=== PATIENT | female | born 1995 | race Caucasian/White ===

== ENCOUNTER 2016-03-22 13:24 | Emergency (ER) | payer MEDICAID ==
[~2016-03-22] VITALS: Ht 165.1 cm; Wt 57.2 kg
[~2016-03-22 13:24] MED LIST: ARPZ10T; ARPZ10T PO; BPR75T; CALC500T7 PO; CEFP250T2 PO; CEPH500C PO; DICY20TA57 PO; DIPH1TAB45 PO; ESCI5TAB; ESCT10T PO; FAMO20TA5 PO; FLC150T PO; Ibuprofen PO; LISD20CA PO; METH10TA8 PO; METH20TA; METR500T; METR500T PO; MTR250T PO; MULTI VITAMIN; NF-FLON16G; NF-VYVAN20; NF-VYVAN20 PO; NITR-65 PO; OMEP40CA36 PO; ONDA-42 PO; ONDA-42 SL; ONDAN4ODT PO; OSLT75C PO; PREN1TAB71 PO; SULF1TAB35 PO; SULF1TAB38 PO; TOPI15CA6 PO; TPR25T
[2016-03-22 14:01] LABS: RED BLOOD COUNT 3.62 10^6/uL (4.35-5.85); RED CELL DISTRIBUTION WIDTH 13.5 % (10.0-14.5); WHITE BLOOD COUNT 7.7 10^3/uL (4.3-11.0)
--- NOTE | 2016-03-22 15:22 | ED GU-Female ---
General Chief Complaint: -Female Stated Complaint: 19 WKS PREG/LEAKING FLUID/PELVIC DISCOMFORT Nursing Triage Note: PT REPORTS CLEAR/MILKY WHITE DISCHARGE SINCE THIS AM. SHE DENIES BLEEDING OR SPOTTING, BUT C/O MILD CRAMPING. SHE STATES SHE IS 19 WEEKS . Nursing Sepsis Screen: No Definite Risk Source: patient Exam Limitations: no limitations History of Present Illness Time seen by provider: 15:17 Initial Comments The patient is a 21-year-old white female who states that she is 19 weeks . She has been seeing a provider in [facility] [place]. She believed that her water broke this morning as she had at first clear fluid and then milky white fluid. This is her second however she had to be induced on the first and has no memory of the the water breaking. There is no pain or no fever. Timing/Duration: this morning Severity/Quality: mild Allergies and Home Medications Allergies Coded Allergies: No Known Drug Allergies (Unverified , 06/05/08) Home Medications Nitrofurantoin Monohyd/M-Cryst 100 Mg Capsule #20 1 TAB PO BID Prescribed by: CLAIRE TRAMMELL on 02/21/16 1355 Vit/Fe Fumarate/Fa 1 Each Tablet 1 EACH PO DAILY (Reported) Constitutional: see HPI EENTM: no symptoms reported Respiratory: no symptoms reported Cardiovascular: no symptoms reported Gastrointestinal: no symptoms reported Genitourinary: no symptoms reported Musculoskeletal: no symptoms reported Skin: no symptoms reported Psychiatric/Neurological: No Symptoms Reported Endocrine: No Symptoms Reported Hematologic/Lymphatic: No Symptoms Reported Past Jnserrk-Vnotcz-Mebvfy Hx Patient Social History Alcohol Use: Denies Use Recreational Drug Use: No (MARIJUANA) Smoking Status: Never a Smoker Recent Foreign Travel: No Contact w/Someone Who Travel: No Recent Infectious Disease Expo: No Recent Hopitalizations: No Physical Abuse Screen: No Sexual Abuse: No Seasonal Allergies Seasonal Allergies: No Surgeries HX Surgeries: Yes Surgeries: Tonsillectomy Respiratory Hx Respiratory Disorders: No Cardiovascular Hx Cardiac Disorders: No Neurological Hx Neurological Disorders: No Reproductive System Hx Reproductive Disorders: No Sexually Transmitted Disease: No HIV/AIDS: No Female Reproductive Disorders: Denies Genitourinary Hx Genitourinary Disorders: No Gastrointestinal Hx Gastrointestinal Disorders: No Musculoskeletal Hx Musculoskeletal Disorders: No Endocrine Hx Endocrine Disorders: No HEENT HX ENT Disorders: No Cancer Hx Cancer: No Psychosocial Hx Psychiatric Problems: No Integumentary HX Skin/Integumentary Disorder: No Blood Transfusions Hx Blood Disorders: No Adverse Reaction to a Blood Tr: No Family Medical History Family Medial History: Alcoholism 19 FATHER (PGF) No Family History of: Abdominal aortic aneurysm [place]'s disease Aphasia Cancer Cancer of colon Cataract Chest pain Congenital heart disease Congestive heart failure Cystic fibrosis Dementia Dysphagia Family history: Allergy Family history: Alzheimer's disease Family history: Arthritis Family history: Asthma Family history: Breast disease Family history: Cardiovascular disease Family history: Coronary thrombosis Family history: Diabetes mellitus Family history: Gastrointestinal disease Family history: Glaucoma Family history: Hypertension Family history: Osteoporosis Family history: Thyroid disorder Headache Hearing loss Heart disease Hereditary disease History of - anemia History of - disorder History of - respiratory disease History of drug abuse Human immunodeficiency virus (HIV) seropositivity Hypercholesterolemia Infertile Kidney disease Malignant neoplasm of lung Myocardial infarction Parkinson's disease Prostate cancer Psychotic disorder Seizure disorder Stroke Tuberculosis Visual impairment Physical Exam Vital Signs Vital Sign - Last 12Hours 03/22/16 13:35 Temp 96.8 Pulse 73 Resp 16 B/P 114/68 Pulse Ox 98 O2 Delivery Room Air Capillary Refill : Less Than 3 Seconds General Appearance: WD/WN no apparent distress HEENT: normal ENT inspection Neck: full range of motion Respiratory: chest non-tender lungs clear normal breath sounds no respiratory distress no accessory muscle use respiratory distress Gastrointestinal: other (the uterus was at approximately the umbilicus.) Pelvic: other ( cervix was large and soft.) Back: normal inspection no CVA tenderness no vertebral tenderness CVA tenderness (R) CVA tenderness (L) Extremities: normal range of motion non-tender normal inspection no pedal edema no calf tenderness normal capillary refill pelvis stable Progress/Results/Core Measures Results/Orders Lab Results Laboratory Tests Test 03/22/16 13:45 Range/Units Hematocrit 32 L 35-52 % Hemoglobin 10.6 L 11.5-16.0 G/DL Human Chorionic Gonadotropin, Quant 16164 H <5 MIU/ML Mean Corpuscular Hemoglobin 29 25-34 PG Mean Corpuscular Hemoglobin Concent 33 32-36 G/DL Mean Corpuscular Volume 88 80-99 FL Mean Platelet Volume 10.0 7.4-10.4 FL Platelet Count 246 130-400 10^3/uL Red Blood Count 3.62 L 4.35-5.85 10^6/uL Red Cell Distribution Width 13.5 10.0-14.5 % White Blood Count 7.7 4.3-11.0 10^3/uL My Orders Orders-CLAIRE TRAMMELL MD Cbc No Diff (03/22/16 13:38) Hcg,Quantitative (03/22/16 13:38) Us Ob Preg Late(14-40wks)67959 (03/22/16 13:38) Vital Signs/I&O Vital Sign - Last 12Hours 03/22/16 13:35 Temp 96.8 Pulse 73 Resp 16 B/P 114/68 Pulse Ox 98 O2 Delivery Room Air Blood Pressure Mean: 83 Departure Communication Progress Notes The sonography tech reported that the crown-rump measurements were compatible with 19 weeks 5 days . The hCG measurement was 18,000+ and can be used for future reference. heart rate was in range. The amnio test swab was rated at between 7.0 and 7.5 pH by both nurse duenas and Yuli. These materials were supplied to the patient to share with her OB provider Impression Impression: Primary Impression: Vaginal discharge during in second trimester Disposition: 01 HOME, SELF-CARE Condition: Stable/Unchanged Departure-Patient Inst. Decision time for Depature: 15:37 Referrals: NO,LOCAL PHYSICIAN (PCP) Primary Care Physician Add. Discharge Instructions: All discharge instructions reviewed with patient and/or family. Voiced understanding. Get appointment to see your provider early next week. Take the materials provided you to the provider. If change in pain or level of discharge return to ER CLAIRE TRAMMELL MD Mar 22, 2016 15:21
--- NOTE | 2016-03-22 15:30 | Diagnostic Imaging Report ---
INDICATION: Leaking fluid. TECHNIQUE: Multiple real time gtz scale sonographic images were obtained of the gravid uterus transabdominally. CORRELATION STUDY: None FINDINGS: Limited obstetrical sonogram imaging demonstrates intrauterine in a cephalic presentation. Normal amount of amniotic fluid with an index at 13 cm. The placenta is anterior without evidence for previa. cardiac activity 140 beats per minute. anatomical evaluation not performed. Biometrical growth parameters demonstrate estimated age of 19 weeks 5 days for an estimated date of delivery August 11, 2016. IMPRESSION: 1.Limited obstetrical sonogram imaging demonstrates intrauterine currently in a cephalic presentation. Currently, normal amount of amniotic fluid is present. Dictated by: Dictated on workstation # [id number]
[2016-03-22 15:45] VITALS: BP 114/68
== END 2016-03-22 15:45 | disposition home or self-care (01) ==
LOC: EDUNIT# 13:24 → ER 13:28
DX: N89.8 Other specified noninflammatory disorders of vagina (principal); Z3A.19 19 weeks gestation of pregnancy
CPT/HCPCS: 36415; 76805; 84702; 85027; 99284

== ENCOUNTER 2016-03-23 12:20 | Outpatient (CLI) | payer MEDICAID ==
[~2016-03-23] VITALS: Ht 165.1 cm; Wt 56.7 kg
[2016-03-23 12:29] VITALS: BP 117/77
[2016-03-23] MEDS ORDERED: FLU TRIvalent (5 YOA+) 2016-17 (AFLURIA) 0.5 ML IM ONE (15:15)
--- NOTE | 2016-03-24 09:58 | Physician Query-Final Dx ---
EDJON LOPEZ 03/24/16 0958: Clinic Account Progress/Dx Physician Query: Please give diagnosis Date of Service Mar 23, 2016 at 12:20 KAI ROQUE MD 03/24/16 1359: Clinic Account Progress/Dx DIAGNOSIS: Diagnosis false labor JOHN,DEJON Mar 24, 2016 09:58 KAI ROQUE MD Mar 24, 2016 13:59
== END 2016-03-23 13:20 | disposition home or self-care (01) ==
LOC: WSo 12:20 → LDRP 12:20 → WSo 13:20
PROVIDERS: ATTEND Obstetrics & Gynecology
DX: O47.02 False labor before 37 completed weeks of gestation, second trimester (principal); Z3A.19 19 weeks gestation of pregnancy
CPT/HCPCS: 99214

== ENCOUNTER 2016-04-25 11:56 | Outpatient (CLI) | payer MEDICAID ==
[~2016-04-25] VITALS: Ht 165.1 cm; Wt 66.7 kg
--- OUTSIDE RECORDS SUMMARY | 2016-04-25 12:01 | XMS REPORT | Continuity of Care Document ---
Author Author [facility] Organization [facility] Address Unknown Phone Unavailable Allergies Active Description Code Type Severity Reaction Onset Reported/Identified Relationship to Patient Clinical Status Yes No Known Drug Allergies [id number] Drug Allergy Mild N/A 06/05/2008 Medications Problems Date Dx Coded Attending Type Code Diagnosis Diagnosed By 11/29/2008 V05.8 GARDASIL 11/29/2008 BREA IVEY APRN V05.8 GARDASIL 11/29/2008 V05.8 GARDASIL 11/29/2008 V05.8 GARDASIL 11/29/2008 GUANACOCORTES EVERETT APRN A V05.8 GARDASIL 11/29/2008 GUANACOCORTES EVERETT APRN V05.8 GARDASIL 11/29/2008 VAZ DO, ZHEN K V05.8 GARDASIL 11/29/2008 VAZ DO, HZEN K V05.8 GARDASIL 11/29/2008 VAZ DO, ZHEN K V05.8 GARDASIL 11/29/2008 VAZ DO, ZHEN K V05.8 GARDASIL 11/29/2008 VAZ DO, ZHEN K V05.8 GARDASIL 11/29/2008 VAZ DO, ZHEN K V05.8 GARDASIL 11/29/2008 VAZ DO, ZHEN K V05.8 GARDASIL 11/29/2008 VAZ DO, ZHEN K V05.8 GARDASIL 11/29/2008 VAZ DO, ZHEN K V05.8 GARDASIL 11/29/2008 VAZ DO, ZHEN K V05.8 GARDASIL 11/29/2008 VAZ DO, ZHEN K V05.8 GARDASIL 02/27/2009 V05.4 VARICELLA, CHICKENPOX 02/27/2009 BREA IVEY APRN V05.4 VARICELLA, CHICKENPOX 02/27/2009 V05.4 VARICELLA, CHICKENPOX 02/27/2009 V05.4 VARICELLA, CHICKENPOX 02/27/2009 CORTES BLANC APRN A V05.4 VARICELLA, CHICKENPOX 02/27/2009 CORTES BLANC APRN A V05.4 VARICELLA, CHICKENPOX 02/27/2009 VAZ DO, ZHEN K V05.4 VARICELLA, CHICKENPOX 02/27/2009 VAZ DO, ZHEN K V05.4 VARICELLA, CHICKENPOX 02/27/2009 VAZ DO, ZHEN K V05.4 VARICELLA, CHICKENPOX 02/27/2009 VAZ DO, ZHEN K V05.4 VARICELLA, CHICKENPOX 02/27/2009 VAZ DO, ZEHN K V05.4 VARICELLA, CHICKENPOX 02/27/2009 VAZ DO, ZHEN K V05.4 VARICELLA, CHICKENPOX 02/27/2009 VAZ DO, ZHEN K V05.4 VARICELLA, CHICKENPOX 02/27/2009 VAZ DO, ZHEN K V05.4 VARICELLA, CHICKENPOX 02/27/2009 VAZ DO, ZHEN K V05.4 VARICELLA, CHICKENPOX 02/27/2009 VAZ DO, ZHEN K V05.4 VARICELLA, CHICKENPOX 02/27/2009 VAZ DO, ZHEN K V05.4 VARICELLA, CHICKENPOX 10/06/2010 Ot 789.00 ABDOMINAL PAIN, UNSPECIFIED SITE 12/15/2010 Ot 599.0 URIN TRACT INFECTION NOS 12/15/2010 Ot 789.07 ABDOMINAL PAIN, GENERALIZED 01/07/2011 296.90 MOOD DISORDER 01/07/2011 780.79 MALAISE AND FATIGUE 01/07/2011 V25.9 CONTRACEPTION MANAGEMENT 01/07/2011 BREA IVEY APRN S 296.90 MOOD DISORDER 01/07/2011 BREA IVEY APRN S 780.79 MALAISE AND FATIGUE 01/07/2011 BREA IVEY APRN S V25.9 CONTRACEPTION MANAGEMENT 01/07/2011 296.90 MOOD DISORDER 01/07/2011 780.79 MALAISE AND FATIGUE 01/07/2011 V25.9 CONTRACEPTION MANAGEMENT 01/07/2011 296.90 MOOD DISORDER 01/07/2011 780.79 MALAISE AND FATIGUE 01/07/2011 V25.9 CONTRACEPTION MANAGEMENT 01/07/2011 CORTES BLANC APRN A 296.90 MOOD DISORDER 01/07/2011 GUANACO INSURANCE SALESPERSON, CORTES A 780.79 MALAISE AND FATIGUE 01/07/2011 GUANACO BONDN, CORTES A V25.9 CONTRACEPTION MANAGEMENT 01/07/2011 GUANACO PEREZ, CORTES A 296.90 MOOD DISORDER 01/07/2011 GUANACO PEREZ, CORTES A 780.79 MALAISE AND FATIGUE 01/07/2011 GUANACO PEREZ, CORTES A V25.9 CONTRACEPTION MANAGEMENT 01/07/2011 VAZ DO, ZHEN K 296.90 MOOD DISORDER 01/07/2011 VAZ DO, ZHEN K 780.79 MALAISE AND FATIGUE 01/07/2011 VAZ DO, ZHEN K V25.9 CONTRACEPTION MANAGEMENT 01/07/2011 VAZ DO, ZHEN K 296.90 MOOD DISORDER 01/07/2011 VAZ DO, ZHEN K 780.79 MALAISE AND FATIGUE 01/07/2011 VAZ DO, ZHEN K V25.9 CONTRACEPTION MANAGEMENT 01/07/2011 VAZ DO, ZHEN K 296.90 MOOD DISORDER 01/07/2011 VAZ DO, ZHEN K 780.79 MALAISE AND FATIGUE 01/07/2011 VAZ DO, ZHEN K V25.9 CONTRACEPTION MANAGEMENT 01/07/2011 VAZ DO, ZHEN K 296.90 MOOD DISORDER 01/07/2011 VAZ DO, ZHEN K 780.79 MALAISE AND FATIGUE 01/07/2011 VAZ DO, ZHEN K V25.9 CONTRACEPTION MANAGEMENT 01/07/2011 VAZ DO, ZHEN K 296.90 MOOD DISORDER 01/07/2011 VAZ DO, ZHEN K 780.79 MALAISE AND FATIGUE 01/07/2011 VAZ DO, ZHEN K V25.9 CONTRACEPTION MANAGEMENT 01/07/2011 VAZ DO, ZHEN K 296.90 MOOD DISORDER 01/07/2011 VAZ DO, ZHEN K 780.79 MALAISE AND FATIGUE 01/07/2011 VAZ DO, ZHEN K V25.9 CONTRACEPTION MANAGEMENT 01/07/2011 VAZ DO, ZHEN K 296.90 MOOD DISORDER 01/07/2011 VAZ DO, ZHEN K 780.79 MALAISE AND FATIGUE 01/07/2011 VAZ DO, ZHEN K V25.9 CONTRACEPTION MANAGEMENT 01/07/2011 VAZ DO, ZHEN K 296.90 MOOD DISORDER 01/07/2011 VAZ DO, ZHEN K 780.79 MALAISE AND FATIGUE 01/07/2011 VAZ DO, ZHEN K V25.9 CONTRACEPTION MANAGEMENT 01/07/2011 VAZ DO, ZHEN K 296.90 MOOD DISORDER 01/07/2011 VAZ DO, ZHEN K 780.79 MALAISE AND FATIGUE 01/07/2011 VAZ DO, ZHEN K V25.9 CONTRACEPTION MANAGEMENT 01/07/2011 VAZ DO, ZHEN K 296.90 MOOD DISORDER 01/07/2011 VAZ DO, ZHEN K 780.79 MALAISE AND FATIGUE 01/07/2011 VAZ DO, ZHEN K V25.9 CONTRACEPTION MANAGEMENT 01/07/2011 VAZ DO, ZHEN K 296.90 MOOD DISORDER 01/07/2011 VAZ DO, ZHEN K 780.79 MALAISE AND FATIGUE 01/07/2011 VAZ DO, ZHEN K V25.9 CONTRACEPTION MANAGEMENT 01/10/2011 296.80 MO BIPOLAR NOS 01/10/2011 314.01 ADHD COMBINED 01/10/2011 UCHE BONDN BREA S 296.80 MO BIPOLAR NOS 01/10/2011 ROMARIO IVEY APRNNDA S 314.01 ADHD COMBINED 01/10/2011 296.80 MO BIPOLAR NOS 01/10/2011 314.01 ADHD COMBINED 01/10/2011 296.80 MO BIPOLAR NOS 01/10/2011 314.01 ADHD COMBINED 01/10/2011 GUANACO INSURANCE SALESPERSON, CORTES A 296.80 MO BIPOLAR NOS 01/10/2011 GUANACO INSURANCE SALESPERSON, CORTES A 314.01 ADHD COMBINED 01/10/2011 GUANACO INSURANCE SALESPERSON, CORTES A 296.80 MO BIPOLAR NOS 01/10/2011 GUANACO INSURANCE SALESPERSON, CORTES A 314.01 ADHD COMBINED 01/10/2011 VAZ DO, ZHEN K 296.80 MO BIPOLAR NOS 01/10/2011 VAZ DO, ZHEN K 314.01 ADHD COMBINED 01/10/2011 VAZ DO, ZHEN K 296.80 MO BIPOLAR NOS 01/10/2011 VAZ DO, ZHEN K 314.01 ADHD COMBINED 01/10/2011 VAZ DO, ZHEN K 296.80 MO BIPOLAR NOS 01/10/2011 VAZ DO, ZHEN K 314.01 ADHD COMBINED 01/10/2011 VAZ DO, ZHEN K 296.80 MO BIPOLAR NOS 01/10/2011 VAZ DO, ZHEN K 314.01 ADHD COMBINED 01/10/2011 VAZ DO, ZHEN K 296.80 MO BIPOLAR NOS 01/10/2011 VAZ DO, ZHEN K 314.01 ADHD COMBINED 01/10/2011 VAZ DO, ZHEN K 296.80 MO BIPOLAR NOS 01/10/2011 VAZ DO, ZHEN K 314.01 ADHD COMBINED 01/10/2011 VAZ DO, ZHEN K 296.80 MO BIPOLAR NOS 01/10/2011 VAZ DO, ZHEN K 314.01 ADHD COMBINED 01/10/2011 VAZ DO, ZHEN K 296.80 MO BIPOLAR NOS 01/10/2011 VAZ DO, ZHEN K 314.01 ADHD COMBINED 01/10/2011 VAZ DO, ZHEN K 296.80 MO BIPOLAR NOS 01/10/2011 VAZ DO, ZHEN K 314.01 ADHD COMBINED 01/10/2011 VAZ DO, ZHEN K 296.80 MO BIPOLAR NOS 01/10/2011 VAZ DO, ZHEN K 314.01 ADHD COMBINED 01/10/2011 VAZ DO, ZHEN K 296.80 MO BIPOLAR NOS 01/10/2011 VAZ DO, ZHEN K 314.01 ADHD COMBINED 01/28/2011 296.33 MO DEPRESSIVE RECURRENT SEVERE W/O PSYCHOTIC BEHAVIOR 01/28/2011 309.81 AN PTSD 01/28/2011 V58.69 MEDICATION HIGH RISK 01/28/2011 OH IVEY APRNA S 296.33 MO DEPRESSIVE RECURRENT SEVERE W/O PSYCHOTIC BEHAVIOR 01/28/2011 BREA IVEY APRN S 309.81 AN PTSD 01/28/2011 ROMARIO IVEY APRNNDA S V58.69 MEDICATION HIGH RISK 01/28/2011 296.33 MO DEPRESSIVE RECURRENT SEVERE W/O PSYCHOTIC BEHAVIOR 01/28/2011 309.81 AN PTSD 01/28/2011 V58.69 MEDICATION HIGH RISK 01/28/2011 296.33 MO DEPRESSIVE RECURRENT SEVERE W/O PSYCHOTIC BEHAVIOR 01/28/2011 309.81 AN PTSD 01/28/2011 V58.69 MEDICATION HIGH RISK 01/28/2011 STEPHANI BLANC APRNIDI A 296.33 MO DEPRESSIVE RECURRENT SEVERE W/O PSYCHOTIC BEHAVIOR 01/28/2011 STEPHANI BLANC APRNIDI A 309.81 AN PTSD 01/28/2011 STEPHANI BLANC APRNIDI A V58.69 MEDICATION HIGH RISK 01/28/2011 STEPHANI BLANC APRNIDI A 296.33 MO DEPRESSIVE RECURRENT SEVERE W/O PSYCHOTIC BEHAVIOR 01/28/2011 GUANACO INSURANCE SALESPERSON, CORTES A 309.81 AN PTSD 01/28/2011 GUANACO BONDN, CORTES A V58.69 MEDICATION HIGH RISK 01/28/2011 VAZ DO, ZHEN K 296.33 MO DEPRESSIVE RECURRENT SEVERE W/O PSYCHOTIC BEHAVIOR 01/28/2011 VAZ DO, ZHEN K 309.81 AN PTSD 01/28/2011 VAZ DO, ZHEN K V58.69 MEDICATION HIGH RISK 01/28/2011 VAZ DO, ZHEN K 296.33 MO DEPRESSIVE RECURRENT SEVERE W/O PSYCHOTIC BEHAVIOR 01/28/2011 VAZ DO, ZHEN K 309.81 AN PTSD 01/28/2011 VAZ DO, ZHEN K V58.69 MEDICATION HIGH RISK 01/28/2011 VAZ DO, ZHEN K 296.33 MO DEPRESSIVE RECURRENT SEVERE W/O PSYCHOTIC BEHAVIOR 01/28/2011 VAZ DO, ZHEN K 309.81 AN PTSD 01/28/2011 VAZ DO, ZHEN K V58.69 MEDICATION HIGH RISK 01/28/2011 VAZ DO, ZHEN K 296.33 MO DEPRESSIVE RECURRENT SEVERE W/O PSYCHOTIC BEHAVIOR 01/28/2011 VAZ DO, ZHEN K 309.81 AN PTSD 01/28/2011 VAZ DO, ZHEN K V58.69 MEDICATION HIGH RISK 01/28/2011 VAZ DO, ZHEN K 296.33 MO DEPRESSIVE RECURRENT SEVERE W/O PSYCHOTIC BEHAVIOR 01/28/2011 VAZ DO, ZHEN K 309.81 AN PTSD 01/28/2011 VAZ DO, ZHEN K V58.69 MEDICATION HIGH RISK 01/28/2011 VAZ DO, ZHEN K 296.33 MO DEPRESSIVE RECURRENT SEVERE W/O PSYCHOTIC BEHAVIOR 01/28/2011 VAZ DO, ZHEN K 309.81 AN PTSD 01/28/2011 VAZ DO, ZHEN K V58.69 MEDICATION HIGH RISK 01/28/2011 VAZ DO, ZHEN K 296.33 MO DEPRESSIVE RECURRENT SEVERE W/O PSYCHOTIC BEHAVIOR 01/28/2011 VAZ DO, ZHEN K 309.81 AN PTSD 01/28/2011 VAZ DO, ZHEN K V58.69 MEDICATION HIGH RISK 01/28/2011 VAZ DO, ZHEN K 296.33 MO DEPRESSIVE RECURRENT SEVERE W/O PSYCHOTIC BEHAVIOR 01/28/2011 VAZ DO, ZHEN K 309.81 AN PTSD 01/28/2011 VAZ DO, ZHEN K V58.69 MEDICATION HIGH RISK 01/28/2011 VAZ DO, ZHEN K 296.33 MO DEPRESSIVE RECURRENT SEVERE W/O PSYCHOTIC BEHAVIOR 01/28/2011 ZHEN VAZ DO K 309.81 AN PTSD 01/28/2011 ZHEN VAZ DO K V58.69 MEDICATION HIGH RISK 01/28/2011 ZHEN VAZ DO K 296.33 MO DEPRESSIVE RECURRENT SEVERE W/O PSYCHOTIC BEHAVIOR 01/28/2011 CED VAZ DOA K 309.81 AN PTSD 01/28/2011 ZHEN VAZ DO K V58.69 MEDICATION HIGH RISK 01/28/2011 ZHEN VAZ DO K 296.33 MO DEPRESSIVE RECURRENT SEVERE W/O PSYCHOTIC BEHAVIOR 01/28/2011 CED VAZ DOA K 309.81 AN PTSD 01/28/2011 ZHEN VAZ DO K V58.69 MEDICATION HIGH RISK 03/04/2011 789.09 ABDOMINAL PAIN OTHER SPECIFIED SITE 03/04/2011 V04.89 GARDASIL (HPV) DX 03/04/2011 V25.01 CONTRACEPTION - ORAL CONTRACEPTION 03/04/2011 V65.45 STD COUNSELING 03/04/2011 V74.5 STD SCREEN 03/04/2011 BREA IVEY APRN 789.09 ABDOMINAL PAIN OTHER SPECIFIED SITE 03/04/2011 BREA IVEY APRN V04.89 GARDASIL (HPV) DX 03/04/2011 BREA IVEY APRN V25.01 CONTRACEPTION - ORAL CONTRACEPTION 03/04/2011 BREA IVEY APRN V65.45 STD COUNSELING 03/04/2011 BREA IVEY APRN V74.5 STD SCREEN 03/04/2011 789.09 ABDOMINAL PAIN OTHER SPECIFIED SITE 03/04/2011 V04.89 GARDASIL (HPV) DX 03/04/2011 V25.01 CONTRACEPTION - ORAL CONTRACEPTION 03/04/2011 V65.45 STD COUNSELING 03/04/2011 V74.5 STD SCREEN 03/04/2011 789.09 ABDOMINAL PAIN OTHER SPECIFIED SITE 03/04/2011 V04.89 GARDASIL (HPV) DX 03/04/2011 V25.01 CONTRACEPTION - ORAL CONTRACEPTION 03/04/2011 V65.45 STD COUNSELING 03/04/2011 V74.5 STD SCREEN 03/04/2011 CORTES BLANC APRN 789.09 ABDOMINAL PAIN OTHER SPECIFIED SITE 03/04/2011 GUANACO INSURANCE SALESPERSON, CORTES A V04.89 GARDASIL (HPV) DX 03/04/2011 CORTES BLANC APRN A V25.01 CONTRACEPTION - ORAL CONTRACEPTION 03/04/2011 STEPHANI BLANC APRNIDI A V65.45 STD COUNSELING 03/04/2011 STEPHANI BLANC APRNIDI A V74.5 STD SCREEN 03/04/2011 CORTES BLANC APRN 789.09 ABDOMINAL PAIN OTHER SPECIFIED SITE 03/04/2011 STEPHANI BLANC APRNIDI A V04.89 GARDASIL (HPV) DX 03/04/2011 STEPHANI BLANC APRNIDI A V25.01 CONTRACEPTION - ORAL CONTRACEPTION 03/04/2011 STEPHANI BLANC APRNIDI A V65.45 STD COUNSELING 03/04/2011 STEPHANI BLANC APRNIDI A V74.5 STD SCREEN 03/04/2011 ZHEN VAZ DO 789.09 ABDOMINAL PAIN OTHER SPECIFIED SITE 03/04/2011 ZHEN VAZ DO V04.89 GARDASIL (HPV) DX 03/04/2011 MILIND ROSALES ZHEN K V25.01 CONTRACEPTION - ORAL CONTRACEPTION 03/04/2011 MILIND ROSALES ZHEN K V65.45 STD COUNSELING 03/04/2011 CED VAZ DOA K V74.5 STD SCREEN 03/04/2011 CED VAZ DOA Nestor 789.09 ABDOMINAL PAIN OTHER SPECIFIED SITE 03/04/2011 CED VAZ DOA K V04.89 GARDASIL (HPV) DX 03/04/2011 MILIND ROSALES ZHEN K V25.01 CONTRACEPTION - ORAL CONTRACEPTION 03/04/2011 MILIND ROSALES ZHEN K V65.45 STD COUNSELING 03/04/2011 MILIND ROSALES ZHEN K V74.5 STD SCREEN 03/04/2011 CED VAZ DOA K 789.09 ABDOMINAL PAIN OTHER SPECIFIED SITE 03/04/2011 VAZ DO ZHEN K V04.89 GARDASIL (HPV) DX 03/04/2011 VAZ DO ZHEN K V25.01 CONTRACEPTION - ORAL CONTRACEPTION 03/04/2011 VAZ DO ZHEN K V65.45 STD COUNSELING 03/04/2011 VAZ DO ZHEN K V74.5 STD SCREEN 03/04/2011 VAZ DOCEDA K 789.09 ABDOMINAL PAIN OTHER SPECIFIED SITE 03/04/2011 VAZ DO, ZHEN K V04.89 GARDASIL (HPV) DX 03/04/2011 VAZ DO ZHEN K V25.01 CONTRACEPTION - ORAL CONTRACEPTION 03/04/2011 VAZ DOCEDA K V65.45 STD COUNSELING 03/04/2011 VAZ DO ZHEN K V74.5 STD SCREEN 03/04/2011 VAZ DOZHEN K 789.09 ABDOMINAL PAIN OTHER SPECIFIED SITE 03/04/2011 VAZ DOCEDA K V04.89 GARDASIL (HPV) DX 03/04/2011 VAZ DO ZHEN K V25.01 CONTRACEPTION - ORAL CONTRACEPTION 03/04/2011 VAZ DOCEDA K V65.45 STD COUNSELING 03/04/2011 VAZ DOCEDA K V74.5 STD SCREEN 03/04/2011 VAZ DOZHEN K 789.09 ABDOMINAL PAIN OTHER SPECIFIED SITE 03/04/2011 VAZ DOCEDA K V04.89 GARDASIL (HPV) DX 03/04/2011 VAZ DOCEDA K V25.01 CONTRACEPTION - ORAL CONTRACEPTION 03/04/2011 VAZ DOCEDA K V65.45 STD COUNSELING 03/04/2011 VAZ DOCEDA K V74.5 STD SCREEN 03/04/2011 VAZ DOZHEN K 789.09 ABDOMINAL PAIN OTHER SPECIFIED SITE 03/04/2011 CED VAZ DOA K V04.89 GARDASIL (HPV) DX 03/04/2011 VAZ DOCEDA K V25.01 CONTRACEPTION - ORAL CONTRACEPTION 03/04/2011 VAZ DOCEDA K V65.45 STD COUNSELING 03/04/2011 VAZ DOCEDA K V74.5 STD SCREEN 03/04/2011 ZHEN VAZ DO 789.09 ABDOMINAL PAIN OTHER SPECIFIED SITE 03/04/2011 VAZ DOCEDA K V04.89 GARDASIL (HPV) DX 03/04/2011 VAZ DO ZHEN K V25.01 CONTRACEPTION - ORAL CONTRACEPTION 03/04/2011 VAZ DO ZHEN K V65.45 STD COUNSELING 03/04/2011 VAZ DO HZEN K V74.5 STD SCREEN 03/04/2011 VAZ DOCEDA K 789.09 ABDOMINAL PAIN OTHER SPECIFIED SITE 03/04/2011 VAZ DOCEDA K V04.89 GARDASIL (HPV) DX 03/04/2011 VAZ DO, ZHEN K V25.01 CONTRACEPTION - ORAL CONTRACEPTION 03/04/2011 CED VAZ DOA K V65.45 STD COUNSELING 03/04/2011 ZHEN VAZ DO K V74.5 STD SCREEN 03/04/2011 ZHEN VAZ DO K 789.09 ABDOMINAL PAIN OTHER SPECIFIED SITE 03/04/2011 ZHEN VAZ DO K V04.89 GARDASIL (HPV) DX 03/04/2011 CED VAZ DOA K V25.01 CONTRACEPTION - ORAL CONTRACEPTION 03/04/2011 CED VAZ DOA K V65.45 STD COUNSELING 03/04/2011 VAZ DO ZHEN K V74.5 STD SCREEN 03/04/2011 VAZ CED ROSALESA K 789.09 ABDOMINAL PAIN OTHER SPECIFIED SITE 03/04/2011 CED VAZ DOA K V04.89 GARDASIL (HPV) DX 03/04/2011 CED VAZ DOA K V25.01 CONTRACEPTION - ORAL CONTRACEPTION 03/04/2011 CED VAZ DOA K V65.45 STD COUNSELING 03/04/2011 ZEHN VAZ DO K V74.5 STD SCREEN 03/25/2011 536.8 DYSPEPSIA 03/25/2011 V68.1 ISSUE OF REPEAT PRESCRIPTIONS 03/25/2011 BREA IVEY APRN S 536.8 DYSPEPSIA 03/25/2011 BREA IVEY APRN S V68.1 ISSUE OF REPEAT PRESCRIPTIONS 03/25/2011 536.8 DYSPEPSIA 03/25/2011 V68.1 ISSUE OF REPEAT PRESCRIPTIONS 03/25/2011 536.8 DYSPEPSIA 03/25/2011 V68.1 ISSUE OF REPEAT PRESCRIPTIONS 03/25/2011 CORTES BLANC APRN A 536.8 DYSPEPSIA 03/25/2011 CORTES BLANC APRN A V68.1 ISSUE OF REPEAT PRESCRIPTIONS 03/25/2011 CORTES BLANC APRN A 536.8 DYSPEPSIA 03/25/2011 CORTES BLANC APRN A V68.1 ISSUE OF REPEAT PRESCRIPTIONS 03/25/2011 ZHEN VAZ DO K 536.8 DYSPEPSIA 03/25/2011 CED VAZ DOA K V68.1 ISSUE OF REPEAT PRESCRIPTIONS 03/25/2011 ZHEN VAZ DO K 536.8 DYSPEPSIA 03/25/2011 VAZ DO, ZHEN K V68.1 ISSUE OF REPEAT PRESCRIPTIONS 03/25/2011 VAZ DO, ZHEN K 536.8 DYSPEPSIA 03/25/2011 VAZ DO, ZHEN K V68.1 ISSUE OF REPEAT PRESCRIPTIONS 03/25/2011 VAZ DO, ZHEN K 536.8 DYSPEPSIA 03/25/2011 VAZ DO, ZHEN K V68.1 ISSUE OF REPEAT PRESCRIPTIONS 03/25/2011 VAZ DO, ZHEN K 536.8 DYSPEPSIA 03/25/2011 VAZ DO, ZHEN K V68.1 ISSUE OF REPEAT PRESCRIPTIONS 03/25/2011 VAZ DO, ZHEN K 536.8 DYSPEPSIA 03/25/2011 VAZ DO, ZHEN K V68.1 ISSUE OF REPEAT PRESCRIPTIONS 03/25/2011 VAZ DO, ZHEN K 536.8 DYSPEPSIA 03/25/2011 VAZ DO, ZHEN K V68.1 ISSUE OF REPEAT PRESCRIPTIONS 03/25/2011 VAZ DO, ZHEN K 536.8 DYSPEPSIA 03/25/2011 VAZ DO, ZHEN K V68.1 ISSUE OF REPEAT PRESCRIPTIONS 03/25/2011 VAZ DO, ZHEN K 536.8 DYSPEPSIA 03/25/2011 VAZ DO, ZHEN K V68.1 ISSUE OF REPEAT PRESCRIPTIONS 03/25/2011 VAZ DO, ZHEN K 536.8 DYSPEPSIA 03/25/2011 VAZ DO, ZHEN K V68.1 ISSUE OF REPEAT PRESCRIPTIONS 03/25/2011 VAZ DO, ZHEN K 536.8 DYSPEPSIA 03/25/2011 VAZ DO, ZHEN K V68.1 ISSUE OF REPEAT PRESCRIPTIONS 03/16/2012 BREA IVEY APRN S 626.0 AMENORRHEA 03/16/2012 BREA IVEY APRN S V69.2 HIGH-RISK SEXUAL BEHAVIOR 03/16/2012 626.0 AMENORRHEA 03/16/2012 V69.2 HIGH-RISK SEXUAL BEHAVIOR 03/16/2012 626.0 AMENORRHEA 03/16/2012 V69.2 HIGH-RISK SEXUAL BEHAVIOR 03/16/2012 GUANACO PEREZ, CORTES A 626.0 AMENORRHEA 03/16/2012 GUANACO PEREZ, CORTES A V69.2 HIGH-RISK SEXUAL BEHAVIOR 03/16/2012 GUANACO PEREZ, CORTES A 626.0 AMENORRHEA 03/16/2012 GUANACO INSURANCE SALESPERSON, CORTES A V69.2 HIGH-RISK SEXUAL BEHAVIOR 03/16/2012 VAZ DO, ZHEN K 626.0 AMENORRHEA 03/16/2012 VAZ DO, ZHEN K V69.2 HIGH-RISK SEXUAL BEHAVIOR 03/16/2012 VAZ DO, ZHEN K 626.0 AMENORRHEA 03/16/2012 VAZ DO, ZHEN K V69.2 HIGH-RISK SEXUAL BEHAVIOR 03/16/2012 VAZ DO, ZHEN K 626.0 AMENORRHEA 03/16/2012 VAZ DO, ZHEN K V69.2 HIGH-RISK SEXUAL BEHAVIOR 03/16/2012 VAZ DO, ZHEN K 626.0 AMENORRHEA 03/16/2012 VAZ DO, ZHEN K V69.2 HIGH-RISK SEXUAL BEHAVIOR 03/16/2012 VAZ DO, ZHEN K 626.0 AMENORRHEA 03/16/2012 VAZ DO, ZHEN K V69.2 HIGH-RISK SEXUAL BEHAVIOR 03/16/2012 VAZ DO, ZHEN K 626.0 AMENORRHEA 03/16/2012 VAZ DO, ZHEN K V69.2 HIGH-RISK SEXUAL BEHAVIOR 03/16/2012 VAZ DO, ZHEN K 626.0 AMENORRHEA 03/16/2012 VAZ DO, ZHEN K V69.2 HIGH-RISK SEXUAL BEHAVIOR 03/16/2012 VAZ DO, ZHEN K 626.0 AMENORRHEA 03/16/2012 VAZ DO, ZHEN K V69.2 HIGH-RISK SEXUAL BEHAVIOR 03/16/2012 VAZ DO, ZHEN K 626.0 AMENORRHEA 03/16/2012 VAZ DO, ZHEN K V69.2 HIGH-RISK SEXUAL BEHAVIOR 03/16/2012 VAZ DO, ZHEN K 626.0 AMENORRHEA 03/16/2012 VAZ DO, ZHEN K V69.2 HIGH-RISK SEXUAL BEHAVIOR 03/16/2012 VAZ DO, ZHEN K 626.0 AMENORRHEA 03/16/2012 VAZ DO, ZHEN K V69.2 HIGH-RISK SEXUAL BEHAVIOR 08/16/2012 564.00 CONSTIPATION 08/16/2012 GUANACO INSURANCE SALESPERSON, CORTES A 564.00 CONSTIPATION 08/16/2012 GUANACO INSURANCE SALESPERSON, CORTES A 564.00 CONSTIPATION 08/16/2012 VAZ DO, ZHEN K 564.00 CONSTIPATION 08/16/2012 VAZ DO, ZHEN K 564.00 CONSTIPATION 08/16/2012 VAZ DO, ZHEN K 564.00 CONSTIPATION 08/16/2012 VAZ DO, ZHEN K 564.00 CONSTIPATION 08/16/2012 VAZ DO, ZHEN K 564.00 CONSTIPATION 08/16/2012 VAZ DO, ZHEN K 564.00 CONSTIPATION 08/16/2012 VAZ DO, ZHEN K 564.00 CONSTIPATION 08/16/2012 VAZ DO, ZHEN K 564.00 CONSTIPATION 08/16/2012 VAZ DO, ZHEN K 564.00 CONSTIPATION 08/16/2012 VAZ DO, ZHEN K 564.00 CONSTIPATION 08/16/2012 VAZ DO, ZHEN K 564.00 CONSTIPATION 09/06/2012 CORTES BLANC APRN A 682.2 CELLULITIS AND ABSCESS OF TRUNK 09/06/2012 CORTES BLANC APRN A 682.2 CELLULITIS AND ABSCESS OF TRUNK 09/06/2012 VAZ DO, ZHEN K 682.2 CELLULITIS AND ABSCESS OF TRUNK 09/06/2012 VAZ DO, ZHEN K 682.2 CELLULITIS AND ABSCESS OF TRUNK 09/06/2012 VAZ DO, ZHEN K 682.2 CELLULITIS AND ABSCESS OF TRUNK 09/06/2012 VAZ DO, ZHEN K 682.2 CELLULITIS AND ABSCESS OF TRUNK 09/06/2012 VAZ DO, ZHEN K 682.2 CELLULITIS AND ABSCESS OF TRUNK 09/06/2012 VAZ DO, ZHEN K 682.2 CELLULITIS AND ABSCESS OF TRUNK 09/06/2012 VAZ DO, ZHEN K 682.2 CELLULITIS AND ABSCESS OF TRUNK 09/06/2012 VAZ DO, ZHEN K 682.2 CELLULITIS AND ABSCESS OF TRUNK 09/06/2012 VAZ DO, ZHEN K 682.2 CELLULITIS AND ABSCESS OF TRUNK 09/06/2012 VAZ DO, ZHEN K 682.2 CELLULITIS AND ABSCESS OF TRUNK 09/06/2012 VAZ DO, ZHEN K 682.2 CELLULITIS AND ABSCESS OF TRUNK 12/01/2012 ANYA PUENTE, GERMAINE A Ot 789.09 ABDOMINAL PAIN, OTHER SPECIFIED SITE 01/14/2013 BLAIR BRITO DO Ot 305.20 CANNABIS ABUSE-UNSPEC 01/14/2013 BLAIR BRITO DO Ot 646.83 PREG COMPL NEC-ANTEPART 01/14/2013 BLAIR BRITO DO Ot 648.43 MENTAL DISORDER-ANTEPART 01/14/2013 BLAIR BRITO DO Ot 786.01 HYPERVENTILATION 03/07/2013 BLAIR BRITO DO Ot 462 ACUTE PHARYNGITIS 03/07/2013 BLAIR BRITO DO Ot 487.1 FLU W RESP MANIFEST NEC 03/07/2013 BLAIR BRITO DO Ot 648.93 OTH CURR COND-ANTEPARTUM 05/13/2013 FABRICE PAEZ APRN Ot 648.93 OTH CURR COND-ANTEPARTUM 05/13/2013 FABRICE PAEZ APRN Ot 881.01 OPEN WOUND OF ELBOW 05/13/2013 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 Ot E000.8 OTHER EXTERNAL CAUSE STATUS 05/13/2013 FABRICE PAEZ APRN Ot E029.9 OTHER ACTIVITY 05/13/2013 FABRICE PAEZ APRN Ot E849.[address] NEC 05/13/2013 FABRICE PAEZ APRN Ot E885.9 FALL FROM SLIPPING, TRIPPING, OR STUMBLI 05/15/2013 VADIM MILLER Ot V58.31 ENCOUNTER FOR CHANGE OR REMOVAL OF SURGI 05/26/2013 CLAIRE TRAMMELL MD Ot V58.32 ENCOUNTER FOR REMOVAL OF SUTURES 05/31/2013 ZHEN VAZ DO Ot 648.73 BONE DISORDER-ANTEPARTUM 05/31/2013 ZHEN VAZ DO Ot 648.93 OTH CURR COND-ANTEPARTUM 05/31/2013 ZHEN VAZ DO Ot 724.5 BACKACHE NOS 05/31/2013 ZHEN VAZ DO Ot 785.1 PALPITATIONS 05/31/2013 ZHEN VAZ DO Ot 786.59 CHEST PAIN NEC 05/31/2013 ZHEN VAZ DO Ot 789.00 ABDOMINAL PAIN, UNSPECIFIED SITE 06/13/2013 GUANACOCORTES Bernardo APRN A V06.1 TDAP DX 06/13/2013 CORTES BLANC APRN A V22.0 , NORMAL FIRST 06/13/2013 ZHEN VAZ DO V06.1 TDAP DX 06/13/2013 ZHEN VAZ DO V22.0 , NORMAL FIRST 06/13/2013 VAZ DO, ZHEN K V06.1 TDAP DX 06/13/2013 VAZ DO, ZHEN K V22.0 , NORMAL FIRST 06/13/2013 VAZ DO, ZHEN K V06.1 TDAP DX 06/13/2013 VAZ DO, ZHEN K V22.0 , NORMAL FIRST 06/13/2013 VAZ DO, ZHEN K V06.1 TDAP DX 06/13/2013 VAZ DO, ZHEN K V22.0 , NORMAL FIRST 06/13/2013 VAZ DO, ZHEN K V06.1 TDAP DX 06/13/2013 VAZ DO, ZHEN K V22.0 , NORMAL FIRST 06/13/2013 VAZ DO, ZHEN K V06.1 TDAP DX 06/13/2013 VAZ DO, ZHEN K V22.0 , NORMAL FIRST 06/13/2013 VAZ DO, ZHEN K V06.1 TDAP DX 06/13/2013 VAZ DO, ZHEN K V22.0 , NORMAL FIRST 06/13/2013 VAZ DO, ZHEN K V06.1 TDAP DX 06/13/2013 VAZ DO, ZHEN K V22.0 , NORMAL FIRST 06/13/2013 VAZ DO, ZHEN K V06.1 TDAP DX 06/13/2013 VAZ DO, ZHEN K V22.0 , NORMAL FIRST 06/13/2013 VAZ DO, ZHEN K V06.1 TDAP DX 06/13/2013 VAZ DO, ZHEN K V22.0 , NORMAL FIRST 06/13/2013 VAZ DO, ZHEN K V06.1 TDAP DX 06/13/2013 VAZ DO, ZHEN K V22.0 , NORMAL FIRST 07/26/2013 VAZ DOZHEN Ot 646.83 PREG COMPL NEC-ANTEPART 07/26/2013 ZHEN VAZ DO Ot 789.00 ABDOMINAL PAIN, UNSPECIFIED SITE 08/19/2013 ZHEN VAZ DO Ot 644.13 THREAT LABOR NEC-ANTEPAR 08/25/2013 ZHEN VAZ DO Ot 645.11 POST TERM PREG, DELIV W/WO MENTION OF AN 08/25/2013 ZHEN VAZ DO Ot 659.71 ABN DEL FET HT RT/RHYTHM,W OR W/O MENTIO 08/25/2013 ZHEN VAZ DO Ot 664.01 DEL W 1 DEG LACERAT-DEL 08/25/2013 MILIND ROSALESZHEN Ot V27.0 DELIVER-SINGLE LIVEBORN 11/18/2013 MILIND ROSALESZHEN V25.01 GENERAL COUNSELING ON PRESCRIPTION OF ORAL CONTRACEPTIVES 11/18/2013 MILIND ROSALESZHEN V25.01 GENERAL COUNSELING ON PRESCRIPTION OF ORAL CONTRACEPTIVES 12/06/2013 VAZ ZHEN ROSALES V25.09 CONTRACEPTIVE COUNSELING - GENERAL 12/10/2013 KENYA FREEMAN DO Ot 535.40 OTH SPECIFIED GASTRITIS,W/O MENTION OF H 12/10/2013 KENYA FREEMAN DO Ot 599.0 URIN TRACT INFECTION NOS 12/10/2013 KENYA FREEMAN DO Ot 965.4 POIS-AROM ANALGESICS NEC 12/10/2013 KENYA FREEMAN DO Ot 965.61 POIS-PROPIONIC ACID DERIVATIVES 12/10/2013 EKNYA FREEMAN DO Ot E850.4 ACC POISON-AROM ANALGESC 12/10/2013 KENYA FREEMAN DO Ot E850.6 ACC POISON-ANTIRHEUMATIC 02/21/2016 KIM PÉREZ MD Ot 649.63 UTERINE SIZE DATE DISCREPANCY, ANTEPARTU 02/21/2016 KIM PÉREZ MD Ot V28.81 ENCOUNTER FOR ANATOMIC SURVEY 02/21/2016 ZHEN VAZ DO Ot V89.02 SUSPECTED PLACENTAL PROBLEM NOT FOUND 02/21/2016 CLAIRE TRAMMELL MD Ot O23.41 UNSP INFCT OF URINARY TRACT IN 02/21/2016 CLAIRE TRAMMELL MD Ot R11.2 NAUSEA WITH VOMITING, UNSPECIFIED 02/21/2016 CLAIRE TRAMMELL MD Ot R42 DIZZINESS AND GIDDINESS 02/21/2016 CLAIRE TRAMMELL MD Ot Z3A.14 14 WEEKS GESTATION OF 02/21/2016 KIM PÉREZ MD Ot 649.63 UTERINE SIZE DATE DISCREPANCY, ANTEPARTU 02/21/2016 KIM PÉREZ MD Ot V28.81 ENCOUNTER FOR ANATOMIC SURVEY 02/21/2016 ZHEN VAZ DO Ot V89.02 SUSPECTED PLACENTAL PROBLEM NOT FOUND 02/22/2016 CLAIRE TRAMMELL MD Ot O23.41 UNSP INFCT OF URINARY TRACT IN 02/22/2016 CLAIRE TRAMMELL MD Ot R11.2 NAUSEA WITH VOMITING, UNSPECIFIED 02/22/2016 CLAIRE TRAMMELL MD Ot R42 DIZZINESS AND GIDDINESS 02/22/2016 CLAIRE TRAMMELL MD Ot Z3A.14 14 WEEKS GESTATION OF 03/22/2016 KIM PÉREZ MD Ot 649.63 UTERINE SIZE DATE DISCREPANCY, ANTEPARTU 03/22/2016 KIM PÉREZ MD Ot V28.81 ENCOUNTER FOR ANATOMIC SURVEY 03/22/2016 MILIND DO, ZHEN Nestor Ot V89.02 SUSPECTED PLACENTAL PROBLEM NOT FOUND 03/22/2016 CLAIRE TRAMMELL MD Ot N89.8 OTHER SPECIFIED NONINFLAMMATORY DISORDER 03/22/2016 CLAIRE TRAMMELL MD, Ot Z3A.19 19 WEEKS GESTATION OF 03/23/2016 KAI ROQUE MD Ot O47.02 FALSE LABOR BEFORE 37 COMPLETED WEEKS OF 03/23/2016 KAI ROQUE MD, Ot Z3A.19 19 WEEKS GESTATION OF 03/24/2016 CLAIRE TRAMMELL MD Ot N89.8 OTHER SPECIFIED NONINFLAMMATORY DISORDER 03/24/2016 CLAIRE TRAMMELL MD, Ot Z3A.19 19 WEEKS GESTATION OF Procedures Code Description [place] [address] URINE TEST (IN-HOUSE) 03/16/2012 28254 TRICHOMONAS (IN-HOUSE) 03/16/2012 32902 GC/CHLAM PROBE (STATE) 03/18/2012 52874 CULTURE UROGENITAL 03/18/2012 83507 URINE TEST (IN-HOUSE) 08/16/2012 25795 UA W/ CULTURE IF INDICATED 08/16/2012 10096 GC/CHLAM URINE (STATE) 08/18/2012 28825 UA OB DIP 2013 61539 UA OB DIP 2013 84397 UA OB DIP 2013 94839 US OB - FOLLOW UP 07/25/2013 43808 UA OB DIP 2013 07922 CULTURE GROUP B STREP VAG 07/27/2013 62998 UA OB DIP 2013 58098 UA OB DIP 2013 80528 UA OB DIP 2013 73.4 MEDICAL INDUCTION LABOR 08/22/2013 75.69 REPAIR OB LACERATION NEC 08/23/2013 GC/CHLAM GC/CHLAMYDIA PROBE/URINE 12/06/2013 Results Test Result Range Complete urinalysis with reflex to culture - 02/21/16 11:48 Urine color determination YELLOW NRG Urine clarity determination CLEAR NRG Urine pH measurement by test strip 7 5- 9 Specific gravity of urine by test strip 1.010 1.016-1.022 Urine protein assay by test strip, semi-quantitative NEGATIVE NEGATIVE Urine glucose detection by automated test strip NEGATIVE NEGATIVE Erythrocytes detection in urine sediment by light microscopy 1+ NEGATIVE Urine ketones detection by automated test strip NEGATIVE NEGATIVE Urine nitrite detection by test strip NEGATIVE NEGATIVE Urine total bilirubin detection by test strip NEGATIVE NEGATIVE Urine urobilinogen measurement by automated test strip (mass/volume) NORMAL NORMAL Urine leukocyte esterase detection by dipstick 3+ NEGATIVE Automated urine sediment erythrocyte count by microscopy (number/high power field) [HPF] NRG Automated urine sediment leukocyte count by microscopy (number/high power field ) [HPF] NRG Bacteria detection in urine sediment by light microscopy TRACE NRG Squamous epithelial cells detection in urine sediment by light microscopy 5-10 NRG Crystals detection in urine sediment by light microscopy NONE NRG Casts detection in urine sediment by light microscopy NONE NRG Mucus detection in urine sediment by light microscopy NEGATIVE NRG Complete urinalysis with reflex to culture YES NRG Bacterial urine culture - 02/21/16 11:48 Bacterial urine culture [id number] NRG COLONY COUNT 10,000/ML - 100,000/ML NRG Complete blood count (CBC) with automated white blood cell (WBC) differential - 02/21/16 13:00 Blood leukocytes automated count (number/volume) 7.0 10*3/ uL 4.3-11.0 Blood erythrocytes automated count (number/volume) 3.88 10*6 /uL 4.35-5.85 Venous blood hemoglobin measurement (mass/volume) 11.3 g/dL 11.5-16.0 Blood hematocrit (volume fraction) 33 % 35-52 Automated erythrocyte mean corpuscular volume 85 [foz_us] 80-99 Automated erythrocyte mean corpuscular hemoglobin (mass per erythrocyte) 29 pg 25-34 Automated erythrocyte mean corpuscular hemoglobin concentration measurement ( mass/volume) 34 g/dL 32-36 Automated erythrocyte distribution width ratio 13.1 % 10.0-14.5 Automated blood platelet count (count/volume) 218 10*3/uL 130-400 Automated blood platelet mean volume measurement 10.4 [foz_ us] 7.4-10.4 Automated blood neutrophils/100 leukocytes 73 % 42-75 Automated blood lymphocytes/100 leukocytes 22 % 12-44 Blood monocytes/100 leukocytes 5 % 0-12 Automated blood eosinophils/100 leukocytes 1 % 0-10 Automated blood basophils/100 leukocytes 0 % 0-10 Blood neutrophils automated count (number/volume) 5.0 10*3 1.8-7.8 Blood lymphocytes automated count (number/volume) 1.5 10*3 1.0-4.0 Blood monocytes automated count (number/volume) 0.3 10*3 0.0-1.0 Automated eosinophil count 0.1 10*3/uL 0.0-0.3 Automated blood basophil count (count/volume) 0.0 10*3/uL 0.0-0.1 Comprehensive metabolic panel - 02/21/16 13:00 Serum or plasma sodium measurement (moles/volume) 134 mmol/ L 135-145 Serum or plasma potassium measurement (moles/volume) 3.7 mmol/L 3.6-5.0 Serum or plasma chloride measurement (moles/volume) 105 mmol /L 98-107 Carbon dioxide 22 mmol/L 21-32 Serum or plasma anion gap determination (moles/volume) 7 mmol/L 5-14 Serum or plasma urea nitrogen measurement (mass/volume) 7 mg /dL 7-18 Serum or plasma creatinine measurement (mass/volume) 0.53 mg /dL 0.60-1.30 Serum or plasma urea nitrogen/creatinine mass ratio 13 NRG Serum or plasma creatinine measurement with calculation of estimated glomerular filtration rate > NRG Serum or plasma glucose measurement (mass/volume) 85 mg/dL 70-105 Serum or plasma calcium measurement (mass/volume) 8.5 mg/dL 8.5-10.1 Serum or plasma total bilirubin measurement (mass/volume) 0.2 mg/dL 0.1-1.0 Serum or plasma alkaline phosphatase measurement (enzymatic activity/volume) 37 U/L 40-136 Serum or plasma aspartate aminotransferase measurement (enzymatic activity/ volume) 13 U/L 5-34 Serum or plasma alanine aminotransferase measurement (enzymatic activity/volume ) 10 U/L 0-55 Serum or plasma protein measurement (mass/volume) 5.8 g/dL 6.4-8.2 Serum or plasma albumin measurement (mass/volume) 3.6 g/dL 3.2-4.5 Automated blood complete blood count (hemogram) panel - 03/22/16 13:45 Blood leukocytes automated count (number/volume) 7.7 10*3/ uL 4.3-11.0 Blood erythrocytes automated count (number/volume) 3.62 10*6 /uL 4.35-5.85 Venous blood hemoglobin measurement (mass/volume) 10.6 g/dL 11.5-16.0 Blood hematocrit (volume fraction) 32 % 35-52 Automated erythrocyte mean corpuscular volume 88 [foz_us] 80-99 Automated erythrocyte mean corpuscular hemoglobin (mass per erythrocyte) 29 pg 25-34 Automated erythrocyte mean corpuscular hemoglobin concentration measurement ( mass/volume) 33 g/dL 32-36 Automated erythrocyte distribution width ratio 13.5 % 10.0-14.5 Automated blood platelet count (count/volume) 246 10*3/uL 130-400 Automated blood platelet mean volume measurement 10.0 [foz_ us] 7.4-10.4 Serum or plasma choriogonadotropin measurement (units/volume) - 03/22/16 13:45 Serum or plasma choriogonadotropin measurement (units/volume) 06778 m[iU]/mL <5 Encounters ACCT No. Visit Date/Time Discharge Status Pt. Type Provider Facility Loc./Unit Complaint [id number] 06/02/2013 17:29:00 06/02/2013 23: 59:59 [facility] Outpatient Fredo Sanderson [id number] 05/17/2013 18:02:14 05/17/2013 23: 59:59 [facility] Outpatient Kenyetta Sam [id number] 05/16/2013 17:28:59 05/16/2013 23: 59:59 [facility] Outpatient Fredo Sanderson [id number] 04/14/2013 16:00:45 04/14/2013 23: 59:59 [facility] Outpatient Fredo Sanderson
[2016-04-25 12:11] VITALS: BP 115/76
[2016-04-25 13:45] VITALS: BP 115/76
--- NOTE | 2016-04-28 15:04 | Physician Query-Final Dx ---
DEJON LOPEZ 04/28/16 1503: Clinic Account Progress/Dx Physician Query: Please give diagnosis Date of Service Apr 25, 2016 at 11:56 KAI ROQUE MD 04/29/16 0822: Clinic Account Progress/Dx DIAGNOSIS: Diagnosis false labor DEJON LOPEZ Apr 28, 2016 15:03 KAI ROQUE MD Apr 29, 2016 08:22
== END 2016-04-25 13:45 | disposition home or self-care (01) ==
LOC: LDRP 11:56 → WSo 11:56
PROVIDERS: ATTEND Obstetrics & Gynecology
DX: O47.02 False labor before 37 completed weeks of gestation, second trimester (principal); Z3A.23 23 weeks gestation of pregnancy
CPT/HCPCS: 99213

== ENCOUNTER 2016-06-04 19:37 | Outpatient (CLI) | payer MEDICAID ==
[~2016-06-04] VITALS: Ht 165.1 cm; Wt 68.0 kg
[2016-06-04 19:56] VITALS: BP 136/76
[2016-06-04 20:10] LABS: BILIRUBIN,URINE NEGATIVE (NEGATIVE); KETONES,URINE NEGATIVE (NEGATIVE); LEUKOCYTE ESTERASE ,URINE 3+ (NEGATIVE); NITRITE,URINE NEGATIVE (NEGATIVE); PH,URINE 6 (5-9); PROTEIN,URINE NEGATIVE (NEGATIVE); UROBILINOGEN,URINE NORMAL (NORMAL)
[2016-06-04 20:24] LABS: WBC,URINE 25-50 /HPF
[2016-06-04] MEDS ORDERED: anti-depressant (20:25)
[2016-06-04 20:30] VITALS: BP 114/63
--- NOTE | 2016-06-05 14:51 | Physician Query-Final Dx ---
NIDIA JIMENEZ 06/05/16 1451: Clinic Account Progress/Dx Physician Query: Please give diagnosis Date of Service Jun 04, 2016 at 19:37 BRITTANI AVELAR MD 06/05/162051: Clinic Account Progress/Dx DIAGNOSIS: Diagnosis Third trimester Third trimester bleeding NIDIA JIMENEZ Jun 05, 2016 14:51 BRITTANI AVELAR MD Jun 05, 2016 20:52
== END 2016-06-04 20:55 | disposition home or self-care (01) ==
LOC: WSo 19:37 → LDRP 19:37 → WSo 20:55
PROVIDERS: ATTEND Family Medicine
DX: O46.93 Antepartum hemorrhage, unspecified, third trimester (principal)
CPT/HCPCS: 81000; 87088; 99212

== ENCOUNTER → 2016-06-05 | Outpatient (CLI) | payer MEDICAID ==
[~2016-06-05] MED LIST changes: +CEPH-507 PO; +SERT25TA PO; +anti-depressant
--- NOTE | 2016-06-05 16:05 | Diagnostic Imaging Report ---
INDICATION: survey. COMPARISON: 03/22/2016. DISCUSSION: Single live intrauterine at 31 weeks 4 days by sonographic measurements. Expected gestational age by the first ultrasound is 30 weeks 3 days. EDC by today's ultrasound is 08/03/2016. presentation is cephalic. Normal amniotic fluid index. Grade 1 placenta is located anteriorly with no placenta previa. heart rate measures 147 beats per minute. There is good visualization of the kidneys, bladder, stomach, brain, four-chamber heart, three-vessel cord and insertion, spine, and extremities. Biparietal diameter measures 7.9 cm. Head circumference measures 29 cm. Abdominal circumference measures 27.1 cm. Femur length measures 6 cm. gender is male. Estimated weight is 1726 g. IMPRESSION: 1. Single live intrauterine at 31 weeks 4 days by sonographic measurements. 2. Normal anatomical survey. Dictated by: Dictated on workstation # [id number]
== END ==
LOC: RAD 15:02
PROVIDERS: ATTEND Family Medicine
DX: Z34.83 Encounter for supervision of other normal pregnancy, third trimester (principal)
CPT/HCPCS: 76805

== ENCOUNTER 2016-06-30 12:48 | Outpatient (CLI) | payer MEDICAID ==
[~2016-06-30] VITALS: Ht 165.1 cm; Wt 69.9 kg
[~2016-06-30 12:48] MED LIST changes: -CEPH-507 PO; -SERT25TA PO
[2016-06-30 13:10] VITALS: BP 116/71
[2016-06-30] MEDS ORDERED: SERT25TA PO (13:40)
[2016-06-30 13:41] VITALS: BP 113/69
[2016-06-30 15:12] VITALS: BP 131/86
[2016-06-30 16:07] VITALS: BP 121/63
[2016-06-30] MEDS ORDERED: LACTATED RINGERS 1,000 ML IV SCH (16:15)
[2016-06-30] MEDS ORDERED: hydrOXYzine (VISTARIL) 25 MG CAP PO ONE (16:15)
[2016-06-30] MEDS ORDERED: BETAMETHASONE ACE/NA PHOS 6 MG/ML (CELESTONE SOLUSPAN) ONE (17:13)
[2016-06-30] MEDS: BETAMETHASONE ACE/NA PHOS 6 MG/ML (CELESTONE SOLUSPAN) IM SCH (17:23)
[2016-06-30] MEDS ORDERED: LACTATED RINGERS 1,000 ML IV ONE (17:30)
[2016-06-30] MEDS ORDERED: CATHETER FLUSH 10 ML SYR IV PRN (17:30)
[2016-06-30] MEDS: LACTATED RINGERS 1,000 ML IV SCH (17:57)
[2016-06-30 20:00] VITALS: BP 115/63
[2016-06-30] MEDS ORDERED: TERBUTALINE INJ 1 MG/ML (BRETHINE) AMP ONE (20:16)
[2016-06-30] MEDS ORDERED: ACETAMINOPHEN 500 MG TAB (TYLENOL) ONE (20:16)
[2016-06-30] MEDS: TERBUTALINE INJ 1 MG/ML (BRETHINE) AMP SC SCH (20:25)
[2016-06-30] MEDS ORDERED: ACETAMINOPHEN 500 MG TAB (TYLENOL) PO PRN (20:30)
[2016-06-30 20:45] LABS: BILIRUBIN,URINE NEGATIVE (NEGATIVE); KETONES,URINE NEGATIVE (NEGATIVE); LEUKOCYTE ESTERASE ,URINE 3+ (NEGATIVE); NITRITE,URINE NEGATIVE (NEGATIVE); PH,URINE 8 (5-9); PROTEIN,URINE NEGATIVE (NEGATIVE); UROBILINOGEN,URINE NORMAL (NORMAL)
[2016-06-30 20:51] LABS: ALANINE AMINOTRANSFERASE 8 U/L (0-55); ALBUMIN 3.1 G/DL (3.2-4.5); ANION GAP 9 MMOL/L (5-14); ASPARTATE AMINO TRANSFERASE 11 U/L (5-34); BASOPHILS % (AUTO) 0 % (0-10); BILIRUBIN,TOTAL 0.2 MG/DL (0.1-1.0); BLOOD UREA NITROGEN 4 MG/DL (7-18); BUN/CREATININE RATIO 7; CALCIUM 8.9 MG/DL (8.5-10.1); CARBON DIOXIDE 20 MMOL/L (21-32); CHLORIDE 111 MMOL/L (98-107); CREATININE SERUM 0.54 MG/DL (0.60-1.30); EOSINOPHILS % (AUTO) 1 % (0-10); GFR ESTIMATED > 60; GLUCOSE 105 MG/DL (70-105); LYMPHOCYTES # (AUTO) 0.8 X 10^3 (1.0-4.0); LYMPHOCYTES % (AUTO) 14 % (12-44); MEAN CORPUSCULAR HEMOGLOBIN 28 PG (25-34); MEAN CORPUSCULAR HGB CONC 32 G/DL (32-36); MEAN CORPUSCULAR VOLUME 86 FL (80-99); MONOCYTES # (AUTO) 0.2 X 10^3 (0.0-1.0); MONOCYTES % (AUTO) 3 % (0-12); NEUTROPHILS # (AUTO) 5.1 X 10^3 (1.8-7.8); NEUTROPHILS % (AUTO) 83 % (42-75); PLATELET COUNT 218 10^3/uL (130-400); POTASSIUM 3.5 MMOL/L (3.6-5.0); RED BLOOD COUNT 3.81 10^6/uL (4.35-5.85); RED CELL DISTRIBUTION WIDTH 13.9 % (10.0-14.5); SODIUM 140 MMOL/L (135-145); TOTAL PROTEIN 5.6 G/DL (6.4-8.2); WHITE BLOOD COUNT 6.2 10^3/uL (4.3-11.0)
[2016-06-30 20:57] LABS: SQUAMOUS EPITHELIAL CELL,UR 0-2 /HPF
[2016-06-30] MEDS ORDERED: cefTRIAXone 1 GM (ROCEPHIN) VIAL ONE (21:31)
[2016-06-30] MEDS ORDERED: NS (IVPB) 50 ML ONE (21:31)
[2016-06-30] MEDS ORDERED: cefTRIAXone INJECTION 1,000 MG in NS (IVPB) 50 ML IV ONE (21:45)
[2016-06-30 22:10] VITALS: BP 112/65
[2016-07-01] MEDS: LACTATED RINGERS 1,000 ML IV SCH (02:25)
[2016-07-01 03:16] VITALS: BP 112/62
[2016-07-01] MEDS: TERBUTALINE INJ 1 MG/ML (BRETHINE) AMP SC SCH (03:22)
[2016-07-01 06:30] VITALS: BP 125/73
[2016-07-01 07:50] VITALS: BP 121/67
[2016-07-01] MEDS: BETAMETHASONE ACE/NA PHOS 6 MG/ML (CELESTONE SOLUSPAN) IM SCH (13:52)
--- NOTE | 2016-07-01 20:40 | Short Stay Summary ---
HPI History of Present Illness: 21 yo @ 33 wga that was admitted to L&D for concerns of labor. Patient started having contractions at home that were a 7 in intensity per patient. She denies any ROM or bleeding. + FM. She did change her cervix from closed to 1 cm during observation. She was also having some urinary frequency w/o dysuria. h/o UTI during that was treated about 3 weeks ago. No intercourse. Source: patient, RN/MD Exam Limitations: no limitations Date seen by provider: July 01, 2016 Attending Physician Josephine Patrick MD PCP Brittani Guajardo MD Consult Date of Admission Home Medications Home Medications Reviewed patient Home Medication Reconciliation Form Allergies Coded Allergies: No Known Drug Allergies (Unverified , 06/05/08) PIT-Yagztm-Rfeggr Hx Patient Social History Living Status: Living with patient's father Smoking Status: Former Smoker Type Used: Cigarettes Recent Foreign Travel: No Contact w/other who traveled: No Recent Hopitalizations: No Recent Infectious Disease Expo: No Physical Abuse Screen: No Sexual Abuse: No Immunizations Up To Date Date of Influenza Vaccine: Jan 26, 2016 Past Medical History None Family Medical History Family History: Alcoholism 19 FATHER (PGF) No Family History of: Abdominal aortic aneurysm Chesterfield's disease Aphasia Cancer Cancer of colon Cataract Chest pain Congenital heart disease Congestive heart failure Cystic fibrosis Dementia Dysphagia Family history: Allergy Family history: Alzheimer's disease Family history: Arthritis Family history: Asthma Family history: Breast disease Family history: Cardiovascular disease Family history: Coronary thrombosis Family history: Diabetes mellitus Family history: Gastrointestinal disease Family history: Glaucoma Family history: Hypertension Family history: Osteoporosis Family history: Thyroid disorder Headache Hearing loss Heart disease Hereditary disease History of - anemia History of - disorder History of - respiratory disease History of drug abuse Human immunodeficiency virus (HIV) seropositivity Hypercholesterolemia Infertile Kidney disease Malignant neoplasm of lung Myocardial infarction Parkinson's disease Prostate cancer Psychotic disorder Seizure disorder Stroke Tuberculosis Visual impairment Review of Systems (CHC) Constitutional: No dizziness, No fever, malaise Respiratory: no symptoms reported, No cough, No dyspnea on exertion, No short of breath Cardiovascular: no symptoms reported, No chest pain, No edema, No palpitations Gastrointestinal: abdominal pain (with contractions), nausea, No vomiting Genitourinary: No dysuria, frequency, No hematuria : Yes Musculoskeletal: no symptoms reported Skin: no symptoms reported Psychiatric/Neurological: Emotional Problems (very stressed at home) Reviewed Test Results Reviewed Test Results Lab Laboratory Tests Test 06/30/16 20:25 06/30/16 20:30 Range/Units White Blood Count 6.2 4.3-11.0 10^3/uL Red Blood Count 3.81 L 4.35-5.85 10^6/uL Hemoglobin 10.5 L 11.5-16.0 G/DL Hematocrit 33 L 35-52 % Mean Corpuscular Volume 86 80-99 FL Mean Corpuscular Hemoglobin 28 25-34 PG Mean Corpuscular Hemoglobin Concent 32 32-36 G/DL Red Cell Distribution Width 13.9 10.0-14.5 % Platelet Count 218 130-400 10^3/uL Mean Platelet Volume 10.0 7.4-10.4 FL Neutrophils (%) (Auto) 83 H 42-75 % Lymphocytes (%) (Auto) 14 12-44 % Monocytes (%) (Auto) 3 0-12 % Eosinophils (%) (Auto) 1 0-10 % Basophils (%) (Auto) 0 0-10 % Neutrophils # (Auto) 5.1 1.8-7.8 X 10^3 Lymphocytes # (Auto) 0.8 L 1.0-4.0 X 10^3 Monocytes # (Auto) 0.2 0.0-1.0 X 10^3 Eosinophils # (Auto) 0.0 0.0-0.3 10^3/uL Basophils # (Auto) 0.0 0.0-0.1 10^3/uL Sodium Level 140 135-145 MMOL/L Potassium Level 3.5 L 3.6-5.0 MMOL/L Chloride Level 111 H 98-107 MMOL/L Carbon Dioxide Level 20 L 21-32 MMOL/L Anion Gap 9 5-14 MMOL/L Blood Urea Nitrogen 4 L 7-18 MG/DL Creatinine 0.54 L 0.60-1.30 MG/DL Estimat Glomerular Filtration Rate > 60 BUN/Creatinine Ratio 7 Glucose Level 105 70-105 MG/DL Calcium Level 8.9 8.5-10.1 MG/DL Total Bilirubin 0.2 0.1-1.0 MG/DL Aspartate Amino Transf (AST/SGOT) 11 5-34 U/L Alanine Aminotransferase (ALT/SGPT) 8 0-55 U/L Alkaline Phosphatase 113 40-136 U/L Total Protein 5.6 L 6.4-8.2 G/DL Albumin 3.1 L 3.2-4.5 G/DL Urine Color YELLOW Urine Clarity CLEAR Urine pH 8 5-9 Urine Specific [place] 1.010 L 1.016-1.022 Urine Protein NEGATIVE NEGATIVE Urine Glucose (UA) NEGATIVE NEGATIVE Urine Ketones NEGATIVE NEGATIVE Urine Nitrite NEGATIVE NEGATIVE Urine Bilirubin NEGATIVE NEGATIVE Urine Urobilinogen NORMAL NORMAL MG/DL Urine Leukocyte Esterase 3+ H NEGATIVE Urine RBC (Auto) NEGATIVE NEGATIVE Urine RBC NONE /HPF Urine WBC 5-10 H /HPF Urine Squamous Epithelial Cells 0-2 /HPF Urine Crystals NONE /LPF Urine Bacteria TRACE /HPF Urine Casts NONE /LPF Urine Mucus NEGATIVE /LPF Urine Culture Indicated YES Physical Exam-([facility]) Physical Exam Vital Signs VS - Last 72 Hours, by Label 06/30/16 06/30/16 06/30/16 06/30/16 13:10 13:41 15:12 16:07 Temp 97.8 97.2 Pulse 96 90 84 89 Resp 18 18 18 16 B/P (MAP) 116/71 113/69 131/86 121/63 Pulse Ox 98 100 O2 Delivery Room Air Room Air Room Air Room Air 06/30/16 06/30/16 07/01/16 07/01/16 20:00 22:10 03:16 06:30 Temp 97.9 97.1 Pulse 81 108 87 93 Resp 18 20 20 20 B/P (MAP) 115/63 112/65 112/62 125/73 O2 Delivery Room Air Room Air Room Air Room Air 07/01/16 07:50 Temp 96.8 Pulse 83 Resp 18 B/P (MAP) 121/67 O2 Delivery Room Air Capillary Refill : General Appearance: WD/WN, no apparent distress Neck: non-tender, supple Respiratory: chest non-tender, lungs clear, normal breath sounds, no respiratory distress, no accessory muscle use Cardiovascular: normal peripheral pulses, regular rate, rhythm, no edema, no murmur Gastrointestinal: normal bowel sounds, non tender, soft, no organomegaly, no pulsatile mass, other (gravid) Genital/Rectal: other (Cervical dilation 1cm, bloatable) Extremities: normal range of motion, non-tender, normal inspection, no pedal edema, no calf tenderness, normal capillary refill Neurologic/Psychiatric: 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-XII nml as tested, no motor/sensory deficits, alert, normal mood/affect, oriented x 3 Skin: normal color, warm/dry Lymphatic: no adenopathy Short Stay Diagnosis Discharge Diagnosis-Short Stay Admission Diagnosis 33 weeks gestation Third trimester Pre term contractions UTI Final Discharge Diagnosis See Above Conclusion Plan 21 yo F @ 33 wga contractions - She was given 3 doses of terb with cessation of contractions - IV and PO hydration - Observation for 10 hrs after last dose of terb w/o return of contractions - 2 doses of Betamethasone for lung maturity - Discussed with patient return precautions, encouraged her to make sure she stays well hydrated UTI - Rocephin x1, continue PO antibiotics for 4 more days Third Trimester preg - Will get you a follow up appt with Dr Guajardo tomorrow in clinic Copy Copies To 1: BRITTANI GUAJARDO MD, HOLLY R MD July 01, 2016 20:40
== END 2016-07-01 13:58 | disposition home or self-care (01) ==
LOC: LDRP 12:48 → WSo 12:48
PROVIDERS: ATTEND Family Medicine
DX: O60.03 Preterm labor without delivery, third trimester (principal); O23.43 Unspecified infection of urinary tract in pregnancy, third trimester; Z3A.33 33 weeks gestation of pregnancy
CPT/HCPCS: 36415; 80053; 81000; 85025; 87088; 96361; 96372; 96374

== ENCOUNTER 2016-07-03 19:39 | Outpatient (CLI) | payer MEDICAID ==
[~2016-07-03] VITALS: Ht 165.1 cm; Wt 72.6 kg
[~2016-07-03 19:39] MED LIST changes: +SERT25TA PO
[2016-07-03 19:53] VITALS: BP 116/69
[2016-07-03 20:12] LABS: BILIRUBIN,URINE NEGATIVE (NEGATIVE); KETONES,URINE NEGATIVE (NEGATIVE); LEUKOCYTE ESTERASE ,URINE 3+ (NEGATIVE); NITRITE,URINE NEGATIVE (NEGATIVE); PH,URINE 7 (5-9); PROTEIN,URINE NEGATIVE (NEGATIVE); UROBILINOGEN,URINE NORMAL (NORMAL)
[2016-07-03 20:20] LABS: WBC,URINE 50-100 /HPF
[2016-07-03] MEDS ORDERED: cefTRIAXone 1 GM (ROCEPHIN) VIAL IM ONE (20:30)
[2016-07-03] MEDS ORDERED: LIDOCAINE 1% INJ 20 ML (XYLOCAINE) VIAL INJ ONE (20:30)
[2016-07-03] MEDS ORDERED: LIDOCAINE PF 1% 5 ML (XYLOCAINE) AMP ONE ×2 (20:36→20:42)
[2016-07-03] MEDS ORDERED: CEPH-507 PO (21:41)
--- NOTE | 2016-07-04 20:06 | Physician Query-Final Dx ---
NIDIA JIMENEZ 07/04/16 2006: Clinic Account Progress/Dx Physician Query: Please give diagnosis Date of Service July 03, 2016 at 19:39 ELVIN PETERS MD 07/10/16 2158: Clinic Account Progress/Dx DIAGNOSIS: Diagnosis contractions UTI NIDIA JIMENEZ July 04, 2016 20:06 ELVIN PETERS MD July 10, 2016 21:58
== END 2016-07-03 21:50 | disposition home or self-care (01) ==
LOC: WSo 19:39 → LDRP 19:39 → WSo 21:50
PROVIDERS: ATTEND Family Medicine
DX: O60.03 Preterm labor without delivery, third trimester (principal); O23.93 Unspecified genitourinary tract infection in pregnancy, third trimester; Z3A.33 33 weeks gestation of pregnancy
CPT/HCPCS: 81000; 87088; 96372; 99213

== ENCOUNTER 2016-07-14 13:54 | Outpatient (CLI) | payer MEDICAID ==
[~2016-07-14] VITALS: Ht 165.1 cm; Wt 72.6 kg
[~2016-07-14 13:54] MED LIST changes: +CEPH-507 PO
[2016-07-14 14:18] VITALS: BP 108/66
--- NOTE | 2016-07-24 15:11 | Physician Query-Final Dx ---
DEJON LOPEZ 07/24/16 1511: Clinic Account Progress/Dx Physician Query: Please give diagnosis Date of Service July 14, 2016 at 13:54 BRITTANI AVELAR MD 07/25/16 2115: Clinic Account Progress/Dx DIAGNOSIS: Diagnosis contractions at 35 weeks gestation No cervical change DEJON LOPEZ Jul 24, 2016 15:11 BRITTANI AVELAR MD Jul 25, 2016 21:15
[2016-07-29] MEDS ORDERED: AMOX500T2 PO (15:35)
== END 2016-07-14 17:32 | disposition home or self-care (01) ==
LOC: WSo 13:54 → LDRP 13:54 → WSo 17:32
PROVIDERS: ATTEND Family Medicine
DX: O47.03 False labor before 37 completed weeks of gestation, third trimester (principal); Z3A.35 35 weeks gestation of pregnancy
CPT/HCPCS: 87210; 99214

== ENCOUNTER 2016-07-20 20:01 | Outpatient (CLI) | payer MEDICAID ==
[~2016-07-20] VITALS: Ht 165.1 cm; Wt 73.3 kg
[2016-07-20] MEDS ORDERED: LACTATED RINGERS 1,000 ML IV ONE (21:00)
--- NOTE | 2016-07-22 14:52 | Physician Query-Final Dx ---
DEJON LOPEZ 07/22/16 1452: Clinic Account Progress/Dx Physician Query: Please give diagnosis Date of Service July 20, 2016 at 20:01 KIM PÉREZ MD 07/30/16 0950: Clinic Account Progress/Dx DIAGNOSIS: Diagnosis 1. IUP at 37 weeks non labor 2. Membranes intact DEJON LOPEZ July 22, 2016 14:52 KIM PÉREZ MD Jul 30, 2016 09:50
== END 2016-07-20 21:51 | disposition home or self-care (01) ==
LOC: LDRP 20:01 → WSo 20:01
PROVIDERS: ATTEND Family Medicine
DX: O47.03 False labor before 37 completed weeks of gestation, third trimester (principal); Z3A.36 36 weeks gestation of pregnancy
CPT/HCPCS: 96360; 99214

== ENCOUNTER → 2016-07-24 | Outpatient (CLI) | payer MEDICAID ==
--- NOTE | 2016-07-24 16:38 | Diagnostic Imaging Report ---
OB ultrasound/biophysical profile. INDICATION: tachycardia. FINDINGS: heart rate is 138 beats per minute. presentation is cephalic. The placenta is anterior. Amniotic fluid index is 9.8 cm. The biophysical profile parameters are all met with total score of 8 out of 8. IMPRESSION: Total biophysical profile score is 8 out of 8. Dictated by: Dictated on workstation # [id number]
== END ==
LOC: RAD 15:36
PROVIDERS: ATTEND Family Medicine
DX: O26.93 Pregnancy related conditions, unspecified, third trimester (principal)
CPT/HCPCS: 76819

== ENCOUNTER 2016-07-26 17:54 | Outpatient (CLI) | payer MEDICAID ==
[~2016-07-26] VITALS: Ht 165.1 cm; Wt 73.2 kg
[2016-07-26 18:15] VITALS: BP 114/63
[2016-07-26 20:01] LABS: BILIRUBIN,URINE NEGATIVE (NEGATIVE); KETONES,URINE 3+ (NEGATIVE); LEUKOCYTE ESTERASE ,URINE 3+ (NEGATIVE); NITRITE,URINE NEGATIVE (NEGATIVE); PH,URINE 6 (5-9); PROTEIN,URINE 1+ (NEGATIVE); UROBILINOGEN,URINE 1 MG/DL (NORMAL)
[2016-07-26 20:10] LABS: WBC,URINE TNTC /HPF
[2016-07-26 20:11] LABS: CALCIUM OXALATE CRYSTALS,UR FEW /LPF
[2016-07-26] MEDS ORDERED: NS IV 1000 ML 1,000 ML ONE (20:16)
[2016-07-26 20:30] VITALS: BP 111/59
[2016-07-26] MEDS ORDERED: NS IV 1000 ML 1,000 ML IV ONE (20:45)
[2016-07-26] MEDS ORDERED: ACETAMINOPHEN 500 MG TAB (TYLENOL) PO ONE (21:15)
[2016-07-26] MEDS ORDERED: ONDANSETRON 8 MG (ZOFRAN) ORAL DISSOLVE TAB PO PRN (21:15)
[2016-07-26] MEDS ORDERED: AMOXICILLIN 500 MG (POLYMOX) CAP PO ONE (21:21)
[2016-07-27] MEDS ORDERED: AMOXICILLIN 500 MG (POLYMOX) CAP PO ONE (09:00)
[2016-07-27] MEDS ORDERED: AMOXICILLIN 500 MG (POLYMOX) CAP PO SCH ×2 (09:00)
[2016-07-27] MEDS ORDERED: SUFENTA 0.6MCG/ML BUPIVA 0.125 100 ML ONE (20:18)
[2016-07-27] MEDS ORDERED: ONDANSETRON 4 MG/2 ML (SDV) Z0FRAN ONE (22:15)
--- NOTE | 2016-07-28 15:10 | Physician Query-Final Dx ---
DEJON LOPEZ 07/28/16 1510: Clinic Account Progress/Dx Physician Query: Please give diagnosis Date of Service Jul 26, 2016 at 17:54 CATHLEEN ODOM 08/05/16 0842: DEJON LOPEZ Jul 28, 2016 15:10 CATHLEEN ODOM Aug 05, 2016 08:42
--- NOTE | 2016-08-05 08:43 | Physician Query-Final Dx ---
CATHLEEN ODOM 08/05/16 0842: Final Diagnosis Give Final Diagnosis Please give Final Diagnosis BRITTANI AVELAR MD 08/06/16 0842: Final Diagnosis Give Final Diagnosis Term intrauterine 37 weeks gestation Contractions without labor CATHLEEN ODOM Aug 05, 2016 08:42 BRITTANI AVELAR MD Aug 06, 2016 08:42
[2016-08-07] MEDS ORDERED: IBUP-1773 PO ×2 (08:43)
[2016-08-07] MEDS ORDERED: FERR-74 PO ×2 (08:43)
== END 2016-07-26 21:45 | disposition home or self-care (01) ==
LOC: WSo 17:54 → LDRP 17:54 → WSo 21:45
PROVIDERS: ATTEND Family Medicine
DX: O47.1 False labor at or after 37 completed weeks of gestation (principal); Z3A.37 37 weeks gestation of pregnancy
CPT/HCPCS: 81000; 87088; 96360; 99213

== ENCOUNTER 2016-07-29 15:10 | Outpatient (CLI) | payer MEDICAID ==
[~2016-07-29] VITALS: Ht 165.1 cm; Wt 73.5 kg
[2016-07-29 15:29] VITALS: BP 111/66
[2016-07-29] MEDS ORDERED: AMOX500T2 PO ×2 (15:35)
--- NOTE | 2016-07-29 16:56 | Diagnostic Imaging Report ---
EXAMINATION: OB ultrasound/biophysical profile. INDICATION: Decreased movement. FINDINGS: The heart rate is 130 BPM. The presentation is cephalic. The amniotic fluid index is 8.3 cm. The biophysical profile criteria is met with a total score of 8 out of 8 points. IMPRESSION: The total biophysical profile score is 8 out of 8 points. Dictated by: Dictated on workstation # [id number]
--- NOTE | 2016-07-30 08:09 | Physician Query-Final Dx ---
DEJON LOPEZ 07/30/16 0809: Clinic Account Progress/Dx Physician Query: Please give diagnosis Date of Service Jul 29, 2016 at 15:10 BRITTANI AVELAR MD 07/30/16 0923: Clinic Account Progress/Dx DIAGNOSIS: Diagnosis Decreased movement, normal BPP and NST 37 weeks gestation DEJON LOPEZ Jul 30, 2016 08:09 BRITTANI AVELAR MD Jul 30, 2016 09:23
== END 2016-07-29 17:00 | disposition home or self-care (01) ==
LOC: WSo 15:10 → LDRP 15:10 → WSo 17:00
PROVIDERS: ATTEND Family Medicine
DX: O36.8130 Decreased fetal movements, third trimester, not applicable or unspecified (principal); Z3A.37 37 weeks gestation of pregnancy
CPT/HCPCS: 76819; 99213

== ENCOUNTER 2016-08-04 19:13 | Inpatient (IN) | payer MEDICAID ==
[~2016-08-04] VITALS: Ht 165.1 cm; Wt 75.8 kg
[~2016-08-04 19:13] MED LIST changes: +AMOX500T2 PO
[2016-08-04 20:00] VITALS: BP 128/80
[2016-08-04] MEDS ORDERED: ACETAMINOPHEN 500 MG TAB (TYLENOL) ONE (21:58)
[2016-08-04] MEDS ORDERED: ACETAMINOPHEN 500 MG TAB (TYLENOL) PO ONE (22:15)
[2016-08-04] MEDS ORDERED: MINERAL OIL CONCENTRATE 99.9% 15 ML UDC TOP PRN (23:15)
[2016-08-04] MEDS: D5 LR IV SOLUTION 1,000 ML IV SCH (23:26)
[2016-08-04 23:30] VITALS: BP 120/65
[2016-08-04 23:40] LABS: BASOPHILS % (AUTO) 0 % (0-10); EOSINOPHILS # (AUTO) 0.1 10^3/uL (0.0-0.3); EOSINOPHILS % (AUTO) 1 % (0-10); LYMPHOCYTES # (AUTO) 2.8 X 10^3 (1.0-4.0); LYMPHOCYTES % (AUTO) 36 % (12-44); MEAN CORPUSCULAR HEMOGLOBIN 27 PG (25-34); MEAN CORPUSCULAR HGB CONC 33 G/DL (32-36); MEAN CORPUSCULAR VOLUME 83 FL (80-99); MEAN PLATELET VOLUME 10.6 FL (7.4-10.4); MONOCYTES # (AUTO) 0.5 X 10^3 (0.0-1.0); MONOCYTES % (AUTO) 6 % (0-12); NEUTROPHILS # (AUTO) 4.5 X 10^3 (1.8-7.8); NEUTROPHILS % (AUTO) 57 % (42-75); PLATELET COUNT 194 10^3/uL (130-400); RED BLOOD COUNT 4.15 10^6/uL (4.35-5.85); RED CELL DISTRIBUTION WIDTH 14.9 % (10.0-14.5); WHITE BLOOD COUNT 7.8 10^3/uL (4.3-11.0)
[2016-08-05] VITALS (73 sets, daily range): BP systolic 75–141; BP diastolic 40–91
[2016-08-05] MEDS: CATHETER FLUSH 10 ML SYR IV SCH ×2 (06:00→14:00)
[2016-08-05] MEDS: D5 LR IV SOLUTION 1,000 ML IV SCH ×2 (07:25→15:08)
--- NOTE | 2016-08-05 08:42 | History & Physical-OB ---
OB - Chief Complaint & HPI Date/Time Date of Admission: Date of Admission: Aug 04, 2016 at 11:09 pm Time Seen by Provider: 08:37 Chief Complaint/History OB-Reason for Admission/Chief: Onset of Labor Hx : 3 Hx Para: 1 Expected Date of Delivery: Aug 15, 2016 Gestational Age in Weeks: 38 Gestational Age in Days: 4 Other reason for admission: at 38w3d presented with regular painful contractions and found to make cervical change during observation period, admitted for labor. History of Labs A+, RI, HIV/HepB/RPR NR, GC/Chlamydia neg. GBS negative. Allergies and Home Medications Allergies Coded Allergies: No Known Drug Allergies (Unverified , 06/05/08) Home Medications Amoxicillin 500 Mg Tablet, 500 MG PO BID, (Reported) Vit/Fe Fumarate/Fa 1 Each Tablet, 1 EACH PO DAILY, (Reported) Sertraline HCl 25 Mg Tablet, 25 MG PO DAILY, (Reported) OB - History Hx of Present Care: Yes Ultrasounds: Normal mid trimester US Obstetrical Complications: None Medical Complications: Psychiatric (depression- on sertraline), Other (history of THC use early in ) Information Induced Hypertension: No Maternal Gestational Diabetes: No Hemorrhage: No Obstetrical History Hx : 3 Hx Para: 1 Hx # Term Pregnancies: 1 Hx # Pregnancies: 0 Number of Living Children: 1 Hx Total # of Abortions (Spona: 1 Hx Multiple Gestation: No Hx Ectopic : No Hx Stillbirth: No Hx Complication: No Hx Induced Hypertens: No Hx Maternal Gestational Diabet: No Hx Hemorrhage: No Delivery History Hx Dystocia: No Hx Forceps Assisted Delivery: No Hx Vacuum Extraction Assisted: No Hx Placenta Abnormality: No Hx Distress: No Hx Large For Gestational Age I: No Hx Small for Gestational Age I: No Hx Section: No Hx Vaginal Delivery Post C-Sec: No Hx Blood Disorders: No Adverse Rxn to Tranfusion: No Patient Past Medical History PMHx: Depression with h/o suicide attempts Bipolar disorder Substance use PSurgHx: Tonsillectomy Social History/Family History HIV/AIDS: No Recent Infectious Disease Expo: No Sexually Transmitted Disease: No Alcohol Use: Denies Use Recreational Drug Use: No Smoking Cessation: Never smoker Immunizations Hepatitis A: No Hepatitis B: No Tetanus Booster (TDap): Less than 5yrs Date of Influenza Vaccine: Jan 26, 2016 Rubella: immune RPR/VDRL: Negative GBS Status: Negative HBsAG: Negative OB - Admission Exam Physical Exam Date Seen by Provider: Aug 05, 2016 Time Seen by Provider: 08:41 Vitals: Vital Signs 08/05/16 04:00 Temp 96.8 Pulse 65 Resp 16 B/P (MAP) 93/52 HEENT: NCAT Abdomen: Gravid Extremities: Normal Cervical Dilatation: 5cm Effacement: 50% Station: 0 Membranes: Intact Heart Rate: 120's Decelerations: No Decelerations Short Term Variability: Present Sailmaker Variability: Average (6-25) Contractions on Admission: < 5 Minutes Apart Intensity: Moderate Labs Laboratory Tests Test 08/04/16 23:25 Range/Units White Blood Count 7.8 4.3-11.0 10^3/uL Red Blood Count 4.15 L 4.35-5.85 10^6/uL Hemoglobin 11.2 L 11.5-16.0 G/DL Hematocrit 35 35-52 % Mean Corpuscular Volume 83 80-99 FL Mean Corpuscular Hemoglobin 27 25-34 PG Mean Corpuscular Hemoglobin Concent 33 32-36 G/DL Red Cell Distribution Width 14.9 H 10.0-14.5 % Platelet Count 194 130-400 10^3/uL Mean Platelet Volume 10.6 H 7.4-10.4 FL Neutrophils (%) (Auto) 57 42-75 % Lymphocytes (%) (Auto) 36 12-44 % Monocytes (%) (Auto) 6 0-12 % Eosinophils (%) (Auto) 1 0-10 % Basophils (%) (Auto) 0 0-10 % Neutrophils # (Auto) 4.5 1.8-7.8 X 10^3 Lymphocytes # (Auto) 2.8 1.0-4.0 X 10^3 Monocytes # (Auto) 0.5 0.0-1.0 X 10^3 Eosinophils # (Auto) 0.1 0.0-0.3 10^3/uL Basophils # (Auto) 0.0 0.0-0.1 10^3/uL OB - Assessment/Plan/Diagnosis Assessment Assessment: active labor Plan Plan: Expectant Management Copy Copies To 1: BRITTANI AVELAR MD, BETHANY N MD Aug 05, 2016 8:42 am
[2016-08-05] MEDS ORDERED: OXYTOCIN/NORMAL SALINE 500 ML IV SCH (10:57)
[2016-08-05] MEDS ORDERED: SUFENTA 0.6MCG/ML BUPIVA 0.125 100 ML ONE (11:50)
[2016-08-05] MEDS ORDERED: BUPIVACAINE 0.25% 30 ML (SENSORCAINE) VIAL ONE (12:03)
[2016-08-05] MEDS ORDERED: fentaNYL INJECTION 100 MCG/2 ML AMP ONE (12:03)
[2016-08-05 12:06] LABS: BILIRUBIN,URINE NEGATIVE (NEGATIVE); KETONES,URINE NEGATIVE (NEGATIVE); LEUKOCYTE ESTERASE ,URINE 2+ (NEGATIVE); NITRITE,URINE NEGATIVE (NEGATIVE); PH,URINE 7 (5-9); PROTEIN,URINE NEGATIVE (NEGATIVE); UROBILINOGEN,URINE NORMAL (NORMAL)
[2016-08-05 12:15] LABS: SQUAMOUS EPITHELIAL CELL,UR >50 /HPF; WBC,URINE RARE /HPF
[2016-08-05] MEDS: EPIDURAL (SUFENTA 0.6MCG/ML BUPIVA 0.125%) 100 ML BAG EPI SCH ×2 (12:26→19:38)
[2016-08-05] MEDS ORDERED: LACTATED RINGERS 1,000 ML IV ONE ×3 (12:35→23:21)
[2016-08-05] MEDS ORDERED: CATHETER FLUSH 10 ML SYR IV PRN (12:45)
[2016-08-05] MEDS ORDERED: diphenhydrAMINE 50 MG/ML INJ (BENADRYL) IV PRN (12:45)
[2016-08-05] MEDS ORDERED: NALOXONE 0.4 MG/ML 1 ML (NARCAN) VIAL IV PRN (12:45)
[2016-08-05] MEDS ORDERED: ONDANSETRON 4 MG/2 ML (SDV) Z0FRAN IV PRN (12:45)
[2016-08-05] MEDS ORDERED: LACTATED RINGERS 500 ML IV ONE (14:30)
[2016-08-05] MEDS ORDERED: BUTORPHANOL INJ 2 MG/ML (STADOL) VIAL ONE (22:51)
[2016-08-05] MEDS ORDERED: ceFAZolin 2 GM/50 ML NS 50 ML ONE (23:26)
[2016-08-05] MEDS ORDERED: ceFAZolin 2 GM/50 ML NS 50 ML IV ONE (23:45)
[2016-08-05] MEDS ORDERED: KETOROLAC 30 MG/ML VIAL ONE (23:49)
[2016-08-06] VITALS (8 sets, daily range): BP systolic 106–128; BP diastolic 60–79
[2016-08-06] MEDS ORDERED: KETOROLAC 30 MG/ML VIAL IVP PRN
--- NOTE | 2016-08-06 00:08 | OB Labor & Delivery Record ---
Vag Delivery Note Vag Delivery Note Date of Delivery: 08/05/16 Preoperative Diagnosis: Justine Fleming is a 21 yo /Para 3 / 1, Gestational Age (wks)38with 4days Postoperative Diagnosis: Same Surgeon: BRITTANI AVELAR Harvesting Supervisor: Luba Panchal, MS3 Anesthesia: Epidural Delivery Type: Spontaneous vaginal delivery Findings: [] Viable male infant, apgars 8/9, weight 7#10 Lacerations: right periurethral abrasion Intact placenta with 3 vessel cord. No nuchal cord, body cord or shoulder dystocia Estimated Blood Loss: 300 ml Complications: Retained placenta requiring manual extraction Condition: Stable Description of Procedure: The patient is a 21 yo at 38w4d who presented in active labor. She was admitted and informed consent was obtained. Her labor course was remarkable for prolonged labor. She progressed to complete dilatation and began to push. She was then set up for delivery. The 's head was delivered atraumatically in the BETHANIE position. The shoulders and remainder of the 's body were then delivered without difficulty. Upon delivery, the head was held below the level of the perineum and the mouth and nares were bulb suctioned. The cord was doubly clamped and cut and the was handed off to the pediatric staff. Placenta did not deliver spontaneously or with fundal pressure and traction on cord and pitocin bolus. At about 45 minutes after delivery, epidural bolus was given and attempt at manual removal was made without success. Consulted with Dr. Quintanilla (Fiction Writer section gang) and she recommended further pain medication and mariano catheter replacement. Patient given 1 mg stadol and another epidural bolus and mariano replaced and second attempt was made still without success. Given ancef [address] Quintanilla en route to hospital when patient noted gush of fluid and was noted to have some bleeding, so traction placed on cord but still not , repeat attempt to manually remove placenta without success, at which time Dr. Quintanilla arrived and was able to manually remove placenta which did appear intact and there was found to be minimal bleeding.~ Vigorous fundal massage was performed and the fundus was found to be firm. IV oxytocin was given. Examination of the vagina and perineum revealed a left hemostatic periurethral laceration. Following the repair, sponge , instrument and needle counts were correct. Mom and baby were both in stable condition in the labor suite. Vitals - Labs Vital Signs - I&O Vital Signs Date Time Temp Pulse Resp B/P (MAP) Pulse Ox O2 Delivery O2 Flow Rate FiO2 08/05/16 20:45 78 18 122/73 100 Room Air 08/05/16 20:30 81 18 120/70 99 Room Air 08/05/16 20:15 68 18 120/70 99 Room Air 08/05/16 20:00 86 18 119/66 99 Room Air 08/05/16 19:45 74 18 124/75 99 Room Air 08/05/16 19:30 68 18 119/70 99 Room Air 08/05/16 19:15 96.5 81 18 117/69 98 Room Air 08/05/16 19:00 81 18 117/69 Room Air 08/05/16 18:45 76 18 118/70 Room Air 08/05/16 18:30 78 18 113/73 Room Air 08/05/16 18:15 75 18 118/73 Room Air 08/05/16 18:00 76 18 118/72 Room Air 08/05/16 17:45 96.7 90 18 101/69 Room Air 08/05/16 17:30 76 18 115/72 Room Air 08/05/16 17:15 74 18 115/69 Room Air 08/05/16 17:00 72 18 113/73 Room Air 08/05/16 16:45 75 18 111/73 Room Air 08/05/16 16:30 74 18 107/69 Room Air 08/05/16 16:15 80 18 119/69 Room Air 08/05/16 16:00 75 18 119/64 Room Air 08/05/16 15:45 78 18 112/63 Room Air 08/05/16 15:30 81 18 111/65 Room Air 08/05/16 15:15 71 18 119/61 Room Air 08/05/16 15:00 101 18 109/67 Room Air 08/05/16 14:45 96.7 76 18 113/76 Room Air 08/05/16 14:30 71 18 105/66 Room Air 08/05/16 14:15 75 18 108/72 Room Air 08/05/16 14:00 76 18 104/66 Room Air 08/05/16 13:45 70 18 110/70 99 Room Air 08/05/16 13:30 72 18 108/69 99 Room Air 08/05/16 13:20 97.0 73 18 119/69 100 Room Air 08/05/16 13:15 81 18 117/66 99 Room Air 08/05/16 13:10 76 18 116/71 100 Room Air 08/05/16 13:00 73 18 116/64 97 Room Air 08/05/16 12:54 83 18 117/78 100 Room Air 08/05/16 12:51 81 18 118/75 100 Room Air 08/05/16 12:48 82 18 114/72 97 Room Air 08/05/16 12:45 82 18 114/72 100 Room Air 08/05/16 12:42 78 18 115/70 97 Room Air 08/05/16 12:37 78 18 118/71 97 Room Air 08/05/16 12:36 71 18 117/71 97 Room Air 08/05/16 12:35 68 18 110/59 97 Room Air 08/05/16 12:34 72 18 106/56 97 Room Air 08/05/16 12:33 67 18 75/40 100 Room Air 08/05/16 12:30 Room Air 08/05/16 12:25 83 18 129/77 100 Room Air 08/05/16 12:25 93 18 134/72 100 Room Air 08/05/16 12:15 103 18 140/75 100 Room Air 08/05/16 12:10 93 116/63 100 Room Air 08/05/16 12:00 78 18 114/67 Room Air 08/05/16 11:45 67 18 111/72 Room Air 08/05/16 11:30 97.6 71 18 115/73 Room Air 08/05/16 11:15 71 18 117/70 Room Air 08/05/16 08:35 97.6 72 18 122/74 Room Air 08/05/16 04:00 96.8 65 16 93/52 Labs Laboratory Tests 08/05/16 12:00: Urine Opiates Screen NEGATIVE, Urine Oxycodone Screen NEGATIVE, Urine Methadone Screen NEGATIVE, Urine Propoxyphene Screen NEGATIVE, Urine Barbiturates Screen NEGATIVE, Ur Tricyclic Antidepressants Screen NEGATIVE, Urine Phencyclidine Screen NEGATIVE, Urine Amphetamines Screen NEGATIVE, Urine Methamphetamines Screen NEGATIVE, Urine Benzodiazepines Screen NEGATIVE, Urine Cocaine Screen NEGATIVE, Urine Cannabinoids Screen NEGATIVE BRITTANI AVELAR MD Aug 06, 2016 12:08 am
--- NOTE | 2016-08-06 00:11 | Operative Report ---
Operative Report Date of Procedure/Surgery Aug 06, 2016 Surgeon (s) TAYLOR ARRIETA DO Confidential Investigator (s): Mariola Guajardo MD Post-Operative Diagnosis Retained placenta Procedure Performed Manual extraction of the placenta Description of Procedure Anesthesia Type: EPI Estimated blood loss (mL): 100 (in addition to loss at delivery Specimen(s) collected/removed none Description of the Procedure Ancef 2 grams IV was given prior to my arriving. I arrived and the patient had received 1 mg Stadol. She still had the epidural that was still working but not completely. She had Pitocin administered. She was not hemorrhaging. A Elder catheter was already in place. I stepped in to remove the placenta. The patient was already in the dorsolithotomy position. I placed traction on the cord and gently reached into the uterus and was able to tease the placenta out of the uterus. I held fundal pressure as the placenta was being removed Once the placenta was removed, the uterus contracted appropriately with Pitocin and there was minimal bleeding. The placenta appeared intact after the procedure. Findings of the Procedure I was asked to consult on a patient that had a normal vaginal delivery at 38 + weeks. After 1 hour + the placenta had not delivered. Dr. Guajardo stated that she had attempted a manual extraction but requested assistance as she was not able to remove the placenta manually. Allergies and Home Medications Allergies Coded Allergies: No Known Drug Allergies (Unverified , 06/05/08) Home Medications Amoxicillin 500 Mg Tablet, 500 MG PO BID, (Reported) Vit/Fe Fumarate/Fa 1 Each Tablet, 1 EACH PO DAILY, (Reported) Sertraline HCl 25 Mg Tablet, 25 MG PO DAILY, (Reported) TAYLOR ARRIETA DO Aug 06, 2016 00:11
[2016-08-06] MEDS ORDERED: OXYTOCIN/NORMAL SALINE 500 ML IV SCH ×2 (02:10)
[2016-08-06] MEDS ORDERED: BENZOCAINE/MENTHOL (DERMOPLAST) 56 ML CAN TP PRN (02:15)
[2016-08-06] MEDS ORDERED: WITCH HAZEL(TUCKS) 40 EA JAR TOP PRN (02:15)
[2016-08-06] MEDS ORDERED: BUTORPHANOL INJ 2 MG/ML (STADOL) VIAL IV ONE (02:45)
[2016-08-06] MEDS ORDERED: KETOROLAC 30 MG/ML VIAL IVP ONE (02:45)
[2016-08-06] MEDS: IBUPROFEN 600 MG (MOTRIN) TAB PO SCH ×4 (06:54→23:56)
--- NOTE | 2016-08-06 08:08 | Progress Note (SOAP) ---
LUBA APONTE MED STUDENT 08/06/16 8:08am: Subjective Subjective/Events-last exam Patient presents today in no acute distress. Patient states abdominal cramping began 30 minutes prior to encounter. Patient rates the pain at a 4/10 and states it is intermittent. Patient has perineal pain when wiping. Patient states she had heavy vaginal bleeding last night when she would stand up but it has decreased since. Patient bottle fed her baby last night and will try breast feeding this morning. Patient states mood is fine. No concerns at this time. Review of Systems Date Seen by Provider: Aug 06, 2016 Time Seen by Provider: 07:45 Gastrointestinal: Abdominal Pain Genitourinary: Dysuria Objective Exam Last Set of Vital Signs Vital Signs Date Time Temp Pulse Resp B/P (MAP) Pulse Ox O2 Delivery O2 Flow Rate FiO2 08/06/16 04:40 97.8 88 18 113/71 97 Room Air Capillary Refill : I&O Intake and Output 08/06/16 00:00 Intake Total 5500 ml Balance 5500 ml Intake IV Total 5500 ml General: Alert, Oriented X3, Cooperative, No Acute Distress Lungs: Clear to Auscultation Heart: Regular Rate, Normal S1, Normal S2 Abdomen: Normal Bowel Sounds Extremities: No Clubbing, No Cyanosis, No Edema, Normal Pulses Neuro: Normal Speech Psych/Mental Status: Mental Status NL, Mood NL Results/Procedures Lab Laboratory Tests 08/05/16 12:00: Urine Opiates Screen NEGATIVE, Urine Oxycodone Screen NEGATIVE, Urine Methadone Screen NEGATIVE, Urine Propoxyphene Screen NEGATIVE, Urine Barbiturates Screen NEGATIVE, Ur Tricyclic Antidepressants Screen NEGATIVE, Urine Phencyclidine Screen NEGATIVE, Urine Amphetamines Screen NEGATIVE, Urine Methamphetamines Screen NEGATIVE, Urine Benzodiazepines Screen NEGATIVE, Urine Cocaine Screen NEGATIVE, Urine Cannabinoids Screen NEGATIVE Assessment/Plan Assessment/Plan Admission Dx 1. uncomplicated vaginal delivery 2. retained placenta removed by manual extraction 3. depression during Plan 1. uncomplicated vaginal delivery -ice to perineal area -ibuprofen PRN -monitor progress 2. retained placenta removed by manual extraction -monitor for fever and signs of infection 3. depression during -monitor mood, utilize PHQ-2 at follow-up visits in clinic Diagnosis/Problems: Clinical Quality Measures DVT/VTE Risk/Contraindication: Risk Factor Score Per Nursin RFS Level Per Nursing on Admit: 1=Low/No VTE PPX BRITTANI AVELAR MD 08/06/16 9:01am: Subjective Subjective/Events-last exam No dizziness, lightheadedness or shortness of breath, minimally so far going to try more today. Decreasing lochia today. Objective Exam Abdomen: Other (fundus firm at umbilicus and appropriately) Assessment/Plan Assessment/Plan Admission Dx Blood type A+, rubella immune Plan No abnormal bleeding, monitor closely, check CBC this am Continue sertraline for depression Diagnosis/Problems: Supervisory-Addendum Brief Supervisory Addendum patient seen and examined with MS3 Luba Aponte, agree with documentation with noted additions or changes. LUBA APONTE MED STUDENT Aug 06, 2016 8:08 am BRITTANI AVELAR MD Aug 06, 2016 9:01 am
--- NOTE | 2016-08-06 08:34 | Anesthesia-Regional Post-Op ---
Regional Patient Condition Mental Status: Alert, Oriented x3 Circulation: Same as Pre-Op Headache: Absent Sensation: Full Recovery Motor Block: Absent Post Op Complications Complications None Follow Up Care/Instructions Patient Instructions None needed. Anesthesia/Patient Condition Patient is doing well, no complaints, stable vital signs, no apparent adverse anesthesia problems. No complications reported per nursing. [place] [facility]: KATIE Smith DO Aug 06, 2016 08:34
[2016-08-06] MEDS: SERTRALINE 50 MG (ZOLOFT) TABLET PO SCH (08:46)
[2016-08-06] MEDS: PRENATAL VITAMIN 1 EA TAB PO SCH (08:46)
[2016-08-06 09:08] LABS: BASOPHILS % (AUTO) 0 % (0-10); EOSINOPHILS # (AUTO) 0.1 10^3/uL (0.0-0.3); EOSINOPHILS % (AUTO) 1 % (0-10); LYMPHOCYTES # (AUTO) 2.3 X 10^3 (1.0-4.0); LYMPHOCYTES % (AUTO) 24 % (12-44); MEAN CORPUSCULAR HEMOGLOBIN 28 PG (25-34); MEAN CORPUSCULAR HGB CONC 32 G/DL (32-36); MEAN CORPUSCULAR VOLUME 85 FL (80-99); MEAN PLATELET VOLUME 9.5 FL (7.4-10.4); MONOCYTES # (AUTO) 0.4 X 10^3 (0.0-1.0); MONOCYTES % (AUTO) 4 % (0-12); NEUTROPHILS % (AUTO) 71 % (42-75); PLATELET COUNT 183 10^3/uL (130-400); RED BLOOD COUNT 3.16 10^6/uL (4.35-5.85); RED CELL DISTRIBUTION WIDTH 14.8 % (10.0-14.5); WHITE BLOOD COUNT 9.8 10^3/uL (4.3-11.0)
[2016-08-07] VITALS: BP 109/64
[2016-08-07] MEDS: IBUPROFEN 600 MG (MOTRIN) TAB PO SCH ×2 (05:47→13:13)
[2016-08-07 06:00] VITALS: BP 111/65
[2016-08-07] MEDS: CATHETER FLUSH 10 ML SYR IV SCH ×3 (06:32→06:34)
[2016-08-07] MEDS ORDERED: IBUP-1773 PO ×2 (08:43)
[2016-08-07] MEDS ORDERED: FERR-74 PO ×2 (08:43)
--- NOTE | 2016-08-07 08:45 | Discharge Instructions ---
Discharge Inst-Women's Serv Depart Medications New, Converted or Re-Newed RX: Transmitted to Pharmacy New Medications: Ferrous Sulfate (Ferrous Sulfate) 325 Mg Tablet 325 MG PO DAILY, #30 TAB 0 Refills Ibuprofen (Ibuprofen) 600 Mg Tablet 600 MG PO Q6H PRN for PAIN-MILD TO MODERATE, #60 TAB 0 Refills Continued Medications: Vit/Fe Fumarate/Fa ( Vitamin Tablet) 1 Each Tablet 1 EACH PO DAILY, TAB Sertraline HCl (Zoloft) 25 Mg Tablet 25 MG PO DAILY, TAB Discontinued Medications: Amoxicillin (Amoxicillin) 500 Mg Tablet 500 MG PO BID, TAB Follow Up/Instructions Goal/Follow Up: Follow up for post- visit in 6 weeks. Activity Activity: Activity as Tolerated (avoid strenuous activity x 6 weeks) Driving Instructions: You May Drive NO SMOKING: NO SMOKING Nothing Inside Vagina: No Douching, No [place], No Tampons Diet Discharge Diet: No Restrictions Symptoms to Report to : Swelling Increased, Pain Increased, Fever Over 101 Degrees F, Pain/Pressure in Chest, Vaginal Bleeding Increase, Cramps in Feet or Legs, Vaginal Discharge Foul, Nausea/Vomiting, Shortness of Breath For Any Problems or Questions: Contact Your Physician Copies To 1: BRITTANI AVELAR MD, BETHANY N MD Aug 07, 2016 8:45 am
--- NOTE | 2016-08-07 08:46 | Discharge Summary ---
Diagnosis/Chief Complaint Date of Admission Aug 04, 2016 at 11:09 pm Date of Discharge August 07, 2016 Admission Diagnosis Admission Diagnosis Term intrauterine at 38 weeks with spontaneous onset of labor Blood type A+ Rubella immune GBS neg Depression Discharge Diagnosis s/p Spontaneous vaginal delivery with retained placenta requiring manual extraction Mildly symptomatic anemia Depression Chief Complaint/HPI Chief Complaint/HPI 21 yo G3 now P2012, A+, RI, GBS neg, presented to L&D at 38w3d with painful contractions found to be making cervical change and admitted for labor. Discharge Summary-Simple/Stand Procedures Spontaneous vaginal delivery Manual extraction of placenta Discharge Physical Examination Allergies: Coded Allergies: No Known Drug Allergies (Unverified , 06/05/08) Vitals & I&Os Vital Sign - Last 12Hours Date Time Temp Pulse Resp B/P (MAP) Pulse Ox O2 Delivery O2 Flow Rate FiO2 08/07/16 06:00 97.0 74 20 111/65 98 Room Air General Appearance: Alert, No Acute Distress Respiratory: Clear to Auscultation, Normal Air Movement Cardiovascular: Regular Rate, Other (2/6 early systolic murmur at RUSB) Neuro: Normal Speech Psych/Mental Status: Mental Status NL Hospital Course Uncomplicated labor with , but retained placenta requiring manual extraction , given 2 grams of ancef for prophylaxis. No abnormal bleeding. Anemia with fatigue after delivery, started iron sulfate daily. Depression- continued home sertraline. Blood type A+, no indication for rhogam and RI no need for MMR. Labs Laboratory Tests Test 08/06/16 09:02 Range/Units White Blood Count 9.8 4.3-11.0 10^3/uL Red Blood Count 3.16 L 4.35-5.85 10^6/uL Hemoglobin 8.7 #L 11.5-16.0 G/DL Hematocrit 27 L 35-52 % Mean Corpuscular Volume 85 80-99 FL Mean Corpuscular Hemoglobin 28 25-34 PG Mean Corpuscular Hemoglobin Concent 32 32-36 G/DL Red Cell Distribution Width 14.8 H 10.0-14.5 % Platelet Count 183 130-400 10^3/uL Mean Platelet Volume 9.5 7.4-10.4 FL Neutrophils (%) (Auto) 71 42-75 % Lymphocytes (%) (Auto) 24 12-44 % Monocytes (%) (Auto) 4 0-12 % Eosinophils (%) (Auto) 1 0-10 % Basophils (%) (Auto) 0 0-10 % Neutrophils # (Auto) 7.0 1.8-7.8 X 10^3 Lymphocytes # (Auto) 2.3 1.0-4.0 X 10^3 Monocytes # (Auto) 0.4 0.0-1.0 X 10^3 Eosinophils # (Auto) 0.1 0.0-0.3 10^3/uL Basophils # (Auto) 0.0 0.0-0.1 10^3/uL Discharge Instructions to patient/family Please see electonic discharge instructions given to patient. Discharge Medications Reviewed and agree with Discharge Medication list on patient's Discharge Instruction sheet Clinical Quality Measures DVT/VTE Risk/Contraindication: Risk Factor Score Per Nursin RFS Level Per Nursing on Admit: 1=Low/No VTE PPX Copy Copies To 1: BRITTANI AVELAR MD, BETHANY N MD Aug 07, 2016 8:46 am
--- NOTE | 2016-08-07 08:48 | Progress Note (SOAP) ---
Subjective Subjective/Events-last exam Patient presents today in no acute distress. She tried once yesterday but has decided to formula feed. Her son has been spitting up after some of the feedings so she would like to switch his formula. Patient states that her vaginal bleeding has continued to decrease. Patient states that she has felt very tired since delivery. Patient denies shortness of breath, dizziness, and lightheadedness. Review of Systems Date Seen by Provider: Aug 07, 2016 Time Seen by Provider: 07:45 General: Fatigue Objective Exam Last Set of Vital Signs Vital Signs Date Time Temp Pulse Resp B/P (MAP) Pulse Ox O2 Delivery O2 Flow Rate FiO2 08/07/16 06:00 97.0 74 20 111/65 98 Room Air Capillary Refill : I&O Intake and Output 08/07/16 00:00 Intake Total 500 ml Balance 500 ml Intake IV Total 500 ml General: Alert, Oriented X3, Cooperative Lungs: Clear to Auscultation, Normal Air Movement Heart: Regular Rate, Normal S1, Normal S2, Other (2/6 early systolic flow murmur (suspected due to anemia)) Abdomen: Normal Bowel Sounds, No Tenderness, No Hepatosplenomegaly Neuro: Normal Speech Psych/Mental Status: Mental Status NL, Mood NL Results/Procedures Lab Laboratory Tests 08/06/16 09:02: White Blood Count 9.8, Red Blood Count 3.16L, Hemoglobin 8.7#L, Hematocrit 27L, Mean Corpuscular Volume 85, Mean Corpuscular Hemoglobin 28, Mean Corpuscular Hemoglobin Concent 32, Red Cell Distribution Width 14.8H, Platelet Count 183, Mean Platelet Volume 9.5, Neutrophils (%) (Auto) 71, Lymphocytes (%) (Auto) 24, Monocytes (%) (Auto) 4, Eosinophils (%) (Auto) 1, Basophils (%) (Auto) 0, Neutrophils # (Auto) 7.0, Lymphocytes # (Auto) 2.3, Monocytes # (Auto) 0.4, Eosinophils # (Auto) 0.1, Basophils # (Auto) 0.0 Assessment/Plan Assessment/Plan Admission Dx Blood type A+, rubella immune Plan 1. anemia -start iron supplementation 2. depression -continue sertraline -monitor for post depression 3. vaginal bleeding No abnormal bleeding, monitor closely, check CBC this am Diagnosis/Problems: Clinical Quality Measures DVT/VTE Risk/Contraindication: Risk Factor Score Per Nursin RFS Level Per Nursing on Admit: 1=Low/No VTE PPX SAMIRA APONTE MED STUDENT Aug 07, 2016 08:48
[2016-08-07 09:00] VITALS: BP 119/77
[2016-08-07] MEDS: PRENATAL VITAMIN 1 EA TAB PO SCH (09:06)
[2016-08-07] MEDS: SERTRALINE 50 MG (ZOLOFT) TABLET PO SCH (09:07)
[2016-08-07 14:20] VITALS: BP 119/77
== END 2016-08-07 14:20 | disposition home or self-care (01) | DRG 767 ==
LOC: LDRP 19:13 → WSo 19:13 → LDRP 23:09
PROVIDERS: ADMIT Family Medicine; ATTEND Family Medicine
PROC: 10E0XZZ Delivery of Products of Conception, External Approach (ICD-10-PCS; principal; 2016-08-05)
PROC: 10D17ZZ Extraction of Products of Conception, Retained, Via Natural or Artificial Opening (ICD-10-PCS; 2016-08-05)
DX: O73.0 Retained placenta without hemorrhage (principal); O90.81 Anemia of the puerperium; O99.344 Other mental disorders complicating childbirth; F31.9 Bipolar disorder, unspecified; Z37.0 Single live birth; Z3A.38 38 weeks gestation of pregnancy
CPT/HCPCS: 36415; 80306; 81000; 85025; 86850; 86900; 86901; 99212

== ENCOUNTER 2017-05-10 16:48 | Observation (INO) | payer MEDICAID ==
[~2017-05-10] VITALS: Ht 165.1 cm; Wt 68.7 kg
[~2017-05-10 16:48] MED LIST changes: +FERR325T18 PO; +IBUP-1773 PO
--- OUTSIDE RECORDS SUMMARY | 2017-05-10 16:52 | XMS REPORT ---
Author Author ZHEN VAZ [facility] Address [address] [place] [address] Care Team Providers Care Chuck Wagon Driver Name Role Phone ZHEN VAZ Unavailable PROBLEMS Type Condition ICD9-CM Code [id number] Code Onset Dates Condition Status SNOMED Code Problem Severe episode of recurrent major depressive disorder, without psychotic features F33.2 Active [id number] ALLERGIES No Information SOCIAL HISTORY Never Assessed PLAN OF CARE VITAL SIGNS MEDICATIONS No Known Medications RESULTS Name Result Date Reference Range TEST, URINE (IN HOUSE) 2016-04-28 RESULTS Positive Lot # [id number] Control + Exp date 05/2017 PROCEDURES Procedure Date Ordered Result Body Site URINE TEST April 28, 2016 IMMUNIZATIONS No Known Immunizations MEDICAL (GENERAL) HISTORY Type Description Date Medical History Depression Surgical History tonsillectomy Surgical History dilatation and curettage Hospitalization History childbirth only
--- OUTSIDE RECORDS SUMMARY | 2017-05-10 16:52 | XMS REPORT ---
Author Author BRITTANI AVELAR [facility] Address [address] [place] [address] Care Team Providers Care Golf Course Patroller Name Role Phone BRITTANI AVELAR Unavailable PROBLEMS Type Condition ICD9-CM Code [id number] Code Onset Dates Condition Status SNOMED Code Problem Severe episode of recurrent major depressive disorder, without psychotic features F33.2 Active [id number] ALLERGIES No Information SOCIAL HISTORY Never Assessed PLAN OF CARE VITAL SIGNS MEDICATIONS Unknown Medications RESULTS No Results PROCEDURES No Known procedures IMMUNIZATIONS No Known Immunizations MEDICAL (GENERAL) HISTORY Type Description Date Medical History Depression Surgical History tonsillectomy Surgical History dilatation and curettage Hospitalization History childbirth only
--- OUTSIDE RECORDS SUMMARY | 2017-05-10 16:53 | XMS REPORT ---
Author Author ELVIN PETERS Organization [facility] Address [address] [place] [address] Care Team Providers Care Railroad Crane Operator Name Role Phone ELVIN PETERS Unavailable PROBLEMS Type Condition ICD9-CM Code [id number] Code Onset Dates Condition Status SNOMED Code Problem Severe episode of recurrent major depressive disorder, without psychotic features F33.2 Active [id number] ALLERGIES No Information SOCIAL HISTORY Never Assessed PLAN OF CARE VITAL SIGNS MEDICATIONS Medication Instructions Dosage Frequency Start Date End Date Duration Status Keflex 500 mg Orally every 12 hrs 1 capsule 12h June, June, 05 days Active RESULTS No Results PROCEDURES No Known procedures IMMUNIZATIONS No Known Immunizations MEDICAL (GENERAL) HISTORY Type Description Date Medical History Depression Surgical History tonsillectomy Surgical History dilatation and curettage Hospitalization History childbirth only
--- OUTSIDE RECORDS SUMMARY | 2017-05-10 16:53 | XMS REPORT ---
Author Author BRITTANI AVELAR [facility] Address [address] [place] [address] Care Team Providers Care Weather Analyst Name Role Phone BRITTANI AVELAR Unavailable PROBLEMS Type Condition ICD9-CM Code [id number] Code Onset Dates Condition Status SNOMED Code Problem Severe episode of recurrent major depressive disorder, without psychotic features F33.2 Active [id number] ALLERGIES No Information SOCIAL HISTORY Never Assessed PLAN OF CARE VITAL SIGNS MEDICATIONS Unknown Medications RESULTS No Results PROCEDURES No Known procedures IMMUNIZATIONS No Known Immunizations MEDICAL (GENERAL) HISTORY Type Description Date Medical History Depression Surgical History tonsillectomy Surgical History dilatation and curettage Hospitalization History childbirth only
--- OUTSIDE RECORDS SUMMARY | 2017-05-10 16:53 | XMS REPORT ---
Author Author BRITTANI AVELAR [facility] Address [address] [place] [address] Care Team Providers Care Education Teacher Name Role Phone BRITTANI AVELAR Unavailable PROBLEMS Type Condition ICD9-CM Code [id number] Code Onset Dates Condition Status SNOMED Code Problem Severe episode of recurrent major depressive disorder, without psychotic features F33.2 Active [id number] ALLERGIES No Known Allergies SOCIAL HISTORY Never Assessed PLAN OF CARE VITAL SIGNS MEDICATIONS Medication Instructions Dosage Frequency Start Date End Date Duration Status Vitamin 27-0.8 MG Active RESULTS No Results PROCEDURES No Known procedures IMMUNIZATIONS No Known Immunizations MEDICAL (GENERAL) HISTORY Type Description Date Medical History Depression Surgical History tonsillectomy Surgical History dilatation and curettage Hospitalization History childbirth only
--- OUTSIDE RECORDS SUMMARY | 2017-05-10 16:53 | XMS REPORT ---
Author Author BRITTANI AVELAR [facility] Address [address] [place] [address] Care Team Providers Care Pie Topper Name Role Phone BRITTANI AVELAR Unavailable PROBLEMS Type Condition ICD9-CM Code [id number] Code Onset Dates Condition Status SNOMED Code Problem Severe episode of recurrent major depressive disorder, without psychotic features F33.2 Active [id number] ALLERGIES No Information SOCIAL HISTORY Never Assessed PLAN OF CARE VITAL SIGNS MEDICATIONS No Known Medications RESULTS No Results PROCEDURES No Known procedures IMMUNIZATIONS No Known Immunizations MEDICAL (GENERAL) HISTORY Type Description Date Medical History Depression Surgical History tonsillectomy Surgical History dilatation and curettage Hospitalization History childbirth only
--- OUTSIDE RECORDS SUMMARY | 2017-05-10 16:54 | XMS REPORT ---
Author Author BATR MCCLELLAND [facility] Address [address] [place] [address] Care Team Providers Care Diesel Inspector Name Role Phone BART MCCLELLAND Unavailable PROBLEMS Type Condition ICD9-CM Code [id number] Code Onset Dates Condition Status SNOMED Code Problem Severe episode of recurrent major depressive disorder, without psychotic features F33.2 Active [id number] ALLERGIES No Information SOCIAL HISTORY Never Assessed PLAN OF CARE Activity Details Follow Up 4 Weeks Reason:dental est. care. VITAL SIGNS MEDICATIONS No Known Medications RESULTS No Results PROCEDURES Procedure Date Ordered Result Body Site SCREENING OF A PATIENT May 01, 2016 Billing Notes on claim May 01, 2016 IMMUNIZATIONS No Known Immunizations MEDICAL (GENERAL) HISTORY Type Description Date Medical History Depression Surgical History tonsillectomy Surgical History dilatation and curettage Hospitalization History childbirth only
--- OUTSIDE RECORDS SUMMARY | 2017-05-10 16:55 | XMS REPORT ---
Author Author BRITTANI AVELAR [facility] Address [address] [place] [address] Care Team Providers Care Student Assistance Counselor Name Role Phone BRITTANI AVELAR Unavailable PROBLEMS Type Condition ICD9-CM Code AHZ75-AQ Code Onset Dates Condition Status SNOMED Code Problem Severe episode of recurrent major depressive disorder, without psychotic features F33.2 Active 12066146 ALLERGIES No Information SOCIAL HISTORY Never Assessed PLAN OF CARE VITAL SIGNS MEDICATIONS Unknown Medications RESULTS No Results PROCEDURES No Known procedures IMMUNIZATIONS No Known Immunizations MEDICAL (GENERAL) HISTORY Type Description Date Medical History Depression Surgical History tonsillectomy Surgical History dilatation and curettage Hospitalization History childbirth only
--- OUTSIDE RECORDS SUMMARY | 2017-05-10 16:55 | XMS REPORT ---
Author Author VALENTINO BRITTANI Organization [facility] Address [address] [place] [address] Care Team Providers Care Edging Machine Setter Name Role Phone BRITTANI AVELAR Unavailable PROBLEMS Type Condition ICD9-CM Code OFH93-CU Code Onset Dates Condition Status SNOMED Code Problem Severe episode of recurrent major depressive disorder, without psychotic features F33.2 Active [id number] ALLERGIES No Information SOCIAL HISTORY Never Assessed PLAN OF CARE Activity Details Follow Up 1 Week Reason: VITAL SIGNS Height 63 in 2016-07-18 Weight 159.9 lbs 2016-07-18 Temperature 97.7 degrees Fahrenheit 2016-07-18 Heart Rate 88 bpm 2016-07-18 Respiratory Rate 20 2016-07-18 BMI 28.325 kg/m2 2016-07-18 Blood pressure systolic 122 mmHg 2016-07-18 Blood pressure diastolic 82 mmHg 2016-07-18 MEDICATIONS Medication Instructions Dosage Frequency Start Date End Date Duration Status Vitamin 27-0.8 MG Orally Once a day 1 tablet 24h 30 days Active Zoloft 25 MG Orally Once a day 1 tablet 24h 30 Active RESULTS Name Result Date Reference Range CULTURE, GBS 2016-07-18 Strep Gp B Culture Negative Negative UA OB DIP (IN HOUSE) 2016-07-18 Glucose Negative Protein Trace PROCEDURES Procedure Date Ordered Result Body Site LAB NOT BILLED BY [facility] July 18, 2016 URINE-NO MICRO July 18, 2016 IMMUNIZATIONS No Known Immunizations MEDICAL (GENERAL) HISTORY Type Description Date Medical History Depression Surgical History tonsillectomy Surgical History dilatation and curettage Hospitalization History childbirth only
--- OUTSIDE RECORDS SUMMARY | 2017-05-10 16:55 | XMS REPORT ---
Author Author VALENTINO BRITTANI [facility] Address [address] [place] [address] Care Team Providers Care Clinical Allergist Name Role Phone VALENTINOGABBRITTANI Unavailable PROBLEMS Type Condition ICD9-CM Code QDH31-OC Code Onset Dates Condition Status SNOMED Code Problem Severe episode of recurrent major depressive disorder, without psychotic features F33.2 Active [id number] ALLERGIES No Known Allergies ENCOUNTERS Encounter Location Date Diagnosis [place] [address] [address] May, [place] [address] [address] Apr, [place] [address] [address] Apr, Encounter for test, result unknown Z32.00 [place] [address] [address] Apr, [place] [address] [address] Feb, Visit for TB skin test Z11.1 [place] [address] [address] Jan, [place] [address] [address] Dec, STD exposure Z20.2 ; Severe episode of recurrent major depressive disorder, without psychotic features F33.2 and BCP ( control pills) initiation Z30.011 [place] [address] [address] 16 Nov, 2016 [place] [address] [place] [address] Oct, Other viral agents as the cause of diseases classified elsewhere B97.89 and Acute upper respiratory infection, unspecified J06.9 [place] [address] [place] [id number] [place] [address]- [address] Sep, exam Z39.2 and General counseling and advice for contraceptive management Z30.09 [place] [address] [place] [id number] [place] [address]- 1205 Aug, [place] [address] [place] [id number] [place] [address]- 09[address] Jul, 37 weeks gestation of Z3A.37 [place] [id number] [place] [address]000- 2161 Jul, [place] [address] [place] [id number] [place] [address]51- [address] Jul, care, subsequent in third trimester Z34.83 ; tachycardia before the onset of labor P03.810 and 36 weeks gestation of Z3A.36 [place] [id number] [place] [address]- 9[address] June, care, subsequent in third trimester Z34.83 ; screening for streptococcus B Z36 and 36 weeks gestation of Z3A.36 [place] [address] [address] June, [place] [address] [place] [id number] [place] [address]- 1491 June, care, subsequent in third trimester Z34.83 and 34 weeks gestation of Z3A.34 [place] [address] [place] [id number] [place] [address]19- 7928 June, UTI (urinary tract infection) during , third trimester O23.43 [place] [id number] [place] [address] 54186- 9683 June, care, subsequent in third trimester Z34.83 ; labor in third trimester without delivery O60.03 and 33 weeks gestation of Z3A.33 [place] [address] [place] [id number] [place] [address]- 9733 June, [place] [address] [place] [id number] [place] [address]- 3787 June, 32 weeks gestation of Z3A.32 [place] [address] [address] May, care, subsequent in third trimester Z34.83 ; 30 weeks gestation of Z3A.30 and Encounter for immunization Z23 [place] [address] [address] May, [place] [address] [place] [id number] [place] [address]396- 2310 May, 29 weeks gestation of Z3A.29 ; Diabetes mellitus screening Z13.1 and care, subsequent in third trimester Z34.83 [place] [address] [place] [id number] [place] [address]- 6840 Apr, Dental examination Z01.20 [place] [address] [place] [id number] [place] [address] 79007- 1114 Apr, [place] [address] [place] [id number] [place] [address] 02634- 4649 Apr, Severe episode of recurrent major depressive disorder, without psychotic features F33.2 ; care, subsequent in second trimester Z34.82 and 24 weeks gestation of Z3A.24 [place] [address] [place] [id number] [place] [address] 9[address]38- 5398 Apr, Encounter for test, result unknown Z32.00 [place] [address] [place] [id number] [place] [address] 6[address]- [address]239 Apr, [facility] [id number] [place] [id number] May, [place] [address] [id number] [place] [address] 14 May, 2014 [facility] [address] [id number] [place] [address] 1335 May, [facility] [place] [facility] [address] [id number] [place] [address] 4157 Nov, [facility] [address] [id number] [place] [address]- 8833 Nov, [facility] [address] [id number] [place] [id number] Nov, [facility] [address] [id number] [place] [address] 1131 Oct, [facility] [address] [id number] [place] [id number] Oct, [facility] [address] [id number] [place] [address]- 7059 Sep, [facility] [place] [facility] [address] [id number] [place] [address]- 2007 Sep, [facility] [place] [facility] [address] [id number] [place] [address]- 0177 Aug, [facility] [place] [facility] [address] [id number] [place] [address]- 8616 Aug, [facility] [place] [facility] [address] [id number] [place] [address]- 68[address] Aug, [facility] [place] [facility] [address] [id number] [address] Aug, [facility] [place] [facility] [address] [id number] [place] [address]- 4416 Jul, [facility] [place] [facility] [address] [id number] [place] [address]- 9540 Jul, [facility] [place] [facility] [address] [id number] [place] [address]- 7374 Jul, [facility] [place] [facility] [address] [id number] [place] [address]- 6[address] 24 Jul, 2013 [facility] [place] [facility] [address] [id number] [place] [address]- 4048 Jul, [facility] [place] [facility] [address] [id number] [place] [address]- 4082 Jul, [facility] [place] [facility] [address] [id number] [place] [address]- 0155 Jul, [facility] [place] [facility] [address] [id number] [place] [address]- 7048 Jul, [facility] [place] [facility] [address] [id number] [place] [address]- 1341 Jul, [facility] [place] [facility] [address] [id number] [place] [address]- 5158 Jul, [facility] [place] [facility] [address] [id number] [place] [address]- 2855 16 Jul, 2013 [facility] [place] [facility] [address] [id number] [place] [address]- 1363 16 Jul, 2013 [facility] [place] [facility] [address] [id number] [place] [address]- 0969 Jul, [facility] [place] [facility] [address] [id number] [place] [address]- 5068 Jul, [facility] [place] [facility] [address] [id number] [place] [address]- 3667 Jul, [facility] [place] [facility] [address] [id number] [place] [address]- 1498 10 Jul, 2013 [facility] [place] [facility] [address] [id number] [place] [address]- 5467 Jul, [facility] [place] [facility] [address] [id number] [place] [address]- 9261 10 Jul, 2013 [facility] [place] [facility] [address] [id number] [place] [address]- 8674 Jul, [facility] [address] [id number] [place] [address]- 7370 Jul, [facility] [address] [id number] [place] [address]- 3243 Jul, [facility] [address] [id number] [place] [address]- 7494 Jul, [facility] [address] [id number] [place] [address]- 4541 Jul, [facility] [address] [place] [id number] Jul [facility] [address] [id number] [place] [address]- 5768 Jul, [facility] [address] [id number] [place] [address]- 9206 Jul, [facility] [address] [id number] [place] [address]- 0355 Jul, [facility] [address] [id number] [place] [address]- 1987 Jul, [facility] [address] [id number] [place] [address]- 9945 June, [facility] [address] [id number] [place] [address]- 7150 June, [facility] [address] [id number] [address]- 1125 June, [facility] [address] [id number] [place] [address]- 6626 June, [facility] [address] [id number] [place] [address]- 1662 June, [facility] [address] [id number] [place] [address] June, [facility] [address] [id number] [address]- 6157 June, [facility] [address] [id number] [place] [address]- 3616 June, [facility] [address] [id number] [place] [address]- 5257 June, [facility] [address] [id number] [place] [address]- 9184 June, [facility] [place] [facility] [address] [id number] [place] [address]- 5242 June, [facility] [address] [id number] [place] [address]- 0353 June, [facility] [address] [id number] [place] [address]- 2526 May, [facility] [address] [id number] [place] [address]- 6580 May, [facility] [address] [id number] [place] [address]- 4527 May, [facility] [address] [id number] [address]- 4621 May, [facility] [address] [id number] [place] [address]- 3459 Nov, [facility] [address] [id number] [address]- 8[address] Nov, [facility] [address] [id number] [id number] Aug, [facility] [address] [id number] [place] [address] Aug, [facility] [place] [facility] [address] [id number][place] [address]- 2426 Jul, [facility] [place] [facility] [address] [id number] [address]- 0375 Mar, [facility] [place] [facility] [address] [id number] [place] [address]- 3477 Mar, [facility] [address] [id number] [place] [address]- 9976 Feb, [facility] [address] [id number] [place] [address]- 2977 Feb, [facility] [address] [id number] [place] [address]- 4866 Feb, [facility] [address] [id number] [place] [address]- 9860 Jan, [facility] [address] [id number] [place] [address]- 6391 Jan, [facility] [address] [id number] [place] [address]- 8435 Apr, [facility] [address] [id number] [place] [address]- 6665 Apr, [facility] [address] [id number] [place] [address]- 0409 Mar, [facility] [address] [id number] [place] [address]- 7156 Mar, [facility] [address] [id number] [place] [address]- 1929 Mar, [facility] [address] [id number] [place] [address]- 5675 Mar, [facility] [address] [id number] [place] [address]- 8657 Feb, [facility] [address] [id number] [place] [address]- 2507 Feb, [facility] [address] [id number] [place] [address]- 3066 Feb, [facility] [address] [id number] [place] [address] Feb, [facility] [address] [address]- 4118 Feb, [facility] [address] [address]- 1524 Feb, [facility] [address] [address]- 5077 Feb, [facility] [address] [place] [id number] [place] [address] 07822- 9431 Feb, [facility] [id number] [place] [address] 65938- 9032 Jan, [facility] [address] [place] [id number] [place] [address] 04354- 7059 Jan, [facility] [address] [place] [id number] [place] [address] 05628- 7444 Dec, [facility] [address] [place] [id number] [place] [address] 95886- 6640 Dec, [facility] [id number] [place] [address] 05761- 4982 Dec, [facility] [id number] [place] [address]807- 6512 Dec, [facility] [address] [address]- 3497 Dec, IMMUNIZATIONS No Known Immunizations SOCIAL HISTORY Never Assessed REASON FOR VISIT OB f/u 1 wk, PT stated this morning while urinating she thinks she had a contractions that lasted during the whole urination process and also believes she lost her mucus plug yesterday- [place] PLAN OF CARE VITAL SIGNS Height 63 in 2016-07-30 Weight 163.8 lbs 2016-07-30 Temperature 98.2 degrees Fahrenheit 2016-07-30 Heart Rate 84 bpm 2016-07-30 Respiratory Rate 20 2016-07-30 BMI 29.016 kg/m2 2016-07-30 Blood pressure systolic 102 mmHg 2016-07-30 Blood pressure diastolic 66 mmHg 2016-07-30 MEDICATIONS Medication Instructions Dosage Frequency Start Date End Date Duration Status Bactrim DS 800-160 mg 1 tablet by Oral route 2 times per day for 10 day(s) Aug, Active Zoloft 25 MG Orally Once a day 1 tablet 24h 30 Active Vitamin 27-0.8 MG Orally Once a day 1 tablet 24h 30 days Active RESULTS Name Result Date Reference Range UA OB DIP (IN HOUSE) 2016-07-30 Glucose negative Protein Trace PROCEDURES Procedure Date Ordered Result Body Site URINE-NO MICRO July 30, 2016 INSTRUCTIONS MEDICATIONS ADMINISTERED No Known Medications MEDICAL (GENERAL) HISTORY Type Description Date Medical History Depression Surgical History tonsillectomy Surgical History dilatation and curettage Hospitalization History childbirth only
--- OUTSIDE RECORDS SUMMARY | 2017-05-10 16:55 | XMS REPORT ---
Author Author VALENTINO BRITTANI Organization [facility] Address [address] [place] [address] Care Team Providers Care Heater Mechanic Name Role Phone VALENTINOGAB CONNELLHANY Unavailable PROBLEMS Type Condition ICD9-CM Code [id number] Code Onset Dates Condition Status SNOMED Code Problem Severe episode of recurrent major depressive disorder, without psychotic features F33.2 Active [id number] ALLERGIES No Known Allergies SOCIAL HISTORY Never Assessed PLAN OF CARE Activity Details Follow Up 1 Week, 1 Week Reason: VITAL SIGNS Height 63 in 2016-07-24 Weight 164.1 lbs 2016-07-24 Temperature 97.2 degrees Fahrenheit 2016-07-24 Heart Rate 94 bpm 2016-07-24 Respiratory Rate 20 2016-07-24 BMI 29.069 kg/m2 2016-07-24 Blood pressure systolic 108 mmHg 2016-07-24 Blood pressure diastolic 68 mmHg 2016-07-24 MEDICATIONS Medication Instructions Dosage Frequency Start Date End Date Duration Status Zoloft 25 MG Orally Once a day 1 tablet 24h 30 Active Vitamin 27-0.8 MG Orally Once a day 1 tablet 24h 30 days Active RESULTS Name Result Date Reference Range UA OB DIP (IN HOUSE) 2016-07-24 Glucose negative Protein 1+ Biophysical Profile () w/o NST 2016-07-24 PROCEDURES Procedure Date Ordered Result Body Site NON-STRESS TEST 2016-07-24 N/A URINE-NO MICRO July 24, 2016 NON-STRESS TEST July 24, 2016 IMMUNIZATIONS No Known Immunizations MEDICAL (GENERAL) HISTORY Type Description Date Medical History Depression Surgical History tonsillectomy Surgical History dilatation and curettage Hospitalization History childbirth only
--- OUTSIDE RECORDS SUMMARY | 2017-05-10 16:55 | XMS REPORT ---
Author Author VALENTINO BRITTANI Organization [facility] Address [address] [place] [address] Care Team Providers Care Studio Associate Name Role Phone BRITTANI AVELAR Unavailable PROBLEMS Type Condition ICD9-CM Code BSP16-SF Code Onset Dates Condition Status SNOMED Code Problem Severe episode of recurrent major depressive disorder, without psychotic features F33.2 Active [id number] ALLERGIES No Known Allergies SOCIAL HISTORY Never Assessed PLAN OF CARE Activity Details Follow Up 4 Weeks, 4 Weeks, 4 Weeks Reason: VITAL SIGNS Height 63 in 2016-05-01 Weight 146.8 lbs 2016-05-01 Temperature 98.0 degrees Fahrenheit 2016-05-01 BMI 26.004 kg/m2 2016-05-01 Blood pressure systolic 112 mmHg 2016-05-01 Blood pressure diastolic 80 mmHg 2016-05-01 MEDICATIONS Medication Instructions Dosage Frequency Start Date End Date Duration Status Vitamin 27-0.8 MG Active Zoloft 25 MG Orally Once a day 1 tablet 24h Apr, 30 day(s) Active RESULTS Name Result Date Reference Range UA OB DIP (IN HOUSE) 2016-05-01 Glucose neg Protein trace URINE DRUG SCREEN (IN HOUSE) 2016-05-01 Lot # [id number] Exp date 12/2017 Control + COCAINE neg AMPH neg MTD neg THC POSITIVE OPIATE neg BENZO neg PCP neg BAR neg OXY neg MAMP neg TCA neg BUP neg MDMA neg PROCEDURES Procedure Date Ordered Result Body Site URINE-NO MICRO May 01, 2016 DRUG TEST PRSMV DIR OPT OBS May 01, 2016 IMMUNIZATIONS No Known Immunizations MEDICAL (GENERAL) HISTORY Type Description Date Medical History Depression Surgical History tonsillectomy Surgical History dilatation and curettage Hospitalization History childbirth only
--- OUTSIDE RECORDS SUMMARY | 2017-05-10 16:56 | XMS REPORT ---
Author Author BRITTANI AVELAR Organization [facility] Address [address] [place] [address] Care Team Providers Care Comfort Advisor Name Role Phone BRITTANI AVELAR Unavailable PROBLEMS Type Condition ICD9-CM Code [id number] Code Onset Dates Condition Status SNOMED Code Problem Severe episode of recurrent major depressive disorder, without psychotic features F33.2 Active [id number] ALLERGIES No Known Allergies SOCIAL HISTORY Never Assessed PLAN OF CARE Activity Details Follow Up 1 Week, 1 Week Reason: VITAL SIGNS Height 63 in 2016-07-10 Weight 160 lbs 2016-07-10 Temperature 98.3 degrees Fahrenheit 2016-07-10 Heart Rate 90 bpm 2016-07-10 Respiratory Rate 20 2016-07-10 BMI 28.343 kg/m2 2016-07-10 Blood pressure systolic 112 mmHg 2016-07-10 Blood pressure diastolic 70 mmHg 2016-07-10 MEDICATIONS Medication Instructions Dosage Frequency Start Date End Date Duration Status Vitamin 27-0.8 MG Orally Once a day 1 tablet 24h 30 days Active Zoloft 25 MG Orally Once a day 1 tablet 24h 30 Active RESULTS Name Result Date Reference Range UA OB DIP (IN HOUSE) 2016-07-10 Glucose negative Protein negative PROCEDURES Procedure Date Ordered Result Body Site URINE-NO MICRO July 10, 2016 IMMUNIZATIONS No Known Immunizations MEDICAL (GENERAL) HISTORY Type Description Date Medical History Depression Surgical History tonsillectomy Surgical History dilatation and curettage Hospitalization History childbirth only
--- OUTSIDE RECORDS SUMMARY | 2017-05-10 16:59 | XMS REPORT | Continuity of Care Document ---
Author Author [facility] Address Unknown Phone Unavailable Allergies Active Description Code Type Severity Reaction Onset Reported/Identified Relationship to Patient Clinical Status Yes No Known Drug Allergies [id number] Drug Allergy Mild N/A 06/05/2008 Medications There is no data. Problems Date Dx Coded Attending Type Code Diagnosis Diagnosed By 11/29/2008 V05.8 GARDASIL 11/29/2008 BREA IVEY APRN V05.8 GARDASIL 11/29/2008 V05.8 GARDASIL 11/29/2008 V05.8 GARDASIL 11/29/2008 CORTES BLANC APRN A V05.8 GARDASIL 11/29/2008 CORTES BLANC APRN V05.8 GARDASIL 11/29/2008 VAZ DO, ZHEN [...] APRN A 296.90 MOOD DISORDER 01/07/2011 GUANACO BONDN, CORTES A 780.79 MALAISE AND FATIGUE 01/07/2011 GUANACO FURNITURE FINISHER HELPER, CORTES A V25.9 CONTRACEPTION MANAGEMENT 01/07/2011 GUANACO BONDN, CORTES A 296.90 MOOD DISORDER 01/07/2011 GUANACO BONDN, CORTES A 780.79 MALAISE AND FATIGUE 01/07/2011 GUANACO BONDN, CORTES A V25.9 CONTRACEPTION MANAGEMENT 01/07/2011 VAZ [...] NOS 01/10/2011 314.01 ADHD COMBINED 01/10/2011 [place] FURNITURE FINISHER HELPER BREA S 296.80 MO BIPOLAR NOS 01/10/2011 ROMARIO IVEY APRNNDA S 314.01 ADHD COMBINED 01/10/2011 296.80 MO BIPOLAR NOS 01/10/2011 314.01 ADHD COMBINED 01/10/2011 296.80 MO BIPOLAR NOS 01/10/2011 314.01 ADHD COMBINED 01/10/2011 GUANACO FURNITURE FINISHER HELPER, CORTES A 296.80 MO BIPOLAR NOS 01/10/2011 GUANACO FURNITURE FINISHER HELPER, CORTES A 314.01 ADHD COMBINED 01/10/2011 GUANACO FURNITURE FINISHER HELPER, CORTES A 296.80 MO BIPOLAR NOS 01/10/2011 GUANACO FURNITURE FINISHER HELPER, CORTES A 314.01 ADHD COMBINED 01/10/2011 VAZ [...] PTSD 01/28/2011 V58.69 MEDICATION HIGH RISK 01/28/2011 BREA IVEY APRN S 296.33 MO DEPRESSIVE RECURRENT SEVERE W/O PSYCHOTIC BEHAVIOR 01/28/2011 BREA IVEY APRN S 309.81 AN PTSD 01/28/2011 BREA IVEY APRN S V58.69 MEDICATION HIGH RISK 01/28/2011 296.33 MO DEPRESSIVE RECURRENT SEVERE W/O PSYCHOTIC BEHAVIOR 01/28/2011 309.81 AN PTSD 01/28/2011 V58.69 MEDICATION HIGH RISK 01/28/2011 296.33 MO DEPRESSIVE RECURRENT SEVERE W/O PSYCHOTIC BEHAVIOR 01/28/2011 309.81 AN PTSD 01/28/2011 V58.69 MEDICATION HIGH RISK 01/28/2011 CORTES BLANC APRN A 296.33 MO DEPRESSIVE RECURRENT SEVERE W/O PSYCHOTIC BEHAVIOR 01/28/2011 STEPHANI BLANC APRNIDI A 309.81 AN PTSD 01/28/2011 STEPHANI BLANC APRNIDI A V58.69 MEDICATION HIGH RISK 01/28/2011 CORTES BLANC APRN A 296.33 MO DEPRESSIVE RECURRENT SEVERE W/O PSYCHOTIC BEHAVIOR 01/28/2011 GUANACO FURNITURE FINISHER HELPER, CORTES A 309.81 AN PTSD 01/28/2011 GUANACO FURNITURE FINISHER HELPER, CORTES A V58.69 MEDICATION HIGH RISK 01/28/2011 [...] VAZ DOA K 309.81 AN PTSD 01/28/2011 CED VAZ DOA K V58.69 MEDICATION HIGH RISK 01/28/2011 CED VAZ DOA K 296.33 MO DEPRESSIVE RECURRENT SEVERE W/O PSYCHOTIC BEHAVIOR 01/28/2011 CED VAZ DOA K 309.81 AN PTSD 01/28/2011 CED VAZ DOA K V58.69 MEDICATION HIGH RISK 01/28/2011 CED VAZ DOA K 296.33 MO DEPRESSIVE RECURRENT SEVERE W/O PSYCHOTIC BEHAVIOR 01/28/2011 CED VAZ DOA K 309.81 AN PTSD 01/28/2011 CED VAZ DOA K V58.69 MEDICATION HIGH RISK 03/04/2011 789.09 ABDOMINAL PAIN OTHER SPECIFIED SITE 03/04/2011 V04.89 GARDASIL (HPV ) DX 03/04/2011 V25.01 CONTRACEPTION - ORAL CONTRACEPTION [...] PAIN OTHER SPECIFIED SITE 03/04/2011 V04.89 GARDASIL (HPV ) DX 03/04/2011 V25.01 CONTRACEPTION - ORAL CONTRACEPTION 03/04/2011 V65.45 STD COUNSELING 03/04/2011 V74.5 STD SCREEN 03/04/2011 789.09 ABDOMINAL PAIN OTHER SPECIFIED SITE 03/04/2011 V04.89 GARDASIL (HPV ) DX 03/04/2011 V25.01 CONTRACEPTION - ORAL CONTRACEPTION 03/04/2011 V65.45 STD COUNSELING 03/04/2011 V74.5 STD SCREEN 03/04/2011 CORTES BLANC APRN 789.09 ABDOMINAL PAIN OTHER SPECIFIED SITE 03/04/2011 CORTES BLANC APRN A V04.89 GARDASIL (HPV) DX 03/04/2011 CORTES BLANC APRN A V25.01 CONTRACEPTION - ORAL CONTRACEPTION 03/04/2011 CORTES BLANC APRN A V65.45 STD COUNSELING 03/04/2011 GUANACO PEREZ, CORTES A V74.5 STD SCREEN 03/04/2011 CORTES BLANC APRN 789.09 ABDOMINAL PAIN OTHER SPECIFIED SITE 03/04/2011 CORTES BLANC APRN A V04.89 GARDASIL (HPV) DX 03/04/2011 GUANACO PEREZ, CORTES A V25.01 CONTRACEPTION - ORAL CONTRACEPTION 03/04/2011 CORTES BLANC APRN A V65.45 STD COUNSELING 03/04/2011 STEPHANI BLANC APRNIDI A V74.5 STD SCREEN 03/04/2011 ZHEN VAZ DO 789.09 ABDOMINAL PAIN OTHER SPECIFIED SITE 03/04/2011 CED VAZ DOA K V04.89 GARDASIL (HPV) DX 03/04/2011 MILIND ROSALES ZHEN K V25.01 CONTRACEPTION - ORAL CONTRACEPTION 03/04/2011 MILIND ROSALES ZHEN K V65.45 STD COUNSELING 03/04/2011 VAZ DO ZHEN K V74.5 STD SCREEN 03/04/2011 CED VAZ DOA K 789.09 ABDOMINAL PAIN OTHER SPECIFIED SITE 03/04/2011 CED VAZ DOA K V04.89 GARDASIL (HPV) DX 03/04/2011 MILIND DO ZHEN K V25.01 CONTRACEPTION - ORAL CONTRACEPTION 03/04/2011 VAZ DO ZHEN K V65.45 STD COUNSELING 03/04/2011 VAZ DO ZHEN K V74.5 STD SCREEN 03/04/2011 VAZ DO ZHEN K 789.09 ABDOMINAL PAIN OTHER SPECIFIED SITE 03/04/2011 VAZ DO ZHEN K V04.89 GARDASIL (HPV) DX 03/04/2011 VAZ DO ZHEN K V25.01 CONTRACEPTION - ORAL CONTRACEPTION 03/04/2011 VAZ DO ZHEN K V65.45 STD COUNSELING 03/04/2011 VAZ DO ZHEN K V74.5 STD SCREEN 03/04/2011 VAZ DO ZHEN K 789.09 ABDOMINAL PAIN OTHER SPECIFIED SITE [...] DOCEDA K V74.5 STD SCREEN 03/04/2011 VAZ DOCEDA K 789.09 ABDOMINAL PAIN OTHER SPECIFIED SITE 03/04/2011 VAZ DOCEDA K V04.89 GARDASIL (HPV) DX 03/04/2011 VAZ DO ZHEN K V25.01 CONTRACEPTION - ORAL CONTRACEPTION 03/04/2011 VAZ DOCEDA K V65.45 STD COUNSELING 03/04/2011 VAZ DOCEDA K V74.5 STD SCREEN 03/04/2011 VAZ DOCEDA [...] DOCEDA K V04.89 GARDASIL (HPV) DX 03/04/2011 ZHEN VAZ DO K V25.01 CONTRACEPTION - ORAL CONTRACEPTION 03/04/2011 ZHEN VAZ DO K V65.45 STD COUNSELING 03/04/2011 ZHEN VAZ DO K V74.5 STD SCREEN 03/04/2011 ZHEN VAZ DO K 789.09 ABDOMINAL PAIN OTHER SPECIFIED SITE 03/04/2011 ZHEN VAZ DO K V04.89 GARDASIL (HPV) DX 03/04/2011 CED VAZ DOA K V25.01 CONTRACEPTION - ORAL CONTRACEPTION 03/04/2011 CED VAZ DOA K V65.45 STD COUNSELING 03/04/2011 CED VAZ DOA K V74.5 STD SCREEN 03/04/2011 CED VAZ DOA K 789.09 ABDOMINAL PAIN OTHER SPECIFIED SITE 03/04/2011 CED VAZ DOA K V04.89 GARDASIL (HPV) DX 03/04/2011 CED VAZ DOA K V25.01 CONTRACEPTION - ORAL CONTRACEPTION 03/04/2011 CED VAZ DOA K V65.45 STD COUNSELING 03/04/2011 ZHEN VAZ DO K V74.5 STD SCREEN 03/25/2011 536.8 DYSPEPSIA 03/25/2011 V68.1 ISSUE OF REPEAT PRESCRIPTIONS 03/25/2011 BREA IVEY APRN S 536.8 DYSPEPSIA 03/25/2011 BREA IVEY APRN V68.1 ISSUE OF REPEAT PRESCRIPTIONS 03/25/2011 536.8 DYSPEPSIA 03/25/2011 V68.1 ISSUE OF REPEAT PRESCRIPTIONS 03/25/2011 536.8 DYSPEPSIA 03/25/2011 V68.1 ISSUE OF REPEAT PRESCRIPTIONS 03/25/2011 CORTES BLANC APRN A 536.8 DYSPEPSIA 03/25/2011 CORTES BLANC APRN A V68.1 ISSUE OF REPEAT PRESCRIPTIONS 03/25/2011 CORTES BLANC APRN A 536.8 DYSPEPSIA 03/25/2011 CORTES BLANC APRN A V68.1 ISSUE OF REPEAT PRESCRIPTIONS 03/25/2011 ZHEN VAZ DO 536.8 DYSPEPSIA 03/25/2011 ZHNE VAZ DO V68.1 ISSUE OF REPEAT PRESCRIPTIONS 03/25/2011 ZHEN VAZ DO 536.8 DYSPEPSIA 03/25/2011 VAZ DO, ZHEN K [...] A V69.2 HIGH-RISK SEXUAL BEHAVIOR 03/16/2012 GUANACO FURNITURE FINISHER HELPER, CORTES A 626.0 AMENORRHEA 03/16/2012 GUANACO FURNITURE FINISHER HELPER, CORTES A V69.2 HIGH-RISK SEXUAL BEHAVIOR 03/16/2012 [...] SEXUAL BEHAVIOR 08/16/2012 564.00 CONSTIPATION 08/16/2012 GUANACO FURNITURE FINISHER HELPER, CORTES A 564.00 CONSTIPATION 08/16/2012 GUANACO FURNITURE FINISHER HELPER, CORTES A 564.00 CONSTIPATION 08/16/2012 VAZ DO, [...] DO Ot 646.83 PREG COMPL NEC-ANTEPART 01/14/2013 BLIAR BRITO DO Ot 648.43 MENTAL DISORDER-ANTEPART 01/14/2013 BLAIR BRITO DO Ot 786.01 HYPERVENTILATION 03/07/2013 BLAIR BRITO DO Ot 462 ACUTE PHARYNGITIS 03/07/2013 BLAIR BRITO DO Ot 487.1 FLU W RESP MANIFEST NEC 03/07/2013 BLAIR BRITO DO Ot 648.93 OTH CURR COND-ANTEPARTUM 05/13/2013 FABRICE PAEZ APRN Ot 648.93 OTH CURR COND-ANTEPARTUM 05/13/2013 FABRICE PAEZ FURNITURE FINISHER HELPER Ot 881.01 OPEN WOUND OF ELBOW 05/13/2013 FABRICE PAEZ FURNITURE FINISHER HELPER Ot E000.8 OTHER EXTERNAL CAUSE STATUS 05/13/2013 FABRICE PAEZ FURNITURE FINISHER HELPER Ot E029.9 OTHER ACTIVITY 05/13/2013 FABRICE PAEZ FURNITURE FINISHER HELPER Ot E849.[address] NEC 05/13/2013 FABRICE PAEZ FURNITURE FINISHER HELPER Ot E885.9 FALL FROM SLIPPING, TRIPPING, OR STUMBLI 05/15/2013 AARON BLUE, VADIM Peterson Ot V58.31 ENCOUNTER FOR CHANGE OR REMOVAL OF SURGI 05/26/2013 JP PUENTE, CLAIRE aBez Ot V58.32 ENCOUNTER FOR REMOVAL OF SUTURES [...] Bernardo APRN A V06.1 TDAP DX 06/13/2013 GUANACOCORTES Bernardo APRN A V22.0 , NORMAL FIRST 06/13/2013 [...] DEL W 1 DEG LACERAT-DEL 08/25/2013 MILIND ROSALES ZHEN Nestor Ot V27.0 DELIVER-SINGLE LIVEBORN 11/18/2013 MILIND ROSALESZHEN V25.01 GENERAL COUNSELING ON PRESCRIPTION OF ORAL CONTRACEPTIVES 11/18/2013 MILIND ROSALESZHEN V25.01 GENERAL COUNSELING ON PRESCRIPTION OF ORAL CONTRACEPTIVES 12/06/2013 MILIND ZHEN ROSALES V25.09 CONTRACEPTIVE COUNSELING - GENERAL 12/10/2013 KENYA FREEMAN DO Ot 535.40 OTH SPECIFIED GASTRITIS,W/O MENTION OF H 12/10/2013 KENYA FREMEAN DO Ot 599.0 URIN TRACT INFECTION NOS 12/10/2013 KENYA FREEMAN DO Ot 965.4 POIS-AROM ANALGESICS NEC 12/10/2013 KENYA FREEMAN DO Ot 965.61 POIS-PROPIONIC ACID DERIVATIVES 12/10/2013 KENYA FREEMAN DO Ot E850.4 ACC POISON-AROM ANALGESC [...] Ot V28.81 ENCOUNTER FOR ANATOMIC SURVEY 03/22/2016 ZHEN VAZ DO Ot V89.02 SUSPECTED PLACENTAL PROBLEM NOT FOUND 03/22/2016 CLAIRE TRAMMELL MD Ot N89.8 OTHER SPECIFIED NONINFLAMMATORY DISORDER 03/22/2016 CLAIRE TRAMMELL MD Ot Z3A.19 19 WEEKS GESTATION OF 03/23/2016 KAI ROQUE MD, Ot O47.02 FALSE LABOR BEFORE 37 COMPLETED WEEKS OF 03/23/2016 KAI ROQUE MD Ot Z3A.19 19 WEEKS GESTATION OF 03/24/2016 CLAIRE TRAMMELL MD Ot N89.8 OTHER SPECIFIED NONINFLAMMATORY DISORDER 03/24/2016 CLAIRE TRAMMELL MD Ot Z3A.19 19 WEEKS GESTATION OF 04/25/2016 KIM PÉREZ MD Ot 649.63 UTERINE SIZE DATE DISCREPANCY, ANTEPARTU 04/25/2016 KIM PÉREZ MD Ot V28.81 ENCOUNTER FOR ANATOMIC SURVEY 04/25/2016 CED VAZ DOA Nestor Ot V89.02 SUSPECTED PLACENTAL PROBLEM NOT FOUND 04/25/2016 KAI ROQUE MD Ot O47.02 FALSE LABOR BEFORE 37 COMPLETED WEEKS OF 04/25/2016 KAI ROQUE MD Ot Z3A.23 23 WEEKS GESTATION OF 04/30/2016 KAI ROQUE MD Ot O47.02 FALSE LABOR BEFORE 37 COMPLETED WEEKS OF 04/30/2016 KAI ROQUE MD Ot Z3A.23 23 WEEKS GESTATION OF 05/02/2016 KAI ROQUE MD Ot O47.02 FALSE LABOR BEFORE 37 COMPLETED WEEKS OF 05/02/2016 KAI ROQUE MD Ot Z3A.23 23 WEEKS GESTATION OF 06/04/2016 BRITTANI AVELAR MD Ot O46.93 ANTEPARTUM HEMORRHAGE, UNSPECIFIED, THIR 06/05/2016 ELISA PUENTE, KIM Harding Ot 649.63 UTERINE SIZE DATE DISCREPANCY, ANTEPARTU 06/05/2016 KIM PÉREZ MD Ot V28.81 ENCOUNTER FOR ANATOMIC SURVEY 06/05/2016 ZHEN VAZ DO Ot V89.02 SUSPECTED PLACENTAL PROBLEM NOT FOUND 06/06/2016 BRITTANI AVELAR MD Ot O46.93 ANTEPARTUM HEMORRHAGE, UNSPECIFIED, THIR 06/06/2016 BRITTANI AVELAR MD Ot O46.93 ANTEPARTUM HEMORRHAGE, UNSPECIFIED, THIR 06/10/2016 BRITTANI AVELAR MD Ot Z34.83 ENCOUNTER FOR SUPRVSN OF NORMAL PREGNANC 06/10/2016 BRITTANI AVELAR MD Ot O46.93 ANTEPARTUM HEMORRHAGE, UNSPECIFIED, 06/10/2016 BRITTANI AVELAR MD Ot Z34.83 ENCOUNTER FOR SUPRVSN OF NORMAL PREGNANC 07/01/2016 ELVIN PETERS MD Ot O23.43 UNSP INFCT OF URINARY TRACT IN 07/01/2016 ELVIN PETERS MD Ot O60.03 LABOR WITHOUT DELIVERY, THIRD TR 07/01/2016 ELVIN PETERS MD Ot Z3A.33 33 WEEKS GESTATION OF 07/03/2016 BRITTANI AVELAR MD Ot Z34.83 ENCOUNTER FOR SUPRVSN OF NORMAL PREGNANC 07/03/2016 ELVIN PETERS MD Ot O23.93 UNSP TRACT INFECTION IN , TH 07/03/2016 ELVIN PETERS MD Ot O60.03 LABOR WITHOUT DELIVERY, THIRD TR 07/03/2016 ELVIN PETERS MD Ot Z3A.33 33 WEEKS GESTATION OF 07/07/2016 ELVIN PETERS MD Ot O23.43 UNSP INFCT OF URINARY TRACT IN 07/07/2016 ELVIN PETERS MD Ot O60.03 LABOR WITHOUT DELIVERY, THIRD TR 07/07/2016 ELVIN PETERS MD Ot Z3A.33 33 WEEKS GESTATION OF 07/10/2016 BRITTANI AVELAR MD Ot Z34.83 ENCOUNTER FOR SUPRVSN OF NORMAL PREGNANC 07/14/2016 BRITTANI AVELAR MD Ot O47.03 FALSE LABOR BEFORE 37 COMPLETED WEEKS OF 07/14/2016 BRITTANI AVELAR MD Ot Z3A.35 35 WEEKS GESTATION OF 07/20/2016 KIM PÉREZ MD, Ot O47.03 FALSE LABOR BEFORE 37 COMPLETED WEEKS OF 07/20/2016 KMI PÉREZ MD, Ot Z3A.36 36 WEEKS GESTATION OF 07/23/2016 CLAIRE TRAMMELL MD Ot N89.8 OTHER SPECIFIED NONINFLAMMATORY DISORDER 07/23/2016 CLAIRE TRAMMELL MD Ot O41.02X0 OLIGOHYDRAMNIOS, SECOND TRIMESTER, NOT A 07/23/2016 CLAIRE TRAMMELL MD, Ot Z3A.19 19 WEEKS GESTATION OF 07/23/2016 BRITTANI AVELAR MD Ot Z34.83 ENCOUNTER FOR SUPRVSN OF NORMAL PREGNANC 07/26/2016 BRITTANI AVELAR MD Ot O47.1 FALSE LABOR AT OR AFTER 37 COMPLETED WEE 07/26/2016 BRITTANI AVELAR MD Ot Z3A.37 37 WEEKS GESTATION OF 07/28/2016 BRITTANI AVELAR MD Ot O47.03 FALSE LABOR BEFORE 37 COMPLETED WEEKS OF 07/28/2016 BRITTANI AVELAR MD Ot Z3A.35 35 WEEKS GESTATION OF 07/29/2016 BRITTANI AVELAR MD Ot O36.8130 DECREASED MOVEMENTS, THIRD TRIMEST 07/29/2016 BRITTANI AVELAR MD Ot Z3A.37 37 WEEKS GESTATION OF 08/05/2016 BRITTANI AVELAR MD Ot O26.93 RELATED CONDITIONS, UNSPECIFIE 08/07/2016 ELVIN PETERS MD Ot F31.9 BIPOLAR DISORDER, UNSPECIFIED 08/07/2016 ELVIN PETERS MD Ot O73.0 RETAINED PLACENTA WITHOUT HEMORRHAGE 08/07/2016 ELVIN PETERS MD Ot 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 08/07/2016 ELVIN PETERS MD Ot O99.344 OTHER MENTAL DISORDERS COMPLICATING CHIL 08/07/2016 ELVIN PETERS MD Ot Z37.0 SINGLE LIVE 08/07/2016 ELVIN PETERS MD Ot Z3A.38 38 WEEKS GESTATION OF Procedures Code Description [place] [address] URINE TEST (IN- HOUSE) 03/16/2012 58802 TRICHOMONAS (IN-HOUSE) 03/16/2012 16821 GC/CHLAM PROBE (STATE) 03/18/2012 28598 CULTURE UROGENITAL 03/18/2012 56158 URINE TEST (IN- HOUSE) 08/16/2012 51456 UA W/ CULTURE IF INDICATED 08/16/2012 68901 GC/CHLAM URINE (STATE) 08/18/2012 05374 UA OB DIP 06/13/2013 60687 UA OB DIP 06/27/2013 64602 UA OB DIP 07/11/2013 87048 OB - FOLLOW UP 07/25/2013 62279 UA OB DIP 07/25/2013 99804 CULTURE GROUP B STREP VAG 07/27/2013 34736 UA OB DIP 08/02/2013 48290 UA OB DIP 08/08/2013 56712 UA OB DIP 08/16/2013 73.4 MEDICAL INDUCTION LABOR 08/22/2013 75.69 REPAIR OB LACERATION NEC 08/23/2013 GC/CHLAM GC/CHLAMYDIA PROBE/URINE 12/06/2013 [id number] EXTRACTION OF PRODUCTS OF CONCEPTION, RE 08/05/2016 [id number] DELIVERY OF PRODUCTS OF CONCEPTION, EXTE 08/05/2016 Results Test Result Range Complete urinalysis with reflex to culture - 02/21/16 11:48 Urine color determination YELLOW NRG Urine clarity determination CLEAR NRG Urine pH measurement by test strip 7 5-9 Specific gravity of urine by test strip 1.010 1.016- 1.022 Urine protein assay by test strip, semi-quantitative [...] culture - 02/21/16 11:48 Bacterial urine culture [id number] NRG COLONY COUNT 10,000/ML - 100,000/ML NRG Complete blood count (CBC) with automated white blood cell (WBC) differential - 02/21/16 13:00 Blood leukocytes automated count (number/volume) 7.0 10*3/uL 4.3-11.0 Blood erythrocytes automated count (number/volume) 3.88 10*6/uL 4.35-5.85 Venous blood hemoglobin measurement (mass/volume) 11.3 [...] Automated blood platelet mean volume measurement 10.4 [foz_us] 7.4-10.4 Automated blood neutrophils/100 leukocytes 73 % [...] Serum or plasma sodium measurement (moles/volume) 134 mmol/L 135-145 Serum or plasma potassium measurement (moles/volume) 3.7 mmol/L 3.6-5.0 Serum or plasma chloride measurement (moles/volume) 105 mmol/L 98-107 Carbon dioxide 22 mmol/L 21-32 Serum or plasma anion gap determination (moles/volume) 7 mmol/L 5-14 Serum or plasma urea nitrogen measurement (mass/volume) 7 mg/dL 7-18 Serum or plasma creatinine measurement (mass/volume) 0.53 mg/dL 0.60-1.30 Serum or plasma urea nitrogen/creatinine mass [...] 13:45 Blood leukocytes automated count (number/volume) 7.7 10*3/uL 4.3-11.0 Blood erythrocytes automated count (number/volume) 3.62 10*6/uL 4.35-5.85 Venous blood hemoglobin measurement (mass/volume) 10.6 [...] Automated blood platelet mean volume measurement 10.0 [foz_us] 7.4-10.4 Serum or plasma choriogonadotropin measurement (units/volume) - 03/22/16 13:45 Serum or plasma choriogonadotropin measurement (units/volume) 66991 m[iU]/mL <5 Complete urinalysis with reflex to culture - 06/04/16 19:55 Urine color determination YELLOW NRG Urine clarity determination CLEAR NRG Urine pH measurement by test strip 6 5-9 Specific gravity of urine by test strip 1.010 1.016- 1.022 Urine protein assay by test strip, semi-quantitative [...] detection in urine sediment by light microscopy FEW NRG Squamous epithelial cells detection in urine sediment by light microscopy 5-10 NRG Crystals detection in urine sediment by light microscopy NONE NRG Casts detection in urine sediment by light microscopy NONE NRG Mucus detection in urine sediment by light microscopy NEGATIVE NRG Complete urinalysis with reflex to culture NO NRG Bacterial urine culture - 06/04/16 19:55 URINE CULTURE RESULTS <10,000/ML NRG Complete blood count (CBC) with automated white blood cell (WBC) differential - 06/30/16 20:25 Blood leukocytes automated count (number/volume) 6.2 10*3/uL 4.3-11.0 Blood erythrocytes automated count (number/volume) 3.81 10*6/uL 4.35-5.85 Venous blood hemoglobin measurement (mass/volume) 10.5 g/dL 11.5-16.0 Blood hematocrit (volume fraction) 33 % 35-52 Automated erythrocyte mean corpuscular volume 86 [foz_us] 80-99 Automated erythrocyte mean corpuscular hemoglobin (mass per erythrocyte) 28 pg 25-34 Automated erythrocyte mean corpuscular hemoglobin concentration measurement ( mass/volume) 32 g/dL 32-36 Automated erythrocyte distribution width ratio 13.9 % 10.0-14.5 Automated blood platelet count (count/volume) 218 10*3/uL 130-400 Automated blood platelet mean volume measurement 10.0 [foz_us] 7.4-10.4 Automated blood neutrophils/100 leukocytes 83 % 42-75 Automated blood lymphocytes/100 leukocytes 14 % 12-44 Blood monocytes/100 leukocytes 3 % 0-12 Automated blood eosinophils/100 leukocytes 1 % 0-10 Automated blood basophils/100 leukocytes 0 % 0-10 Blood neutrophils automated count (number/volume) 5.1 10*3 1.8-7.8 Blood lymphocytes automated count (number/volume) 0.8 10*3 1.0-4.0 Blood monocytes automated count (number/volume) 0.2 10*3 0.0-1.0 Automated eosinophil count 0.0 10*3/uL 0.0-0.3 Automated blood basophil count (count/volume) 0.0 10*3/uL 0.0-0.1 Comprehensive metabolic panel - 06/30/16 20:25 Serum or plasma sodium measurement (moles/volume) 140 mmol/L 135-145 Serum or plasma potassium measurement (moles/volume) 3.5 mmol/L 3.6-5.0 Serum or plasma chloride measurement (moles/volume) 111 mmol/L 98-107 Carbon dioxide 20 mmol/L 21-32 Serum or plasma anion gap determination (moles/volume) 9 mmol/L 5-14 Serum or plasma urea nitrogen measurement (mass/volume) 4 mg/dL 7-18 Serum or plasma creatinine measurement (mass/volume) 0.54 mg/dL 0.60-1.30 Serum or plasma urea nitrogen/creatinine mass ratio 7 NRG Serum or plasma creatinine measurement with calculation of estimated glomerular filtration rate > NRG Serum or plasma glucose measurement (mass/volume) 105 mg/dL 70-105 Serum or plasma calcium measurement (mass/volume) 8.9 mg/dL 8.5-10.1 Serum or plasma total bilirubin measurement (mass/volume) 0.2 mg/dL 0.1-1.0 Serum or plasma alkaline phosphatase measurement (enzymatic activity/volume) 113 U/L 40-136 Serum or plasma aspartate aminotransferase measurement (enzymatic activity/ volume) 11 U/L 5-34 Serum or plasma alanine aminotransferase measurement (enzymatic activity/volume ) 8 U/L 0-55 Serum or plasma protein measurement (mass/volume) 5.6 g/dL 6.4-8.2 Serum or plasma albumin measurement (mass/volume) 3.1 g/dL 3.2-4.5 Complete urinalysis with reflex to culture - 06/30/16 20:30 Urine color determination YELLOW NRG Urine clarity determination CLEAR NRG Urine pH measurement by test strip 8 5-9 Specific gravity of urine by test strip 1.010 1.016- 1.022 Urine protein assay by test strip, semi-quantitative NEGATIVE NEGATIVE Urine glucose detection by automated test strip NEGATIVE NEGATIVE Erythrocytes detection in urine sediment by light microscopy NEGATIVE NEGATIVE Urine ketones detection by automated test strip NEGATIVE NEGATIVE Urine nitrite detection by test strip NEGATIVE NEGATIVE Urine total bilirubin detection by test strip NEGATIVE NEGATIVE Urine urobilinogen measurement by automated test strip (mass/volume) NORMAL NORMAL Urine leukocyte esterase detection by dipstick 3+ NEGATIVE Automated urine sediment erythrocyte count by microscopy (number/high power field) NONE NRG Automated urine sediment leukocyte count by microscopy (number/high power field ) [HPF] NRG Bacteria detection in urine sediment by light microscopy TRACE NRG Squamous epithelial cells detection in urine sediment by light microscopy 0-2 NRG Crystals detection in urine sediment by light microscopy NONE NRG Casts detection in urine sediment by light microscopy NONE NRG Mucus detection in urine sediment by light microscopy NEGATIVE NRG Complete urinalysis with reflex to culture YES NRG Bacterial urine culture - 06/30/16 20:30 URINE CULTURE RESULTS <10,000/ML NRG Complete urinalysis with reflex to culture - 07/03/16 19:50 Urine color determination YELLOW NRG Urine clarity determination CLEAR NRG Urine pH measurement by test strip 7 5-9 Specific gravity of urine by test strip 1.010 1.016- 1.022 Urine protein assay by test strip, semi-quantitative NEGATIVE NEGATIVE Urine glucose detection by automated test strip NEGATIVE NEGATIVE Erythrocytes detection in urine sediment by light microscopy NEGATIVE NEGATIVE Urine ketones detection by automated test strip NEGATIVE NEGATIVE Urine nitrite detection by test strip NEGATIVE NEGATIVE Urine total bilirubin detection by test strip NEGATIVE NEGATIVE Urine urobilinogen measurement by automated test strip (mass/volume) NORMAL NORMAL Urine leukocyte esterase detection by dipstick 3+ NEGATIVE Automated urine sediment erythrocyte count by microscopy (number/high power field) NONE NRG Automated urine sediment leukocyte count by microscopy (number/high power field ) [HPF] NRG Bacteria detection in urine sediment by light microscopy MODERATE NRG Squamous epithelial cells detection in urine sediment by light microscopy 10-25 NRG Crystals detection in urine sediment by light microscopy NONE NRG Casts detection in urine sediment by light microscopy NONE NRG Mucus detection in urine sediment by light microscopy NEGATIVE NRG Complete urinalysis with reflex to culture YES NRG Bacterial urine culture - 07/03/16 19:50 URINE CULTURE RESULTS <10,000/ML NRG Microscopic examination by wet preparation - 07/14/16 16:24 WET PREP RESULTS LDR 07/15 16:45 NRG Complete urinalysis with reflex to culture - 07/26/16 19:40 Urine color determination YELLOW NRG Urine clarity determination VERY CLOUDY NRG Urine pH measurement by test strip 6 5-9 Specific gravity of urine by test strip 1.025 1.016- 1.022 Urine protein assay by test strip, semi-quantitative 1+ NEGATIVE Urine glucose detection by automated test strip NEGATIVE NEGATIVE Erythrocytes detection in urine sediment by light microscopy NEGATIVE NEGATIVE Urine ketones detection by automated test strip 3+ NEGATIVE Urine nitrite detection by test strip NEGATIVE NEGATIVE Urine total bilirubin detection by test strip NEGATIVE NEGATIVE Urine urobilinogen measurement by automated test strip (mass/volume) 1 mg/dL NORMAL Urine leukocyte esterase detection by dipstick 3+ NEGATIVE Automated urine sediment erythrocyte count by microscopy (number/high power field) NONE NRG Automated urine sediment leukocyte count by microscopy (number/high power field ) TNTC NRG Bacteria detection in urine sediment by light microscopy MODERATE NRG Squamous epithelial cells detection in urine sediment by light microscopy 10-25 NRG Crystals detection in urine sediment by light microscopy PRESENT NRG Casts detection in urine sediment by light microscopy NONE NRG Mucus detection in urine sediment by light microscopy LARGE NRG Complete urinalysis with reflex to culture YES NRG Calcium oxalate crystals detection in urine sediment by light microscopy FEW NRG Bacterial urine culture - 07/26/16 19:40 URINE CULTURE RESULTS <10,000/ML NRG Complete urinalysis with reflex to culture - 08/04/16 12:00 Urine color determination YELLOW NRG Urine clarity determination SLIGHTLY CLOUDY NRG Urine pH measurement by test strip 7 5-9 Specific gravity of urine by test strip 1.010 1.016- 1.022 Urine protein assay by test strip, semi-quantitative NEGATIVE NEGATIVE Urine glucose detection by automated test strip NEGATIVE NEGATIVE Erythrocytes detection in urine sediment by light microscopy 5+ NEGATIVE Urine ketones detection by automated test strip NEGATIVE NEGATIVE Urine nitrite detection by test strip NEGATIVE NEGATIVE Urine total bilirubin detection by test strip NEGATIVE NEGATIVE Urine urobilinogen measurement by automated test strip (mass/volume) NORMAL NORMAL Urine leukocyte esterase detection by dipstick 2+ NEGATIVE Automated urine sediment erythrocyte count by microscopy (number/high power field) [HPF] NRG Automated urine sediment leukocyte count by microscopy (number/high power field ) RARE NRG Bacteria detection in urine sediment by light microscopy NEGATIVE NRG Squamous epithelial cells detection in urine sediment by light microscopy >50 NRG Crystals detection in urine sediment by light microscopy NONE NRG Casts detection in urine sediment by light microscopy NONE NRG Mucus detection in urine sediment by light microscopy NEGATIVE NRG Complete urinalysis with reflex to culture NO NRG Urine drug screening test - 08/05/16 12:00 Urine phencyclidine detection by screening method NEGATIVE NEGATIVE Urine benzodiazepines detection by screening method NEGATIVE NEGATIVE Urine cocaine detection NEGATIVE NEGATIVE Urine amphetamines detection by screening method NEGATIVE NEGATIVE Urine methamphetamine detection by screening method NEGATIVE NEGATIVE Urine cannabinoids detection by screening method NEGATIVE NEGATIVE Urine opiates detection by screening method NEGATIVE NEGATIVE Urine barbiturates detection NEGATIVE NEGATIVE Screening urine tricyclic antidepressants detection NEGATIVE NEGATIVE Urine methadone detection by screening method NEGATIVE NEGATIVE Urine oxycodone detection NEGATIVE NEGATIVE Urine propoxyphene detection NEGATIVE NEGATIVE Complete blood count (CBC) with automated white blood cell (WBC) differential - 08/06/16 09:02 Blood leukocytes automated count (number/volume) 9.8 10*3/uL 4.3-11.0 Blood erythrocytes automated count (number/volume) 3.16 10*6/uL 4.35-5.85 Venous blood hemoglobin measurement (mass/volume) 8.7 g/dL 11.5-16.0 Blood hematocrit (volume fraction) 27 % 35-52 Automated erythrocyte mean corpuscular volume 85 [foz_us] 80-99 Automated erythrocyte mean corpuscular hemoglobin (mass per erythrocyte) 28 pg 25-34 Automated erythrocyte mean corpuscular hemoglobin concentration measurement ( mass/volume) 32 g/dL 32-36 Automated erythrocyte distribution width ratio 14.8 % 10.0-14.5 Automated blood platelet count (count/volume) 183 10*3/uL 130-400 Automated blood platelet mean volume measurement 9.5 [foz_us] 7.4-10.4 Automated blood neutrophils/100 leukocytes 71 % 42-75 Automated blood lymphocytes/100 leukocytes 24 % 12-44 Blood monocytes/100 leukocytes 4 % 0-12 Automated blood eosinophils/100 leukocytes 1 % 0-10 Automated blood basophils/100 leukocytes 0 % 0-10 Blood neutrophils automated count (number/volume) 7.0 10*3 1.8-7.8 Blood lymphocytes automated count (number/volume) 2.3 10*3 1.0-4.0 Blood monocytes automated count (number/volume) 0.4 10*3 0.0-1.0 Automated eosinophil count 0.1 10*3/uL 0.0-0.3 Automated blood basophil count (count/volume) 0.0 10*3/uL 0.0-0.1 Encounters ACCT No. Visit Date/Time Discharge Status Pt. Type Provider Facility Loc./Unit Complaint [id number] 06/02/2013 17:29:00 06/02/2013 23:59:59 CLS Outpatient Kin Arjunnatalee Yuliet [id number] 05/17/2013 18:02:14 05/17/2013 23:59:59 CLS Outpatient Kenyetta Sam [id number] 05/16/2013 17:28:59 05/16/2013 23:59:59 CLS Outpatient Sanderson, Arjunnatalee Horvath [id number] 04/14/2013 16:00:45 04/14/2013 23:59:59 CLS Outpatient Sanderson Fredo Yuliet [id number] 12/06/2013 07:57:00 12/06/2013 23:59:59 CLS Outpatient ZHEN VAZ DO [id number] 11/18/2013 08:50:00 11/18/2013 23:59:59 CLS Outpatient ZHEN VAZ DO [id number] 09/14/2013 08:07:00 09/14/2013 23:59:59 CLS Outpatient ZHEN VAZ DO [id number] 08/16/2013 15:30:00 08/16/2013 23:59:59 CLS Outpatient ZHEN VAZ DO [id number] 08/16/2013 15:30:00 08/16/2013 23:59:59 CLS Outpatient ZHEN VAZ DO [id number] 08/08/2013 16:28:00 08/08/2013 23:59:59 CLS Outpatient ZHEN VAZ DO [id number] 08/02/2013 13:09:00 08/02/2013 23:59:59 CLS Outpatient ZHEN VAZ DO [id number] 07/25/2013 14:00:00 07/25/2013 23:59:59 CLS Outpatient ZHEN AVZ DO [id number] 07/25/2013 14:00:00 07/25/2013 23:59:59 CLS Outpatient ZHEN VAZ DO [id number] 07/11/2013 10:10:00 07/11/2013 23:59:59 CLS Outpatient ZHEN VAZ DO [id number] 06/27/2013 14:52:00 06/27/2013 23:59:59 CLS Outpatient ZHEN VAZ DO [id number] 06/13/2013 10:08:00 06/13/2013 23:59:59 CLS Outpatient CORTES BLANC APRN [id number] 08/16/2012 16:08:00 08/16/2012 23:59:59 CLS Outpatient CORTES BLANC APRN [id number] 03/16/2012 09:36:00 03/16/2012 23:59:59 CLS Outpatient BREA IVEY APRN [id number] 03/16/2012 09:36:00 03/16/2012 23:59:59 CLS Outpatient [id number] 03/25/2011 09:07:00 03/25/2011 23:59:59 CLS Outpatient [id number] 08/16/2012 16:08:00 Document Registration [id number] 08/04/2016 23:09:00 08/07/2016 14:20:00 DIS Inpatient ELVIN PETERS MD [facility] LDRP LABOR [id number] 07/29/2016 15:10:00 07/29/2016 17:00:00 DIS [facility] [id number] 07/26/2016 17:54:00 07/26/2016 21:45:00 DIS Out[facility],THROWING UP [id number] 07/24/2016 15:36:00 07/24/2016 23:59:59 CLS Outpatient BRITTANI AVELAR MD [facility] RAD TACHYCARDIA BEFORE ONSET OF LABOR P03.810 [id number] 07/20/2016 20:01:00 07/20/2016 21:51:00 DIS Out[facility] W CLEAR FLUID [id number] 07/14/2016 13:54:00 07/14/2016 17:32:00 DIS Outpatient BRITTANI AVELAR MD [facility] WSo CONTRACTIONS [id number] 07/03/2016 19:39:00 07/03/2016 21:50:00 DIS Outpatient [facility] [id number] 06/30/2016 12:48:00 07/01/2016 13:58:00 DIS Outpatient [facility] CONTR[facility] 35 WKS PREG [id number] 06/05/2016 15:02:00 06/05/2016 23:59:59 CLS Outpatient BRITTANI AVELAR MD [facility] RAD SURVEY [id number] 06/04/2016 19:37:00 06/04/2016 20:55:00 DIS Outpatient [facility] VAGINAL BLEEDING,ABD TIGHTNESS [id number] 04/25/2016 11:56:00 04/25/2016 13:45:00 DIS Outpatient [facility]AI [facility] POSS CONTRACTIONS 23 WKS PREG [id number] 03/23/2016 12:20:00 03/23/2016 13:20:00 DIS Outpatient [facility] VAGINAL PRESSURE/ LEAKING AMNIOTIC FLUID [id number] 03/23/2016 12:02:00 03/23/2016 12:02:00 CAN Preadmit CLAIRE TRAMMELL MD [facility] ER VAGINAL PRESSURE/AMNIOTIC FLUID LEAKAGE [id number] 03/22/2016 13:28:00 03/22/2016 15:45:00 DIS Outpatient CLAIRE TRAMMELL MD [facility] ER 19 WKS PREG/LEAKING FLUID/ PELVIC DISCOMFORT [id number] 02/21/2016 11:22:00 02/21/2016 14:01:00 DIS Emergency CLAIRE TRAMMELL MD [facility] ER DIZZINESS/NAUSEA/VOMITING/ CRAMPING [id number] 12/10/2013 03:25:00 12/10/2013 05:49:00 DIS Emergency KENYA FREEMAN DO [facility] ER VOMITING [id number] 08/22/2013 16:43:00 08/25/2013 12:10:00 DIS Inpatient ZHEN VAZ DO [facility] LDRP INDUCED [id number] 08/19/2013 17:05:00 08/19/2013 18:55:00 DIS Outpatient [facility] CT[facility] [id number] 08/02/2013 11:36:00 08/02/2013 23:59:59 CLS Outpatient ZHEN VAZ DO [facility] RAD F/U LOW LYING PLACENTA [id number] 07/26/2013 21:23:00 07/26/2013 22:30:00 DIS Outpatient [facility] C/O CONTRACTIONS [id number] 05/31/2013 11:38:00 05/31/2013 17:20:00 DIS Outpatient [facility] CRAMP[facility] [id number] 05/26/2013 09:40:00 05/26/2013 09:48:00 DIS Emergency CLAIRE TRAMMELL MD [facility] ER SUTURE REMOVAL [id number] 05/15/2013 19:28:00 05/15/2013 19:57:00 DIS Emergency VADIM MILLER [facility] ER WOUND CHECK. [id number] 05/13/2013 16:20:00 05/13/2013 17:40:00 DIS Emergency FABRICE PAEZ APRN [facility] ER L ARM LAC; 26WKS PREG [id number] 04/04/2013 09:59:00 04/04/2013 23:59:59 CLS Outpatient KIM PÉREZ MD [facility] RAD SURVEY [id number] 03/07/2013 12:20:00 03/07/2013 13:23:00 DIS Emergency BLAIR BRITO DO [facility] ER SORE THROAT, BODY ACHES, 16 WKS PREG [id number] 01/17/2013 09:53:00 01/17/2013 23:59:59 CLS Outpatient ELISA PUENTE, KIM Harding [facility] RAD SIZE DATE DIS [id number] 01/13/2013 23:37:00 01/14/2013 01:04:00 DIS Emergency BLAIR BRITO DO [facility] ER PANIC ATTACK [id number] 11/30/2012 22:46:00 12/01/2012 00:03:00 DIS Emergency GERMAINE JOYNER MD [facility] ER ABD PAIN [id number] 12/15/2010 12:02:00 Document Registration [id number] 10/05/2010 23:58:00 Document Registration
[2017-05-10 17:22] LABS: BASOPHILS % (AUTO) 0 % (0-10); EOSINOPHILS % (AUTO) 0 % (0-10); HEMATOCRIT 39 % (35-52); HEMOGLOBIN 13.9 G/DL (11.5-16.0); LYMPHOCYTES # (AUTO) 1.6 X 10^3 (1.0-4.0); LYMPHOCYTES % (AUTO) 17 % (12-44); MEAN CORPUSCULAR HEMOGLOBIN 29 PG (25-34); MEAN CORPUSCULAR HGB CONC 35 G/DL (32-36); MEAN CORPUSCULAR VOLUME 82 FL (80-99); MONOCYTES # (AUTO) 0.4 X 10^3 (0.0-1.0); MONOCYTES % (AUTO) 4 % (0-12); NEUTROPHILS # (AUTO) 7.4 X 10^3 (1.8-7.8); NEUTROPHILS % (AUTO) 79 % (42-75); PLATELET COUNT 280 10^3/uL (130-400); RED BLOOD COUNT 4.82 10^6/uL (4.35-5.85); RED CELL DISTRIBUTION WIDTH 14.5 % (10.0-14.5); WHITE BLOOD COUNT 9.5 10^3/uL (4.3-11.0)
--- NOTE | 2017-05-10 17:38 | ED Psychosocial ---
General Chief Complaint: Psych/Social Disorder Stated Complaint: SUICIDE ATTEMPT Nursing Triage Note: ARRIVED VIA AMB TO OFF OF EMS TRUCK. AT APPX 1500 MOM FOUND PT WITH A PHONE CORD AROUND HER NECK. PT STATES SHE FIRST TRIED TO STRANGLE HER SELF WITH A HAIR TIE AND IT DID NOT WORK THEN SHE WAS ATTEMPTING WITH A PHONE CORD. PT RECENTLY FOUND OUT SHE IS AND QUIT TAKING HER ZOLOFT. SHE SAID THE ATTEMPT WAS TO TRY TO KILL HER SELF BUT SHE NO LONGER WANTS TO . PT HAS A HX OF SUICIDE ATTEMPT. PT HAS POSITIVE LIGITURE MARKING AROUND HER NECK. Source: patient, family (father and sister) Exam Limitations: no limitations History of Present Illness Date Seen by Provider: May 10, 2017 Time Seen by Provider: 17:37 Initial Comments 22-year-old female patient presents to the emergency department with complaints of multiple attempts of suicide today. Patient reportedly has tried choking herself with hair bands and phone cords today. Patient reportedly found out she was and stopped taking her Zoloft. Boyfriend also broke up with her today. Both her 9 month old son and 3 year old son were home. Patient does have a history of attempted suicide. Timing/Duration: other (multiple times today) Associated Symptoms: impaired concentration, suicidal ideation, other ( multiple attempts to harm self today.) Allergies and Home Medications Allergies Coded Allergies: No Known Drug Allergies (Unverified , 06/05/08) Home Medications Vit/Fe Fumarate/Fa 1 Each Tablet, 1 EACH PO DAILY, (Reported) Sertraline HCl 25 Mg Tablet, 25 MG PO DAILY, (Reported) Patient Home Medication List Home Medication List Reviewed: Yes Constitutional: No diaphoresis, No dizziness, No malaise, No weakness EENTM: no symptoms reported, No throat pain, No throat swelling Respiratory: No cough, No short of breath, No stridor, No wheezing Cardiovascular: no symptoms reported Gastrointestinal: no symptoms reported Genitourinary: no symptoms reported Musculoskeletal: no symptoms reported, No neck pain Skin: other (abrasions from the hair bands and phone cords) Psychiatric/Neurological: See HPI, Denies Headache, Denies Numbness, Denies Paresthesia, Denies Seizure, Denies Tingling, Denies Weakness All Other Systems Reviewed Negative Unless Noted: Yes (Negative excepted noted.) Past Uevskjm-Gtiduy-Jtvpco Hx Patient Social History Alcohol Use: Denies Use Recreational Drug Use: No Smoking Status: Never a Smoker Type Used: Cigarettes Former Smoker, Quit: Mar 31, 2016 Recent Foreign Travel: No Contact w/Someone Who Travel: No Recent Infectious Disease Expo: No Recent Hopitalizations: No Immunizations Up To Date Tetanus Booster (TDap): Less than 5yrs PED Vaccines UTD: Yes Date of Influenza Vaccine: Jan 26, 2016 Seasonal Allergies Seasonal Allergies: No Surgeries History of Surgeries: Yes (D&C) Surgeries: Tonsillectomy Respiratory History of Respiratory Disorde: No Cardiovascular History of Cardiac Disorders: No Neurological History of Neurological Disord: No Reproductive System : Yes Last Menstrual Period: Apr 08, 2017 Hx Reproductive Disorders: No Sexually Transmitted Disease: No HIV/AIDS: No Female Reproductive Disorders: Denies Genitourinary History of Genitourinary Disor: No Gastrointestinal History of Gastrointestinal Di: No Musculoskeletal History of Musculoskeletal Dis: No Endocrine History of Endocrine Disorders: No HEENT History of HEENT Disorders: No Cancer History of Cancer: No Psychosocial History of Psychiatric Problem: Yes Behavioral Health Disorders: Suicide Attempts, Bipolar, Depression Suicide Risk Notes: PT PLACED IN ROOM 05 DUE TO PSYCH ROOM 08 BEING IN USE. EVERYTHING TAKEN OUT OF THE ROOM THAT COULD BE. PT CLOTHING PLACED AT NURSES DESK ET HAD PT TAKE HER HAIR TIE OUT OF HER HAIR. Integumentary History of Skin or Integumenta: No Blood Transfusions History of Blood Disorders: No Adverse Reaction to a Blood Tr: No Reviewed Nursing Assessment Reviewed/Agree w Nursing PMH: Yes Family Medical History Significant Family History: Psychiatric Problems Family Medial History: Alcoholism 19 FATHER (PGF) Drug abuse 19 MOTHER FH: bipolar disorder 19 FATHER FH: depression 19 FATHER 19 MOTHER Hypercholesterolemia 19 FATHER Hypertension 19 FATHER No Family History of: Abdominal aortic aneurysm Choctaw's disease Aphasia Cancer Cancer of colon Cataract Chest pain Congenital heart disease Congestive heart failure Cystic fibrosis Dementia Dysphagia Family history: Allergy Family history: Alzheimer's disease Family history: Arthritis Family history: Asthma Family history: Breast disease Family history: Cardiovascular disease Family history: Coronary thrombosis Family history: Diabetes mellitus Family history: Gastrointestinal disease Family history: Glaucoma Family history: Hypertension Family history: Osteoporosis Family history: Thyroid disorder Headache Hearing loss Heart disease Hereditary disease History of - anemia History of - disorder History of - respiratory disease History of drug abuse Human immunodeficiency virus (HIV) seropositivity Hypercholesterolemia Infertile Kidney disease Malignant neoplasm of lung Myocardial infarction Parkinson's disease Prostate cancer Psychotic disorder Seizure disorder Stroke Tuberculosis Visual impairment Physical Exam Vital Signs Vital Signs - First Documented 05/10/17 16:48 Temp 98.0 Pulse 78 Resp 18 B/P (MAP) 127/96 (106) Pulse Ox 98 Capillary Refill : Less Than 3 Seconds General Appearance: WD/WN, no apparent distress, other (patient is agitated. refuses full exam.) HEENT: PERRL/EOMI, pharynx normal (patient speaking in full sentences without difficulty.) Neck: full range of motion, supple, other (superficial abrasions encompassing the neck without swelling.) Neurologic/Psychiatric: alert, oriented x 3, depressed affect, other (agitated) Appearance/Memory: no memory impairment, denies illness, impaired insight Behavior/Eye Contact: threatening eye contact, increased rate of speech, belligerent (patient cussing. starts yelling "I won't fucking go anywhere! You can't make me go!" when talking about inpatient treatment facilities. ), compulsive, uncooperative Thoughts/Hallucinations: no apparent hallucination, persecution Skin: normal color, warm/dry, other (superficial abrasions encompassing the neck without swelling.) Progress/Results/Core Measures Results/Orders Lab Results Laboratory Tests Test 05/10/17 16:55 05/10/17 17:40 Range/Units White Blood Count 9.5 4.3-11.0 10^3/uL Red Blood Count 4.82 4.35-5.85 10^6/uL Hemoglobin 13.9 11.5-16.0 G/DL Hematocrit 39 35-52 % Mean Corpuscular Volume 82 80-99 FL Mean Corpuscular Hemoglobin 29 25-34 PG Mean Corpuscular Hemoglobin Concent 35 32-36 G/DL Red Cell Distribution Width 14.5 10.0-14.5 % Platelet Count 280 130-400 10^3/uL Mean Platelet Volume 11.0 H 7.4-10.4 FL Neutrophils (%) (Auto) 79 H 42-75 % Lymphocytes (%) (Auto) 17 12-44 % Monocytes (%) (Auto) 4 0-12 % Eosinophils (%) (Auto) 0 0-10 % Basophils (%) (Auto) 0 0-10 % Neutrophils # (Auto) 7.4 1.8-7.8 X 10^3 Lymphocytes # (Auto) 1.6 1.0-4.0 X 10^3 Monocytes # (Auto) 0.4 0.0-1.0 X 10^3 Eosinophils # (Auto) 0.0 0.0-0.3 10^3/uL Basophils # (Auto) 0.0 0.0-0.1 10^3/uL Sodium Level 141 135-145 MMOL/L Potassium Level 3.4 L 3.6-5.0 MMOL/L Chloride Level 109 H 98-107 MMOL/L Carbon Dioxide Level 20 L 21-32 MMOL/L Anion Gap 12 5-14 MMOL/L Blood Urea Nitrogen 11 7-18 MG/DL Creatinine 0.69 0.60-1.30 MG/DL Estimat Glomerular Filtration Rate > 60 BUN/Creatinine Ratio 16 Glucose Level 89 70-105 MG/DL Calcium Level 9.4 8.5-10.1 MG/DL Total Bilirubin 0.4 0.1-1.0 MG/DL Aspartate Amino Transf (AST/SGOT) 19 5-34 U/L Alanine Aminotransferase (ALT/SGPT) 17 0-55 U/L Alkaline Phosphatase 52 40-136 U/L Total Protein 7.3 6.4-8.2 GM/DL Albumin 4.8 H 3.2-4.5 GM/DL TSH Garvin Testing 0.97 0.35-4.94 UIU/ML Serum Test, Qualitative POSITIVE NEGATIVE Salicylates Level < 5.0 L 5.0-20.0 MG/DL Acetaminophen Level < 10 L 10-30 UG/ML Serum Alcohol < 10 <10 MG/DL Urine Color YELLOW Urine Clarity CLOUDY H Urine pH 7 5-9 Urine Specific [place] 1.015 L 1.016-1.022 Urine Protein 2+ H NEGATIVE Urine Glucose (UA) NEGATIVE NEGATIVE Urine Ketones 4+ H NEGATIVE Urine Nitrite NEGATIVE NEGATIVE Urine Bilirubin NEGATIVE NEGATIVE Urine Urobilinogen 1 NORMAL MG/DL Urine Leukocyte Esterase 3+ H NEGATIVE Urine RBC (Auto) 1+ H NEGATIVE Urine RBC 0-2 /HPF Urine WBC TNTC H /HPF Urine Squamous Epithelial Cells >50 H /HPF Urine Renal Epithelial Cells NONE /HPF Urine Crystals NONE /LPF Urine Bacteria LARGE H /HPF Urine Casts NONE /LPF Urine Mucus LARGE H /LPF Urine Culture Indicated YES Urine Opiates Screen NEGATIVE NEGATIVE Urine Oxycodone Screen NEGATIVE NEGATIVE Urine Methadone Screen NEGATIVE NEGATIVE Urine Propoxyphene Screen NEGATIVE NEGATIVE Urine Barbiturates Screen NEGATIVE NEGATIVE Ur Tricyclic Antidepressants Screen NEGATIVE NEGATIVE Urine Phencyclidine Screen NEGATIVE NEGATIVE Urine Amphetamines Screen NEGATIVE NEGATIVE Urine Methamphetamines Screen NEGATIVE NEGATIVE Urine Benzodiazepines Screen NEGATIVE NEGATIVE Urine Cocaine Screen NEGATIVE NEGATIVE Urine Cannabinoids Screen POSITIVE H NEGATIVE My Orders Orders - VADIM WALKER Ua Culture If Indicated (05/10/17 16:54) Cbc With Automated Diff (05/10/17 16:54) Comprehensive Metabolic Panel (05/10/17 16:54) Alcohol (05/10/17 16:54) Drug Screen Stat (Urine) (05/10/17 16:54) Acetaminophen (05/10/17 16:54) Salicylate (05/10/17 16:54) Ekg Tracing (05/10/17 16:54) Saline Lock/Iv-Start (05/10/17 16:54) Thyroid Analyzer (05/10/17 16:54) Monitor-Rhythm Ecg Trace Only (05/10/17 16:54) Hcg,Qualitative Serum (05/10/17 16:54) Urine Culture (05/10/17 17:40) Hcg,Quantitative (05/10/17 21:01) Nitrofurantoin Capsule,Macro (Macrobid C (05/10/17 21:15) Medications Given in ED Current Medications Medications Dose Ordered Sig/Noa Route Start Time Stop Time Status Last Admin Dose Admin Nitrofurantoin Macrocrystals 100 mg ONCE ONCE PO 05/10/17 21:15 05/10/17 21:16 DC 05/10/17 21:18 100 MG Vital Signs/I&O Vital Sign - Last 12Hours 05/10/17 16:48 Temp 98.0 Pulse 78 Resp 18 B/P (MAP) 127/96 (106) Pulse Ox 98 Blood Pressure Mean: 106 ECG Initial ECG Impression Date: May 10, 2017 Initial ECG Impression Time: 16:53 Initial ECG Rate: 69 Initial ECG Rhythm: Normal Sinus Initial ECG Intervals: Normal Initial ECG Impression: Normal Initial ECG Comparisson: Unchanged Departure Communication (Admissions) Time/Spoke to Admitting Phy: 20:[address] Guajardo graciously accepts patient to her medical service for multiple suicide attempts as no behavioral inpatient beds are available. Progress Notes 1850 Crisis line contacted. 1855 return call from Emily at [facility]. Will evaluate patient in the ED as patient is refusing inpatient behavioral health admission. 1924 Emily from [facility] in the ED to evaluate the patient. States patient would benefit from inpatient treatment. Patient is now agreeable to admission to inpatient psych. She contacted [facility] and [facility] in [place], [place]. no female beds available. both report tomorrow at noon. [facility] also reporting no female beds available tonight. [address] Patient case discussed with Dr. Guajardo. Dr. Guajardo graciously accepts patient to her medical service for multiple suicide attempts. Will attempt to find placement in the AM. Patient is noted on labs to have a UTI and dehydration. patient reports she has not had much to drink today "with everything else going on." Eating and drinking without difficulty. A/Ox4, NAD. LCTA, CVRRR. ABD soft, NT, nondistended, (+) BS. Patient is agreeable to admission. Dr. Rodriguez notified of plan for admit. Impression Impression: Primary Impression: Attempted suicide Additional Impression: Depression during in first trimester Disposition: 09 ADMITTED INPATIENT Condition: Stable Admissions Decision to Admit Reason: Admit from ER (General) Decision to Admit/Date: May 10, 2017 Time/Decision to Admit Time: 20:35 Departure-Patient Inst. Referrals: BRITTANI GUAJARDO MD (PCP/Family) Primary Care Physician VADIM WALKER May 10, 2017 17:38
[2017-05-10 17:41] LABS: ALANINE AMINOTRANSFERASE 17 U/L (0-55); ALBUMIN 4.8 GM/DL (3.2-4.5); ALKALINE PHOSPHATASE 52 U/L (40-136); BILIRUBIN,TOTAL 0.4 MG/DL (0.1-1.0); BUN/CREATININE RATIO 16; CALCIUM 9.4 MG/DL (8.5-10.1); CARBON DIOXIDE 20 MMOL/L (21-32); CHLORIDE 109 MMOL/L (98-107); CREATININE SERUM 0.69 MG/DL (0.60-1.30); GFR ESTIMATED > 60; GLUCOSE 89 MG/DL (70-105); POTASSIUM 3.4 MMOL/L (3.6-5.0); SALICYLATE < 5.0 MG/DL (5.0-20.0); SODIUM 141 MMOL/L (135-145); TOTAL PROTEIN 7.3 GM/DL (6.4-8.2)
[2017-05-10 17:43] LABS: ACETAMINOPHEN < 10 UG/ML (10-30)
[2017-05-10 18:39] LABS: AMPHETAMINE SCREEN, URINE NEGATIVE (NEGATIVE); BARBITURATE SCREEN URINE NEGATIVE (NEGATIVE); BENZODIAZEPINES SCREEN URINE NEGATIVE (NEGATIVE); CANNABINOID SCREEN, URINE POSITIVE (NEGATIVE); COCAINE SCREEN URINE NEGATIVE (NEGATIVE); METHADONE STAT NEGATIVE (NEGATIVE); METHAMPHETAMINE SCREEN URINE S NEGATIVE (NEGATIVE); OPIATE SCREEN URINE NEGATIVE (NEGATIVE); OXYCODONE STAT NEGATIVE (NEGATIVE); PROPOXYPHENE STAT NEGATIVE (NEGATIVE); TRICYCLIC ANTIDEPRESSANTS SCRE NEGATIVE (NEGATIVE)
[2017-05-10 18:56] LABS: BILIRUBIN,URINE NEGATIVE (NEGATIVE); CLARITY,URINE CLOUDY; COLOR,URINE YELLOW; GLUCOSE, URINE (UA) NEGATIVE (NEGATIVE); KETONES,URINE 4+ (NEGATIVE); LEUKOCYTE ESTERASE ,URINE 3+ (NEGATIVE); NITRITE,URINE NEGATIVE (NEGATIVE); PH,URINE 7 (5-9); PROTEIN,URINE 2+ (NEGATIVE); UROBILINOGEN,URINE 1 MG/DL (NORMAL)
[2017-05-10 18:57] LABS: BACTERIA,URINE LARGE /HPF; RBC,URINE 0-2 /HPF; SQUAMOUS EPITHELIAL CELL,UR >50 /HPF; WBC,URINE TNTC /HPF
[2017-05-10] MEDS ORDERED: NITROFURANTOIN 100 MG (MACROBID) CAPSULE PO ONE (21:15)
--- OUTSIDE RECORDS SUMMARY | 2017-05-10 22:14 | XMS REPORT | Continuity of Care Document ---
Author Author [facility] Address Unknown Phone Unavailable Allergies Active Description Code Type Severity Reaction Onset Reported/Identified Relationship to Patient Clinical Status Yes No Known Drug Allergies [id number] Drug Allergy Mild N/A 06/05/2008 Medications There [...] A 780.79 MALAISE AND FATIGUE 01/07/2011 GUANACO CORE INSERTER, CORTES A V25.9 CONTRACEPTION MANAGEMENT 01/07/2011 GUANACO [...] NOS 01/10/2011 314.01 ADHD COMBINED 01/10/2011 UCHE CORE INSERTER BREA S 296.80 MO BIPOLAR NOS 01/10/2011 ROMARIO IVEY APRNNDA S 314.01 ADHD COMBINED 01/10/2011 296.80 MO BIPOLAR NOS 01/10/2011 314.01 ADHD COMBINED 01/10/2011 296.80 MO BIPOLAR NOS 01/10/2011 314.01 ADHD COMBINED 01/10/2011 GUANACO CORE INSERTER, CORTES A 296.80 MO BIPOLAR NOS 01/10/2011 GUANACO CORE INSERTER, CORTES A 314.01 ADHD COMBINED 01/10/2011 GUANACO CORE INSERTER, CORTES A 296.80 MO BIPOLAR NOS 01/10/2011 GUANACO CORE INSERTER, CORTES A 314.01 ADHD COMBINED 01/10/2011 VAZ [...] RECURRENT SEVERE W/O PSYCHOTIC BEHAVIOR 01/28/2011 GUANACO CORE INSERTER, CORTES A 309.81 AN PTSD 01/28/2011 GUANACO CORE INSERTER, CORTES A V58.69 MEDICATION HIGH RISK 01/28/2011 [...] 03/25/2011 ZHEN VAZ DO 536.8 DYSPEPSIA 03/25/2011 ZHEN VAZ DO V68.1 ISSUE OF REPEAT PRESCRIPTIONS [...] A V69.2 HIGH-RISK SEXUAL BEHAVIOR 03/16/2012 GUANACO CORE INSERTER, CORTES A 626.0 AMENORRHEA 03/16/2012 GUANACO CORE INSERTER, CORTES A V69.2 HIGH-RISK SEXUAL BEHAVIOR 03/16/2012 [...] SEXUAL BEHAVIOR 08/16/2012 564.00 CONSTIPATION 08/16/2012 GUANACO CORE INSERTER, CORTES A 564.00 CONSTIPATION 08/16/2012 GUANACO CORE INSERTER, CORTES A 564.00 CONSTIPATION 08/16/2012 VAZ DO, [...] 648.93 OTH CURR COND-ANTEPARTUM 05/13/2013 FABRICE PAEZ CORE INSERTER Ot 881.01 OPEN WOUND OF ELBOW 05/13/2013 FABRICE PAEZ CORE INSERTER Ot E000.8 OTHER EXTERNAL CAUSE STATUS 05/13/2013 FABRICE PAEZ CORE INSERTER Ot E029.9 OTHER ACTIVITY 05/13/2013 FABRICE PAEZ CORE INSERTER Ot E849.[address] NEC 05/13/2013 FABRICE PAEZ CORE INSERTER Ot E885.9 FALL FROM SLIPPING, TRIPPING, OR STUMBLI 05/15/2013 AARON BLUE, VADIM Peterson Ot V58.31 ENCOUNTER FOR CHANGE OR REMOVAL OF SURGI 05/26/2013 JP PUENTE, CLAIRE Baez Ot V58.32 ENCOUNTER FOR REMOVAL OF SUTURES [...] LABOR BEFORE 37 COMPLETED WEEKS OF 07/20/2016 KIM PÉREZ MD, Ot Z3A.36 36 WEEKS GESTATION [...] Procedures Code [place] [address] URINE TEST (IN- HOUSE) 03/16/2012 34908 TRICHOMONAS (IN-HOUSE) 03/16/2012 92369 GC/CHLAM PROBE (STATE) 03/18/2012 98637 CULTURE UROGENITAL 03/18/2012 01542 URINE TEST (IN- HOUSE) 08/16/2012 72110 UA W/ CULTURE IF INDICATED 08/16/2012 93500 GC/CHLAM URINE (STATE) 08/18/2012 98827 UA OB DIP 06/13/2013 98310 UA OB DIP 06/27/2013 55516 UA OB DIP 07/11/2013 72952 OB - FOLLOW UP 07/25/2013 36600 UA OB DIP 07/25/2013 24218 CULTURE GROUP B STREP VAG 07/27/2013 83383 UA OB DIP 08/02/2013 34184 UA OB DIP 08/08/2013 16876 UA OB DIP 08/16/2013 73.4 MEDICAL INDUCTION LABOR 08/22/2013 75.69 REPAIR OB LACERATION NEC 08/23/2013 GC/CHLAM GC/CHLAMYDIA PROBE/URINE 12/06/2013 56H00BM EXTRACTION OF PRODUCTS OF CONCEPTION, RE 08/05/2016 01O6KSI DELIVERY OF PRODUCTS OF CONCEPTION, EXTE 08/05/2016 [...] culture - 02/21/16 11:48 Bacterial urine culture [id number] NRG COLONY COUNT 10,000/ML - 100,000/ML NRG [...] 13:45 Serum or plasma choriogonadotropin measurement (units/volume) 33679 m[iU]/mL <5 Complete urinalysis with reflex to [...] Status Pt. Type Provider Facility Loc./Unit Complaint [id number] 06/02/2013 17:29:00 06/02/2013 23:59:59 CLS Outpatient Kin Arjunnatalee Yuliet [id number] 05/17/2013 18:02:14 05/17/2013 23:59:59 CLS Outpatient Kenyetta Sam [id number] 05/16/2013 17:28:59 05/16/2013 23:59:59 CLS Outpatient Sanderson, Arjunnatalee Horvath [id number] 04/14/2013 16:00:45 04/14/2013 23:59:59 CLS Outpatient Sanderson Fredo Yuliet [id number] 12/06/2013 07:57:00 12/06/2013 23:59:59 CLS Outpatient ZHEN VAZ DO [id number] 11/18/2013 08:50:00 11/18/2013 23:59:59 CLS Outpatient ZHEN VAZ DO [id number] 09/14/2013 08:07:00 09/14/2013 23:59:59 CLS Outpatient ZHEN VAZ DO [id number] 08/16/2013 15:30:00 08/16/2013 23:59:59 CLS Outpatient ZHEN VAZ DO [id number] 08/16/2013 15:30:00 08/16/2013 23:59:59 CLS Outpatient ZHEN VAZ DO [id number] 08/08/2013 16:28:00 08/08/2013 23:59:59 CLS Outpatient ZHEN VAZ DO [id number] 08/02/2013 13:09:00 08/02/2013 23:59:59 CLS Outpatient ZHEN VAZ DO [id number] 07/25/2013 14:00:00 07/25/2013 23:59:59 CLS Outpatient ZHEN VAZ DO [id number] 07/25/2013 14:00:00 07/25/2013 23:59:59 CLS Outpatient ZHEN VAZ DO [id number] 07/11/2013 10:10:00 07/11/2013 23:59:59 CLS Outpatient ZHEN VAZ DO [id number] 06/27/2013 14:52:00 06/27/2013 23:59:59 CLS Outpatient ZHEN VAZ DO [id number] 06/13/2013 10:08:00 06/13/2013 23:59:59 CLS Outpatient CORTES BLANC APRN [id number] 08/16/2012 16:08:00 08/16/2012 23:59:59 CLS Outpatient CORTES BLANC APRN [id number] 03/16/2012 09:36:00 03/16/2012 23:59:59 CLS Outpatient BREA IVEY APRN [id number] 03/16/2012 09:36:00 03/16/2012 23:59:59 CLS Outpatient [id number] 03/25/2011 09:07:00 03/25/2011 23:59:59 CLS Outpatient [id number] 08/16/2012 16:08:00 Document Registration [id number] 08/04/2016 23:09:00 08/07/2016 14:20:00 DIS Inpatient ELVIN PETERS MD [facility] LDRP LABOR [id number] 07/29/2016 15:10:00 07/29/2016 17:00:00 DIS Outpatient BRITTANI AVELAR MD [facility] DECREASED MOVEMENT, ABD PAIN [id number] 07/26/2016 17:54:00 07/26/2016 21:45:00 DIS Outpatient BRITTANI AVELAR MD [facility] ABD PAIN,THROWING UP [id number] 07/24/2016 15:36:00 07/24/2016 23:59:59 CLS Outpatient BRITTANI AVELAR MD [facility] RAD TACHYCARDIA BEFORE ONSET OF LABOR P03.810 [id number] 07/20/2016 20:01:00 07/20/2016 21:51:00 DIS Outpatient KIM PÉREZ MD [facility] CONTRACTION W CLEAR FLUID [id number] 07/14/2016 13:54:00 07/14/2016 17:32:00 DIS Outpatient BRITTANI AVELAR MD [facility] WSo CONTRACTIONS [id number] 07/03/2016 19:39:00 07/03/2016 21:50:00 DIS Outpatient ELVIN PETERS MD [facility] [id number] 06/30/2016 12:48:00 07/01/2016 13:58:00 DIS Outpatient ELVIN PETERS MD [facility] CONTRACTIONS 35 WKS PREG [id number] 06/05/2016 15:02:00 06/05/2016 23:59:59 CLS Outpatient BRITTANI AVELAR MD [facility] RAD SURVEY [id number] 06/04/2016 19:37:00 06/04/2016 20:55:00 DIS Outpatient BRITTANI AVELAR MD [facility] VAGINAL BLEEDING,ABD TIGHTNESS [id number] 04/25/2016 11:56:00 04/25/2016 13:45:00 DIS Outpatient KAI ROQUE MD [facility] POSS CONTRACTIONS 23 WKS PREG [id number] 03/23/2016 12:20:00 03/23/2016 13:20:00 DIS Outpatient KAI ROQUE MD [facility] VAGINAL PRESSURE/ LEAKING AMNIOTIC FLUID [id number] 03/23/2016 12:02:00 03/23/2016 12:02:00 CAN Preadmit CLAIRE TRAMMELL MD [facility] ER VAGINAL PRESSURE/AMNIOTIC FLUID LEAKAGE [id number] 03/22/2016 13:28:00 03/22/2016 15:45:00 DIS Outpatient CLAIRE TRAMMELL MD [facility] ER 19 WKS PREG/LEAKING FLUID/ PELVIC DISCOMFORT [id number] 02/21/2016 11:22:00 02/21/2016 14:01:00 DIS Emergency CLAIRE TRAMMELL MD [facility] ER DIZZINESS/NAUSEA/VOMITING/ CRAMPING [id number] 12/10/2013 03:25:00 12/10/2013 05:49:00 DIS Emergency KENYA FREEMAN DO [facility] ER VOMITING [id number] 08/22/2013 16:43:00 08/25/2013 12:10:00 DIS Inpatient ZHEN VAZ DO [facility] LDRP INDUCED [id number] 08/19/2013 17:05:00 08/19/2013 18:55:00 DIS Outpatient ZHEN VAZ DO [facility] CTXS [id number] 08/02/2013 11:36:00 08/02/2013 23:59:59 CLS Outpatient ZHEN VAZ DO [facility] RAD F/U LOW LYING PLACENTA [id number] 07/26/2013 21:23:00 07/26/2013 22:30:00 DIS Outpatient ZHEN VAZ DO [facility] C/O CONTRACTIONS [id number] 05/31/2013 11:38:00 05/31/2013 17:20:00 DIS Outpatient ZHEN VAZ DO [facility] CRAMPING [id number] 05/26/2013 09:40:00 05/26/2013 09:48:00 DIS Emergency CLAIRE TRAMMELL MD [facility] ER SUTURE REMOVAL [id number] 05/15/2013 19:28:00 05/15/2013 19:57:00 DIS Emergency VADIM MILLER [facility] ER WOUND CHECK. [id number] 05/13/2013 16:20:00 05/13/2013 17:40:00 DIS Emergency FABRICE PAEZ APRN [facility] ER L ARM LAC; 26WKS PREG [id number] 04/04/2013 09:59:00 04/04/2013 23:59:59 CLS Outpatient KIM PÉREZ MD [facility] RAD SURVEY [id number] 03/07/2013 12:20:00 03/07/2013 13:23:00 DIS Emergency BLAIR BRITO DO [facility] ER SORE THROAT, BODY ACHES, 16 WKS PREG [id number] 01/17/2013 09:53:00 01/17/2013 23:59:59 CLS Outpatient ELISA PUENTE, KIM Harding [facility] RAD SIZE DATE DIS [id number] 01/13/2013 23:37:00 01/14/2013 01:04:00 DIS Emergency BLAIR BRITO DO [facility] ER PANIC ATTACK [id number] 11/30/2012 22:46:00 12/01/2012 00:03:00 DIS Emergency GERMAINE JOYNER MD [facility] ER ABD PAIN [id number] 12/15/2010 12:02:00 Document Registration [id number] 10/05/2010 23:58:00 Document Registration
[2017-05-10 22:32] VITALS: BP 116/64
[2017-05-10] MEDS ORDERED: ACETAMINOPHEN 500 MG TAB (TYLENOL) PO PRN (22:45)
[2017-05-10] MEDS ORDERED: ONDANSETRON 4 MG (ZOFRAN) ORAL DISSOLVE TAB PO PRN (22:45)
[2017-05-10] MEDS ORDERED: CATHETER FLUSH 10 ML SYR IV PRN (23:00)
[2017-05-10 23:15] VITALS: BP 114/68
[2017-05-10 23:30] VITALS: BP 118/73
[2017-05-10 23:45] VITALS: BP 106/58
[2017-05-11] VITALS (12 sets, daily range): BP systolic 97–120; BP diastolic 57–84
[2017-05-11 03:51] LABS: BASOPHILS % (AUTO) 0 % (0-10); EOSINOPHILS # (AUTO) 0.2 10^3/uL (0.0-0.3); EOSINOPHILS % (AUTO) 2 % (0-10); HEMATOCRIT 36 % (35-52); HEMOGLOBIN 12.8 G/DL (11.5-16.0); LYMPHOCYTES # (AUTO) 3.4 X 10^3 (1.0-4.0); LYMPHOCYTES % (AUTO) 45 % (12-44); MEAN CORPUSCULAR HEMOGLOBIN 29 PG (25-34); MEAN CORPUSCULAR HGB CONC 35 G/DL (32-36); MEAN CORPUSCULAR VOLUME 83 FL (80-99); MEAN PLATELET VOLUME 10.7 FL (7.4-10.4); MONOCYTES # (AUTO) 0.7 X 10^3 (0.0-1.0); MONOCYTES % (AUTO) 9 % (0-12); NEUTROPHILS # (AUTO) 3.3 X 10^3 (1.8-7.8); NEUTROPHILS % (AUTO) 43 % (42-75); PLATELET COUNT 261 10^3/uL (130-400); RED BLOOD COUNT 4.41 10^6/uL (4.35-5.85); RED CELL DISTRIBUTION WIDTH 14.4 % (10.0-14.5); WHITE BLOOD COUNT 7.5 10^3/uL (4.3-11.0)
[2017-05-11 04:18] LABS: ALANINE AMINOTRANSFERASE 15 U/L (0-55); ALBUMIN 4.1 GM/DL (3.2-4.5); ALKALINE PHOSPHATASE 43 U/L (40-136); BILIRUBIN,TOTAL 0.5 MG/DL (0.1-1.0); BUN/CREATININE RATIO 18; CALCIUM 8.6 MG/DL (8.5-10.1); CARBON DIOXIDE 21 MMOL/L (21-32); CHLORIDE 109 MMOL/L (98-107); CREATININE SERUM 0.68 MG/DL (0.60-1.30); GFR ESTIMATED > 60; GLUCOSE 87 MG/DL (70-105); MAGNESIUM 2.2 MG/DL (1.8-2.4); PHOSPHORUS 3.6 MG/DL (2.3-4.7); POTASSIUM 3.2 MMOL/L (3.6-5.0); SODIUM 139 MMOL/L (135-145); TOTAL PROTEIN 5.9 GM/DL (6.4-8.2)
[2017-05-11] MEDS ORDERED: MAGNESIUM 1 GM/100 ML IVPB 100 ML IV SCH (06:00)
[2017-05-11] MEDS ORDERED: POTASSIUM CL 10MEQ/50ML IVPB 50 ML IV SCH (06:00)
[2017-05-11] MEDS ORDERED: KCL 20 MEQ TAB (K-DUR) PO SCH (06:00)
[2017-05-11] MEDS ORDERED: NITROFURANTOIN 100 MG (MACROBID) CAPSULE PO SCH (09:00)
[2017-05-11] MEDS ORDERED: VIT-5 PO (09:38)
--- NOTE | 2017-05-11 10:07 | Diagnostic Imaging Report ---
INDICATION: Pelvic cramping. Transvaginal pelvic sonography was performed. There is a probable tiny gestational sac identified in the uterus. No pole or yolk sac is identified at this time. Findings could be owing to very early gestation. No kina-gestational sac hemorrhage is detected. The right ovary is unremarkable and demonstrates normal blood flow. Left ovary is unremarkable. No adnexal mass or free fluid is seen. IMPRESSION: Probable very early intrauterine gestational sac of approximately 5 weeks 0 days gestational age without evidence of pole at this time. A followup serial beta hCG levels and/or followup ultrasound could be performed to evaluate for viability. Dictated by: Dictated on workstation # [id number]
--- NOTE | 2017-05-11 13:46 | History & Physicial (CHS) ---
HPI History of Present Illness: Triage ED RN Note: ARRIVED VIA AMB TO OFF OF EMS TRUCK. AT APPX 1500 MOM FOUND PT WITH A PHONE CORD AROUND HER NECK. PT STATES SHE FIRST TRIED TO STRANGLE HER SELF WITH A HAIR TIE AND IT DID NOT WORK THEN SHE WAS ATTEMPTING WITH A PHONE CORD. PT RECENTLY FOUND OUT SHE IS AND QUIT TAKING HER ZOLOFT. SHE SAID THE ATTEMPT WAS TO TRY TO KILL HER SELF BUT SHE NO LONGER WANTS TO . PT HAS A HX OF SUICIDE ATTEMPT. PT HAS POSITIVE LIGITURE MARKING AROUND HER NECK. This morning the patient reports that her boyfriend broke up with her and she wanted to kill herself yesterday, and was attempting to do so by hanging. She did not mention the hair tie, only with the phone cord, which had to be cut off her neck. Patient reports that she stopped taking her Zoloft because she didn' t think she could take that until her last trimester. Patient states that she has had a suicide attempt in the past, in August 2016, the third trimester of her previous . She states she also tried to hang herself that time. She reports that she had been doing fairly well on the Zoloft, and that she is also Bipolar and was seeing a counselor at [facility], but her counselor left that facility and she has not established with anyone else. She reports that she is very interested in starting counseling again, as she feels it helps her a lot, but she wants to be established with one provider, and not see multiple providers. She currently lives in [place], [place] with her 3 year old son, her 9 month old son, and her father. She reports that she does feel safe at home. She denies any current thoughts of harming herself and denies any thoughts of ever harming anyone else, including her children. Her only other complaint this morning is some mild suprapubic cramping, she is currently on macrobid for UTI. She denies vaginal bleeding or discharge. Source: patient, RN/, old records Exam Limitations: no limitations Date seen by provider: May 11, 2017 Time Seen by Provider: 11:00 Attending Physician Brittani Guajardo MD PCP Brittani Guajardo MD Consult Date of Admission May 10, 2017 at 21:00 Home Medications Home Medications Reviewed patient Home Medication Reconciliation performed by pharmacy medication reconciliations corrosion technician and/or nursing. Patients Allergies have been reviewed. Allergies Coded Allergies: No Known Drug Allergies (Unverified , 06/05/08) VMU-Fozbcj-Wtddct Hx Patient Social History Marrital Status: single Number of Children: 2 Number of living children: 2 Living Status: lives with her father and 2 children in [place], [place] Employed/Student: unemployed Alcohol Use: Past History Recreational Drug Use: No (pt denies use but urine drugscreen was +for cannabinoids ) Smoking Status: Former Smoker Type Used: Cigarettes 2nd Hand Smoke Exposure: No Recent Foreign Travel: No Contact w/other who traveled: No Recent Hopitalizations: No Recent Infectious Disease Expo: No Physical Abuse Screen: No Sexual Abuse: No Immunizations Up To Date Tetanus Booster (TDap): Less than 5yrs Date of Influenza Vaccine: Jan 25, 2017 Past Medical History PMHx: Depression with h/o suicide attempts Bipolar disorder Substance use Term x2 (, 2014, 2016) Second Trimester Loss - D&C (2015) PSurgHx: Tonsillectomy D&C (2015) Family Medical History Significant Family History: Psychiatric Problems Family History: Alcoholism 19 FATHER (PGF) Drug abuse 19 MOTHER FH: bipolar disorder 19 FATHER FH: depression 19 FATHER 19 MOTHER Hypercholesterolemia 19 FATHER Hypertension 19 FATHER No Family History of: Abdominal aortic aneurysm Carlton's disease Aphasia Cancer Cancer of colon Cataract Chest pain Congenital heart disease Congestive heart failure Cystic fibrosis Dementia Dysphagia Family history: Allergy Family history: Alzheimer's disease Family history: Arthritis Family history: Asthma Family history: Breast disease Family history: Cardiovascular disease Family history: Coronary thrombosis Family history: Diabetes mellitus Family history: Gastrointestinal disease Family history: Glaucoma Family history: Hypertension Family history: Osteoporosis Family history: Thyroid disorder Headache Hearing loss Heart disease Hereditary disease History of - anemia History of - disorder History of - respiratory disease History of drug abuse Human immunodeficiency virus (HIV) seropositivity Hypercholesterolemia Infertile Kidney disease Malignant neoplasm of lung Myocardial infarction Parkinson's disease Prostate cancer Psychotic disorder Seizure disorder Stroke Tuberculosis Visual impairment Review of Systems (CHC) Constitutional: see HPI EENTM: no symptoms reported Respiratory: no symptoms reported Cardiovascular: no symptoms reported Gastrointestinal: no symptoms reported Genitourinary: see HPI : Yes Expected Date of Delivery: Jan 11, 2019 LMP: Apr 06, 2017 Musculoskeletal: no symptoms reported Skin: no symptoms reported Psychiatric/Neurological: See HPI Reviewed Test Results Reviewed Test Results Lab Laboratory Tests Test 05/10/17 16:55 05/10/17 17:40 05/11/17 03:35 05/11/17 06:30 Range/Units White Blood Count 9.5 7.5 4.3-11.0 10^3/uL Red Blood Count 4.82 4.41 4.35-5.85 10^6/uL Hemoglobin 13.9 12.8 11.5-16.0 G/DL Hematocrit 39 36 35-52 % Mean Corpuscular Volume 82 83 80-99 FL Mean Corpuscular Hemoglobin 29 29 25-34 PG Mean Corpuscular Hemoglobin Concent 35 35 32-36 G/DL Red Cell Distribution Width 14.5 14.4 10.0-14.5 % Platelet Count 280 261 130-400 10^3/uL Mean Platelet Volume 11.0 H 10.7 H 7.4-10.4 FL Neutrophils (%) (Auto) 79 H 43 42-75 % Lymphocytes (%) (Auto) 17 45 H 12-44 % Monocytes (%) (Auto) 4 9 0-12 % Eosinophils (%) (Auto) 0 2 0-10 % Basophils (%) (Auto) 0 0 0-10 % Neutrophils # (Auto) 7.4 3.3 1.8-7.8 X 10^3 Lymphocytes # (Auto) 1.6 3.4 1.0-4.0 X 10^3 Monocytes # (Auto) 0.4 0.7 0.0-1.0 X 10^3 Eosinophils # (Auto) 0.0 0.2 0.0-0.3 10^3/uL Basophils # (Auto) 0.0 0.0 0.0-0.1 10^3/uL Sodium Level 141 139 135-145 MMOL/L Potassium Level 3.4 L 3.2 L 3.6-5.0 MMOL/L Chloride Level 109 H 109 H 98-107 MMOL/L Carbon Dioxide Level 20 L 21 21-32 MMOL/L Anion Gap 12 9 5-14 MMOL/L Blood Urea Nitrogen 11 12 7-18 MG/DL Creatinine 0.69 0.68 0.60-1.30 MG/DL Estimat Glomerular Filtration Rate > 60 > 60 BUN/Creatinine Ratio 16 18 Glucose Level 89 87 70-105 MG/DL Calcium Level 9.4 8.6 8.5-10.1 MG/DL Total Bilirubin 0.4 0.5 0.1-1.0 MG/DL Aspartate Amino Transf (AST/SGOT) 19 17 5-34 U/L Alanine Aminotransferase (ALT/SGPT) 17 15 0-55 U/L Alkaline Phosphatase 52 43 40-136 U/L Total Protein 7.3 5.9 L 6.4-8.2 GM/DL Albumin 4.8 H 4.1 3.2-4.5 GM/DL TSH [place] Testing 0.97 0.35-4.94 UIU/ML Human Chorionic Gonadotropin, Quant 2639 H <5 MIU/ML Serum Test, Qualitative POSITIVE NEGATIVE Salicylates Level < 5.0 L 5.0-20.0 MG/DL Acetaminophen Level < 10 L 10-30 UG/ML Serum Alcohol < 10 <10 MG/DL Urine Color YELLOW Urine Clarity CLOUDY H Urine pH 7 5-9 Urine Specific [place] 1.015 L 1.016-1.022 Urine Protein 2+ H NEGATIVE Urine Glucose (UA) NEGATIVE NEGATIVE Urine Ketones 4+ H NEGATIVE Urine Nitrite NEGATIVE NEGATIVE Urine Bilirubin NEGATIVE NEGATIVE Urine Urobilinogen 1 NORMAL MG/DL Urine Leukocyte Esterase 3+ H NEGATIVE Urine RBC (Auto) 1+ H NEGATIVE Urine RBC 0-2 /HPF Urine WBC TNTC H /HPF Urine Squamous Epithelial Cells >50 H /HPF Urine Renal Epithelial Cells NONE /HPF Urine Crystals NONE /LPF Urine Bacteria LARGE H /HPF Urine Casts NONE /LPF Urine Mucus LARGE H /LPF Urine Culture Indicated YES Urine Opiates Screen NEGATIVE NEGATIVE Urine Oxycodone Screen NEGATIVE NEGATIVE Urine Methadone Screen NEGATIVE NEGATIVE Urine Propoxyphene Screen NEGATIVE NEGATIVE Urine Barbiturates Screen NEGATIVE NEGATIVE Ur Tricyclic Antidepressants Screen NEGATIVE NEGATIVE Urine Phencyclidine Screen NEGATIVE NEGATIVE Urine Amphetamines Screen NEGATIVE NEGATIVE Urine Methamphetamines Screen NEGATIVE NEGATIVE Urine Benzodiazepines Screen NEGATIVE NEGATIVE Urine Cocaine Screen NEGATIVE NEGATIVE Urine Cannabinoids Screen POSITIVE H NEGATIVE Phosphorus Level 3.6 2.3-4.7 MG/DL Magnesium Level 2.2 1.8-2.4 MG/DL Glucometer 95 70-110 MG/DL Radiology Transvaginal US done 05/11/17 showed approximately 5 week gestational sac, no pole visualized Physical Exam-(CHC) Physical Exam Vital Signs VS - Last 72 Hours, by Label 05/10/17 05/10/17 05/10/17 3/18/18 16:48 22:17 22:25 22:30 Temp 98.0 98.0 98.6 Pulse 78 78 Resp 18 18 B/P (MAP) 127/96 (106) 127/96 (106) Pulse Ox 98 98 95 O2 Delivery Room Air 05/10/17 05/10/17 05/10/17 05/10/17 22:32 22:35 23:00 23:15 Pulse 73 83 76 74 Resp 17 7 14 B/P (MAP) 116/64 (81) 114/68 (83) Pulse Ox 100 97 97 O2 Delivery Room Air Room Air 05/10/17 05/10/17 05/11/17 05/11/17 23:30 23:45 00:00 00:00 Pulse 85 77 80 Resp 20 22 19 B/P (MAP) 118/73 (88) 106/58 (74) 102/58 (73) Pulse Ox 97 97 96 95 O2 Delivery Room Air Room Air Room Air Room Air 05/11/17 05/11/17 05/11/17 05/11/17 00:15 00:30 01:00 01:00 Temp 97.8 Pulse 93 70 80 Resp 23 20 B/P (MAP) 108/57 (74) 98/60 (73) Pulse Ox 96 96 O2 Delivery Room Air Room Air 05/11/17 05/11/17 05/11/17 05/11/17 01:30 02:00 03:00 04:00 Pulse 78 80 80 Resp 20 21 8 B/P (MAP) 105/61 (76) 97/58 (71) 106/59 (75) Pulse Ox 96 96 97 97 O2 Delivery Room Air Room Air Room Air Room Air 05/11/17 05/11/17 05/11/17 05/11/17 04:00 04:00 05:00 06:00 Temp 97.7 Pulse 71 96 74 Resp 19 8 19 B/P (MAP) 111/67 (82) 103/76 (85) 104/61 (75) Pulse Ox 97 95 96 O2 Delivery Room Air Room Air Room Air 05/11/17 05/11/17 05/11/17 05/11/17 07:00 07:00 08:00 08:00 Temp 99.8 Pulse 86 68 88 Resp 16 18 B/P (MAP) 120/84 (96) 110/61 (77) Pulse Ox 98 97 96 O2 Delivery Room Air Room Air Room Air 05/11/17 15:00 Temp 98.5 Pulse 66 Resp 16 B/P (MAP) 107/67 (80) Pulse Ox 95 O2 Delivery Room Air Capillary Refill : Less Than 3 Seconds General Appearance: WD/WN, no apparent distress Eyes: Bilateral Eye Normal Inspection, Bilateral Eye PERRL, Bilateral Eye EOMI HEENT: normal ENT inspection, pharynx normal, No scleral icterus (R), No scleral icterus (L), No photophobia Neck: non-tender, full range of motion, supple, normal inspection Respiratory: chest non-tender, lungs clear, normal breath sounds, no respiratory distress, no accessory muscle use, No crackles, No rales, No rhonchi Cardiovascular: normal peripheral pulses, regular rate, rhythm, no edema, no gallop, no JVD, no murmur Peripheral Pulses: 2+ Dorsalis Pedis (R), 2+ Left Dors-Pedis (L), 2+ Radial Pulses (R), 2+ Radial Pulses (L) Gastrointestinal: normal bowel sounds, non tender, soft, no organomegaly, no pulsatile mass Rectal: deferred Back: normal inspection, no CVA tenderness, no vertebral tenderness Extremities: normal range of motion, non-tender, normal inspection, no pedal edema, no calf tenderness, normal capillary refill, No pedal edema Neurologic/Psychiatric: surgical orderly II-XII nml as tested, no motor/sensory deficits, alert, normal mood/affect, oriented x 3 Skin: normal color, warm/dry Lymphatic: no adenopathy Assessment/Plan Assessment/Plan Admission Dx Suicidal Ideation Admission Status: Observation Assessment & Plan Patient with 5 week gestational sac and suicidal ideation - was found with phone cord wrapped around her neck yesterday by her dad in an attempt to hang herself. Pt denies wanting to hurt herself right now. States she is willing to go to an inpatient treatment facility for psychiatric care, and that she will do so voluntarily, as she does not want to be sent involuntarily. She was previously admitted for a hanging suicide attempt in August 2016, and was admitted to [facility] in [place]. She reports that her mom is currently watching her kids, and that the fathers of the babies are not involved. Will plan to transfer patient to inpatient facility when bed available and patient accepted for transfer. Patient had US today that showed 5 week gestational sac, giving EDC 01/11/18; will repeat sono in 2-3 weeks to assure viability. Pt has OB intake appt with Dr. Guajardo scheduled 06/17/17 at 2 PM. FEN: Regular Diet, No IV Access DVT Ppx: ambulation Dispo: Plan transfer to inpatient psychiatric facility when bed available. Clinical Quality Measures DVT/VTE Risk/Contraindication: Risk Factor Score Per Nursin RFS Level Per Nursing on Admit: 1=Low/No VTE PPX Copy Copies To 1: BRITTANI GUAJARDO MD, MARGARET E DO May 11, 2017 13:46
--- NOTE | 2017-05-11 14:03 | Discharge Summary ---
Diagnosis/Chief Complaint Date of Admission May 10, 2017 at 21:00 Date of Discharge 05/11/17 Admission Diagnosis Admission Diagnosis Suicidal Ideation , first trimester Bipolar Disorder Discharge Diagnosis Suicidal Ideation , First Trimester Bipolar Disorder Patient with 5 week gestational sac and suicidal ideation - was found with phone cord wrapped around her neck yesterday by her dad in an attempt to hang herself. Pt denies wanting to hurt herself right now. States she is willing to go to an inpatient treatment facility for psychiatric care, and that she will do so voluntarily, as she does not want to be sent involuntarily. She was previously admitted for a hanging suicide attempt in August 2016, and was admitted to [facility] in [place]. She reports that her mom is currently watching her kids, and that the fathers of the babies are not involved. Will plan to transfer patient to inpatient facility when bed available and patient accepted for transfer. Patient had US today that showed 5 week gestational sac, giving EDC 01/11/18; will repeat sono in 2-3 weeks to assure viability. Pt has OB intake appt with Dr. Guajardo scheduled 06/17/17 at 2 PM. FEN: Regular Diet, No IV Access DVT Ppx: ambulation Dispo: Plan transfer to inpatient psychiatric facility when bed available. Chief Complaint/HPI Chief Complaint/HPI Triage ED RN Note: ARRIVED VIA AMB TO OFF OF EMS TRUCK. AT APPX 1500 MOM FOUND PT WITH A PHONE CORD AROUND HER NECK. PT STATES SHE FIRST TRIED TO STRANGLE HER SELF WITH A HAIR TIE AND IT DID NOT WORK THEN SHE WAS ATTEMPTING WITH A PHONE CORD. PT RECENTLY FOUND OUT SHE IS AND QUIT TAKING HER ZOLOFT. SHE SAID THE ATTEMPT WAS TO TRY TO KILL HER SELF BUT SHE NO LONGER WANTS TO . PT HAS A HX OF SUICIDE ATTEMPT. PT HAS POSITIVE LIGITURE MARKING AROUND HER NECK. This morning the patient reports that her boyfriend broke up with her and she wanted to kill herself yesterday, and was attempting to do so by hanging. She did not mention the hair tie, only with the phone cord, which had to be cut off her neck. Patient reports that she stopped taking her Zoloft because she didn' t think she could take that until her last trimester. Patient states that she has had a suicide attempt in the past, in August 2016, the third trimester of her previous . She states she also tried to hang herself that time. She reports that she had been doing fairly well on the Zoloft, and that she is also Bipolar and was seeing a counselor at [facility], but her counselor left that facility and she has not established with anyone else. She reports that she is very interested in starting counseling again, as she feels it helps her a lot, but she wants to be established with one provider, and not see multiple providers. She currently lives in [place], [place] with her 3 year old son, her 9 month old son, and her father. She reports that she does feel safe at home. She denies any current thoughts of harming herself and denies any thoughts of ever harming anyone else, including her children. Her only other complaint this morning is some mild suprapubic cramping, she is currently on macrobid for UTI. She denies vaginal bleeding or discharge. Discharge Summary-OBS Procedures None. Consultations Discharge Physical Examination Allergies: Coded Allergies: No Known Drug Allergies (Unverified , 06/05/08) Vitals & I&Os Vital Sign - Last 12Hours Date Time Temp Pulse Resp B/P (MAP) Pulse Ox O2 Delivery O2 Flow Rate FiO2 05/11/17 08:00 99.8 88 18 110/61 (77) 96 Room Air General Appearance: Alert, Oriented X3, Cooperative, No Acute Distress HEENT: Atraumatic, EOMI, Mucous Memb Moist/[place] Respiratory: Clear to Auscultation, Normal Air Movement Cardiovascular: Regular Rate, Normal S1, Normal S2, No Murmurs Abdominal: Normal Bowel Sounds, Soft, No Tenderness, No Hepatosplenomegaly, No Masses Extremities: No Clubbing, No Cyanosis, No Edema, Normal Pulses, No Tenderness/ Swelling Skin: No Rashes, No Significant Lesion Neuro: Normal Speech, Normal Tone, Sensation Intact, Cranial Nerves 3-12 NL Psych/Mental Status: Mental Status NL, Mood NL Hospital Course see final discharge diagnosis list Labs Laboratory Tests 05/10/17 16:55: White Blood Count 9.5, Red Blood Count 4.82, Hemoglobin 13.9, Hematocrit 39, Mean Corpuscular Volume 82, Mean Corpuscular Hemoglobin 29, Mean Corpuscular Hemoglobin Concent 35, Red Cell Distribution Width 14.5, Platelet Count 280, Mean Platelet Volume 11.0H, Neutrophils (%) (Auto) 79H, Lymphocytes (%) (Auto) 17, Monocytes (%) (Auto) 4, Eosinophils (%) (Auto) 0, Basophils (%) (Auto) 0, Neutrophils # (Auto) 7.4, Lymphocytes # (Auto) 1.6, Monocytes # (Auto) 0.4, Eosinophils # (Auto) 0.0, Basophils # (Auto) 0.0, Sodium Level 141, Potassium Level 3.4L, Chloride Level 109H, Carbon Dioxide Level 20L, Anion Gap 12, Blood Urea Nitrogen 11, Creatinine 0.69, Estimat Glomerular Filtration Rate > 60, BUN/ Creatinine Ratio 16, Glucose Level 89, Calcium Level 9.4, Total Bilirubin 0.4, Aspartate Amino Transf (AST/SGOT) 19, Alanine Aminotransferase (ALT/SGPT) 17, Alkaline Phosphatase 52, Total Protein 7.3, Albumin 4.8H, TSH [place] Testing 0.97, Human Chorionic Gonadotropin, Quant 2639H, Serum Test, Qualitative POSITIVE, Salicylates Level < 5.0L, Acetaminophen Level < 10L, Serum Alcohol < 10 05/10/17 17:40: Urine Color YELLOW, Urine Clarity CLOUDYH, Urine pH 7, Urine Specific [place] 1.015L, Urine Protein 2+H, Urine Glucose (UA) NEGATIVE, Urine Ketones 4+H, Urine Nitrite NEGATIVE, Urine Bilirubin NEGATIVE, Urine Urobilinogen 1, Urine Leukocyte Esterase 3+H, Urine RBC (Auto) 1+H, Urine RBC 0-2, Urine WBC TNTCH, Urine Squamous Epithelial Cells >50H, Urine Renal Epithelial Cells NONE, Urine Crystals NONE, Urine Bacteria LARGEH, Urine Casts NONE, Urine Mucus LARGEH, Urine Culture Indicated YES, Urine Opiates Screen NEGATIVE, Urine Oxycodone Screen NEGATIVE, Urine Methadone Screen NEGATIVE, Urine Propoxyphene Screen NEGATIVE, Urine Barbiturates Screen NEGATIVE, Ur Tricyclic Antidepressants Screen NEGATIVE, Urine Phencyclidine Screen NEGATIVE, Urine Amphetamines Screen NEGATIVE, Urine Methamphetamines Screen NEGATIVE, Urine Benzodiazepines Screen NEGATIVE, Urine Cocaine Screen NEGATIVE, Urine Cannabinoids Screen POSITIVEH 05/11/17 03:35: White Blood Count 7.5, Red Blood Count 4.41, Hemoglobin 12.8, Hematocrit 36, Mean Corpuscular Volume 83, Mean Corpuscular Hemoglobin 29, Mean Corpuscular Hemoglobin Concent 35, Red Cell Distribution Width 14.4, Platelet Count 261, Mean Platelet Volume 10.7H, Neutrophils (%) (Auto) 43, Lymphocytes (%) (Auto) 45H, Monocytes (%) (Auto) 9, Eosinophils (%) (Auto) 2, Basophils (%) (Auto) 0, Neutrophils # (Auto) 3.3, Lymphocytes # (Auto) 3.4, Monocytes # (Auto) 0.7, Eosinophils # (Auto) 0.2, Basophils # (Auto) 0.0, Sodium Level 139, Potassium Level 3.2L, Chloride Level 109H, Carbon Dioxide Level 21, Anion Gap 9, Blood Urea Nitrogen 12, Creatinine 0.68, Estimat Glomerular Filtration Rate > 60, BUN/ Creatinine Ratio 18, Glucose Level 87, Calcium Level 8.6, Total Bilirubin 0.5, Aspartate Amino Transf (AST/SGOT) 17, Alanine Aminotransferase (ALT/SGPT) 15, Alkaline Phosphatase 43, Total Protein 5.9L, Albumin 4.1, Phosphorus Level 3.6, Magnesium Level 2.2 05/11/17 06:30: Glucometer 95 Microbiology 05/10/17 Urine Culture - Preliminary, Resulted Probable Coag Negative Staph Radiology Reviewed Transvaginal US - 5 week gestational sac identified in uterus, no pole identified Discussion & Recommendations transfer to inpatient psychiatric facility for further psychiatric care Discharge Condition at discharge stable Instructions to patient/family Please see electronic discharge instructions given to patient. Discharge Medications Reviewed and agree with Discharge Medication list on patient's Discharge Instruction sheet Clinical Quality Measures DVT/VTE Risk/Contraindication: Risk Factor Score Per Nursin RFS Level Per Nursing on Admit: 1=Low/No VTE PPX Copy Copies To 1: BRITTANI GUAJARDO MD, MARGARET E DO May 11, 2017 14:03
[2017-05-11] MEDS ORDERED: NITR100C10 PO (14:14)
--- NOTE | 2017-05-11 14:26 | Discharge Instructions ---
Discharge [facility] Discharge Medications New, Converted or Re-Newed RX: RX on Chart New Medications: Nitrofurantoin Monohyd/M-Cryst (Nitrofurantoin [place]-Mcr 100 mg) 100 Mg Capsule 100 MG PO BID for 6 Days, #12 CAP Continued Medications: Vit B Cmplx 3/FA/Vit C/Biotin (Private Household Worker-Gloria Rx Tablet) 1 Each Tablet 1 TAB PO DAILY, TAB Patient Instructions Patient Instructions -take all medications as prescribed -work with [facility] to set up outpatient counseling -keep intake appointment with Dr. Guajardo as scheduled -contact office or let [facility] staff know if begin to have cramping or vaginal bleeding Goal/Follow Up Appt: Keep appointment for OB intake with Dr. Guajardo as scheduled: 06/17/17 at 2:00 PM Return to The Hospital For: heavy vaginal bleeding or painful cramping, suicidal thoughts or ideations, thoughts of harming self or others, nausea or vomiting that makes you unable to keep down ice chips or clear liquids for more than 12 hours, fever >101 unrelieved by tylenol, if directed by station baggage agent provider, or any other emergent complaints or concerns Activity & Diet Discharge Diet: No Restrictions Activity as Tolerated: Yes Copy Copies To 1: BRITTANI GUAJARDO MD, MARGARET E DO May 11, 2017 14:26
[2017-05-12] MEDS ORDERED: VIT B CMPLX PO SCH (09:00)
[2017-05-12] MEDS ORDERED: BIOTIN PO SCH (09:00)
[2017-05-12] MEDS ORDERED: [UNRECOGNIZED DRUG - OTHER] PO SCH (09:00)
== END 2017-05-11 18:15 ==
LOC: EDUNIT# 16:48 → ER 16:49 → ICU 21:00 → UNDOADMOB 21:00 → ICU 22:20 → UNDODISOB 05-11 18:15
PROVIDERS: ADMIT Family Medicine; ATTEND Family Medicine
DX: O99.341 Other mental disorders complicating pregnancy, first trimester (principal); F31.9 Bipolar disorder, unspecified; O9A.211 Injury, poisoning and certain other consequences of external causes complicating pregnancy, first trimester; S10.91XA Abrasion of unspecified part of neck, initial encounter; O23.41 Unspecified infection of urinary tract in pregnancy, first trimester; O99.281 Endocrine, nutritional and metabolic diseases complicating pregnancy, first trimester; E86.0 Dehydration; O99.321 Drug use complicating pregnancy, first trimester; F12.90 Cannabis use, unspecified, uncomplicated; X83.8XXA Intentional self-harm by other specified means, initial encounter; Y92.019 Unspecified place in single-family (private) house as the place of occurrence of the external cause; Z3A.01 Less than 8 weeks gestation of pregnancy
CPT/HCPCS: 36415; 76817; 80053; 80306; 80320; 80329; 81000; 82962; 83735; 84100; 84443; 84702; 84703; 85025; 87077; 87081; 87088; 87186; 93005; G0378

== ENCOUNTER → 2017-06-05 | Outpatient (CLI) | payer MEDICAID ==
[~2017-06-05] MED LIST changes: +CEFD300C3 PO; +DOXY1TAB3; +NITR100C10 PO; +ONDA4TAB8 SL; +SERT25TA5; +VIT-5 PO
--- NOTE | 2017-06-05 15:08 | Diagnostic Imaging Report ---
PROCEDURE: US OB SINGLE FETUS <14 WKS. TECHNIQUE: Multiple real-time grayscale images were obtained over the gravid uterus in various projections. INDICATION: dating. FINDINGS: There is an intrauterine gestational sac containing a pole. The crown-rump length measurement is 22 mm consistent with 8 weeks 6 days gestation. heart rate was recorded at 174 beats per minute. No kina-gestational sac hemorrhage is identified. The right ovary is unremarkable. The left ovary was not visualized. IMPRESSION: Single live IUP 8 weeks 6 days gestational age. Estimated date of confinement sonographically is 01/09/2018. Dictated by: Dictated on workstation # [id number]
== END ==
LOC: RAD 14:20
PROVIDERS: ATTEND Family Medicine
DX: Z36.89 Encounter for other specified antenatal screening (principal); O36.80X0 Pregnancy with inconclusive fetal viability, not applicable or unspecified; Z3A.08 8 weeks gestation of pregnancy
CPT/HCPCS: 76801

== ENCOUNTER 2017-06-21 09:44 | Emergency (ER) | payer MEDICAID ==
[~2017-06-21] VITALS: Ht 165.1 cm; Wt 61.2 kg
[~2017-06-21 09:44] MED LIST changes: -CEFD300C3 PO; -DOXY1TAB3; -ONDA4TAB8 SL; -SERT25TA5
--- OUTSIDE RECORDS SUMMARY | 2017-06-21 09:51 | XMS REPORT ---
Author Author VALENTINOBRITTANI [facility] Address [address] [place] [address] Care Team Providers Care Paper Machine Backtender Name Role Phone BRITTANI AVELAR Unavailable PROBLEMS Type Condition ICD9-CM Code MEQ01-SJ Code Onset Dates Condition Status SNOMED Code Problem Severe episode of recurrent major depressive disorder, without psychotic features F33.2 Active 71301369 ALLERGIES No Known Allergies ENCOUNTERS Encounter Location Date Diagnosis [place] [id number] [place] [address] 37392- 0313 June, [place] [id number] [place] [address] 95056- 8064 June, [place] [id number] [place] [address] 33686- 2743 May, [place] [id number] [place] [address] 60097- 0998 May, [place] [id number] [place] [address] 44796- 4748 May, 7 weeks gestation of Z3A.01 ; care, subsequent in first trimester Z34.81 and Nausea and vomiting during O21.9 [place] [id number] [place] [address] 60889- 4668 Apr, Urinary tract infection during in first trimester O23.41 [place] [id number] [place] [address] 02787- 4269 Apr, Urinary tract infection during in first trimester O23.41 [place] [id number] [place] [address] 56481- 7098 Apr, Severe episode of recurrent major depressive disorder, without psychotic features F33.2 [place] [address] [address] 7892 12 Apr, 2017 [place] [id number] [place] [address] 09707- 6017 Apr, Encounter for test, result unknown Z32.00 [place] [id number] [place] [address] 35162- 7156 Apr, [place] [id number] [place] [address] 68892- 8348 Feb, Visit for TB skin test Z11.1 [place] [id number] [place] [address] 98966- 6459 Jan, [place] [id number] [place] [address] 79539- 8293 Dec, STD exposure Z20.2 ; Severe episode of recurrent major depressive disorder, without psychotic features F33.2 and BCP ( control pills) initiation Z30.011 [place] [id number] [place] [address] 50439- 8539 16 Nov, 2016 [place] [id number] [place] [address] 48384- 9887 26 Oct, 2016 Other viral agents as the cause of diseases classified elsewhere B97.89 and Acute upper respiratory infection, unspecified J06.9 [place] [id number] [place] [address] 55248- 8631 23 Sep, 2016 exam Z39.2 and General counseling and advice for contraceptive management Z30.09 [place] [id number] [place] [address] 14391- 7078 Aug, [place] [id number] [place] [address] 21946- 7719 Jul, 37 weeks gestation of Z3A.37 [place] [id number] [place] [address] 14400- 0973 Jul, [place] [address] [address]- 3376 Jul, care, subsequent in third trimester Z34.83 ; tachycardia before the onset of labor P03.810 and 36 weeks gestation of Z3A.36 [place] [address] [address]- 1470 June, care, subsequent in third trimester Z34.83 ; screening for streptococcus B Z36 and 36 weeks gestation of Z3A.36 [place] [id number] [place] [address] 46302- 9088 June, [place] [id number] [place] [address] 90972- 2140 June, care, subsequent in third trimester Z34.83 and 34 weeks gestation of Z3A.34 [place] [id number] [place] [address] 69539- 9242 June, UTI (urinary tract infection) during , third trimester O23.43 [place] [id number] [place] [address] 56077- 4688 June, care, subsequent in third trimester Z34.83 ; labor in third trimester without delivery O60.03 and 33 weeks gestation of Z3A.33 [place] [address] [address]- 8563 June, [place] [id number] [place] [address] 34031- 2115 June, 32 weeks gestation of Z3A.32 [place] [id number] [place] [address] 80278- 8096 May, care, subsequent in third trimester Z34.83 ; 30 weeks gestation of Z3A.30 and Encounter for immunization Z23 [place] [address] [address]- 4547 May, [place] [address] [place] [address]- 7219 May, 29 weeks gestation of Z3A.29 ; Diabetes mellitus screening Z13.1 and care, subsequent in third trimester Z34.83 [facility] [id number] [place] [address] 29361- 6857 Apr, Dental examination Z01.20 [place] [address] 82562- 3409 Apr, [facility] [address] 91477- 9659 Apr, Severe episode of recurrent major depressive disorder, without psychotic features F33.2 ; care, subsequent in second trimester Z34.82 and 24 weeks gestation of Z3A.24 [place] [id number] [place] [address] 59512- 9314 Apr, Encounter for test, result unknown Z32.00 [facility] [address] 66279- 9066 Apr, [place] [id number] [place] [address] [id number] May, [facility] [id number] [place] [address] 03983- 9842 May, [facility] [id number] [place] [address] 84437- 9124 May, [facility] [id number] [place] [address] 22451- 7827 Nov, [facility] [id number] [place] [address] 77504- 1250 Nov, [address] [id number] Nov, [facility] [id number] [place] [address] 83085- 2731 Oct, [place] [id number] [place] [address] [id number] Oct, [facility] [place] [facility] [address] [id number] [place] [address]- 3131 Sep, [facility] [place] [facility] [address] [id number] [place] [address]- 0339 Sep, [facility] [place] [facility] [address] [id number] [place] [address]- 9705 Aug, [facility] [place] [facility] [address] [id number] [place] [address]- 7358 Aug, [facility] [place] [facility] [address] [id number] [place] [address]- 6102 Aug, [facility] [place] [facility] [address] [id number] [place] [address]- 3225 Aug, [facility] [place] [facility] [address] [id number] [place] [address]- 7117 Jul, [facility] [place] [facility] [address] [id number] [place] [address]- 9460 Jul, [facility] [place] [facility] [address] [id number] [place] [address]- 0212 Jul, [facility] [place] [facility] [address] [id number] [place] [address]- 0696 Jul, [facility] [place] [facility] [address] [id number] [address]- 7678 Jul, [facility] [place] [facility] [address] [id number] [address]- 3196 Jul, [facility] [place] [facility] [address] [id number] [place] [address]- 0727 Jul, [facility] [place] [facility] [address] [id number] [place] [address]- 5744 Jul, [facility] [place] [facility] [address] [id number] [address]- 4515 Jul, [facility] [place] [facility] [address] [id number] [address]- 6324 Jul, [facility] [address] [id number] [place] [address]- 9323 Jul, [facility] [place] [facility] [address] [id number] [place] [address]- 1788 Jul, [facility] [place] [facility] [address] [id number] [place] [address]- 7561 Jul, [facility] [place] [facility] [address] [id number] [place] [address]- 7280 Jul, [facility] [place] [facility] [address] [id number] [place] [address]- 7284 Jul, [facility] [place] [facility] [address] [id number] [place] [address]- 2739 Jul, [facility] [address] [id number] [place] [address]- 0894 Jul, [facility] [place] [facility] [address] [id number] [place] [address]- 1300 Jul, [facility] [place] [facility] [address] [id number] [place] [address]- 6967 Jul, [facility] [place] [facility] [address] [id number] [place] [address]- 5977 Jul, [facility] [place] [facility] [address] [id number] [place] [address]- 6580 Jul, [facility] [place] [facility] [address] [id number] [address]- 8876 Jul, [facility] [address] [id number] [address]- 2813 Jul, [facility] [address] [place] [id number] 04 Jul [facility] [place] [facility] [address] [id number] [place] [address]- 6624 Jul, [facility] [address] [id number] [place] [address]- 8918 Jul, [facility] [place] [facility] [address] [id number] [place] 5253 Jul, [facility] [place] [facility] [address] [id number] [place] 1168 Jul, [facility] [place] [facility] [address] [id number] [place] [address]- 1815 June, [facility] [place] [facility] [address] [id number] [place] [address]- 7877 June, [facility] [place] [facility] [address] [id number] [place] [address]- 7794 June, [facility] [place] [facility] [address] [id number] [place] [address]- 9385 June, [facility] [place] [facility] [address] [id number] [place] [address]- 0230 June, [facility] [place] [facility] [address] [id number] [place] [address]- 2887 June, [facility] [place] [facility] [address] [id number] [place] [address]- 6104 June, [facility] [place] [facility] [address] [id number] [place] [address]- 0182 June, [facility] [place] [facility] [address] [id number] [place] [address]- 0282 June, [facility] [place] [facility] [address] [id number] [place] [address]- 0797 June, [facility] [place] [facility] [address] [id number] [place] [address]- 9736 June, [facility] [place] [facility] [address] [id number] [place] [address]- 1951 June, [facility] [place] [facility] [address] [id number] [place] [address]- 2810 May, [facility] [place] [facility] [address] [id number] [place] [address]- 0740 May, [facility] [address] [id number] [place] [address]- 8456 May, [facility] [address] [id number] [place] [address]- 7896 May, [facility] [address] [id number] [place] [address]- 1446 Nov, [facility] [address] [id number] [place] [address]- 6118 Nov, [facility] [address] [id number] [place] [id number] Aug, [facility] [address] [id number] [place] [address]- 6176 Aug, [facility] [address] [id number] [place] [address]- 2246 Jul, [facility] [address] [id number] [place] [address]- 8513 Mar, [facility] [address] [id number] [place] [address]- 0406 Mar, [facility] [address] [id number] [place] [address]- 5076 Feb, [facility] [address] [id number] [place] [address]- 4846 Feb, [facility] [address] [id number] [place] [address]- 6166 Feb, [facility] [place] [facility] [address] [id number] [place] [address]- 2546 Jan, [facility] [place] [facility] [address] [id number] [place] [address]- 2546 Jan, [facility] [place] [facility] [address] [id number] [place] [address]- 6262 Apr, [facility] [address] [id number] [place] [address]- 8599 Apr, [facility] [place] [facility] [address] [id number] [place] [address]- 0476 Mar, [facility] [place] [facility] [address] [id number] [place] [address]- 6046 Mar, [facility] [place] [facility] [address] [id number] [place] [address]- 4321 Mar, [facility] [place] [facility] [address] [id number] [place] [address]- 6330 Mar, [facility] [place] [facility] [address] [id number] [place] [address]- 7476 Feb, [facility] [place] [facility] [address] [id number] [place] [address]- 6176 Feb, [facility] [place] [facility] [address] [id number] [place] [address]- 5297 Feb, [facility] [place] [facility] [address] [id number] [place] [address]- 5307 Feb, [facility] [place] [facility] [address] [id number] [place] [address]- 7928 Feb, [facility] [place] [facility] [address] [id number] [address]- 5596 Feb, [facility] [place] [facility] [address] [id number] [place] [address]- 0949 Feb, [facility] [place] [facility] [address] [id number] [place] [address]- 4430 Feb, [facility] [place] [facility] [address] [id number] [place] [address]- 2976 Jan, [facility] [place] [facility] [address] [id number] [place] [address]- 9003 Jan, [facility] [place] [facility] [address] [facility] [id number] [place] [address]- 1699 18 Dec, 2010 [facility] [address] [facility] [id number] [address]- 5877 15 Dec, 2010 [facility] [address] [facility] [id number], [place] [address]- 0572 15 Dec, 2010 [facility] [address] [facility] [id number] [address]- 6071 15 Dec, 2010 [facility] [address] [facility] [id number][place] [address]- 6666 15 Dec, 2010 IMMUNIZATIONS No Known Immunizations SOCIAL HISTORY Never Assessed REASON FOR VISIT OB -RICCI Wilkinson PLAN OF CARE Activity Details Follow Up prn after IUD available Reason: VITAL SIGNS Height 63 in 2016-10-15 Weight 152 lbs 2016-10-15 Temperature 98.3 degrees Fahrenheit 2016-10-15 Heart Rate 70 bpm 2016-10-15 Respiratory Rate 18 2016-10-15 BMI 26.92 kg/m2 2016-10-15 Blood pressure systolic 90 mmHg 2016-10-15 Blood pressure diastolic 60 mmHg 2016-10-15 MEDICATIONS Medication Instructions Dosage Frequency Start Date End Date Duration Status Zoloft 25 MG Orally Once a day 1 tablet 24h 30 Active Vitamin 27-0.8 MG Orally Once a day 1 tablet 24h 30 days Active Ortho-Cyclen (28) 0.25-35 MG-MCG Orally Once a day 1 tablet 24h Sep, 28 day(s) Active Iron 325 (65 Fe) MG Orally Once a day 1 tablet 24h Active RESULTS Name Result Date Reference Range TEST, URINE (IN HOUSE) 2016-10-15 RESULTS Negative Lot # [id number] Control + Exp date 03/25/17 PROCEDURES Procedure Date Ordered Result Body Site URINE TEST Oct 15, 2016 INSTRUCTIONS MEDICATIONS ADMINISTERED No Known Medications MEDICAL (GENERAL) HISTORY Type Description Date Medical History Depression Surgical History tonsillectomy Surgical History dilatation and curettage Hospitalization History childbirth only
--- OUTSIDE RECORDS SUMMARY | 2017-06-21 09:51 | XMS REPORT ---
Author Author VALENTINO BRITTANI [facility] Address [address] [place] [address] Care Team Providers Care [employer] Name Role Phone VALENTINOGAB CONNELLHANY Unavailable PROBLEMS Type Condition ICD9-CM Code NTP06-RG Code Onset Dates Condition Status SNOMED Code Problem Severe episode of recurrent major depressive disorder, without psychotic features F33.2 Active [id number] ALLERGIES No Information ENCOUNTERS Encounter Location Date Diagnosis [facility] [id number] [place] [address] 44811- 0109 May, [place] [id number] [place] [address] 82062- 2661 May, [facility] [id number] [place] [address] 85021- 1159 Apr, Urinary tract infection during in first trimester O23.41 [facility] [id number] [place] [address] 57259- 8421 Apr, Urinary tract infection during in first trimester O23.41 [facility] [id number] [place] [address] 72466- 9351 Apr, Severe episode of recurrent major depressive disorder, without psychotic features F33.2 [facility] [id number] [place] [address] 37860- 4266 Apr, [facility] [id number] [place] [address] 09194- 1930 Apr, Encounter for test, result unknown Z32.00 [facility] [id number] [place] [address] 57996- 8077 Apr, [facility] [id number] [place] [address] 83755- 2636 Feb, Visit for TB skin test Z11.1 [place] [id number] [place] [address] 71605- 5618 13 Jan, 2017 [place] [id number] [place] [address] 01945- 1139 Dec, STD exposure Z20.2 ; Severe episode of recurrent major depressive disorder, without psychotic features F33.2 and BCP ( control pills) initiation Z30.011 [place] [id number] [place] [address] 77467- 1217 16 Nov, [address] 35843- 4043 Oct, Other viral agents as the cause of diseases classified elsewhere B97.89 and Acute upper respiratory infection, unspecified J06.9 [place] [id number] [place] [address] 75627- 0838 23 Sep, 2016 exam Z39.2 and General counseling and advice for contraceptive management Z30.09 [place] [id number] [place] [address] 71083- 5867 Aug, [place] [id number] [place] [address] 26212- 9724 Jul, 37 weeks gestation of Z3A.37 [address] [id number] [place] [address] 21314- 3854 Jul, [address] 21726- 4463 Jul, care, subsequent in third trimester Z34.83 ; tachycardia before the onset of labor P03.810 and 36 weeks gestation of Z3A.36 [place] [id number] [place] [address] 76065- 2642 June, care, subsequent in third trimester Z34.83 ; screening for streptococcus B Z36 and 36 weeks gestation of Z3A.36 [id number] [address]- 6440 June, [place] [id number] [place] [address] 75426- 3033 June, care, subsequent in third trimester Z34.83 and 34 weeks gestation of Z3A.34 [place] [id number] [address]- 0590 June, UTI (urinary tract infection) during , third trimester O23.43 [place] [id number] [place] [address] 28992- 1518 June, care, subsequent in third trimester Z34.83 ; labor in third trimester without delivery O60.03 and 33 weeks gestation of Z3A.33 [place] [id number] [place] [address] 07210- 3817 June, [place] [id number] [place] [address] 28614- 3585 June, 32 weeks gestation of Z3A.32 [place] [id number] [place] [address] 43329- 6774 May, care, subsequent in third trimester Z34.83 ; 30 weeks gestation of Z3A.30 and Encounter for immunization Z23 [place] [address] [address]- 7184 May, [place] [id number] [place] [address] 15818- 6033 May, 29 weeks gestation of Z3A.29 ; Diabetes mellitus screening Z13.1 and care, subsequent in third trimester Z34.83 [place] [id number] [place] [address] 70713- 4150 Apr, Dental examination Z01.20 [place] [address] [address]- 3442 Apr, [place] [id number] [address]- 6942 Apr, Severe episode of recurrent major depressive disorder, without psychotic features F33.2 ; care, subsequent in second trimester Z34.82 and 24 weeks gestation of Z3A.24 [facility] [address] [address]- 8326 Apr, Encounter for test, result unknown Z32.00 [facility] [id number] [place] [address] 54736- 6439 Apr, [facility] [address] [id number] May, [facility] [id number] [place] [address] 60758- 5370 May, [facility] [id number] [place] [address] 04285- 9103 May, [facility] [id number] [place] [address] 48228- 0174 Nov, [facility] [address] [address]- 7232 Nov, [facility] [id number] [place] [address] [id number] Nov, [facility] [address] [address]- 3728 Oct, [facility] [id number] [place] [address] [id number] Oct, [facility] [address] [address]- 9611 Sep, [facility] [id number] [place] [address] 48189- 8575 Sep, [facility] [id number] [address]- 7253 Aug, [facility] [address] 1001 Aug, [facility] [place] [facility] [address] [id number] [place] [address]- 9243 Aug, [facility] [place] [facility] [address] [id number] [place] [address]- 7389 Aug, [facility] [place] [facility] [address] [id number] [place] [address]- 2700 Jul, [facility] [place] [facility] [address] [id number] [place] [address]- 9241 Jul, [facility] [place] [facility] [address] [id number] [place] [address]- 9329 Jul, [facility] [place] [facility] [address] [id number] [place] [address]- 9434 Jul, [facility] [place] [facility] [address] [id number] [place] [address]- 2824 Jul, [facility] [place] [facility] [address] [id number] [place] [address]- 1485 Jul, [facility] [place] [facility] [address] [id number] [place] [address]- 9543 Jul, [facility] [place] [facility] [address] [id number] [place] [address]- 8064 Jul, [facility] [place] [facility] [address] [id number] [place] [address]- 9494 Jul, [facility] [place] [facility] [address] [id number], [place] [address]- 7291 Jul, [facility] [place] [facility] [address] [id number] [place] [address]- 1110 Jul, [facility] [place] [facility] [address] [id number] [place] [address]- 0828 Jul, [facility] [place] [facility] [address] [id number] [place] [address]- 6825 Jul, [facility] [place] [facility] [address] [id number], [place] [address]- 5190 Jul, [facility] [place] [facility] [address] [id number] [place] [address]- 2442 Jul, [facility] [place] [facility] [address] [id number] [place] [address]- 0046 Jul, [facility] [place] [facility] [address] [id number] [place] [address]- 7558 Jul, [facility] [place] [facility] [address] [id number] [place] [address]- 3144 Jul, [facility] [place] [facility] [address] [id number] [place] [address]- 4521 Jul, [facility] [place] [facility] [address] [id number] [place] [address]- 9878 Jul, [facility] [place] [facility] [address] [id number] [place] [address]- 0351 Jul, [facility] [place] [facility] [address] [id number] [place] [address]- 5765 Jul, [facility] [address] [id number], [place] [address]- 6904 Jul, [address] [id number] Jul [facility] [place] [facility] [address] [id number], [place] [address]- 6660 Jul, [facility] [place] [facility] [address] [id number], [place] [address]- 3617 Jul, [facility] [place] [facility] [address] [id number] [place] [address]- 0941 Jul, [facility] [place] [facility] [address] [id number] [place] [address]- 8560 Jul, [facility] [place] [facility] [address] [id number] [place] [address]- 0989 June, [facility] [place] [facility] [address] [id number] [place] [address]- 1633 June, [facility] [address] [id number] [place] [address]- 0522 June, [facility] [place] [facility] [address] [id number] [place] [address]- 4371 June, [facility] [place] [facility] [address] [id number] [place] [address]- 7675 June, [facility] [place] [facility] [address] [id number] [place] [address]- 3032 June, [facility] [place] [facility] [address] [id number] [place] [address]- 7061 June, [facility] [place] [facility] [address] [id number] [place] [address]- 8355 June, [facility] [place] [facility] [address] [id number] [place] [address]- 0241 June, [facility] [place] [facility] [address] [id number] [place] [address]- 8275 June, [facility] [place] [facility] [address] [id number] [place] [address]- 5417 June, [facility] [place] [facility] [address] [id number] [place] [address]- 3672 June, [facility] [place] [facility] [address] [id number] [place] [address]- 5222 May, [facility] [place] [facility] [address] [id number] [place] [address]- 4802 May, [facility] [place] [facility] [address] [id number] [place] [address]- 6898 May, [facility] [place] [facility] [address] [id number] [place] [address]- 8361 May, [facility] [place] [facility] [address] [id number] [place] [address]- 0783 Nov, [facility] [place] [facility] [address] [id number] [place] [address]- 2472 Nov, [facility] [address] [id number] [place] [id number] Aug, [facility] [address] [id number] [place] [address]- 3756 Aug, [facility] [address] [id number] [place] [address]- 3043 Jul, [facility] [address] [id number] [place] [address]- 6085 Mar, [facility] [address] [id number] [place] [address]- 3092 Mar, [facility] [address] [facility] [id number] [place] [address]- 6774 Feb, [facility] [address] [id number] [place] [address]- 1627 Feb, [facility] [address] [id number] [place] [address]- 6599 Feb, [facility] [address] [id number] [place] [address]- 4608 Jan, [facility] [address] [facility] [id number] [place] [address]- 0469 Jan, [facility] [address] [id number] [place] [address]- 2866 Apr, [facility] [place] [facility] [address] [id number] [place] [address]- 9117 Apr, [facility] [place] [facility] [address] [id number] [place] [address]- 2076 Mar, [facility] [place] [facility] [address] [facility] [id number] [place] [address]- 3246 Mar, [facility] [place] [facility] [address] [id number] [place] [address]- 4001 Mar, [facility] [place] [facility] [address] [id number] [place] [address]- 9488 Mar, [facility] [place] [facility] [address] [id number] [place] [address]- 2336 Feb, [facility] [place] [facility] [address] [id number] [place] [address]- 3403 Feb, [facility] [place] [facility] [address] [id number] [place] [address]- 9035 Feb, [facility] [place] [facility] [address] [id number] [place] [address]- 6398 Feb, [facility] [place] [facility] [address] [id number] [place] [address]- 1691 Feb, [facility] [place] [facility] [address] [id number] [place] [address]- 0800 Feb, [facility] [place] [facility] [address] [id number] [place] [address]- 3721 Feb, [facility] [place] [facility] [address] [id number] [place] [address]- 9181 Feb, [facility] [place] [facility] [address] [id number] [place] [address]- 4207 Jan, [facility] [place] [facility] [address] [id number] [place] [address]- 7141 Jan, [facility] [place] [facility] [address] [id number] [place] [address]- 8261 Dec, [facility] [place] [facility] [address] [id number] [place] [address]- 2362 Dec, [facility] [place] [facility] [address] [id number] [place] [address]- 8867 Dec, [facility] [place] [facility] [address] [id number] [place] [address]- 9287 Dec, [facility] [place] [facility] [address] [facility] [id number] [place] [address]- 3457 Dec, IMMUNIZATIONS No Known Immunizations SOCIAL HISTORY Never Assessed REASON FOR VISIT Refill Request PLAN OF CARE VITAL SIGNS MEDICATIONS Unknown Medications RESULTS No Results PROCEDURES No Known procedures INSTRUCTIONS MEDICATIONS ADMINISTERED No Known Medications MEDICAL (GENERAL) HISTORY Type Description Date Medical History Depression Surgical History tonsillectomy Surgical History dilatation and curettage Hospitalization History childbirth only
--- OUTSIDE RECORDS SUMMARY | 2017-06-21 09:56 | XMS REPORT | Continuity of Care Document ---
Author Author [facility] Address Unknown Phone Unavailable Allergies Active Description Code Type Severity Reaction Onset Reported/Identified Relationship to Patient Clinical Status Yes No Known Drug Allergies [id number] Drug Allergy Mild N/A 06/05/2008 Medications There [...] A 780.79 MALAISE AND FATIGUE 01/07/2011 GUANACO ENGRAVING PRESS OPERATOR, CORTES A V25.9 CONTRACEPTION MANAGEMENT 01/07/2011 GUANACO [...] DO, ZHEN K V25.9 CONTRACEPTION MANAGEMENT 01/07/2011 AVZ DO, ZHEN K 296.90 MOOD DISORDER 01/07/2011 [...] NOS 01/10/2011 314.01 ADHD COMBINED 01/10/2011 UCHE ENGRAVING PRESS OPERATOR BREA S 296.80 MO BIPOLAR NOS 01/10/2011 ROMARIO IVEY APRNNDA S 314.01 ADHD COMBINED 01/10/2011 296.80 MO BIPOLAR NOS 01/10/2011 314.01 ADHD COMBINED 01/10/2011 296.80 MO BIPOLAR NOS 01/10/2011 314.01 ADHD COMBINED 01/10/2011 GUANACO ENGRAVING PRESS OPERATOR, CORTES A 296.80 MO BIPOLAR NOS 01/10/2011 GUANACO ENGRAVING PRESS OPERATOR, CORTES A 314.01 ADHD COMBINED 01/10/2011 GUANACO ENGRAVING PRESS OPERATOR, CORTES A 296.80 MO BIPOLAR NOS 01/10/2011 GUANACO ENGRAVING PRESS OPERATOR, CORTES A 314.01 ADHD COMBINED 01/10/2011 VAZ [...] 296.80 MO BIPOLAR NOS 01/10/2011 VAZ DO, ZEHN K 314.01 ADHD COMBINED 01/28/2011 296.33 MO [...] RECURRENT SEVERE W/O PSYCHOTIC BEHAVIOR 01/28/2011 GUANACO ENGRAVING PRESS OPERATOR, CORTES A 309.81 AN PTSD 01/28/2011 GUANACO ENGRAVING PRESS OPERATOR, CORTES A V58.69 MEDICATION HIGH RISK 01/28/2011 [...] A V69.2 HIGH-RISK SEXUAL BEHAVIOR 03/16/2012 GUANACO ENGRAVING PRESS OPERATOR, CORTES A 626.0 AMENORRHEA 03/16/2012 GUANACO ENGRAVING PRESS OPERATOR, CORTES A V69.2 HIGH-RISK SEXUAL BEHAVIOR 03/16/2012 [...] SEXUAL BEHAVIOR 08/16/2012 564.00 CONSTIPATION 08/16/2012 GUANACO ENGRAVING PRESS OPERATOR, CORTES A 564.00 CONSTIPATION 08/16/2012 GUANACO ENGRAVING PRESS OPERATOR, CORTES A 564.00 CONSTIPATION 08/16/2012 VAZ DO, [...] 648.93 OTH CURR COND-ANTEPARTUM 05/13/2013 FABRICE PAEZ ENGRAVING PRESS OPERATOR Ot 881.01 OPEN WOUND OF ELBOW 05/13/2013 FABRICE PAEZ ENGRAVING PRESS OPERATOR Ot E000.8 OTHER EXTERNAL CAUSE STATUS 05/13/2013 FABRICE PAEZ ENGRAVING PRESS OPERATOR Ot E029.9 OTHER ACTIVITY 05/13/2013 FABRICE PAEZ ENGRAVING PRESS OPERATOR Ot E849.[address] NEC 05/13/2013 FABRICE PAEZ ENGRAVING PRESS OPERATOR Ot E885.9 FALL FROM SLIPPING, TRIPPING, OR [...] 664.01 DEL W 1 DEG LACERAT-DEL 08/25/2013 MILIDN ROSALES ZHEN Nestor Ot V27.0 DELIVER-SINGLE LIVEBORN [...] NONINFLAMMATORY DISORDER 03/22/2016 CLAIRE TRAMMELL MD Ot O41.02X0 OLIGOHYDRAMNIOS, SECOND TRIMESTER, NOT A 03/22/2016 CLAIRE TRAMMELL MD Ot Z3A.19 19 [...] Ot V28.81 ENCOUNTER FOR ANATOMIC SURVEY 04/25/2016 ZHEN VAZ DO Ot V89.02 SUSPECTED PLACENTAL [...] LABOR BEFORE 37 COMPLETED WEEKS OF 05/02/2016 JUDE PUENTE, KAI G Ot Z3A.23 23 WEEKS GESTATION OF 06/04/2016 BRITTANI AVELAR MD Ot O46.93 ANTEPARTUM HEMORRHAGE, UNSPECIFIED, THIR 06/05/2016 ELISA PUENTE, KIM Harding Ot 649.63 UTERINE SIZE DATE DISCREPANCY, ANTEPARTU 06/05/2016 KIM PÉREZ MD Ot V28.81 ENCOUNTER FOR ANATOMIC SURVEY 06/05/2016 VAZ , ZHEN Baez Ot V89.02 SUSPECTED PLACENTAL PROBLEM NOT FOUND 06/06/2016 BRITTANI AVELAR MD Ot O46.93 ANTEPARTUM HEMORRHAGE, UNSPECIFIED, 06/06/2016 BRITTANI AVELAR MD Ot O46.93 ANTEPARTUM [...] SECOND TRIMESTER, NOT A 07/23/2016 CLAIRE TRAMMELL MD Ot Z3A.19 19 WEEKS GESTATION OF 07/23/2016 [...] Ot Z37.0 SINGLE LIVE 08/07/2016 ELVIN PETERS MD, Ot Z3A.38 38 WEEKS GESTATION OF 05/10/2017 KIM PÉREZ MD Ot 649.63 UTERINE SIZE DATE DISCREPANCY, ANTEPARTU 05/10/2017 KIM PÉREZ MD, Ot V28.81 ENCOUNTER FOR ANATOMIC SURVEY 05/10/2017 ZHEN VAZ DO Ot V89.02 SUSPECTED PLACENTAL PROBLEM NOT FOUND 05/10/2017 BRITTANI AVELAR MD, Ot Z34.83 ENCOUNTER FOR SUPRVSN OF NORMAL PREGNANC 05/10/2017 BRITTANI AVELAR MD, Ot O26.93 RELATED CONDITIONS, UNSPECIFIE 05/11/2017 BRITTANI AVELAR MD Ot E86.0 DEHYDRATION 05/11/2017 BRITTANI AVELAR MD, Ot F12.90 CANNABIS USE, UNSPECIFIED, UNCOMPLICATED 05/11/2017 BRITTANI AVELAR MD Ot F31.9 BIPOLAR DISORDER, UNSPECIFIED 05/11/2017 BRITTANI AVELAR MD Ot O23.41 UNSP INFCT OF URINARY TRACT IN 05/11/2017 BRITTANI AVELAR MD Ot O99.281 ENDO, NUTRITIONAL AND METAB DISEASES COM 05/11/2017 BRITTANI AVELAR MD Ot O99.321 DRUG USE COMPLICATING , FIRST T 05/11/2017 BRITTANI AVELAR MD Ot O99.341 OTH MENTAL DISORDERS COMPLICATING PREGNA 05/11/2017 BRITTANI AVELAR MD, Ot O9A.211 INJ/POISN/OTH CONSEQ OF EXTERNAL CAUSES 05/11/2017 BRITTANI AVELAR MD Ot S10.91XA ABRASION OF UNSPECIFIED PART OF NECK, IN 05/11/2017 BRITTANI AVELAR MD Ot X83.8XXA INTENTIONAL SELF-HARM BY OTHER SPECIFIED 05/11/2017 BRITTANI AVELAR MD Ot Y92.[address] IN SINGLE-FAMILY (PRIVATE) HO 05/11/2017 BRITTANI AVELAR MD, Ot Z3A.01 LESS THAN 8 WEEKS GESTATION OF 06/08/2017 JONY NANCE DO, Ot O36.80X0 W INCONCLUSIVE VIABILITY 06/08/2017 JONY NANCE DO E Ot Z36.89 ENCOUNTER FOR OTHER SPECIFIED 06/08/2017 TONENIDGE DOSHAWNT Alison Ot Z3A.08 8 WEEKS GESTATION OF 06/08/2017 GAVINDGJONY Rosas DO Ot O36.80X0 W INCONCLUSIVE VIABILITY 06/08/2017 BARNIDGE DOSHAWNT E Ot Z36.89 ENCOUNTER FOR OTHER SPECIFIED 06/08/2017 TONENIDGE DOSHAWNT Alison Ot Z3A.08 8 WEEKS GESTATION OF 06/17/2017 TONENIDGE DOSHAWNT Alison Ot O36.80X0 W INCONCLUSIVE VIABILITY 06/17/2017 TONENIDGE DOSHAWNT E Ot Z36.89 ENCOUNTER FOR OTHER SPECIFIED 06/17/2017 TONENIDGE DOJONY E Ot Z3A.08 8 WEEKS GESTATION OF Procedures Code Description [place] [address] URINE TEST (IN- HOUSE) 03/16/2012 20672 TRICHOMONAS (IN-HOUSE) 03/16/2012 37586 GC/CHLAM PROBE (STATE) 03/18/2012 47053 CULTURE UROGENITAL 03/18/2012 51871 URINE TEST (IN- HOUSE) 08/16/2012 39250 UA W/ CULTURE IF INDICATED 08/16/2012 56700 GC/CHLAM URINE (STATE) 08/18/2012 82096 UA OB DIP 06/13/2013 20299 UA OB DIP 06/27/2013 10389 UA OB DIP 07/11/2013 15409 OB - FOLLOW UP 07/25/2013 19099 UA OB DIP 07/25/2013 93473 CULTURE GROUP B STREP VAG 07/27/2013 99997 UA OB DIP 08/02/2013 41512 UA OB DIP 08/08/2013 67794 UA OB DIP 08/16/2013 73.4 MEDICAL INDUCTION LABOR 08/22/2013 75.69 REPAIR OB LACERATION NEC 08/23/2013 GC/CHLAM GC/CHLAMYDIA PROBE/URINE 12/06/2013 [id number] EXTRACTION OF PRODUCTS OF CONCEPTION, RE 08/05/2016 [id number] DELIVERY OF PRODUCTS OF CONCEPTION, EXTE 08/05/2016 [...] culture - 02/21/16 11:48 Bacterial urine culture [id number] NRG COLONY COUNT 10,000/ML - 100,000/ML NRG [...] 13:45 Serum or plasma choriogonadotropin measurement (units/volume) 37625 m[iU]/mL <5 CBC With Differential/Platelet - 05/30/16 14:40 WBC 7.0 x10E3/uL 3.4-10.8 RBC 3.73 x10E6/uL 3.77-5.28 Hemoglobin 10.6 g/dL 11.1-15.9 Hematocrit 32.5 % 34.0-46.6 MCV 87 fL 79-97 MCH 28.4 pg 26.6-33.0 MCHC 32.6 g/dL 31.5-35.7 RDW 14.1 % 12.3-15.4 Platelets 214 x10E3/uL 150-379 Neutrophils 67 % Lymphs 27 % Monocytes 5 % Eos 1 % Basos 0 % Neutrophils (Absolute) 4.7 x10E3/uL 1.4-7.0 Lymphs (Absolute) 1.9 x10E3/uL 0.7-3.1 Monocytes(Absolute) 0.3 x10E3/uL 0.1-0.9 Eos (Absolute) 0.1 x10E3/uL 0.0-0.4 Baso (Absolute) 0.0 x10E3/uL 0.0-0.2 Immature Granulocytes 0 % Immature Grans (Abs) 0.0 x10E3/uL 0.0-0.1 Gest. Diabetes 1-Hr Screen - 05/30/16 14:40 Gestational Diabetes Screen 88 mg/dL 65-139 Complete urinalysis with reflex to culture - [...] 06/04/16 19:55 URINE CULTURE RESULTS <10,000/ML NRG Urine Culture, Routine - 06/12/16 15:32 Urine Culture, Routine Note Complete blood count (CBC) with automated white [...] WET PREP RESULTS LDR 07/15 16:45 NRG Strep Gp B Culture - 07/18/16 15:48 Strep Gp B Culture Negative Negative Complete urinalysis with reflex to culture - [...] blood basophil count (count/volume) 0.0 10*3/uL 0.0-0.1 Complete blood count (CBC) with automated white blood cell (WBC) differential - 05/10/17 16:55 Blood leukocytes automated count (number/volume) 9.5 10*3/uL 4.3-11.0 Blood erythrocytes automated count (number/volume) 4.82 10*6/uL 4.35-5.85 Venous blood hemoglobin measurement (mass/volume) 13.9 g/dL 11.5-16.0 Blood hematocrit (volume fraction) 39 % 35-52 Automated erythrocyte mean corpuscular volume 82 [foz_us] 80-99 Automated erythrocyte mean corpuscular hemoglobin (mass per erythrocyte) 29 pg 25-34 Automated erythrocyte mean corpuscular hemoglobin concentration measurement ( mass/volume) 35 g/dL 32-36 Automated erythrocyte distribution width ratio 14.5 % 10.0-14.5 Automated blood platelet count (count/volume) 280 10*3/uL 130-400 Automated blood platelet mean volume measurement 11.0 [foz_us] 7.4-10.4 Automated blood neutrophils/100 leukocytes 79 % 42-75 Automated blood lymphocytes/100 leukocytes 17 % 12-44 Blood monocytes/100 leukocytes 4 % 0-12 Automated blood eosinophils/100 leukocytes 0 % 0-10 Automated blood basophils/100 leukocytes 0 % 0-10 Blood neutrophils automated count (number/volume) 7.4 10*3 1.8-7.8 Blood lymphocytes automated count (number/volume) 1.6 10*3 1.0-4.0 Blood monocytes automated count (number/volume) 0.4 10*3 0.0-1.0 Automated eosinophil count 0.0 10*3/uL 0.0-0.3 Automated blood basophil count (count/volume) 0.0 10*3/uL 0.0-0.1 Serum or plasma choriogonadotropin ( test) detection - 05/10/17 16:55 Serum or plasma choriogonadotropin ( test) detection POSITIVE NEGATIVE Comprehensive metabolic panel - 05/10/17 16:55 Serum or plasma sodium measurement (moles/volume) 141 mmol/L 135-145 Serum or plasma potassium measurement (moles/volume) 3.4 mmol/L 3.6-5.0 Serum or plasma chloride measurement (moles/volume) 109 mmol/L 98-107 Carbon dioxide 20 mmol/L 21-32 Serum or plasma anion gap determination (moles/volume) 12 mmol/L 5-14 Serum or plasma urea nitrogen measurement (mass/volume) 11 mg/dL 7-18 Serum or plasma creatinine measurement (mass/volume) 0.69 mg/dL 0.60-1.30 Serum or plasma urea nitrogen/creatinine mass ratio 16 NRG Serum or plasma creatinine measurement with calculation of estimated glomerular filtration rate > NRG Serum or plasma glucose measurement (mass/volume) 89 mg/dL 70-105 Serum or plasma calcium measurement (mass/volume) 9.4 mg/dL 8.5-10.1 Serum or plasma total bilirubin measurement (mass/volume) 0.4 mg/dL 0.1-1.0 Serum or plasma alkaline phosphatase measurement (enzymatic activity/volume) 52 U/L 40-136 Serum or plasma aspartate aminotransferase measurement (enzymatic activity/ volume) 19 U/L 5-34 Serum or plasma alanine aminotransferase measurement (enzymatic activity/volume ) 17 U/L 0-55 Serum or plasma protein measurement (mass/volume) 7.3 g/dL 6.4-8.2 Serum or plasma albumin measurement (mass/volume) 4.8 g/dL 3.2-4.5 Serum or plasma salicylates measurement (mass/volume) - 05/10/17 16:55 Serum or plasma salicylates measurement (mass/volume) < mg/dL 5.0-20.0 Serum or plasma acetaminophen measurement (mass/volume) - 05/10/17 16:55 Serum or plasma acetaminophen measurement (mass/volume) < ug/mL 10-30 Serum or plasma ethanol measurement (mass/volume) - 05/10/17 16:55 Serum or plasma ethanol measurement (mass/volume) < mg/dL <10 Serum or plasma thyrotropin measurement by detection limit <=0.05 miu/l (units/ volume) - 05/10/17 16:55 Serum or plasma thyrotropin measurement by detection limit <=0.05 miu/l (units/ volume) 0.97 u[iU]/mL 0.35-4.94 Serum or plasma choriogonadotropin measurement (units/volume) - 05/10/17 16:55 Serum or plasma choriogonadotropin measurement (units/volume) 2639 m [iU]/mL <5 Urine drug screening test - 05/10/17 17:40 Urine phencyclidine detection by screening method NEGATIVE NEGATIVE Urine benzodiazepines detection by screening method NEGATIVE NEGATIVE Urine cocaine detection NEGATIVE NEGATIVE Urine amphetamines detection by screening method NEGATIVE NEGATIVE Urine methamphetamine detection by screening method NEGATIVE NEGATIVE Urine cannabinoids detection by screening method POSITIVE NEGATIVE Urine opiates detection by screening method NEGATIVE NEGATIVE Urine barbiturates detection NEGATIVE NEGATIVE Screening urine tricyclic antidepressants detection NEGATIVE NEGATIVE Urine methadone detection by screening method NEGATIVE NEGATIVE Urine oxycodone detection NEGATIVE NEGATIVE Urine propoxyphene detection NEGATIVE NEGATIVE Complete urinalysis with reflex to culture - 05/10/17 17:40 Urine color determination YELLOW NRG Urine clarity determination CLOUDY NRG Urine pH measurement by test strip 7 5-9 Specific gravity of urine by test strip 1.015 1.016- 1.022 Urine protein assay by test strip, semi-quantitative 2+ NEGATIVE Urine glucose detection by automated test strip NEGATIVE NEGATIVE Erythrocytes detection in urine sediment by light microscopy 1+ NEGATIVE Urine ketones detection by automated test strip 4+ NEGATIVE Urine nitrite detection by test strip [...] urine sediment by light microscopy LARGE NRG Squamous epithelial cells detection in urine sediment by light microscopy >50 NRG Crystals detection in urine sediment by light microscopy NONE NRG Casts detection in urine sediment by light microscopy NONE NRG Mucus detection in urine sediment by light microscopy LARGE NRG Complete urinalysis with reflex to culture YES NRG Renal epithelial cells detection in urine sediment by light microscopy NONE NRG Bacterial urine culture - 05/10/17 17:40 Bacterial urine culture [id number] NRG COLONY COUNT >100,000/ML NRG FTX;REPORTABLE SENSITIVITY REPORTED 05/12/18 7:10 NRG Bacterial susceptibility panel - 05/10/17 17:40 Oxacillin susceptibility test by minimum inhibitory concentration 2 NRG Gentamicin susceptibility test by minimum inhibitory concentration < = NRG Trimethoprim/sulfamethoxazole susceptibility test by minimum inhibitoryconcentration S NRG Vancomycin susceptibility test by minimum inhibitory concentration 1 NRG Levofloxacin susceptibility test by minimum inhibitory concentration 0.5 NRG Rifampin susceptibility test by minimum inhibitory concentration <= NRG Tetracycline susceptibility test by minimum inhibitory concentration >= NRG Methicillin resistant Staphylococcus aureus (MRSA) screening culture - 23:15 Methicillin resistant Staphylococcus aureus (MRSA) screening culture NEG NRG Complete blood count (CBC) with automated white blood cell (WBC) differential - 05/11/17 03:35 Blood leukocytes automated count (number/volume) 7.5 10*3/uL 4.3-11.0 Blood erythrocytes automated count (number/volume) 4.41 10*6/uL 4.35-5.85 Venous blood hemoglobin measurement (mass/volume) 12.8 g/dL 11.5-16.0 Blood hematocrit (volume fraction) 36 % 35-52 Automated erythrocyte mean corpuscular volume 83 [foz_us] 80-99 Automated erythrocyte mean corpuscular hemoglobin (mass per erythrocyte) 29 pg 25-34 Automated erythrocyte mean corpuscular hemoglobin concentration measurement ( mass/volume) 35 g/dL 32-36 Automated erythrocyte distribution width ratio 14.4 % 10.0-14.5 Automated blood platelet count (count/volume) 261 10*3/uL 130-400 Automated blood platelet mean volume measurement 10.7 [foz_us] 7.4-10.4 Automated blood neutrophils/100 leukocytes 43 % 42-75 Automated blood lymphocytes/100 leukocytes 45 % 12-44 Blood monocytes/100 leukocytes 9 % 0-12 Automated blood eosinophils/100 leukocytes 2 % 0-10 Automated blood basophils/100 leukocytes 0 % 0-10 Blood neutrophils automated count (number/volume) 3.3 10*3 1.8-7.8 Blood lymphocytes automated count (number/volume) 3.4 10*3 1.0-4.0 Blood monocytes automated count (number/volume) 0.7 10*3 0.0-1.0 Automated eosinophil count 0.2 10*3/uL 0.0-0.3 Automated blood basophil count (count/volume) 0.0 10*3/uL 0.0-0.1 Comprehensive metabolic panel - 05/11/17 03:35 Serum or plasma sodium measurement (moles/volume) 139 mmol/L 135-145 Serum or plasma potassium measurement (moles/volume) 3.2 mmol/L 3.6-5.0 Serum or plasma chloride measurement (moles/volume) 109 mmol/L 98-107 Carbon dioxide 21 mmol/L 21-32 Serum or plasma anion gap determination (moles/volume) 9 mmol/L 5-14 Serum or plasma urea nitrogen measurement (mass/volume) 12 mg/dL 7-18 Serum or plasma creatinine measurement (mass/volume) 0.68 mg/dL 0.60-1.30 Serum or plasma urea nitrogen/creatinine mass ratio 18 NRG Serum or plasma creatinine measurement with calculation of estimated glomerular filtration rate > NRG Serum or plasma glucose measurement (mass/volume) 87 mg/dL 70-105 Serum or plasma calcium measurement (mass/volume) 8.6 mg/dL 8.5-10.1 Serum or plasma total bilirubin measurement (mass/volume) 0.5 mg/dL 0.1-1.0 Serum or plasma alkaline phosphatase measurement (enzymatic activity/volume) 43 U/L 40-136 Serum or plasma aspartate aminotransferase measurement (enzymatic activity/ volume) 17 U/L 5-34 Serum or plasma alanine aminotransferase measurement (enzymatic activity/volume ) 15 U/L 0-55 Serum or plasma protein measurement (mass/volume) 5.9 g/dL 6.4-8.2 Serum or plasma albumin measurement (mass/volume) 4.1 g/dL 3.2-4.5 Serum or plasma phosphate measurement (mass/volume) - 05/11/17 03:35 Serum or plasma phosphate measurement (mass/volume) 3.6 mg/dL 2.3-4.7 Magnesium - 05/11/17 03:35 Magnesium 2.2 mg/dL 1.8-2.4 Capillary blood glucose measurement by glucometer (mass/volume) - 05/11/17 06: 30 Capillary blood glucose measurement by glucometer (mass/volume) 95 mg/dL 70-110 CULTURE, URINE - 05/18/17 15:27 CULTURE, URINE, ROUTINE SEE NOTE NRG CULTURE, GENITAL - 05/29/17 15:14 CULTURE, GENITAL SEE NOTE NRG Encounters ACCT No. Visit Date/Time Discharge Status Pt. Type Provider Facility Loc./Unit Complaint [id number] 06/02/2013 17:29:00 06/02/2013 23:59:59 CLS Outpatient Fredo Sanderson [id number] 05/17/2013 18:02:14 05/17/2013 23:59:59 CLS Outpatient Flaco Kenyetta Alyssa [id number] 05/16/2013 17:28:59 05/16/2013 23:59:59 CLS Outpatient Fredo Sanderson [id number] 04/14/2013 16:00:45 04/14/2013 23:59:59 CLS Outpatient Fredo Sanderson [id number] 06/14/2016 20:06:00 Document Registration [id number] 12/06/2013 07:57:00 12/06/2013 23:59:59 CLS Outpatient VAZ DOZHEN [id number] 11/18/2013 08:50:00 11/18/2013 23:59:59 CLS Outpatient ZHEN VAZ DO [id number] 09/14/2013 08:07:00 09/14/2013 23:59:59 CLS Outpatient VAZ ZHEN ROSALES [id number] 08/16/2013 15:30:00 08/16/2013 23:59:59 CLS Outpatient ZHEN VAZ DO [id number] 08/16/2013 15:30:00 08/16/2013 23:59:59 CLS Outpatient VAZ DOZHEN [id number] 08/08/2013 16:28:00 08/08/2013 23:59:59 CLS Outpatient VAZ DOZHEN [id number] 08/02/2013 13:09:00 08/02/2013 23:59:59 CLS Outpatient VAZ DOZHEN [id number] 07/25/2013 14:00:00 07/25/2013 23:59:59 CLS Outpatient ZHEN VAZ DO [id number] 07/25/2013 14:00:00 07/25/2013 23:59:59 CLS Outpatient VAZ DOZHEN [id number] 07/11/2013 10:10:00 07/11/2013 23:59:59 CLS Outpatient ZHEN VAZ DO [id number] 06/27/2013 14:52:00 06/27/2013 23:59:59 CLS Outpatient ZHEN VAZ DO [id number] 06/13/2013 10:08:00 06/13/2013 23:59:59 CLS Outpatient STEPHANI BLANC APRNIDI Jonny [id number] 08/16/2012 16:08:00 08/16/2012 23:59:59 CLS Outpatient CORTES BLANC APRN [id number] 03/16/2012 09:36:00 03/16/2012 23:59:59 CLS Outpatient OH IVEY APRNJonny Pelayo [id number] 03/16/2012 09:36:00 03/16/2012 23:59:59 CLS Outpatient [id number] 03/25/2011 09:07:00 03/25/2011 23:59:59 CLS Outpatient [id number] 08/16/2012 16:08:00 Document Registration [id number] 05/31/2016 10:08:00 Document Registration [id number] 06/05/2017 14:20:00 06/05/2017 23:59:59 CLS Outpatient LEE ANN DO JONY Rosas [facility] RAD O09.891 SUPERVISION OF OTHER HIGH RISK PREGNANCIES [id number] 05/10/2017 21:00:00 05/11/2017 18:15:00 DIS Inpatient BRITTANI AVELAR MD [facility] ICU SUICIDE ATTEMPT, DEPRESSION,UTI,DEHYDRATION,PREGNAN [id number] 08/04/2016 23:09:00 08/07/2016 14:20:00 DIS Inpatient ELVIN PETERS MD [facility] LDRP LABOR [id number] 07/29/2016 15:10:00 07/29/2016 17:00:00 DIS Outpatient [facility] DECRE[facility]ED MOV[facility], ABD PAIN [id number] 07/26/2016 17:54:00 07/26/2016 21:45:00 DIS Outpatient BRITTANI AVELAR MD [facility] ABD PAIN,THROWING UP [id number] 07/24/2016 15:36:00 07/24/2016 23:59:59 CLS Outpatient BRITTANI AVELAR MD [facility] RAD TACHYCARDIA BEFORE ONSET OF LABOR P03.810 [id number] 07/20/2016 20:01:00 07/20/2016 21:51:00 DIS Outpatient KIM PÉREZ MD [facility] CONTRACTION W CLEAR FLUID [id number] 07/14/2016 13:54:00 07/14/2016 17:32:00 DIS Outpatient BRITTANI AVELAR MD [facility] CONTRACTIONS [id number] 07/03/2016 19:39:00 07/03/2016 21:50:00 DIS Outpatient ELVIN PETERS MD [facility] [id number] 06/30/2016 12:48:00 07/01/2016 13:58:00 DIS Outpatient ELVIN PETERS MD [facility] WSo CONTRACTIONS 35 WKS PREG [id number] 06/05/2016 15:02:00 06/05/2016 23:59:59 CLS Outpatient BRITTANI AVELAR MD [facility] RAD SURVEY [id number] 06/04/2016 19:37:00 06/04/2016 20:55:00 DIS Outpatient BRITTANI AVELAR MD [facility] VAGINAL BLEEDING,ABD TIGHTNESS [id number] 04/25/2016 11:56:00 04/25/2016 13:45:00 DIS Outpatient KAI ROQUE MD [facility] POSS CONTRACTIONS 23 WKS PREG [id number] 03/23/2016 12:20:00 03/23/2016 13:20:00 DIS Outpatient KAI ROQUE MD [facility] VAGINAL PRESSURE/ LEAKING AMNIOTIC FLUID [id number] 03/23/2016 12:02:00 03/23/2016 12:02:00 CAN PreadCLAIRE Chirinos MD [facility] ER VAGINAL PRESSURE/AMNIOTIC FLUID LEAKAGE [id number] 03/22/2016 13:28:00 03/22/2016 15:45:00 DIS Emergency CLAIRE TRAMMELL MD [facility] ER 19 WKS PREG/LEAKING FLUID/ PELVIC DISCOMFORT [id number] 02/21/2016 11:22:00 02/21/2016 14:01:00 DIS Emergency CLAIRE TRAMMELL MD [facility] ER DIZZINESS/NAUSEA/VOMITING/ CRAMPING [id number] 12/10/2013 03:25:00 12/10/2013 05:49:00 DIS Emergency PETE ROSALESKENYA [facility] ER VOMITING [id number] 08/22/2013 16:43:00 08/25/2013 12:10:00 DIS Inpatient ZHEN VAZ DO [facility] LDRP INDUCED [id number] 08/19/2013 17:05:00 08/19/2013 18:55:00 DIS Outpatient ZHEN VAZ DO [facility] CTXS [id number] 08/02/2013 11:36:00 08/02/2013 23:59:59 CLS Outpatient ZHEN VAZ DO [facility] RAD F/U LOW LYING PLACENTA [id number] 07/26/2013 21:23:00 07/26/2013 22:30:00 DIS Outpatient ZHEN VAZ DO [facility] C/O CONTRACTIONS [id number] 05/31/2013 11:38:00 05/31/2013 17:20:00 DIS Outpatient ZHEN VAZ DO [facility] WSo CRAMPING [id number] 05/26/2013 09:40:00 05/26/2013 09:48:00 DIS Emergency CLAIRE TRAMMELL MD [facility] ER SUTURE REMOVAL [id number] 05/15/2013 19:28:00 05/15/2013 19:57:00 DIS Emergency VADIM MILLER [facility] ER WOUND CHECK. [id number] 05/13/2013 16:20:00 05/13/2013 17:40:00 DIS Emergency FABRICE PAEZ APRN [facility] ER L ARM LAC; 26WKS PREG [id number] 04/04/2013 09:59:00 04/04/2013 23:59:59 CLS Outpatient KIM PÉREZ MD [facility] RAD SURVEY [id number] 03/07/2013 12:20:00 03/07/2013 13:23:00 DIS Emergency ALISHA DOBLAIR [facility] ER SORE THROAT, BODY ACHES, 16 WKS PREG [id number] 01/17/2013 09:53:00 01/17/2013 23:59:59 CLS Outpatient KIM PÉREZ MD [facility] RAD SIZE DATE DIS [id number] 01/13/2013 23:37:00 01/14/2013 01:04:00 DIS Emergency ALISHA BLAIR ROSALES [facility] ER PANIC ATTACK [id number] 11/30/2012 22:46:00 12/01/2012 00:03:00 DIS Emergency GERMAINE JOYNER MD [facility] ER ABD PAIN [id number] 12/15/2010 12:02:00 Document Registration [id number] 10/05/2010 23:58:00 Document Registration [id number] 07/25/2016 11:08:00 Document Registration [id number] 06/17/2017 13:45:00 06/17/2017 23:59:59 CLS Outpatient MARY ANNE HADLEY DDS [facility] [id number] 05/29/2017 14:20:00 Document Registration [id number] 05/18/2017 15:20:00 Document Registration
[2017-06-21] MEDS ORDERED: SERT25TA5 (09:58)
[2017-06-21] MEDS ORDERED: DOXY1TAB3 (09:58)
[2017-06-21 10:16] LABS: BASOPHILS % (AUTO) 0 % (0-10); EOSINOPHILS # (AUTO) 0.2 10^3/uL (0.0-0.3); EOSINOPHILS % (AUTO) 2 % (0-10); HEMATOCRIT 37 % (35-52); HEMOGLOBIN 12.7 G/DL (11.5-16.0); LYMPHOCYTES % (AUTO) 33 % (12-44); MEAN CORPUSCULAR HEMOGLOBIN 29 PG (25-34); MEAN CORPUSCULAR HGB CONC 34 G/DL (32-36); MEAN CORPUSCULAR VOLUME 85 FL (80-99); MEAN PLATELET VOLUME 10.7 FL (7.4-10.4); MONOCYTES # (AUTO) 0.3 X 10^3 (0.0-1.0); MONOCYTES % (AUTO) 5 % (0-12); NEUTROPHILS # (AUTO) 3.7 X 10^3 (1.8-7.8); NEUTROPHILS % (AUTO) 60 % (42-75); PLATELET COUNT 243 10^3/uL (130-400); RED BLOOD COUNT 4.34 10^6/uL (4.35-5.85); RED CELL DISTRIBUTION WIDTH 14.2 % (10.0-14.5); WHITE BLOOD COUNT 6.2 10^3/uL (4.3-11.0)
--- NOTE | 2017-06-21 11:24 | Diagnostic Imaging Report ---
EXAM: Ultrasound OB less than 14 weeks. DATE: 06/21/2017. INDICATION: 22-year-old female, early . COMPARISON: 06/05/2017. FINDINGS: The uterus measures 11.5 x 6.3 x 9.7 cm in size. There is a single living intrauterine with estimated gestational age based on today's ultrasound crown-rump length measurements of 11 weeks and 3 days plus -1 week. heart rate is identified at 176 beats per minute. The left ovary measures 3.2 x 3.2 x 1.6 cm in size. The right ovary is not well seen. There are limited color Doppler images of the left ovary. There is no demonstrated free pelvic fluid. IMPRESSION: 1. Single living intrauterine with estimated gestational age of 11 weeks and 3 days plus -1 week based on today's ultrasound measurements. 2. Unremarkable appearance of the left ovary. 3. No free pelvic fluid. Dictated by: Dictated on workstation # [id number]
--- NOTE | 2017-06-21 11:38 | ED GU-Female ---
General Chief Complaint: -Female Stated Complaint: 11W OB, CRAMPING/BLEEDING Nursing Triage Note: ARRIVED VIA AMB TO ROOM 09. STATES WHEN SHE PEED THIS AM SHE NOTICED BLOOD IN THE TOILET AND BLOOD WHEN SHE WIPED. COMPLAINS OF ABD CRAMPING AND HOT FLASHES STARTING THIS AM ALSO. Nursing Sepsis Screen: No Definite Risk Source: patient Exam Limitations: no limitations History of Present Illness Date Seen by Provider: Jun 21, 2017 Time Seen by Provider: 11:37 Initial Comments 22 yo female patient presents to the ED with c/o vaginal spotting beginning this AM. Has also noted lower abdominal cramping and hot flashes beginning today. Patient is approximately 11 weeks . Timing/Duration: this morning, intermittent Severity/Quality: cramping Location: suprapubic Radiation: none Activities at Onset: none Prior Genitourinary Problems: none Sexual [place] History: less than 2 months ago Modifying Factors: Worsens With Urinating Allergies and Home Medications Allergies Coded Allergies: No Known Drug Allergies (Unverified , 06/05/08) Home Medications Cefdinir 300 Mg Capsule, 300 MG PO BID Prescribed by: VADIM WALKER on 06/21/17 1227 Patient Home Medication List Home Medication List Reviewed: Yes Review of Systems Constitutional: No chills, No dizziness, No fever, No malaise Respiratory: No cough, No dyspnea on exertion, No short of breath Cardiovascular: No chest pain, No edema, No palpitations Gastrointestinal: see HPI; No constipation, No diarrhea, No loss of appetite, No nausea, No vomiting Genitourinary: see HPI; denies dysuria, denies frequency, denies flank pain; pain : Yes Musculoskeletal: no symptoms reported Skin: no symptoms reported Psychiatric/Neurological: No Symptoms Reported All Other Systemes Reviewed Negative Unless Noted: Yes (Negative excepted noted.) Past Whflivs-Mslrga-Izsxhu Hx Patient Social History Alcohol Use: Denies Use Alcohol Beverage of Choice: Rum Recreational Drug Use: No Smoking Status: Never a Smoker Type Used: Cigarettes Former Smoker, Quit: Mar 26, 2017 Recent Foreign Travel: No Contact w/Someone Who Travel: No Recent Infectious Disease Expo: No Recent Hopitalizations: No Immunizations Up To Date Tetanus Booster (TDap): Less than 5yrs PED Vaccines UTD: Yes Date of Influenza Vaccine: Jan 25, 2017 Seasonal Allergies Seasonal Allergies: Yes Past Medical History Surgeries: Yes (D&c) Tonsillectomy Respiratory: No Cardiac: No Neurological: No : Yes Last Menstrual Period: Jan 11, 2018 Hx : 4 Hx Para: 2 Hx Total # of Abortions (Sp): 1 Reproductive Disorders: No Female Reproductive Disorders: Denies Sexually Transmitted Disease: No HIV/AIDS: No Genitourinary: No Gastrointestinal: Yes Chronic Constipation Musculoskeletal: No Endocrine: No HEENT: No Cancer: No Psychosocial: Yes Suicide Attempts, Bipolar, Depression Integumentary: No Blood Disorders: No Adverse Reaction/Blood Tranf: No Family Medical History Reviewed Nursing Family Hx Alcoholism 19 FATHER (PGF) Drug abuse 19 MOTHER FH: bipolar disorder 19 FATHER FH: depression 19 FATHER 19 MOTHER Hypercholesterolemia 19 FATHER Hypertension 19 FATHER No Family History of: Abdominal aortic aneurysm Carlton's disease Aphasia Cancer Cancer of colon Cataract Chest pain Congenital heart disease Congestive heart failure Cystic fibrosis Dementia Dysphagia Family history: Allergy Family history: Alzheimer's disease Family history: Arthritis Family history: Asthma Family history: Breast disease Family history: Cardiovascular disease Family history: Coronary thrombosis Family history: Diabetes mellitus Family history: Gastrointestinal disease Family history: Glaucoma Family history: Hypertension Family history: Osteoporosis Family history: Thyroid disorder Headache Hearing loss Heart disease Hereditary disease History of - anemia History of - disorder History of - respiratory disease History of drug abuse Human immunodeficiency virus (HIV) seropositivity Hypercholesterolemia Infertile Kidney disease Malignant neoplasm of lung Myocardial infarction Parkinson's disease Prostate cancer Psychotic disorder Seizure disorder Stroke Tuberculosis Visual impairment No Pertinent Family Hx, Psychiatric Problems Physical Exam Vital Signs Vital Signs - First Documented 06/21/17 06/21/17 09:47 12:38 Temp 98.0 Pulse 75 Resp 18 B/P (MAP) 120/77 (91) Pulse Ox 98 O2 Delivery Room Air Capillary Refill : Less Than 3 Seconds General Appearance: WD/WN, no apparent distress HEENT: PERRL/EOMI, pharynx normal Neck: supple, normal inspection Cardiovascular: normal peripheral pulses, regular rate, rhythm, no edema, no murmur Respiratory: lungs clear, normal breath sounds, no respiratory distress, no accessory muscle use Gastrointestinal: normal bowel sounds, non tender (unable to reproduce pain on exam.), soft, no organomegaly; No distended Back: normal inspection, no CVA tenderness Extremities: no pedal edema, no calf tenderness, normal capillary refill Neurologic/Psychiatric: alert, normal mood/affect, oriented x 3 Skin: normal color, warm/dry Progress/Results/Core Measures Suspected Sepsis Recent Fever Within 48 Hours: No Infection Criteria Present: None New/Unexplained Altered Menta: No Sepsis Screen: No Definite Risk SIRS Temperature:98.0 Pulse: 75 Respiratory Rate: 18 Laboratory Tests 06/21/17 10:10: White Blood Count 6.2 Blood Pressure 120 /77 Mean: 91 Laboratory Tests 06/21/17 10:10: Platelet Count 243 Results/Orders Lab Results Laboratory Tests Test 06/21/17 10:10 06/21/17 11:55 Range/Units White Blood Count 6.2 4.3-11.0 10^3/uL Red Blood Count 4.34 L 4.35-5.85 10^6/uL Hemoglobin 12.7 11.5-16.0 G/DL Hematocrit 37 35-52 % Mean Corpuscular Volume 85 80-99 FL Mean Corpuscular Hemoglobin 29 25-34 PG Mean Corpuscular Hemoglobin Concent 34 32-36 G/DL Red Cell Distribution Width 14.2 10.0-14.5 % Platelet Count 243 130-400 10^3/uL Mean Platelet Volume 10.7 H 7.4-10.4 FL Neutrophils (%) (Auto) 60 42-75 % Lymphocytes (%) (Auto) 33 12-44 % Monocytes (%) (Auto) 5 0-12 % Eosinophils (%) (Auto) 2 0-10 % Basophils (%) (Auto) 0 0-10 % Neutrophils # (Auto) 3.7 1.8-7.8 X 10^3 Lymphocytes # (Auto) 2.0 1.0-4.0 X 10^3 Monocytes # (Auto) 0.3 0.0-1.0 X 10^3 Eosinophils # (Auto) 0.2 0.0-0.3 10^3/uL Basophils # (Auto) 0.0 0.0-0.1 10^3/uL Human Chorionic Gonadotropin, Quant [id number] H <5 MIU/ML Urine Color YELLOW Urine Clarity CLEAR Urine pH 8 5-9 Urine Specific [place] 1.010 L 1.016-1.022 Urine Protein NEGATIVE NEGATIVE Urine Glucose (UA) NEGATIVE NEGATIVE Urine Ketones NEGATIVE NEGATIVE Urine Nitrite NEGATIVE NEGATIVE Urine Bilirubin NEGATIVE NEGATIVE Urine Urobilinogen NORMAL NORMAL MG/DL Urine Leukocyte Esterase 3+ H NEGATIVE Urine RBC (Auto) NEGATIVE NEGATIVE Urine RBC NONE /HPF Urine WBC 10-25 H /HPF Urine Squamous Epithelial Cells 2-5 /HPF Urine Crystals NONE /LPF Urine Bacteria MODERATE H /HPF Urine Casts NONE /LPF Urine Mucus MODERATE H /LPF Urine Culture Indicated YES My Orders Orders - VADIM WALKER Ua Culture If Indicated (06/21/17 11:44) Urine Culture (06/21/17 11:55) Vital Signs/I&O 06/21/17 12:38 Pulse 69 Resp 18 B/P (MAP) 111/64 Pulse Ox 99 O2 Delivery Room Air Capillary Refill : Less Than 3 Seconds Blood Pressure Mean: 91 Diagnostic Imaging Diagonstic Imaging: Ultrasound Plain Films/CT/US/NM/MRI: pelvis Comments US OB SINGLE FETUS<14 [id number] EXAM: Ultrasound OB less than 14 weeks. DATE: . INDICATION: 22-year-old female, early . COMPARISON: 2017. FINDINGS: The uterus measures 11.5 x 6.3 x 9.7 cm in size. There is a single living intrauterine with estimated gestational age based on today's ultrasound crown-rump length measurements of 11 weeks and 3 days plus - 1 week. heart rate is identified at 176 beats per minute. The left ovary measures 3.2 x 3.2 x 1.6 cm in size. The right ovary is not well seen. There are limited color Doppler images of the left ovary. There is no demonstrated free pelvic fluid. IMPRESSION: 1. Single living intrauterine with estimated gestational age of 11 weeks and 3 days plus -1 week based on today's ultrasound measurements. 2. Unremarkable appearance of the left ovary. 3. No free pelvic fluid. Dictated by: Dictated on workstation # [id number] Reviewed: Reviewed by Me (radiology report reviewed by me) Departure Communication (Admissions) All laboratory findings and diagnostic findings discussed with the patient. Plan for discharge to home. Patient follow-up with her hand crocheter for recheck as an outpatient early this week. Patient to return immediately for worsened symptoms or any other concerns. Impression Primary Impression: Threatened miscarriage Additional Impressions: Urinary tract infection Qualified Codes: N30.00 - Acute cystitis without hematuria Constipation Qualified Codes: K59.00 - Constipation, unspecified Disposition: 01 HOME, SELF-CARE Condition: Improved Departure-Patient Inst. Decision time for Depature: 12:24 Referrals: BRITTANI GUAJARDO MD (PCP/Family) Primary Care Physician Patient Instructions: Threatened Miscarriage (DC), Urinary Tract Infection, Adult (DC) Add. Discharge Instructions: All discharge instructions reviewed with patient and/or family. Voiced understanding. Medications as instructed. Tylenol [id number] as directed for pain if needed. Drink plenty of fluids. No intercourse, tampons, or douching. Colace stool softener 100 mg by mouth twice daily as needed for constipation. If needed you may use MiraLAX aqjr-oaj-bpvhlyf 17 g mixed with 8 ounces of fluids by mouth at bedtime as needed for constipation. Follow-up with Dr. Guajardo this week for recheck and repeat labs. Return in the emergency department for worsened pain, fever, vaginal bleeding with greater then 2 pads per hour for greater than 2 hours, decreased urination, inability to urinate, or any other concerns. Scripts Cefdinir (Cefdinir) 300 Mg Capsule 300 MG PO BID, #14 CAP 0 Refills Prov: VADIM WALKER 06/21/17 VADIM WALKER Jun 21, 2017 11:38
[2017-06-21 12:09] LABS: BILIRUBIN,URINE NEGATIVE (NEGATIVE); CLARITY,URINE CLEAR; COLOR,URINE YELLOW; GLUCOSE, URINE (UA) NEGATIVE (NEGATIVE); KETONES,URINE NEGATIVE (NEGATIVE); LEUKOCYTE ESTERASE ,URINE 3+ (NEGATIVE); NITRITE,URINE NEGATIVE (NEGATIVE); PH,URINE 8 (5-9); PROTEIN,URINE NEGATIVE (NEGATIVE); UROBILINOGEN,URINE NORMAL (NORMAL)
[2017-06-21 12:16] LABS: BACTERIA,URINE MODERATE /HPF
[2017-06-21] MEDS ORDERED: CEFD300C3 PO (12:27)
[2017-06-21 12:38] VITALS: BP 111/64
== END 2017-06-21 12:38 | disposition home or self-care (01) ==
LOC: EDUNIT# 09:44 → ER 09:46
DX: O20.0 Threatened abortion (principal); O23.41 Unspecified infection of urinary tract in pregnancy, first trimester; O99.611 Diseases of the digestive system complicating pregnancy, first trimester; K59.00 Constipation, unspecified; O99.341 Other mental disorders complicating pregnancy, first trimester; F31.9 Bipolar disorder, unspecified; Z91.5 Personal history of self-harm; Z90.89 Acquired absence of other organs; Z87.891 Personal history of nicotine dependence; Z3A.11 11 weeks gestation of pregnancy
CPT/HCPCS: 36415; 76801; 81000; 84702; 85025; 87088

== ENCOUNTER 2017-08-23 18:18 | Emergency (ER) | payer MEDICAID ==
[~2017-08-23] VITALS: Ht 165.1 cm; Wt 65.8 kg
[~2017-08-23 18:18] MED LIST changes: +CEFD300C3 PO; +DOXY1TAB3; +ONDA4TAB8 SL; +SERT25TA5
--- NOTE | 2017-08-23 18:42 | ED EENT ---
History of Present Illness General Chief Complaint: Dental Problems/Pain Stated Complaint: DENTAL PAIN, 20 WEEKS Source: patient Exam Limitations: no limitations History of Present Illness Date Seen by Provider: Aug 23, 2017 Time Seen by Provider: 18:39 Initial Comments to ER with left upper dental pain for the past few hours. This began promptly to this evening when she was eating. It was sudden in onset and intense.he is scheduled to have this tooth removed on Thursday of this week. She denies any swelling. She denies any sensation of crunching or anything to suggest that she may have broken the tooth while eating. She is 20 weeks gestation. Timing/Duration: abrupt Severity: moderate Location: dental Prearrival Treatment: no prearrival treatment Associated Symptoms: tooth pain Allergies and Home Medications Allergies Coded Allergies: No Known Drug Allergies (Unverified , 06/05/08) Home Medications Cefdinir 300 Mg Capsule, 300 MG PO BID Prescribed by: VADIM WALKER on 06/21/17 1227 Cephalexin 500 Mg Capsule, 500 MG PO QID Prescribed by: RADHA FUNK on 08/15/17 1320 Ondansetron 4 Mg Tab.rapdis, 4 MG SL Q4H PRN for NAUSEA/VOMITING-1ST LINE Prescribed by: RADHA FUNK on 08/15/17 1320 Patient Home Medication List Home Medication List Reviewed: Yes Review of Systems Constitutional: see HPI Eyes: No Symptoms Reported Ears: No Symptoms Reported Nose: no symptoms reported Mouth: no symptoms reported Throat: see HPI Respiratory: no symptoms reported Cardiovascular: no symptoms reported Musculoskeletal: no symptoms reported Skin: no symptoms reported Neurological: No Symptoms Reported Past Sarkadr-Sbxvva-Dtetdg Hx Patient Social History Alcohol Beverage of Choice: Rum Type Used: Cigarettes Former Smoker, Quit: Mar 26, 2017 2nd Hand Smoke Exposure: No Recent Foreign Travel: No Contact w/Someone Who Travel: No Recent Hopitalizations: No Immunizations Up To Date Tetanus Booster (TDap): Less than 5yrs PED Vaccines UTD: Yes Date of Influenza Vaccine: Jan 25, 2017 Seasonal Allergies Seasonal Allergies: Yes Past Medical History Surgeries: Yes (D&c) Tonsillectomy Respiratory: No Cardiac: No Neurological: No Reproductive Disorders: No Female Reproductive Disorders: Denies Sexually Transmitted Disease: No HIV/AIDS: No Genitourinary: No Gastrointestinal: Yes Chronic Constipation Musculoskeletal: No Endocrine: No HEENT: No Cancer: No Psychosocial: Yes Suicide Attempts, Bipolar, Depression Integumentary: No Blood Disorders: No Adverse Reaction/Blood Tranf: No Family Medical History Alcoholism 19 FATHER (PGF) Drug abuse 19 MOTHER FH: bipolar disorder 19 FATHER FH: depression 19 FATHER 19 MOTHER Hypercholesterolemia 19 FATHER Hypertension 19 FATHER No Family History of: Abdominal aortic aneurysm Buchanan's disease Aphasia Cancer Cancer of colon Cataract Chest pain Congenital heart disease Congestive heart failure Cystic fibrosis Dementia Dysphagia Family history: Allergy Family history: Alzheimer's disease Family history: Arthritis Family history: Asthma Family history: Breast disease Family history: Cardiovascular disease Family history: Coronary thrombosis Family history: Diabetes mellitus Family history: Gastrointestinal disease Family history: Glaucoma Family history: Hypertension Family history: Osteoporosis Family history: Thyroid disorder Headache Hearing loss Heart disease Hereditary disease History of - anemia History of - disorder History of - respiratory disease History of drug abuse Human immunodeficiency virus (HIV) seropositivity Hypercholesterolemia Infertile Kidney disease Malignant neoplasm of lung Myocardial infarction Parkinson's disease Prostate cancer Psychotic disorder Seizure disorder Stroke Tuberculosis Visual impairment No Pertinent Family Hx, Psychiatric Problems Physical Exam General Appearance: WD/WN, no apparent distress Eyes: bilateral eye normal inspection, bilateral eye PERRL, bilateral eye EOMI Ears: bilateral ear auricle normal, bilateral ear canal normal, bilateral ear TM normal Mouth/Throat: normal mouth inspection, pharynx normal Neck: non-tender, full range of motion; No lymphadenopathy (R), No lymphadenopathy (L) Cardiovascular: regular rate, rhythm, no murmur Skin: normal color, warm/dry Progress/Results/Core Measures Results/Orders My Orders Orders - FABRICE PAEZ APRN Rx-Acetaminophen/Codeine (Rx-Tylenol #3) (08/23/17 18:45) Lidocaine 2% Viscous 15 Ml (Xylocaine Vi (08/23/17 18:45) Departure Impression Primary Impression: Pain, dental Disposition: HOME, SELF-CARE Condition: Stable Departure-Patient Inst. Decision time for Depature: 18:41 Referrals: BRITTANI AVELAR MD (PCP/Family) Primary Care Physician Patient Instructions: Dental Pain (DC) Add. Discharge Instructions: 1. Follow-up with your dentist on Thursday as scheduled to have this tooth removed. Apply any topical lidocaine. Soak a cotton ball in the lidocaine applied against the gums next to the tooth for 30 minutes at a time.All discharge instructions reviewed with patient and/or family. Voiced understanding. FABRICE PAEZ EXPLOSIVE OPERATOR SUPERVISOR Aug 23, 2017 18:42
[2017-08-23] MEDS ORDERED: LIDOCAINE 2% VISCOUS 15 ML UDC MM ONE (18:45)
[2017-08-23] MEDS ORDERED: RX-ACETAMINOPHEN/CODEINE TAB PPK #4 PO SCH (18:45)
[2017-08-23 18:56] VITALS: BP 127/80
[2017-10-03] MEDS ORDERED: PREN1TAB86 PO (19:04)
[2017-10-03] MEDS ORDERED: SERT25TA PO (19:04)
== END 2017-08-23 18:56 | disposition home or self-care (01) ==
LOC: EDUNIT# 18:18 → ER 18:19
DX: O99.612 Diseases of the digestive system complicating pregnancy, second trimester (principal); K08.89 Other specified disorders of teeth and supporting structures; F31.9 Bipolar disorder, unspecified; Z3A.20 20 weeks gestation of pregnancy; Z87.891 Personal history of nicotine dependence; Z90.89 Acquired absence of other organs; Z87.19 Personal history of other diseases of the digestive system; Z82.49 Family history of ischemic heart disease and other diseases of the circulatory system; Z91.5 Personal history of self-harm
CPT/HCPCS: 99283

== ENCOUNTER → 2017-08-24 | Outpatient (CLI) | payer MEDICAID ==
[~2017-08-24] MED LIST changes: +PREN1TAB86 PO
--- NOTE | 2017-08-24 13:18 | Diagnostic Imaging Report ---
INDICATION: survey. TECHNIQUE: Multiple real-time grayscale images were obtained over the gravid uterus. COMPARISON: 06/21/2017. FINDINGS: There is a single live fetus in cephalic presentation. The placenta is anterior and to the right. The amniotic fluid volume is normal. heart rate was recorded at 139 beats per minute. survey demonstrates kidneys, bladder and stomach to be unremarkable. brain is unremarkable. There is a four-chamber heart. There is a three-vessel cord with normal insertion. The spine is unremarkable. Biometrical measurements are as follows: Biparietal 4.35 cm, age 19 weeks 2 days. Head circumference 17.15 cm, age 19 weeks 6 days. Abdominal circumference 13.90 cm, age 19 weeks 3 days. Femur length 3.28 cm, age 20 weeks 2 days. Sonographic estimate age: 19 weeks 5 days. Sonographic estimated date of delivery: 01/13/18. Estimated Weight: 309 gm (+/- 45 gm). LMP percentile: 10%. heart rate: 139 beats per minute. number: 1 of 1. IMPRESSION: Single live IUP approximately 19-20 weeks gestational age demonstrating normal interval growth when compared with exam from 06/21/2017. No complicating features are seen. Dictated by: Dictated on workstation # [id number]
== END ==
LOC: RAD 10:50
PROVIDERS: ATTEND Family Medicine
DX: Z36.89 Encounter for other specified antenatal screening (principal); Z3A.19 19 weeks gestation of pregnancy
CPT/HCPCS: 76805

== ENCOUNTER 2017-08-29 13:50 | Outpatient (CLI) | payer MEDICAID ==
[~2017-08-29] VITALS: Ht 165.1 cm; Wt 65.8 kg
[~2017-08-29 13:50] MED LIST changes: -PREN1TAB86 PO
--- NOTE | 2017-08-31 14:53 | Physician Query-Final Dx ---
DEJON LOPEZ 08/31/17 1453: Clinic Account Progress/Dx Physician Query: Please give diagnosis Date of Service Aug 29, 2017 at 13:50 JONY NACNE DO 09/02/17 0752: Clinic Account Progress/Dx DIAGNOSIS: Diagnosis Decreased movement DEJON LOPEZ Aug 31, 2017 14:53 JONY NANCE DO Sep 02, 2017 07:52
[2017-10-03] MEDS ORDERED: PREN1TAB86 PO (19:04)
[2017-10-03] MEDS ORDERED: SERT25TA PO (19:04)
== END 2017-08-29 14:58 | disposition home or self-care (01) ==
LOC: WSo 13:50 → LDRP 13:51 → WSo 14:58
PROVIDERS: ATTEND Family Medicine
DX: O36.8120 Decreased fetal movements, second trimester, not applicable or unspecified (principal); Z3A.20 20 weeks gestation of pregnancy
CPT/HCPCS: 99213

== ENCOUNTER → 2017-09-28 | Outpatient (CLI) | payer MEDICAID ==
[~2017-09-28] MED LIST changes: +PREN1TAB86 PO
--- NOTE | 2017-09-28 11:36 | Diagnostic Imaging Report ---
INDICATION: Small for dates. TECHNIQUE: Multiple real-time grayscale images were obtained over the gravid uterus. COMPARISON: 08/24/2017. FINDINGS: There is a single live fetus in a cephalic presentation. heart rate was recorded at 160 beats per minute. Placenta is lateral to the right. Amniotic fluid volume is normal. No gross abnormality is seen. Biometrical measurements are as follows: Biparietal 6.3 cm, age 25 weeks 4 days. Head circumference 23.0 cm, age 25 weeks 1 days. Abdominal circumference 20.4 cm, age 25 weeks 0 days. Femur length 4.5 cm, age 25 weeks 0 days. Sonographic estimate age: 25 weeks 2 days. Sonographic estimated date of delivery: 01/09/18. Estimated Weight: 758 gm (+/- 111 gm). LMP percentile: 18%. heart rate: 160 beats per minute. number: 1 of 1. IMPRESSION: Single live IUP approximately 25 weeks gestational age demonstrating normal interval growth when compared with prior exam. No complicating features are identified. Dictated by: Dictated on workstation # [id number]
== END ==
LOC: RAD 09:48
PROVIDERS: ATTEND Family Medicine
DX: O36.5920 Maternal care for other known or suspected poor fetal growth, second trimester, not applicable or unspecified (principal); Z3A.25 25 weeks gestation of pregnancy
CPT/HCPCS: 76805

== ENCOUNTER 2017-10-27 15:37 | Outpatient (CLI) | payer MEDICAID ==
[~2017-10-27] VITALS: Ht 165.1 cm; Wt 74.4 kg
[2017-10-27 15:38] VITALS: BP 111/67
[2017-10-27 16:08] VITALS: BP 105/61
[2017-10-27 16:40] VITALS: BP 100/62
[2017-10-27 17:07] VITALS: BP 102/67
[2017-10-27 17:25] VITALS: BP 102/67
--- NOTE | 2017-10-29 11:54 | Physician Query-Final Dx ---
DEJON LOPEZ 10/29/17 1154: Clinic Account Progress/Dx Physician Query: Please give a diagnosis and weeks of gestation thank you Date of Service Oct 27, 2017 at 15:37 BRITTANI AVELAR MD 10/30/17 2249: Clinic Account Progress/Dx DIAGNOSIS: Diagnosis Third trimester 29 weeks gestation Subjective contractions- no contractions on toco, no cervical dilation DEJON LOPEZ Oct 29, 2017 11:54 BRITTANI AVELAR MD Oct 30, 2017 22:49
== END 2017-10-27 17:25 | disposition home or self-care (01) ==
LOC: LDRP 15:37 → WSo 15:37
PROVIDERS: ATTEND Family Medicine
DX: O47.03 False labor before 37 completed weeks of gestation, third trimester (principal); Z3A.29 29 weeks gestation of pregnancy
CPT/HCPCS: 99214

== ENCOUNTER 2017-12-20 10:22 | Outpatient (CLI) | payer MEDICAID ==
[~2017-12-20] VITALS: Ht 165.1 cm; Wt 76.3 kg
[2017-12-20 10:35] VITALS: BP 126/77
[2017-12-20 11:03] LABS: BILIRUBIN,URINE NEGATIVE (NEGATIVE); CLARITY,URINE CLEAR; COLOR,URINE YELLOW; GLUCOSE, URINE (UA) NEGATIVE (NEGATIVE); KETONES,URINE 2+ (NEGATIVE); LEUKOCYTE ESTERASE ,URINE 2+ (NEGATIVE); NITRITE,URINE NEGATIVE (NEGATIVE); PH,URINE 6.5 (5-9); PROTEIN,URINE 1+ (NEGATIVE); UROBILINOGEN,URINE 1 MG/DL (NORMAL)
[2017-12-20 11:12] LABS: BACTERIA,URINE NEGATIVE /HPF
[2017-12-20] MEDS ORDERED: ONDANSETRON 4 MG (ZOFRAN) ORAL DISSOLVE TAB PO ONE (11:45)
[2017-12-20] MEDS ORDERED: ONDA4TAB8 SL (11:51)
== END 2017-12-20 11:55 | disposition home or self-care (01) ==
LOC: LDRP 10:22 → WSo 10:22
PROVIDERS: ATTEND Family Medicine
DX: O21.2 Late vomiting of pregnancy (principal); R10.9 Unspecified abdominal pain; Z3A.37 37 weeks gestation of pregnancy
CPT/HCPCS: 81000; 99214

== ENCOUNTER 2018-01-04 07:10 | Inpatient (IN) | payer MEDICAID ==
[~2018-01-04] VITALS: Ht 165.1 cm; Wt 76.8 kg
[2018-01-04] VITALS (50 sets, daily range): BP systolic 95–162; BP diastolic 53–90
[2018-01-04] MEDS ORDERED: D5 LR IV SOLUTION 1,000 ML IV ONE (07:49)
[2018-01-04] MEDS: D5 LR IV SOLUTION 1,000 ML IV SCH ×2 (08:00→15:30)
[2018-01-04] MEDS ORDERED: OXYTOCIN/NORMAL SALINE 500 ML IV SCH ×2 (08:40→15:47)
[2018-01-04 08:55] LABS: BASOPHILS % (AUTO) 0 % (0-10); EOSINOPHILS # (AUTO) 0.2 10^3/uL (0.0-0.3); EOSINOPHILS % (AUTO) 2 % (0-10); HEMATOCRIT 30 % (35-52); HEMOGLOBIN 9.7 G/DL (11.5-16.0); LYMPHOCYTES # (AUTO) 3.1 X 10^3 (1.0-4.0); LYMPHOCYTES % (AUTO) 32 % (12-44); MEAN CORPUSCULAR HEMOGLOBIN 25 PG (25-34); MEAN CORPUSCULAR HGB CONC 32 G/DL (32-36); MEAN CORPUSCULAR VOLUME 78 FL (80-99); MONOCYTES # (AUTO) 0.7 X 10^3 (0.0-1.0); MONOCYTES % (AUTO) 7 % (0-12); NEUTROPHILS # (AUTO) 5.8 X 10^3 (1.8-7.8); NEUTROPHILS % (AUTO) 60 % (42-75); PLATELET COUNT 284 10^3/uL (130-400); RED BLOOD COUNT 3.86 10^6/uL (4.35-5.85); RED CELL DISTRIBUTION WIDTH 15.6 % (10.0-14.5); WHITE BLOOD COUNT 9.8 10^3/uL (4.3-11.0)
[2018-01-04] MEDS ORDERED: FLU QUADRIvalent (5+ YOA) 2018-2019 (AFLURIA) 0.5 ML IM ONE (09:30)
[2018-01-04] MEDS ORDERED: SUFENTA 0.6MCG/ML BUPIVA 0.125 100 ML ONE (10:39)
[2018-01-04] MEDS ORDERED: LIDOCAINE/EPI 2% 1:200,00 (XYLOCAINE) 10 ML VIAL ONE (10:39)
[2018-01-04] MEDS ORDERED: MINERAL OIL CONCENTRATE 99.9% 15 ML UDC PO ONE (11:15)
[2018-01-04] MEDS ORDERED: LIDOCAINE/EPI 2% 1:200,00 (XYLOCAINE) 10 ML VIAL INJ ONE (11:15)
[2018-01-04] MEDS ORDERED: fentaNYL INJECTION 100 MCG/2 ML AMP ONE ×2 (11:54→12:17)
[2018-01-04] MEDS ORDERED: fentaNYL INJECTION 100 MCG/2 ML AMP IVP ONE (12:00)
--- NOTE | 2018-01-04 12:12 | History & Physical-OB ---
OB - Chief Complaint & HPI Date/Time Date of Admission: Date of Admission: Jan 04, 2018 at 7:25 am Date seen by a Provider: Jan 04, 2018 Time Seen by a Provider: 09:20 Chief Complaint/History OB-Reason for Admission/Chief: Induction of Labor Hx : 4 Hx Para: 2011 Expected Date of Delivery: Jan 11, 2018 Gestational Age in Weeks: 39 Gestational Age in Days: 0 Indication for induction: other (elective) History of Labs A+, antibody neg. RI. GC/chlamydia neg. HIV/HepB/RPR NR. Glucola normal. GBS neg. Allergies and Home Medications Allergies Coded Allergies: No Known Drug Allergies (Unverified , 06/05/08) Home Medications Ondansetron 4 Mg Tab.rapdis, 4 MG SL Q4H PRN for NAUSEA/VOMITING-1ST LINE, ( Reported) Vit W-Ca,Fe,FA(<1 mg) 1 Each Tablet, 1 EACH PO DAILY, (Reported) Sertraline HCl 25 Mg Tablet, 25 MG PO DAILY, (Reported) Patient Home Medication List Home Medication List Reviewed: Yes OB - History Hx of Present Care: Yes Ultrasounds: Normal mid trimester US Obstetrical Complications: None Medical Complications: Psychiatric (depression with suicide attempt in early . On sertraline throughout .) Information Induced Hypertension: No Maternal Gestational Diabetes: No Hemorrhage: No Obstetrical History Hx : 4 Hx Para: 2 Hx # Term Pregnancies: 2 Hx # Pregnancies: 0 Number of Living Children: 2 Hx Total # of Abortions (Spona: 1 Hx Multiple Gestation: No Hx Ectopic : No Hx Stillbirth: No Hx Complication: No Hx Induced Hypertens: No Hx Maternal Gestational Diabet: No Hx Hemorrhage: No (retained placenta after second delivery requiring manual extraction) Delivery History Hx Dystocia: No Hx Forceps Assisted Delivery: No Hx Vacuum Extraction Assisted: No Hx Placenta Abnormality: Yes (retained placenta requiring manual extraction) Hx Large For Gestational Age I: No Hx Small for Gestational Age I: No Hx Section: No Hx Vaginal Delivery Post C-Sec: No Hx Blood Disorders: No Adverse Rxn to Tranfusion: No Patient Past Medical History PMHx: Depression with h/o suicide attempts Bipolar disorder Substance use PSurgHx: Tonsillectomy Social History/Family History HIV/AIDS: No Recent Infectious Disease Expo: No Sexually Transmitted Disease: No Alcohol Use: Denies Use Recreational Drug Use: No (history of THC) Smoking Cessation: Former smoker 2nd Hand Smoke Exposure: No Immunizations Hepatitis A: Yes Hepatitis B: Yes Tetanus Booster (TDap): Less than 5yrs Date of Influenza Vaccine: Dec 29, 2017 Rubella: immune RPR/VDRL: Negative GBS Status: Negative HBsAG: Negative OB - Admission Exam Physical Exam HEENT: NCAT Cervical Dilatation: 4cm Effacement: 25% Station: -3 Membranes: Intact Heart Rate: 140's Accelerations: Accelerations Present Decelerations: No Decelerations Short Term Variability: Present Correction Variability: Average (6-25) Contractions on Admission: < 5 Minutes Apart Intensity: Mild [place]eno Scoring Tool (Modified) Dilation (cm): 3-4cm (2) Effacement (%): 0-30% (0) Descent/Station: -3 (0) Cervix Consistency: Soft (2) Cervix Position: Anterior (2) Add 1 point for: Each previous vaginal delivery (1) (2) Cedeno Score: 7 Labs Laboratory Tests Test 01/04/18 08:00 Range/Units White Blood Count 9.8 4.3-11.0 10^3/uL Red Blood Count 3.86 L 4.35-5.85 10^6/uL Hemoglobin 9.7 L 11.5-16.0 G/DL Hematocrit 30 L 35-52 % Mean Corpuscular Volume 78 L 80-99 FL Mean Corpuscular Hemoglobin 25 25-34 PG Mean Corpuscular Hemoglobin Concent 32 32-36 G/DL Red Cell Distribution Width 15.6 H 10.0-14.5 % Platelet Count 284 130-400 10^3/uL Mean Platelet Volume 10.0 7.4-10.4 FL Neutrophils (%) (Auto) 60 42-75 % Lymphocytes (%) (Auto) 32 12-44 % Monocytes (%) (Auto) 7 0-12 % Eosinophils (%) (Auto) 2 0-10 % Basophils (%) (Auto) 0 0-10 % Neutrophils # (Auto) 5.8 1.8-7.8 X 10^3 Lymphocytes # (Auto) 3.1 1.0-4.0 X 10^3 Monocytes # (Auto) 0.7 0.0-1.0 X 10^3 Eosinophils # (Auto) 0.2 0.0-0.3 10^3/uL Basophils # (Auto) 0.0 0.0-0.1 10^3/uL OB - Assessment/Plan/Diagnosis Assessment Assessment: induction of labor Admission Dx Elective induction of labor at 39 weeks Admission Status: Inpatient Order (span 2 midnights) Reason for Inpatient Admission: Induction, labor and delivery and course Plan Plan: Induction Induction Method: per Pitocin Protocol BRITTANI AVELAR MD Jan 04, 2018 12:12 pm
[2018-01-04] MEDS ORDERED: LIDOCAINE PF 2% 5 ML (XYLOCAINE) VIAL ONE (12:17)
[2018-01-04] MEDS ORDERED: BUPIVACAINE 0.25% 30 ML (SENSORCAINE) VIAL ONE (12:17)
[2018-01-04] MEDS ORDERED: ONDANSETRON 4 MG/2 ML (SDV) Z0FRAN ONE (13:08)
[2018-01-04] MEDS ORDERED: ONDANSETRON 4 MG/2 ML (SDV) Z0FRAN IVP PRN (13:15)
[2018-01-04] MEDS ORDERED: LACTATED RINGERS 1,000 ML IV ONE (13:51)
[2018-01-04] MEDS ORDERED: EPIDURAL (SUFENTA 0.6MCG/ML BUPIVA 0.125%) 100 ML BAG EPI SCH (14:00)
[2018-01-04] MEDS ORDERED: CATHETER FLUSH 10 ML SYR IV SCH ×2 (14:00→22:00)
[2018-01-04] MEDS ORDERED: NALOXONE 0.4 MG/ML 1 ML (NARCAN) VIAL IV PRN (14:00)
[2018-01-04] MEDS ORDERED: diphenhydrAMINE 50 MG/ML INJ (BENADRYL) IV PRN (14:00)
[2018-01-04] MEDS ORDERED: ONDANSETRON 4 MG/2 ML (SDV) Z0FRAN IV PRN (14:00)
[2018-01-04] MEDS ORDERED: CATHETER FLUSH 10 ML SYR IV PRN (14:00)
--- NOTE | 2018-01-04 15:20 | OB Labor & Delivery Record ---
Vag Delivery Note Vag Delivery Note Date of Delivery: 01/04/18 Preoperative Diagnosis: Justine Fleming is a 22 /Para 4 / 2, Gestational Age (wks)39with 0d Postoperative Diagnosis: Same Surgeon: BRITTANI AVELAR Anesthesia: Epidural Delivery Type: Spontaneous vaginal Findings: Viable female , apgars 8/9, weight 3120 grams Lacerations: Periurethral abrasion Intact placenta with 3 vessel cord. No nuchal cord, body cord or shoulder dystocia Estimated Blood Loss: 250 ml Complications: None Condition: Stable Description of Procedure: The patient is a G4 now P3013 who presented for elective induction of labor at 39 weeks. She was admitted and informed consent was obtained. Her labor course was unremarkable. She progressed to complete dilatation and began to push. She was then set up for delivery. The 's head was delivered atraumatically in the TAYLOR position. The shoulders and remainder of the 's body were then delivered without difficulty. Upon delivery, the infant was placed on maternal abdomen. Pediatric nurse bulb suctioned mouth and nares. The cord was doubly clamped and cut and the remained on maternal abdomen. An intact placenta with 3-vessel cord delivered via Zoila and there was found to be minimal bleeding.~ Vigorous fundal massage was performed and the fundus was found to be firm. IV oxytocin was given. Examination of the vagina and perineum revealed a periurethral abrasion, hemostatic. Following the delivery, sponge, instrument and needle counts were correct. Mom and baby were both in stable condition in the labor suite. Vitals - Labs Labs Laboratory Tests 01/04/18 08:00: White Blood Count 9.8, Red Blood Count 3.86L, Hemoglobin 9.7L, Hematocrit 30L, Mean Corpuscular Volume 78L, Mean Corpuscular Hemoglobin 25, Mean Corpuscular Hemoglobin Concent 32, Red Cell Distribution Width 15.6H, Platelet Count 284, Mean Platelet Volume 10.0, Neutrophils (%) (Auto) 60, Lymphocytes (%) (Auto) 32 , Monocytes (%) (Auto) 7, Eosinophils (%) (Auto) 2, Basophils (%) (Auto) 0, Neutrophils # (Auto) 5.8, Lymphocytes # (Auto) 3.1, Monocytes # (Auto) 0.7, Eosinophils # (Auto) 0.2, Basophils # (Auto) 0.0 BRITTANI AVELAR MD Jan 04, 2018 3:20 pm
[2018-01-04] MEDS ORDERED: WITCH HAZEL(TUCKS) 40 EA JAR TOP PRN (16:00)
[2018-01-04] MEDS ORDERED: BENZOCAINE/MENTHOL (DERMOPLAST) 56 ML CAN TP PRN (16:00)
[2018-01-04] MEDS: IBUPROFEN 600 MG (MOTRIN) TAB PO SCH ×2 (17:58→23:48)
[2018-01-04] MEDS ORDERED: SERTRALINE 50 MG (ZOLOFT) TABLET PO SCH (21:00)
[2018-01-05 05:49] LABS: BASOPHILS % (AUTO) 0 % (0-10); EOSINOPHILS # (AUTO) 0.2 10^3/uL (0.0-0.3); EOSINOPHILS % (AUTO) 2 % (0-10); HEMATOCRIT 28 % (35-52); HEMOGLOBIN 8.8 G/DL (11.5-16.0); LYMPHOCYTES # (AUTO) 3.3 X 10^3 (1.0-4.0); LYMPHOCYTES % (AUTO) 32 % (12-44); MEAN CORPUSCULAR HEMOGLOBIN 25 PG (25-34); MEAN CORPUSCULAR HGB CONC 31 G/DL (32-36); MEAN CORPUSCULAR VOLUME 79 FL (80-99); MEAN PLATELET VOLUME 10.2 FL (7.4-10.4); MONOCYTES # (AUTO) 0.5 X 10^3 (0.0-1.0); MONOCYTES % (AUTO) 5 % (0-12); NEUTROPHILS # (AUTO) 6.2 X 10^3 (1.8-7.8); NEUTROPHILS % (AUTO) 61 % (42-75); PLATELET COUNT 177 10^3/uL (130-400); RED BLOOD COUNT 3.56 10^6/uL (4.35-5.85); RED CELL DISTRIBUTION WIDTH 15.5 % (10.0-14.5); WHITE BLOOD COUNT 10.2 10^3/uL (4.3-11.0)
[2018-01-05 06:16] VITALS: BP 121/74
[2018-01-05] MEDS: IBUPROFEN 600 MG (MOTRIN) TAB PO SCH ×2 (06:16→12:36)
[2018-01-05] MEDS ORDERED: PRENATAL VITAMIN 1 EA TAB PO SCH (07:00)
[2018-01-05] MEDS ORDERED: FERROUS SULF 325 MG (IRON) TAB PO SCH (07:00)
[2018-01-05] MEDS ORDERED: FERR325T18 PO (07:44)
[2018-01-05] MEDS ORDERED: SERT25TA PO (07:44)
[2018-01-05] MEDS ORDERED: IBUP-844 PO (07:44)
--- NOTE | 2018-01-05 07:45 | Discharge Instructions ---
Discharge Inst-Women's Serv Depart Medications New, Converted or Re-Newed RX: Transmitted to Pharmacy New Medications: Ferrous Sulfate (Ferrous Sulfate) 325 Mg Tablet 325 MG PO DAILY@0700, #30 TAB 0 Refills Ibuprofen (Ibu) 600 Mg Tablet 600 MG PO Q6H PRN for PAIN-MILD TO MODERATE, #60 TAB 0 Refills Continued Medications: Vit W-Ca,Fe,FA(<1 mg) ( Vitamins) 1 Each Tablet 1 EACH PO DAILY, TAB Sertraline HCl (Zoloft) 25 Mg Tablet 25 MG PO DAILY, #30 TAB 5 Refills (This prescription has been renewed) Discontinued Medications: Ondansetron (Zofran Odt) 4 Mg Tab.rapdis 4 MG SL Q4H PRN for NAUSEA/VOMITING-1ST LINE, TAB Follow Up/Instructions Goal/Follow Up: Follow up with Dr. Guajardo in 6 weeks for visit. Activity Activity: Activity as Tolerated (avoid strenuous activity x 6 weeks) Nothing Inside Vagina: No Douching, No [place], No Tampons Diet Discharge Diet: Regular Diet Symptoms to Report to : Swelling Increased, Bleeding Excessive, Fever Over 101 Degrees F, Pain/Pressure in Chest, Cramps in Feet or Legs, Vaginal Discharge Foul, Dizziness/Fainting, Shortness of Breath For Any Problems or Questions: Contact Your Physician Copies To 1: BRITTANI GUAJARDO MD, BETHANY N MD Jan 05, 2018 7:45 am
--- NOTE | 2018-01-05 10:20 | Anesthesia-Regional Post-Op ---
Regional Patient Condition Mental Status: Alert, Oriented x3 Circulation: Same as Pre-Op Headache: Absent Sensation: Full Recovery Motor Block: Absent Post Op Complications Complications None Follow Up Care/Instructions Patient Instructions None needed. Anesthesia/Patient Condition Patient is doing well, no complaints, stable vital signs, no apparent adverse anesthesia problems. No complications reported per nursing. BINH TRAYLOR CRNA Jan 05, 2018 10:19
[2018-01-05 12:00] VITALS: BP 119/77
--- NOTE | 2018-01-05 14:08 | Discharge Summary ---
Diagnosis/Chief Complaint Date of Admission Jan 04, 2018 at 7:25 am Date of Discharge Jan 05, 2018 Admission Diagnosis Admission Diagnosis Elective induction of labor at 39 weeks Depression Discharge Diagnosis Elective induction of labor at 39 weeks- uncomplicated labor and delivery and course. Blood type A+, RI. No complications, asymptomatic anemia, started on iron. Depression- continued sertraline. Chief Complaint/HPI Chief Complaint/HPI 22 yo G4 now P3 presented to elective IOL at 39 weeks. Discharge Summary-Simple/Stand Discharge Physical Examination Allergies: Coded Allergies: No Known Drug Allergies (Unverified , 06/05/08) Vitals & I&Os Vital Sign - Last 12Hours Date Time Temp Pulse Resp B/P (MAP) Pulse Ox O2 Delivery O2 Flow Rate FiO2 01/05/18 12:00 98.2 76 18 119/77 (91) 97 Room Air 01/04/18 13:00 10.00 Intake and Output 01/05/18 00:00 Intake Total 2300 ml Balance 2300 ml General Appearance: Alert, No Acute Distress Respiratory: Clear to Auscultation, Normal Air Movement Cardiovascular: Regular Rate, No Murmurs Abdominal: Normal Bowel Sounds Neuro: Normal Speech Psych/Mental Status: Mental Status NL Hospital Course See final discharge diagnosis. Labs Laboratory Tests Test 01/04/18 08:00 01/05/18 05:10 Range/Units White Blood Count 9.8 10.2 4.3-11.0 10^3/uL Red Blood Count 3.86 L 3.56 L 4.35-5.85 10^6/uL Hemoglobin 9.7 L 8.8 L 11.5-16.0 G/DL Hematocrit 30 L 28 L 35-52 % Mean Corpuscular Volume 78 L 79 L 80-99 FL Mean Corpuscular Hemoglobin 25 25 25-34 PG Mean Corpuscular Hemoglobin Concent 32 31 L 32-36 G/DL Red Cell Distribution Width 15.6 H 15.5 H 10.0-14.5 % Platelet Count 284 177 130-400 10^3/uL Mean Platelet Volume 10.0 10.2 7.4-10.4 FL Neutrophils (%) (Auto) 60 61 42-75 % Lymphocytes (%) (Auto) 32 32 12-44 % Monocytes (%) (Auto) 7 5 0-12 % Eosinophils (%) (Auto) 2 2 0-10 % Basophils (%) (Auto) 0 0 0-10 % Neutrophils # (Auto) 5.8 6.2 1.8-7.8 X 10^3 Lymphocytes # (Auto) 3.1 3.3 1.0-4.0 X 10^3 Monocytes # (Auto) 0.7 0.5 0.0-1.0 X 10^3 Eosinophils # (Auto) 0.2 0.2 0.0-0.3 10^3/uL Basophils # (Auto) 0.0 0.0 0.0-0.1 10^3/uL Discharge Instructions to patient/family Please see electronic discharge instructions given to patient. Discharge Medications Reviewed and agree with Discharge Medication list on patient's Discharge Instruction sheet Clinical Quality Measures DVT/VTE Risk/Contraindication: Risk Factor Score Per Nursin RFS Level Per Nursing on Admit: 1=Low/No VTE PPX Copy Copies To 1: BRITTANI AVELAR MD, BETHANY N MD Jan 05, 2018 2:08 pm
== END 2018-01-05 17:20 | disposition home or self-care (01) | DRG 807 ==
LOC: LDRP 07:25
PROVIDERS: ADMIT Family Medicine; ATTEND Family Medicine
PROC: 10E0XZZ Delivery of Products of Conception, External Approach (ICD-10-PCS; principal; 2018-01-04)
PROC: 3E033VJ Introduction of Other Hormone into Peripheral Vein, Percutaneous Approach (ICD-10-PCS; 2018-01-04)
DX: O99.344 Other mental disorders complicating childbirth (principal); F31.9 Bipolar disorder, unspecified; O71.82 Other specified trauma to perineum and vulva; Z37.0 Single live birth; Z3A.39 39 weeks gestation of pregnancy
CPT/HCPCS: 36415; 85025; 86850; 86900; 86901

== ENCOUNTER 2018-10-15 12:37 | Emergency (ER) | payer MEDICAID | END 2018-10-15 16:07 | disposition home or self-care (01) | LOC: ER 12:37 ==

== ENCOUNTER 2020-03-18 13:41 | Emergency (ER) | payer MEDICAID ==
[~2020-03-18] VITALS: Ht 165 cm; Wt 61.0 kg
[~2020-03-18 13:41] MED LIST changes: +IBUP-844 PO; +ONDA8TAB13 PO
[2020-03-18 14:21] LABS: BASOPHILS % (AUTO) 0 % (0-10); EOSINOPHILS # (AUTO) 0.1 10^3/uL (0.0-0.3); EOSINOPHILS % (AUTO) 2 % (0-10); HEMATOCRIT 37 % (35-52); HEMOGLOBIN 12.1 g/dL (11.5-16.0); LYMPHOCYTES # (AUTO) 1.9 10^3/uL (1.0-4.0); LYMPHOCYTES % (AUTO) 37 % (12-44); MEAN CORPUSCULAR HEMOGLOBIN 29 pg (25-34); MEAN CORPUSCULAR HGB CONC 33 g/dL (32-36); MEAN CORPUSCULAR VOLUME 88 fL (80-99); MEAN PLATELET VOLUME 10.7 fL (9.0-12.2); MONOCYTES # (AUTO) 0.4 10^3/uL (0.0-1.0); MONOCYTES % (AUTO) 7 % (0-12); NEUTROPHILS # (AUTO) 2.9 10^3/uL (1.8-7.8); NEUTROPHILS % (AUTO) 54 % (42-75); PLATELET COUNT 255 10^3/uL (130-400); WHITE BLOOD COUNT 5.3 10^3/uL (4.3-11.0)
[2020-03-18 14:28] LABS: BILIRUBIN,URINE NEGATIVE (NEGATIVE); CLARITY,URINE CLEAR; COLOR,URINE YELLOW; GLUCOSE, URINE (UA) NEGATIVE (NEGATIVE); KETONES,URINE NEGATIVE (NEGATIVE); LEUKOCYTE ESTERASE ,URINE 2+ (NEGATIVE); NITRITE,URINE NEGATIVE (NEGATIVE); PROTEIN,URINE NEGATIVE (NEGATIVE)
[2020-03-18 14:39] LABS: BACTERIA,URINE MODERATE /HPF
[2020-03-18 14:40] LABS: TRICHOMONAS,URINE FEW /HPF
--- NOTE | 2020-03-18 14:44 | ED GU-Female ---
General Chief Complaint: Female Reproductive Stated Complaint: VAGINAL BLEEDING 5 WKS History of Present Illness Date Seen by Provider: Mar 18, 2020 Time Seen by Provider: 14:36 Initial Comments 25 year old female presents with spotting that began 1-1.5 hours ago, with occ back and lower abd cramping. She was evaluated at [facility] yesterday, and Found to be positive for trichomonas, she was prescribed medication but has not started it yet. She has a history of chlamydia for which she was treated for in January. Her current pad has no bloody discharge, she noted trace when wiping after urinating. This is her 5th , one miscarriage in the past. She is living at [facility] and her 3 children live with her mother. No trauma to her abdomen and last intercourse was 3 weeks ago. She is taking vitamins daily. Timing/Duration: just prior to arrival Severity/Quality: mild Location: suprapubic, right flank, left flank Radiation: none Activities at Onset: none Associated Symptoms: No dysuria, No fever/chills, No loss of bladder control, No lower back pain; nausea/vomiting; No urinary frequency; other (hematuria) Allergies and Home Medications Allergies Coded Allergies: No Known Drug Allergies (Unverified , 06/05/08) Home Medications Nitrofurantoin Monohyd/M-Cryst 100 Mg Capsule, 1 TAB PO BID Prescribed by: VADIM WALKER on 10/15/18 155 Ondansetron 8 Mg Tab.rapdis, 8 MG PO Q6H PRN for NAUSEA/VOMITING Prescribed by: VADIM WALKER on 10/15/18 155 Sertraline HCl 25 Mg Tablet, 25 MG PO DAILY Prescribed by: BRITTANI AVELAR on 01/05/18 0744 Patient Home Medication List Home Medication List Reviewed: Yes Review of Systems Review of Systems Constitutional: no symptoms reported, see HPI Gastrointestinal: see HPI; No constipation, No diarrhea; nausea; No vomiting Genitourinary: see HPI, flank pain, hematuria LMP: Feb 07, 2020 All Other Systemes Reviewed Negative Unless Noted: Yes Past Nwgjefk-Hgdhrn-Wvohvy Hx Past Med/Social Hx: Reviewed Nursing Past Med/Soc Hx Patient Social History Alcohol Beverage of Choice: Rum Type Used: Cigarettes Former Smoker, Quit: Apr 22, 2017 2nd Hand Smoke Exposure: No Recent Hopitalizations: No Immunizations Up To Date Tetanus Booster (TDap): Less than 5yrs PED Vaccines UTD: Yes Date of Influenza Vaccine: Dec 29, 2017 Seasonal Allergies Seasonal Allergies: Yes Past Medical History Surgeries: Yes (D&c) Tonsillectomy Respiratory: No Cardiac: No Neurological: No Last Menstrual Period: Feb 07, 2020 Hx : 5 Hx Para: 3 Hx Total # of Abortions (Sp): 1 Reproductive Disorders: No Female Reproductive Disorders: Denies Sexually Transmitted Disease: No HIV/AIDS: No Genitourinary: No Gastrointestinal: Yes Chronic Constipation Musculoskeletal: No Endocrine: No HEENT: No Cancer: No Psychosocial: Yes Suicide Attempts, Bipolar, Depression Integumentary: No Blood Disorders: No Adverse Reaction/Blood Tranf: No Family Medical History Alcoholism 19 FATHER (PGF) Drug abuse 19 MOTHER FH: bipolar disorder 19 FATHER FH: depression 19 FATHER 19 MOTHER Hypercholesterolemia 19 FATHER Hypertension 19 FATHER No Family History of: Abdominal aortic aneurysm Carteret's disease Aphasia Cancer Cancer of colon Cataract Chest pain Congenital heart disease Congestive heart failure Cystic fibrosis Dementia Dysphagia Family history: Allergy Family history: Alzheimer's disease Family history: Arthritis Family history: Asthma Family history: Breast disease Family history: Cardiovascular disease Family history: Coronary thrombosis Family history: Diabetes mellitus Family history: Gastrointestinal disease Family history: Glaucoma Family history: Hypertension Family history: Osteoporosis Family history: Thyroid disorder Headache Hearing loss Heart disease Hereditary disease History of - anemia History of - disorder History of - respiratory disease History of drug abuse Human immunodeficiency virus (HIV) seropositivity Hypercholesterolemia Infertile Kidney disease Malignant neoplasm of lung Myocardial infarction Parkinson's disease Prostate cancer Psychotic disorder Seizure disorder Stroke Tuberculosis Visual impairment No Pertinent Family Hx, Psychiatric Problems Physical Exam Vital Signs Vital Signs - First Documented 03/18/20 03/18/20 14:00 15:49 Temp 36.2 Pulse 18 Resp 18 B/P (MAP) 113/85 (94) Pulse Ox 98 O2 Delivery Room Air Capillary Refill : Height, Weight, BMI Height: 5'5.00" Weight: 144lbs. 0oz. 65.424323ph; 28.2 BMI Method:Actual General Appearance: WD/WN, no apparent distress Neck: non-tender, full range of motion, supple, normal inspection Cardiovascular: normal peripheral pulses, regular rate, rhythm, no murmur Respiratory: chest non-tender, lungs clear, normal breath sounds Gastrointestinal: normal bowel sounds, non tender, soft; No distended, No guarding, No rebound, No tenderness Back: normal inspection, no vertebral tenderness, CVA tenderness (R), CVA tenderness (L) Extremities: normal range of motion, non-tender, normal inspection, no calf tenderness Neurologic/Psychiatric: no motor/sensory deficits, alert, normal mood/affect, oriented x 3 Skin: normal color, warm/dry Progress/Results/Core Measures Suspected Sepsis SIRS Temperature: Pulse: Respiratory Rate: Laboratory Tests 03/18/20 14:12: White Blood Count 5.3 Blood Pressure / Mean: Laboratory Tests 03/18/20 14:12: Platelet Count 255 Results/Orders Lab Results Laboratory Tests Test 03/18/20 14:12 03/18/20 14:22 03/18/20 14:25 Range/Units White Blood Count 5.3 4.3-11.0 10^3/uL Red Blood Count 4.21 3.80-5.11 10^6/uL Hemoglobin 12.1 11.5-16.0 g/dL Hematocrit 37 35-52 % Mean Corpuscular Volume 88 80-99 fL Mean Corpuscular Hemoglobin 29 25-34 pg Mean Corpuscular Hemoglobin Concent 33 32-36 g/dL Red Cell Distribution Width 13.3 10.0-14.5 % Platelet Count 255 130-400 10^3/uL Mean Platelet Volume 10.7 9.0-12.2 fL Immature Granulocyte % (Auto) 0 % Neutrophils (%) (Auto) 54 42-75 % Lymphocytes (%) (Auto) 37 12-44 % Monocytes (%) (Auto) 7 0-12 % Eosinophils (%) (Auto) 2 0-10 % Basophils (%) (Auto) 0 0-10 % Neutrophils # (Auto) 2.9 1.8-7.8 10^3/uL Lymphocytes # (Auto) 1.9 1.0-4.0 10^3/uL Monocytes # (Auto) 0.4 0.0-1.0 10^3/uL Eosinophils # (Auto) 0.1 0.0-0.3 10^3/uL Basophils # (Auto) 0.0 0.0-0.1 10^3/uL Immature Granulocyte # (Auto) 0.0 0.0-0.1 10^3/uL Human Chorionic Gonadotropin, Quant 4909 H <5 MIU/ML Urine Color YELLOW Urine Clarity CLEAR Urine pH 6.0 5-9 Urine Specific [place] 1.025 H 1.016-1.022 Urine Protein NEGATIVE NEGATIVE Urine Glucose (UA) NEGATIVE NEGATIVE Urine Ketones NEGATIVE NEGATIVE Urine Nitrite NEGATIVE NEGATIVE Urine Bilirubin NEGATIVE NEGATIVE Urine Urobilinogen 0.2 < = 1.0 MG/DL Urine Leukocyte Esterase 2+ H NEGATIVE Urine RBC (Auto) 1+ H NEGATIVE Urine RBC 10-25 H /HPF Urine WBC 5-10 H /HPF Urine Squamous Epithelial Cells 2-5 /HPF Urine Crystals NONE /LPF Urine Bacteria MODERATE H /HPF Urine Casts NONE /LPF Urine Mucus MODERATE H /LPF Urine Trichomonas FEW H /HPF Urine Culture Indicated YES Urine Test POSITIVE NEGATIVE My Orders Orders - MARÍAMARY ANNE Cbc With Automated Diff (03/18/20 13:49) Hcg,Quantitative (03/18/20 13:49) Ua Culture If Indicated (03/18/20 13:49) Hcg,Qualitative Urine (03/18/20 14:29) Urine Culture (03/18/20 14:22) Vital Signs/I&O 03/18/20 03/18/20 14:00 15:49 Temp 36.2 36.2 Pulse 18 76 Resp 18 B/P (MAP) 113/85 (94) 113/85 Pulse Ox 98 98 O2 Delivery Room Air Room Air Capillary Refill : Progress Note : Time: 14:36 Progress Note Patient seen and evaluated, will obtain labs and continue to monitor. Patient did ambulate to the bathroom and she had no spotting on her pad or when she wiped. No blood noted in urine. 1520 Labs essentially normal, no abdominal pain. Patient continues to have no spotting on her pad and trace when she urinated and wiped. 1530 Discharge instructions and return precautions reviewed with the patient in detail. All questions answered. She will follow up with her GATE AGENT Departure Impression Primary Impression: Trichimoniasis Additional Impression: Threatened in first trimester Disposition: 01 HOME, SELF-CARE Condition: Stable Departure-Patient Inst. Decision time for Depature: 15:30 Referrals: BRITTANI AVELAR MD (PCP/Family) Primary Care Physician Patient Instructions: Bleeding With (DC), Trichomoniasis (DC) Add. Discharge Instructions: Go to the [facility] pharmacy today to get your prescription for trichomonas treatment. Call your [facility]ATE AGENT at [facility] early tomorrow to schedule an outpatient ultrasound and follow-up appointment. Complete vaginal rest until follow-up with your GATE AGENT. Continue to increase water, 16 ounces every 2 hours while awake. Activity as tolerated. Return to emergency department for significant increase in bleeding, weakness or dizziness, or new problems. All discharge instructions reviewed with patient and/or family. Voiced understanding. Copy Copies To 1: BRITTANI AVELAR MD, AMY ARNP Mar 18, 2020 14:44
[2020-03-18 15:49] VITALS: BP 113/85
== END 2020-03-18 15:49 | disposition home or self-care (01) ==
LOC: EDUNIT# 13:41 → ER 13:43
DX: O20.0 Threatened abortion (principal); A59.9 Trichomoniasis, unspecified; F32.9 Major depressive disorder, single episode, unspecified; Z82.49 Family history of ischemic heart disease and other diseases of the circulatory system; Z87.891 Personal history of nicotine dependence; Z3A.01 Less than 8 weeks gestation of pregnancy
CPT/HCPCS: 36415; 81000; 84702; 84703; 85025; 87088

== ENCOUNTER → 2020-03-19 | Outpatient (CLI) | payer MEDICAID ==
--- NOTE | 2020-03-19 15:34 | Diagnostic Imaging Report ---
PROCEDURE: US OB SINGLE FETUS <14 WKS. TECHNIQUE: Multiple real-time grayscale images were obtained over the gravid uterus in various projections. INDICATION: and bleeding. FINDINGS: Intrauterine gestational sac and yolk sac are identified. The mean sac diameter correlates with an age of 5 week 1 day congruent with the estimates by last menstrual period. pole could not be identified. Independent cardiac activity could not be confirmed or owing to the early stage of gestation. No kina-sac or subchorionic hemorrhage. No evidence for extrauterine gestation. No findings of adnexal torsion. IMPRESSION: Intrauterine gestational sac. Too early to confirm or refute viability. No extrauterine gestation identified. Dictated by: Dictated on workstation # [id number]
== END ==
LOC: RAD 13:37
PROVIDERS: ATTEND Family Medicine
DX: O20.9 Hemorrhage in early pregnancy, unspecified (principal); Z3A.00 Weeks of gestation of pregnancy not specified
CPT/HCPCS: 76801

== ENCOUNTER 2020-05-25 09:00 | Emergency (ER) | payer MEDICAID ==
[~2020-05-25] VITALS: Ht 165 cm; Wt 58.9 kg
[2020-05-25 09:00] VITALS: BP 122/81
[~2020-05-25 09:00] MED LIST changes: +SERT-412; -SERT25TA5
[2020-05-25] MEDS ORDERED: ONDANSETRON 4 MG/2 ML (SDV) Z0FRAN IVP ONE (09:15)
--- NOTE | 2020-05-25 09:18 | ED GI ---
General Chief Complaint: Abdominal/GI Problems Stated Complaint: N/V,FEVER,SOB Source of Information: Patient Exam Limitations: No Limitations History of Present Illness Date Seen by Provider: May 25, 2020 Time Seen by Provider: 08:54 Initial Comments Patient presents ER by private conveyance from home with chief complaint of 4 days nausea vomiting and T-max of 100.1 per EMS today. She had some shortness of air and dry nonproductive cough. She denies any sick contacts. She had problems with nausea and vomiting with previous pregnancies and so had some Phenergan available which did not help. She is had difficulty with fluids. She has some low backache bilaterally and body aches. She denies dysuria discharge diarrhea or constipation. She is a G5, P3 at 14 weeks and [address] Avelar. No problems with this thus far. She did have anemia with her last requiring transfusion. Allergies and Home Medications Allergies Coded Allergies: No Known Drug Allergies (Unverified , 06/05/08) Home Medications Nitrofurantoin Monohyd/M-Cryst 100 Mg Capsule, 1 TAB PO BID Prescribed by: VADIM WALKER on 10/15/18 1554 Ondansetron 8 Mg Tab.rapdis, 8 MG PO Q6H PRN for NAUSEA/VOMITING Prescribed by: VADIM WALKER on 10/15/18 1554 Ondansetron 4 Mg Tab.rapdis, 4 MG PO Q6H PRN for NAUSEA/VOMITING Prescribed by: DESHAWN KNAPP on 05/25/20 1114 Promethazine HCl 25 Mg Tablet, 25 MG PO Q6H PRN for NAUSEA/VOMITING Prescribed by: DESHAWN KNAPP on 05/25/20 1114 Sertraline HCl 25 Mg Tablet, 25 MG PO DAILY Prescribed by: BRITTANI AVELAR on 01/05/18 0744 Patient Home Medication List Home Medication List Reviewed: Yes Review of Systems Review of Systems Constitutional: No chills, No diaphoresis EENTM: No Blurred Vision, No Double Vision Respiratory: Denies Cough, Denies Shortness of Air Cardiovascular: Denies Chest Pain, Denies Lightheadedness Gastrointestinal: Denies Constipated, Denies Diarrhea Genitourinary: Denies Burning, Denies Drainage Musculoskeletal: No back pain, No joint pain Skin: No pruritus, No rash Psychiatric/Neurological: Denies Headache, Denies Numbness All Other Systems Reviewed Negative Unless Noted: Yes Past Yopznae-Pjmnur-Bptvlk Hx Patient Social History Alcohol Use: Denies Use Alcohol Beverage of Choice: Rum Drug of Choice: denies Smoking Status: Former Smoker Type Used: Cigarettes Former Smoker, Quit: Apr 22, 2017 2nd Hand Smoke Exposure: No Recent Hopitalizations: No Immunizations Up To Date Tetanus Booster (TDap): Less than 5yrs PED Vaccines UTD: Yes Date of Influenza Vaccine: Dec 29, 2017 Seasonal Allergies Seasonal Allergies: Yes Past Medical History Surgeries: Yes (D&c) Tonsillectomy Respiratory: No Cardiac: No Neurological: No Reproductive Disorders: No Female Reproductive Disorders: Denies Sexually Transmitted Disease: No HIV/AIDS: No Genitourinary: No Gastrointestinal: Yes Chronic Constipation Musculoskeletal: No Endocrine: No HEENT: No Cancer: No Psychosocial: Yes Suicide Attempts, Bipolar, Depression Integumentary: No Blood Disorders: No Adverse Reaction/Blood Tranf: No Family Medical History Alcoholism 19 FATHER (PGF) Drug abuse 19 MOTHER FH: bipolar disorder 19 FATHER FH: depression 19 FATHER 19 MOTHER Hypercholesterolemia 19 FATHER Hypertension 19 FATHER No Family History of: Abdominal aortic aneurysm Walthall's disease Aphasia Cancer Cancer of colon Cataract Chest pain Congenital heart disease Congestive heart failure Cystic fibrosis Dementia Dysphagia Family history: Allergy Family history: Alzheimer's disease Family history: Arthritis Family history: Asthma Family history: Breast disease Family history: Cardiovascular disease Family history: Coronary thrombosis Family history: Diabetes mellitus Family history: Gastrointestinal disease Family history: Glaucoma Family history: Hypertension Family history: Osteoporosis Family history: Thyroid disorder Headache Hearing loss Heart disease Hereditary disease History of - anemia History of - disorder History of - respiratory disease History of drug abuse Human immunodeficiency virus (HIV) seropositivity Hypercholesterolemia Infertile Kidney disease Malignant neoplasm of lung Myocardial infarction Parkinson's disease Prostate cancer Psychotic disorder Seizure disorder Stroke Tuberculosis Visual impairment No Pertinent Family Hx, Psychiatric Problems Physical Exam Vital Signs Vital Signs - First Documented 05/25/20 09:00 Temp 36.4 Pulse 73 Resp 16 B/P (MAP) 122/81 (95) Pulse Ox 99 O2 Delivery Room Air Capillary Refill : Height/Weight/BMI Height: 5'5.00" Weight: 144lbs. 0oz. 65.807197hi; 22.00 BMI Method:Actual General Appearance: WD/WN, mild distress HEENT: PERRL/EOMI, pharynx normal Neck: full range of motion, normal inspection Respiratory: lungs clear, normal breath sounds, no respiratory distress, no accessory muscle use Cardiovascular: normal peripheral pulses, regular rate, rhythm Peripheral Pulses: 2+ Radial Pulses (R), 2+ Radial Pulses (L) Gastrointestinal: normal bowel sounds, non tender, soft, no organomegaly Extremities: normal range of motion, non-tender, normal inspection, normal capillary refill Neurologic/Psychiatric: alert, normal mood/affect, oriented x 3 Skin: normal color, warm/dry Progress/Results/Core Measures Results/Orders Lab Results Laboratory Tests Test 05/25/20 09:05 05/25/20 09:20 05/25/20 11:45 Range/Units White Blood Count 5.8 4.3-11.0 10^3/uL Red Blood Count 3.75 L 3.80-5.11 10^6/uL Hemoglobin 11.1 L 11.5-16.0 g/dL Hematocrit 34 L 35-52 % Mean Corpuscular Volume 90 80-99 fL Mean Corpuscular Hemoglobin 30 25-34 pg Mean Corpuscular Hemoglobin Concent 33 32-36 g/dL Red Cell Distribution Width 13.2 10.0-14.5 % Platelet Count 241 130-400 10^3/uL Mean Platelet Volume 10.5 9.0-12.2 fL Immature Granulocyte % (Auto) 0 % Neutrophils (%) (Auto) 69 42-75 % Lymphocytes (%) (Auto) 25 12-44 % Monocytes (%) (Auto) 5 0-12 % Eosinophils (%) (Auto) 1 0-10 % Basophils (%) (Auto) 0 0-10 % Neutrophils # (Auto) 4.0 1.8-7.8 10^3/uL Lymphocytes # (Auto) 1.5 1.0-4.0 10^3/uL Monocytes # (Auto) 0.3 0.0-1.0 10^3/uL Eosinophils # (Auto) 0.1 0.0-0.3 10^3/uL Basophils # (Auto) 0.0 0.0-0.1 10^3/uL Immature Granulocyte # (Auto) 0.0 0.0-0.1 10^3/uL Sodium Level 138 135-145 MMOL/L Potassium Level 3.2 L 3.6-5.0 MMOL/L Chloride Level 105 98-107 MMOL/L Carbon Dioxide Level 21 21-32 MMOL/L Anion Gap 12 5-14 MMOL/L Blood Urea Nitrogen 6 L 7-18 MG/DL Creatinine 0.60 0.60-1.30 MG/DL Estimat Glomerular Filtration Rate > 60 BUN/Creatinine Ratio 10 Glucose Level 91 70-105 MG/DL Calcium Level 8.5 8.5-10.1 MG/DL Corrected Calcium 8.6 8.5-10.1 MG/DL Total Bilirubin 0.3 0.1-1.0 MG/DL Aspartate Amino Transf (AST/SGOT) 13 5-34 U/L Alanine Aminotransferase (ALT/SGPT) 13 0-55 U/L Alkaline Phosphatase 42 40-136 U/L C-Reactive Protein High Sensitivity 0.64 H 0.00-0.50 MG/DL Total Protein 6.5 6.4-8.2 GM/DL Albumin 3.9 3.2-4.5 GM/DL Procalcitonin 0.01 <0.10 NG/ML Coronavirus 2019 ([facility]) Negative Negative Urine Color YELLOW Urine Clarity CLOUDY Urine pH 6.0 5-9 Urine Specific [place] 1.025 H 1.016-1.022 Urine Protein 2+ H NEGATIVE Urine Glucose (UA) NEGATIVE NEGATIVE Urine Ketones 3+ H NEGATIVE Urine Nitrite NEGATIVE NEGATIVE Urine Bilirubin 1+ H NEGATIVE Urine Urobilinogen 1.0 < = 1.0 MG/DL Urine Leukocyte Esterase 1+ H NEGATIVE Urine RBC (Auto) NEGATIVE NEGATIVE Urine RBC 5-10 H /HPF Urine WBC 5-10 H /HPF Urine Squamous Epithelial Cells 25-50 H /HPF Urine Crystals NONE /LPF Urine Bacteria LARGE H /HPF Urine Casts NONE /LPF Urine Mucus LARGE H /LPF Urine Culture Indicated YES Micro Results Microbiology 05/25/20 Influenza Types A,B Antigen ([facility]AT) - Final, Complete My Orders Orders - DESHAWN KNAPP Chest 1 View, Ap/Pa Only (05/25/20 09:14) Cbc With Automated Diff (05/25/20 09:14) Comprehensive Metabolic Panel (05/25/20 09:14) Hs C Reactive Protein (05/25/20 09:14) Procalcitonin (Pct) (05/25/20 09:14) Ua Culture If Indicated (05/25/20 09:14) Influenza A And B Antigens (05/25/20 09:14) Ondansetron Injection (Zofran Injectio (05/25/20 09:15) Covid 19 Inhouse Test (05/25/20 09:14) Lactated Ringers (Lr 1000 Ml Iv Solution (05/25/20 09:30) Urine Culture (05/25/20 09:20) Coronavirus Sars-Cov-2 So 2018 (05/25/20 11:46) Medications Given in ED Current Medications Medications Dose Ordered Sig/Noa Route Start Time Stop Time Status Last Admin Dose Admin Lactated Ringer's 1,000 ml @ 0 mls/hr Q0M ONCE IV 05/25/20 09:30 05/25/20 09:31 DC 05/25/20 09:22 1,000 MLS/HR Ondansetron HCl 4 mg ONCE ONCE IVP 05/25/20 09:15 05/25/20 09:16 DC 05/25/20 09:22 4 MG Vital Signs/I&O 05/25/20 09:00 Temp 36.4 Pulse 73 Resp 16 B/P (MAP) 122/81 (95) Pulse Ox 99 O2 Delivery Room Air Progress Progress Note : Time: 11:08 Progress Note After a dose of Zofran her symptoms have improved. Her fluids are done and her vital signs are normal. Suspect she has a viral gastroenteritis and her urine is contaminated. She is not having any urinary symptoms so we will hold off on antibiotics until culture proven or she starts to have urinary symptoms. Follow-up with Dr. Avelar. We will keep her as a PUI until a second Covid is negative. Diagnostic Imaging Diagonstic Imaging: Xray Plain Films/CT/US/NM/MRI: chest Comments [facility], [place] NAME: [facility] REC#: [id number] PT STATUS: DEP ER : 1995 PHYSICIAN: DESHAWN KNAPP MD ADMIT DATE: 05/25/20/ER Signed Date of Exam:05/25/20 CHEST 1 VIEW, AP/PA ONLY INDICATION: soa COMPARISON: None FINDINGS: Single frontal view of the chest demonstrates normal heart size and pulmonary vascularity. The lungs are well aerated and clear. No large pleural effusion or pneumothorax is seen. The visualized osseous structures show no acute abnormalities. IMPRESSION: 1. No acute cardiopulmonary process. Dictated by: Dictated on workstation # [id number] Dict: 05/25/20 1020 Trans: 05/25/20 1125 [id number] Interpreted by: SHWETA MORRIS MD Electronically signed by: SHWETA MORRIS MD 05/25/20 1125 Reviewed: Reviewed by Me Departure Impression Primary Impression: Viral gastroenteritis Additional Impressions: Qualified Codes: Z3A.14 - 14 weeks gestation of Person under investigation for COVID-19 Disposition: HOME, SELF-CARE Condition: Improved Departure-Patient Inst. Decision time for Depature: 11:00 Referrals: BRITTANI AVELAR MD (PCP/Family) Primary Care Physician Patient Instructions: Coronavirus Disease 2019 (COVID-19) in (DC), [id number] Add. Discharge Instructions: I suspect you have a virus causing your gastroenteritis symptoms. It will resolve usually under a week. Usual job is to stay hydrated with water, sports drinks etc. Phenergan 1 tablet every 6 hours as necessary for nausea and/or vomiting. Zofran/ondansetron 1 tablet under the tongue every 6 hours as necessary for nausea or vomiting. Return to the ER for intractable symptoms despite medicines. You are to be on quarantine until you receive the results of your second Covid test. If it is negative then you just need to be 72 hours symptom-free without medicines to mask your symptoms before leaving quarantine. If you are positive for Covid then follow-up with your primary care provider by phone and you are to be on quarantine for 10 days from the start of your symptoms and until you are symptom-free for 72 hours without medicines to mask your symptoms. All discharge instructions reviewed with patient and/or family. Voiced understanding. Scripts Ondansetron (Ondansetron Odt) 4 Mg Tab.rapdis 4 MG PO Q6H PRN for NAUSEA/VOMITING, #8 TAB 0 Refills Prov: DESHAWN KNAPP 05/25/20 Promethazine HCl (Promethazine Tablet) 25 Mg Tablet 25 MG PO Q6H PRN for NAUSEA/VOMITING, #10 TAB 0 Refills Prov: DESHAWN KNAPP 05/25/20 Work/School Note: Work Release Form Date Seen in the Emergency Department: May 25, 2020 Return to Work: May 28, 2020 Restrictions: No Restrictions Other Restrictions Listed Below: Off quarantine when 72 hours symptom-free with negative test. Copy Copies To 1: BRITTANI AVELAR MD, TITUS J May 25, 2020 09:18
[2020-05-25 09:23] LABS: BASOPHILS % (AUTO) 0 % (0-10); EOSINOPHILS # (AUTO) 0.1 10^3/uL (0.0-0.3); EOSINOPHILS % (AUTO) 1 % (0-10); HEMATOCRIT 34 % (35-52); HEMOGLOBIN 11.1 g/dL (11.5-16.0); LYMPHOCYTES # (AUTO) 1.5 10^3/uL (1.0-4.0); LYMPHOCYTES % (AUTO) 25 % (12-44); MEAN CORPUSCULAR HEMOGLOBIN 30 pg (25-34); MEAN CORPUSCULAR HGB CONC 33 g/dL (32-36); MEAN CORPUSCULAR VOLUME 90 fL (80-99); MEAN PLATELET VOLUME 10.5 fL (9.0-12.2); MONOCYTES # (AUTO) 0.3 10^3/uL (0.0-1.0); MONOCYTES % (AUTO) 5 % (0-12); NEUTROPHILS % (AUTO) 69 % (42-75); PLATELET COUNT 241 10^3/uL (130-400); WHITE BLOOD COUNT 5.8 10^3/uL (4.3-11.0)
[2020-05-25 09:26] LABS: BILIRUBIN,URINE 1+ (NEGATIVE); CLARITY,URINE CLOUDY; COLOR,URINE YELLOW; GLUCOSE, URINE (UA) NEGATIVE (NEGATIVE); KETONES,URINE 3+ (NEGATIVE); LEUKOCYTE ESTERASE ,URINE 1+ (NEGATIVE); NITRITE,URINE NEGATIVE (NEGATIVE); PROTEIN,URINE 2+ (NEGATIVE)
[2020-05-25] MEDS ORDERED: LACTATED RINGERS 1,000 ML IV ONE (09:30)
[2020-05-25 09:36] LABS: ALANINE AMINOTRANSFERASE 13 U/L (0-55); ALBUMIN 3.9 GM/DL (3.2-4.5); ALKALINE PHOSPHATASE 42 U/L (40-136); BILIRUBIN,TOTAL 0.3 MG/DL (0.1-1.0); BUN/CREATININE RATIO 10; CALCIUM 8.5 MG/DL (8.5-10.1); CARBON DIOXIDE 21 MMOL/L (21-32); CHLORIDE 105 MMOL/L (98-107); GFR ESTIMATED > 60; GLUCOSE 91 MG/DL (70-105); POTASSIUM 3.2 MMOL/L (3.6-5.0); SODIUM 138 MMOL/L (135-145); TOTAL PROTEIN 6.5 GM/DL (6.4-8.2)
[2020-05-25 09:41] LABS: BACTERIA,URINE LARGE /HPF; SQUAMOUS EPITHELIAL CELL,UR 25-50 /HPF
--- NOTE | 2020-05-25 10:25 | Diagnostic Imaging Report ---
INDICATION: soa COMPARISON: None FINDINGS: Single frontal view of the chest demonstrates normal heart size and pulmonary vascularity. The lungs are well aerated and clear. No large pleural effusion or pneumothorax is seen. The visualized osseous structures show no acute abnormalities. IMPRESSION: 1. No acute cardiopulmonary process. Dictated by: Dictated on workstation # [id number]
[2020-05-25] MEDS ORDERED: PROM25TA14 PO (11:14)
[2020-05-25] MEDS ORDERED: ONDA4TAB11 PO (11:14)
== END 2020-05-25 11:25 | disposition home or self-care (01) ==
LOC: EDUNIT# 09:00 → ER 09:02
DX: O99.611 Diseases of the digestive system complicating pregnancy, first trimester (principal); A08.4 Viral intestinal infection, unspecified; O99.341 Other mental disorders complicating pregnancy, first trimester; F31.9 Bipolar disorder, unspecified; Z87.59 Personal history of other complications of pregnancy, childbirth and the puerperium; Z20.822 Contact with and (suspected) exposure to COVID-19; Z3A.14 14 weeks gestation of pregnancy
CPT/HCPCS: 36415; 71045; 80053; 81000; 84145; 85025; 86141; 87088; 87635; 87804

== ENCOUNTER 2020-07-07 11:50 | Emergency (ER) | payer MEDICAID ==
[~2020-07-07] VITALS: Ht 165.1 cm; Wt 61.3 kg
[~2020-07-07 11:50] MED LIST changes: +ONDA4TAB11 PO; +PROM25TA14 PO
--- NOTE | 2020-07-07 12:10 | ED GI ---
General Chief Complaint: Abdominal/GI Problems Stated Complaint: COUGH,CHEST PAIN,N/V Source of Information: Patient Exam Limitations: No Limitations History of Present Illness Date Seen by Provider: July 07, 2020 Time Seen by Provider: 12:00 Initial Comments To ER by private vehicle with reports of a cough, chest pain, vomiting and na usea as well as general malaise that she awakened with this morning. She has urinary frequency but she is 20 weeks and believes it to be related to that. She denies fevers. Her father does have Covid and she dropped some food off at his house on the front porch but did not go inside or had any direct contact with him. This happened within the past week. She is 20 weeks gestation G5, P3 Ab1. She took her Zofran at home because she has been having some nausea with this . Typically the Zofran helps but today it did not. Timing/Duration: 4-6 Hours Severity/Quality: Moderate Radiation: No Radiation Activities at Onset: None Associated Symptoms: Nausea/Vomiting Allergies and Home Medications Allergies Coded Allergies: No Known Drug Allergies (Unverified , 06/05/08) Home Medications Nitrofurantoin Monohyd/M-Cryst 100 Mg Capsule, 1 TAB PO BID Prescribed by: VADIM WALKER on 10/15/18 155 Ondansetron 8 Mg Tab.rapdis, 8 MG PO Q6H PRN for NAUSEA/VOMITING Prescribed by: VADIM WALKER on 10/15/18 1554 Ondansetron 4 Mg Tab.rapdis, 4 MG PO Q6H PRN for NAUSEA/VOMITING Prescribed by: DESHAWN KNAPP on 05/25/20 1114 Promethazine HCl 25 Mg Tablet, 25 MG PO Q6H PRN for NAUSEA/VOMITING Prescribed by: DESHAWN KNAPP on 05/25/20 1114 Sertraline HCl 25 Mg Tablet, 25 MG PO DAILY Prescribed by: BRITTANI AVELAR on 01/05/18 0744 Patient Home Medication List Home Medication List Reviewed: Yes Review of Systems Review of Systems Constitutional: see HPI EENTM: No Symptoms Reported Respiratory: See HPI, Cough Cardiovascular: See HPI, Chest Pain Gastrointestinal: See HPI, Nausea Genitourinary: No Symptoms Reported Musculoskeletal: no symptoms reported Skin: no symptoms reported Psychiatric/Neurological: No Symptoms Reported Endocrine: No Symptoms Reported Hematologic/Lymphatic: No Symptoms Reported Past Errclmw-Uyruzy-Nrxfuo Hx Patient Social History Alcohol Beverage of Choice: Rum Drug of Choice: denies Type Used: Cigarettes Former Smoker, Quit: Apr 22, 2017 2nd Hand Smoke Exposure: No Recent Hopitalizations: No Immunizations Up To Date Tetanus Booster (TDap): Less than 5yrs PED Vaccines UTD: Yes Date of Influenza Vaccine: Dec 29, 2017 Seasonal Allergies Seasonal Allergies: Yes Past Medical History Surgeries: Yes (D&c) Tonsillectomy Respiratory: No Cardiac: No Neurological: No Reproductive Disorders: No Female Reproductive Disorders: Denies Sexually Transmitted Disease: No HIV/AIDS: No Genitourinary: No Gastrointestinal: Yes Chronic Constipation Musculoskeletal: No Endocrine: No HEENT: No Cancer: No Psychosocial: Yes Suicide Attempts, Bipolar, Depression Integumentary: No Blood Disorders: No Adverse Reaction/Blood Tranf: No Family Medical History Alcoholism 19 FATHER (PGF) Drug abuse 19 MOTHER FH: bipolar disorder 19 FATHER FH: depression 19 FATHER 19 MOTHER Hypercholesterolemia 19 FATHER Hypertension 19 FATHER No Family History of: Abdominal aortic aneurysm Dillon's disease Aphasia Cancer Cancer of colon Cataract Chest pain Congenital heart disease Congestive heart failure Cystic fibrosis Dementia Dysphagia Family history: Allergy Family history: Alzheimer's disease Family history: Arthritis Family history: Asthma Family history: Breast disease Family history: Cardiovascular disease Family history: Coronary thrombosis Family history: Diabetes mellitus Family history: Gastrointestinal disease Family history: Glaucoma Family history: Hypertension Family history: Osteoporosis Family history: Thyroid disorder Headache Hearing loss Heart disease Hereditary disease History of - anemia History of - disorder History of - respiratory disease History of drug abuse Human immunodeficiency virus (HIV) seropositivity Hypercholesterolemia Infertile Kidney disease Malignant neoplasm of lung Myocardial infarction Parkinson's disease Prostate cancer Psychotic disorder Seizure disorder Stroke Tuberculosis Visual impairment No Pertinent Family Hx, Psychiatric Problems Physical Exam Vital Signs Vital Signs - First Documented 07/07/20 11:51 Temp 35.6 Pulse 88 Resp 18 B/P (MAP) 116/68 (84) Pulse Ox 100 O2 Delivery Room Air Capillary Refill : Height/Weight/BMI Height: 5'5.00" Weight: 144lbs. 0oz. 65.803077uw; 21.00 BMI Method:Actual General Appearance: WD/WN, no apparent distress, other (Alert and oriented no distress very pleasant) HEENT: PERRL/EOMI, normal ENT inspection Respiratory: no respiratory distress, no accessory muscle use Cardiovascular: regular rate, rhythm, no murmur Gastrointestinal: normal bowel sounds, non tender, soft Extremities: normal range of motion, non-tender Neurologic/Psychiatric: alert, normal mood/affect, oriented x 3 Skin: normal color, warm/dry Progress/Results/Core Measures Results/Orders Lab Results Laboratory Tests Test 07/07/20 12:07 07/07/20 12:16 07/07/20 13:24 Range/Units White Blood Count 7.6 4.3-11.0 10^3/uL Red Blood Count 3.93 3.80-5.11 10^6/uL Hemoglobin 11.6 11.5-16.0 g/dL Hematocrit 35 35-52 % Mean Corpuscular Volume 89 80-99 fL Mean Corpuscular Hemoglobin 30 25-34 pg Mean Corpuscular Hemoglobin Concent 33 32-36 g/dL Red Cell Distribution Width 12.7 10.0-14.5 % Platelet Count 220 130-400 10^3/uL Mean Platelet Volume 10.7 9.0-12.2 fL Immature Granulocyte % (Auto) 0 % Neutrophils (%) (Auto) 80 H 42-75 % Lymphocytes (%) (Auto) 16 12-44 % Monocytes (%) (Auto) 4 0-12 % Eosinophils (%) (Auto) 0 0-10 % Basophils (%) (Auto) 0 0-10 % Neutrophils # (Auto) 6.0 1.8-7.8 10^3/uL Lymphocytes # (Auto) 1.2 1.0-4.0 10^3/uL Monocytes # (Auto) 0.3 0.0-1.0 10^3/uL Eosinophils # (Auto) 0.0 0.0-0.3 10^3/uL Basophils # (Auto) 0.0 0.0-0.1 10^3/uL Immature Granulocyte # (Auto) 0.0 0.0-0.1 10^3/uL Sodium Level 139 135-145 MMOL/L Potassium Level 3.9 3.6-5.0 MMOL/L Chloride Level 106 98-107 MMOL/L Carbon Dioxide Level 25 21-32 MMOL/L Anion Gap 8 5-14 MMOL/L Blood Urea Nitrogen 5 L 7-18 MG/DL Creatinine 0.53 L 0.60-1.30 MG/DL Estimat Glomerular Filtration Rate > 60 BUN/Creatinine Ratio 9 Glucose Level 82 70-105 MG/DL Calcium Level 8.2 L 8.5-10.1 MG/DL Corrected Calcium 8.6 8.5-10.1 MG/DL Total Bilirubin 0.3 0.1-1.0 MG/DL Aspartate Amino Transf (AST/SGOT) 13 5-34 U/L Alanine Aminotransferase (ALT/SGPT) 9 0-55 U/L Alkaline Phosphatase 43 40-136 U/L Total Protein 6.4 6.4-8.2 GM/DL Albumin 3.5 3.2-4.5 GM/DL Lipase 18 8-78 U/L SARS-CoV-2 RNA (RT-PCR) Not Detected Not Detecte Urine Color YELLOW Urine Clarity SL CLOUDY Urine pH 7.5 5-9 Urine Specific [place] 1.020 1.016-1.022 Urine Protein TRACE H NEGATIVE Urine Glucose (UA) NEGATIVE NEGATIVE Urine Ketones NEGATIVE NEGATIVE Urine Nitrite NEGATIVE NEGATIVE Urine Bilirubin NEGATIVE NEGATIVE Urine Urobilinogen 0.2 < = 1.0 MG/DL Urine Leukocyte Esterase 1+ H NEGATIVE Urine RBC (Auto) NEGATIVE NEGATIVE Urine RBC NONE /HPF Urine WBC 5-10 H /HPF Urine Squamous Epithelial Cells 10-25 H /HPF Urine Crystals NONE /LPF Urine Bacteria MODERATE H /HPF Urine Casts NONE /LPF Urine Mucus LARGE H /LPF Urine Culture Indicated YES My Orders Orders - FABRICE PAEZ ENVIRONMENT ARTIST Cbc With Automated Diff (07/07/20 12:04) Comprehensive Metabolic Panel (07/07/20 12:04) Ua Culture If Indicated (07/07/20 12:04) Lipase (07/07/20 12:04) Covid 19 Inhouse Test (07/07/20 12:04) Ns Iv 1000 Ml (Sodium Chloride 0.9%) (07/07/20 12:15) Ondansetron Injection (Zofran Injectio (07/07/20 12:15) Diphenhydramine Injection (Benadryl Inje (07/07/20 12:15) Antacid Suspension (Mylanta Suspension (07/07/20 12:15) Lidocaine 2% Viscous 15 Ml (Xylocaine Vi (07/07/20 12:15) Urine Culture (07/07/20 13:24) Ceftriaxone For Iv Use (Rocephin For I (07/07/20 14:00) Medications Given in ED Current Medications Medications Dose Ordered Sig/Noa Route Start Time Stop Time Status Last Admin Dose Admin Al Hydrox/Mg Hydrox/Simethicone 30 ml ONCE ONCE PO 07/07/20 12:15 07/07/20 12:16 DC 07/07/20 12:25 30 ML Diphenhydramine HCl 25 mg ONCE ONCE IVP 07/07/20 12:15 07/07/20 12:16 DC 07/07/20 12:18 25 MG Lidocaine HCl 10 ml ONCE ONCE PO 07/07/20 12:15 07/07/20 12:16 DC 07/07/20 12:25 10 ML Ondansetron HCl 8 mg ONCE ONCE IVP 07/07/20 12:15 07/07/20 12:16 DC 07/07/20 12:18 8 MG Vital Signs/I&O 07/07/20 11:51 Temp 35.6 Pulse 88 Resp 18 B/P (MAP) 116/68 (84) Pulse Ox 100 O2 Delivery Room Air Departure Impression Primary Impression: Nausea and vomiting during Additional Impression: Bacteriuria during Disposition: 01 HOME, SELF-CARE Condition: Stable Departure-Patient Inst. Decision time for Depature: 14:01 Referrals: BRITTANI AVELAR MD (PCP/Family) Primary Care Physician Patient Instructions: Nausea and Vomiting of (DC) Add. Discharge Instructions: 1. Drink plenty of fluids. Nausea medication as needed. Return to ER for any worsening. Take antibiotics as directed. All discharge instructions reviewed with patient and/or family. Voiced understanding. Scripts Promethazine HCl (Promethazine Tablet) 25 Mg Tablet 25 MG PO Q8H PRN for NAUSEA/VOMITING, #10 TAB Prov: FABRICE PAEZ ENVIRONMENT ARTIST 07/07/20 Cephalexin (Cephalexin) 500 Mg Tablet 500 MG PO TID, #9 TAB Prov: FABRICE PAEZ ENVIRONMENT ARTIST 07/07/20 FABRICE PAEZ ENVIRONMENT ARTIST July 07, 2020 12:10
[2020-07-07 12:11] LABS: BASOPHILS % (AUTO) 0 % (0-10); EOSINOPHILS % (AUTO) 0 % (0-10); HEMATOCRIT 35 % (35-52); HEMOGLOBIN 11.6 g/dL (11.5-16.0); LYMPHOCYTES # (AUTO) 1.2 10^3/uL (1.0-4.0); LYMPHOCYTES % (AUTO) 16 % (12-44); MEAN CORPUSCULAR HEMOGLOBIN 30 pg (25-34); MEAN CORPUSCULAR HGB CONC 33 g/dL (32-36); MEAN CORPUSCULAR VOLUME 89 fL (80-99); MEAN PLATELET VOLUME 10.7 fL (9.0-12.2); MONOCYTES # (AUTO) 0.3 10^3/uL (0.0-1.0); MONOCYTES % (AUTO) 4 % (0-12); NEUTROPHILS % (AUTO) 80 % (42-75); PLATELET COUNT 220 10^3/uL (130-400); WHITE BLOOD COUNT 7.6 10^3/uL (4.3-11.0)
[2020-07-07] MEDS ORDERED: ONDANSETRON 4 MG/2 ML (SDV) Z0FRAN IVP ONE (12:15)
[2020-07-07] MEDS ORDERED: diphenhydrAMINE 50 MG/ML INJ (BENADRYL) IVP ONE (12:15)
[2020-07-07] MEDS ORDERED: ANTACID SUSP 30 ML UDC (MYLANTA) PO ONE (12:15)
[2020-07-07] MEDS ORDERED: NS IV 1000 ML 1,000 ML IV SCH (12:15)
[2020-07-07] MEDS ORDERED: LIDOCAINE 2% VISCOUS 15 ML UDC PO ONE (12:15)
[2020-07-07 12:20] LABS: ALBUMIN 3.5 GM/DL (3.2-4.5); CHLORIDE 106 MMOL/L (98-107); POTASSIUM 3.9 MMOL/L (3.6-5.0); SODIUM 139 MMOL/L (135-145)
[2020-07-07 12:21] LABS: CALCIUM 8.2 MG/DL (8.5-10.1)
[2020-07-07 12:22] LABS: GLUCOSE 82 MG/DL (70-105); TOTAL PROTEIN 6.4 GM/DL (6.4-8.2)
[2020-07-07 12:24] LABS: BILIRUBIN,TOTAL 0.3 MG/DL (0.1-1.0); CARBON DIOXIDE 25 MMOL/L (21-32)
[2020-07-07 12:26] LABS: ALKALINE PHOSPHATASE 43 U/L (40-136); CREATININE SERUM 0.53 MG/DL (0.60-1.30); GFR ESTIMATED > 60
[2020-07-07 12:27] LABS: BUN/CREATININE RATIO 9
[2020-07-07 12:29] LABS: ALANINE AMINOTRANSFERASE 9 U/L (0-55); LIPASE 18 U/L (8-78)
[2020-07-07 13:31] LABS: BILIRUBIN,URINE NEGATIVE (NEGATIVE); CLARITY,URINE SL CLOUDY; COLOR,URINE YELLOW; GLUCOSE, URINE (UA) NEGATIVE (NEGATIVE); KETONES,URINE NEGATIVE (NEGATIVE); LEUKOCYTE ESTERASE ,URINE 1+ (NEGATIVE); NITRITE,URINE NEGATIVE (NEGATIVE); PH,URINE 7.5 (5-9); PROTEIN,URINE TRACE (NEGATIVE)
[2020-07-07 13:50] LABS: BACTERIA,URINE MODERATE /HPF
[2020-07-07] MEDS ORDERED: cefTRIAXone FOR IV USE 1,000 MG in WATER (STERILE) FOR INJECTION 10 ML IV ONE (14:00)
[2020-07-07] MEDS ORDERED: CEPH500T PO (14:03)
[2020-07-07] MEDS ORDERED: PROM25TA14 PO (14:03)
[2020-07-07] MEDS ORDERED: PROMETHAZINE INJ 25 MG/ML (PHENERGAN) AMP IVP ONE (14:15)
[2020-07-07 14:42] VITALS: BP 99/44
== END 2020-07-07 14:41 | disposition home or self-care (01) ==
LOC: EDUNIT# 11:50 → ER 11:52
DX: O21.0 Mild hyperemesis gravidarum (principal); O23.42 Unspecified infection of urinary tract in pregnancy, second trimester; F32.9 Major depressive disorder, single episode, unspecified; Z20.822 Contact with and (suspected) exposure to COVID-19; Z3A.20 20 weeks gestation of pregnancy; Z87.891 Personal history of nicotine dependence; Z79.899 Other long term (current) drug therapy
CPT/HCPCS: 36415; 80053; 81000; 83690; 85025; 87088; 87636

== ENCOUNTER 2020-07-20 17:37 | Outpatient (CLI) | payer MEDICAID ==
[~2020-07-20] VITALS: Ht 165.1 cm; Wt 66.2 kg
[~2020-07-20 17:37] MED LIST changes: +CEPH500T PO
[2020-07-20 18:12] VITALS: BP 105/70
[2020-07-20 18:15] VITALS: BP 105/70
[2020-07-20] MEDS ORDERED: PREN-37 PO (18:31)
== END 2020-07-20 18:35 | disposition home or self-care (01) ==
LOC: WSo 17:37 → LDRP 17:39 → WSo 18:35
PROVIDERS: ATTEND Family Medicine
DX: O36.8190 Decreased fetal movements, unspecified trimester, not applicable or unspecified (principal); Z3A.00 Weeks of gestation of pregnancy not specified
CPT/HCPCS: 99212

== ENCOUNTER 2020-08-11 09:34 | Emergency (ER) | payer MEDICAID ==
[~2020-08-11 09:34] MED LIST changes: +PREN-37 PO
== END 2020-08-11 09:56 | disposition left against medical advice (07) ==
LOC: EDUNIT# 09:34 → ER 09:36
DX: O26.892 Other specified pregnancy related conditions, second trimester (principal); R10.9 Unspecified abdominal pain; R51.9 Headache, unspecified; R23.2 Flushing; O21.2 Late vomiting of pregnancy; Z3A.24 24 weeks gestation of pregnancy

== ENCOUNTER 2020-08-11 10:00 | Outpatient (CLI) | payer MEDICAID ==
[~2020-08-11] VITALS: Ht 165 cm; Wt 67.6 kg
[2020-08-11 10:24] LABS: BILIRUBIN,URINE NEGATIVE (NEGATIVE); CLARITY,URINE CLOUDY; COLOR,URINE DARK YELLOW; GLUCOSE, URINE (UA) NEGATIVE (NEGATIVE); KETONES,URINE TRACE (NEGATIVE); LEUKOCYTE ESTERASE ,URINE 2+ (NEGATIVE); NITRITE,URINE NEGATIVE (NEGATIVE); PROTEIN,URINE TRACE (NEGATIVE)
[2020-08-11 10:28] VITALS: BP 118/72
[2020-08-11 10:32] VITALS: BP 118/72
[2020-08-11 10:40] LABS: BACTERIA,URINE LARGE /HPF; WBC,URINE 50-100 /HPF
[2020-08-11] MEDS ORDERED: LACTATED RINGERS 1,000 ML IV ONE (10:54)
[2020-08-11] MEDS ORDERED: LACTATED RINGERS 1,000 ML IV SCH (11:00)
[2020-08-11] MEDS ORDERED: ONDANSETRON 4 MG/2 ML (SDV) Z0FRAN IVP ONE (11:00)
[2020-08-11 13:24] VITALS: BP 116/72
--- NOTE | 2020-08-13 07:57 | Physician Query-Final Dx ---
CATHLEEN ODOM 08/13/20 0757: Clinic Account Progress/Dx Physician Query: Please give diagnosis Please include # weeks gestation Date of Service Aug 11, 2020 at 10:00 BRITTANI AVELAR MD 08/13/20 1706: Clinic Account Progress/Dx DIAGNOSIS: Diagnosis Vomiting and diarrhea Viral gastroenteritis 25 weeks gestation CATHLEEN ODOM Aug 13, 2020 07:57 BRITTANI AVELAR MD Aug 13, 2020 17:06
== END 2020-08-11 13:35 | disposition home or self-care (01) ==
LOC: LDRP 10:00 → WSo 10:00
PROVIDERS: ATTEND Family Medicine
DX: Z34.92 Encounter for supervision of normal pregnancy, unspecified, second trimester (principal); Z3A.24 24 weeks gestation of pregnancy
CPT/HCPCS: 81000; 87088

== ENCOUNTER 2020-08-21 12:09 | Outpatient (CLI) | payer MEDICAID ==
[~2020-08-21] VITALS: Ht 165.1 cm; Wt 69.2 kg
[2020-08-21 12:53] LABS: BILIRUBIN,URINE NEGATIVE (NEGATIVE); CLARITY,URINE CLEAR; COLOR,URINE YELLOW; GLUCOSE, URINE (UA) NEGATIVE (NEGATIVE); KETONES,URINE 1+ (NEGATIVE); LEUKOCYTE ESTERASE ,URINE 2+ (NEGATIVE); NITRITE,URINE NEGATIVE (NEGATIVE); PROTEIN,URINE TRACE (NEGATIVE)
[2020-08-21 13:00] VITALS: BP 115/58
[2020-08-21 13:04] LABS: BACTERIA,URINE MODERATE /HPF
[2020-08-21] MEDS ORDERED: hydrOXYzine (VISTARIL/ATARAX) 25 MG capsule/tablet PO ONE (14:00)
--- NOTE | 2020-08-22 07:41 | Physician Query-Final Dx ---
Clinic Account Progress/Dx Physician Query: Please give diagnosis Please include # weeks gestation Date of Service Aug 21, 2020 at 12:09 CATHLEEN ODOM Aug 22, 2020 07:41
== END 2020-08-21 14:38 | disposition home or self-care (01) ==
LOC: WSo 12:09 → LDRP 12:10 → WSo 14:38
PROVIDERS: ATTEND Family Medicine
DX: O26.892 Other specified pregnancy related conditions, second trimester (principal); R10.9 Unspecified abdominal pain; Z3A.27 27 weeks gestation of pregnancy
CPT/HCPCS: 81000; 87088; 99213

== ENCOUNTER 2020-09-08 07:39 | Emergency (ER) | payer MEDICAID ==
[~2020-09-08] VITALS: Ht 165 cm; Wt 68.0 kg
--- NOTE | 2020-09-08 08:33 | ED Cough/URI ---
General Chief Complaint: Cough/Cold/Flu Symptoms Stated Complaint: SORE THROAT, FEVER,CONGESTION Nursing Triage Note: CONGESTION, COUGH, CHILLS X2 DAYS. 29 WEEKS GESTATION. History of Present Illness Date Seen by Provider: Sep 08, 2020 Time Seen by Provider: 08:21 Initial Comments Patient is a 25-year-old female who presents to the emergency department with 3 days of diarrhea, congestion and cough feeling chilled. Patient states she is not aware of any Covid exposures. She is not immunized. She is approximately 29 weeks gestation with a due date in late October. She is a G5, P4. She states she has had some increased vaginal discharge and has been dilating over the course of the past 3 weeks. She denies any significant abdominal cramping or pain but had a little bit yesterday. No musculoskeletal aches or pains. She has a little bit of a sore throat. No earache. None of her kids are sick at home. All other review of systems reviewed and negative except as stated above. Timing/Duration: getting worse Severity/Quality: mild, productive cough Associated Symptoms: cough, fever/chills, nasal congestion, sore throat Allergies and Home Medications Allergies Coded Allergies: No Known Drug Allergies (Unverified , 06/05/08) Home Medications Ondansetron 8 Mg Tab.rapdis, 8 MG PO Q6H PRN for NAUSEA/VOMITING Prescribed by: VADIM WALKER on 10/15/18 1554 Vit/Iron Fumarate/FA 1 Each Tablet, 1 EACH PO DAILY, (Reported) Sertraline HCl 25 Mg Tablet, 25 MG PO DAILY Prescribed by: BRITTANI AVELAR on 01/05/18 0744 Patient Home Medication List Home Medication List Reviewed: Yes Review of Systems Review of Systems Constitutional: see HPI EENTM: throat pain Respiratory: cough, short of breath Cardiovascular: no symptoms reported Gastrointestinal: diarrhea Genitourinary: no symptoms reported : Yes Expected Date of Delivery: Nov 19, 2020 Musculoskeletal: no symptoms reported Skin: no symptoms reported Psychiatric/Neurological: No Symptoms Reported All Other Systems Reviewed Negative Unless Noted: Yes Past Wdcawer-Bvwsgk-Frllpo Hx Patient Social History Tobacco Use?: No Substance use?: No Alcohol Use?: No Immunizations Up To Date Tetanus Booster (TDap): Less than 5yrs PED Vaccines UTD: Yes Seasonal Allergies Seasonal Allergies: Yes Past Medical History Surgeries: Yes (D&c) Tonsillectomy Respiratory: No Cardiac: No Neurological: No Expected Date of Delivery: Nov 19, 2020 Reproductive Disorders: No Female Reproductive Disorders: Denies Sexually Transmitted Disease: No HIV/AIDS: No Genitourinary: No Gastrointestinal: Yes Chronic Constipation Musculoskeletal: No Endocrine: No HEENT: No Cancer: No Psychosocial: Yes Suicide Attempts, Bipolar, Depression Integumentary: No Blood Disorders: No Adverse Reaction/Blood Tranf: No Family Medical History Alcoholism 19 FATHER (PGF) Drug abuse 19 MOTHER FH: bipolar disorder 19 FATHER FH: depression 19 FATHER 19 MOTHER Hypercholesterolemia 19 FATHER Hypertension 19 FATHER No Family History of: Abdominal aortic aneurysm Amite's disease Aphasia Cancer Cancer of colon Cataract Chest pain Congenital heart disease Congestive heart failure Cystic fibrosis Dementia Dysphagia Family history: Allergy Family history: Alzheimer's disease Family history: Arthritis Family history: Asthma Family history: Breast disease Family history: Cardiovascular disease Family history: Coronary thrombosis Family history: Diabetes mellitus Family history: Gastrointestinal disease Family history: Glaucoma Family history: Hypertension Family history: Osteoporosis Family history: Thyroid disorder Headache Hearing loss Heart disease Hereditary disease History of - anemia History of - disorder History of - respiratory disease History of drug abuse Human immunodeficiency virus (HIV) seropositivity Hypercholesterolemia Infertile Kidney disease Malignant neoplasm of lung Myocardial infarction Parkinson's disease Prostate cancer Psychotic disorder Seizure disorder Stroke Tuberculosis Visual impairment No Pertinent Family Hx, Psychiatric Problems Physical Exam Vital Signs - First Documented 09/08/20 07:51 Temp 36.3 Pulse 86 Resp 16 B/P (MAP) 114/65 (81) Pulse Ox 98 O2 Delivery Room Air Capillary Refill : Less Than 3 Seconds Height: 5'5.00" Weight: 144lbs. 0oz. [id number]; 24.00 BMI Method:Actual General Appearance: WD/WN, no apparent distress Eyes: Bilateral Eye Normal Inspection, Bilateral Eye PERRL, Bilateral Eye EOMI HEENT: normal ENT inspection, pharynx normal Neck: non-tender, full range of motion, supple, normal inspection Respiratory: lungs clear, normal breath sounds, no respiratory distress, no accessory muscle use Cardiovascular: regular rate, rhythm Gastrointestinal: soft, other (Gravid uterus) Extremities: non-tender, normal inspection, no pedal edema Neurologic/Psychiatric: alert, normal mood/affect, oriented x 3 Skin: normal color, warm/dry Progress/Results/Core Measures Suspected Sepsis SIRS Temperature: Pulse: 86 Respiratory Rate: 16 Blood Pressure 114 /65 Mean: 81 Results/Orders Lab Results Laboratory Tests Test 09/08/20 07:55 Range/Units SARS-CoV-2 RNA (RT-PCR) Not Detected Not Detecte My Orders Orders - LUIGI SHAH MD Covid 19 Inhouse Test (09/08/20 08:19) Vital Signs/I&O 09/08/20 07:51 Temp 36.3 Pulse 86 Resp 16 B/P (MAP) 114/65 (81) Pulse Ox 98 O2 Delivery Room Air Capillary Refill : Less Than 3 Seconds Blood Pressure Mean: 81 Departure Impression Primary Impression: Viral syndrome Additional Impression: Second trimester Disposition: 01 HOME, SELF-CARE Condition: Stable Departure-Patient Inst. Decision time for Depature: 08:32 Referrals: BRITTANI AVELAR MD (PCP/Family) Primary Care Physician Patient Instructions: Viral Syndrome (DC) Add. Discharge Instructions: Drink plenty of fluids to stay well-hydrated. Take lohl-eya-akxpbbx extra strength Tylenol, 2 tablets every 4-6 hours as needed for cramping/pain/fever over 100.4. Follow-up with your RETAIL SERVICE REPRESENTATIVE. Return to the emergency department for any new, concerning or emergent complaints. LUIGI SHAH MD Sep 08, 2020 08:33
[2020-09-08 09:10] VITALS: BP 114/65
== END 2020-09-08 09:10 | disposition home or self-care (01) ==
LOC: EDUNIT# 07:39 → ER 07:41
DX: O98.513 Other viral diseases complicating pregnancy, third trimester (principal); B34.9 Viral infection, unspecified; F32.9 Major depressive disorder, single episode, unspecified; Z3A.29 29 weeks gestation of pregnancy; Z20.822 Contact with and (suspected) exposure to COVID-19; Z79.899 Other long term (current) drug therapy
CPT/HCPCS: 87636

== ENCOUNTER 2020-09-14 14:17 | Outpatient (CLI) | payer MEDICAID ==
[~2020-09-14] VITALS: Ht 165.1 cm; Wt 72.9 kg
[2020-09-14 14:45] VITALS: BP 108/66
--- NOTE | 2020-09-17 08:46 | Physician Query-Final Dx ---
Clinic Account Progress/Dx Physician Query: Please give diagnosis Please include # weeks gestation Date of Service Sep 14, 2020 at 14:17 CATHLEEN ODOM Sep 17, 2020 08:46
== END 2020-09-14 15:50 | disposition home or self-care (01) ==
LOC: WSo 14:17 → LDRP 14:19 → WSo 15:50
PROVIDERS: ATTEND Family Medicine
DX: O26.899 Other specified pregnancy related conditions, unspecified trimester (principal); R10.2 Pelvic and perineal pain; Z3A.00 Weeks of gestation of pregnancy not specified
CPT/HCPCS: 99213

== ENCOUNTER 2020-10-10 12:00 | Outpatient (CLI) | payer MEDICAID ==
[~2020-10-10] VITALS: Ht 165 cm; Wt 72.5 kg
[2020-10-10 13:04] VITALS: BP 107/61
[2020-10-10 13:08] VITALS: BP 107/61
[2020-10-10 13:08] LABS: BILIRUBIN,URINE NEGATIVE (NEGATIVE); CLARITY,URINE CLEAR; COLOR,URINE YELLOW; GLUCOSE, URINE (UA) NEGATIVE (NEGATIVE); KETONES,URINE NEGATIVE (NEGATIVE); LEUKOCYTE ESTERASE ,URINE 1+ (NEGATIVE); NITRITE,URINE NEGATIVE (NEGATIVE); PROTEIN,URINE NEGATIVE (NEGATIVE)
[2020-10-10 13:19] LABS: AMORPHOUS SEDIMENT,UR FEW AMOR URATES /LPF; BACTERIA,URINE FEW /HPF; WBC,URINE 25-50 /HPF
[2020-10-10 14:00] VITALS: BP 107/61
--- NOTE | 2020-10-11 08:12 | Physician Query-Final Dx ---
CATHLEEN ODOM 10/11/20 0812: Clinic Account Progress/Dx Physician Query: Please give diagnosis Please include # weeks gestation Date of Service Oct 10, 2020 at 12:00 BRITTANI AVELAR MD 10/11/20 1835: Clinic Account Progress/Dx DIAGNOSIS: Diagnosis contractions without cervical change 34 weeks gestation CATHLEEN ODOM Oct 11, 2020 08:12 BRITTANI AVELAR MD Oct 11, 2020 18:35
== END 2020-10-10 14:00 | disposition home or self-care (01) ==
LOC: WSo 12:00 → LDRP 12:02 → WSo 14:00
PROVIDERS: ATTEND Family Medicine
DX: O62.8 Other abnormalities of forces of labor (principal); Z3A.34 34 weeks gestation of pregnancy
CPT/HCPCS: 81000; 87088; 99213

== ENCOUNTER 2020-11-08 11:54 | Inpatient (IN) | payer MEDICAID ==
[2020-11-08] VITALS (41 sets, daily range): BP systolic 97–135; BP diastolic 57–82
[~2020-11-08] VITALS: Ht 165.1 cm; Wt 62.5 kg
[2020-11-08] MEDS ORDERED: MINERAL OIL CONCENTRATE 99.9% 15 ML UDC TOP PRN (12:45)
[2020-11-08] MEDS ORDERED: OXYTOCIN PRE-MIX DRIP 500 ML IV SCH ×2 (12:45→20:45)
[2020-11-08] MEDS ORDERED: D5 LR IV SOLUTION 1,000 ML IV SCH (12:45)
[2020-11-08 12:52] LABS: BASOPHILS % (AUTO) 0 % (0-10); EOSINOPHILS # (AUTO) 0.1 10^3/uL (0.0-0.3); EOSINOPHILS % (AUTO) 1 % (0-10); HEMATOCRIT 33 % (35-52); HEMOGLOBIN 10.8 g/dL (11.5-16.0); LYMPHOCYTES # (AUTO) 2.1 10^3/uL (1.0-4.0); LYMPHOCYTES % (AUTO) 25 % (12-44); MEAN CORPUSCULAR HEMOGLOBIN 28 pg (25-34); MEAN CORPUSCULAR HGB CONC 33 g/dL (32-36); MEAN CORPUSCULAR VOLUME 86 fL (80-99); MEAN PLATELET VOLUME 10.7 fL (9.0-12.2); MONOCYTES # (AUTO) 0.4 10^3/uL (0.0-1.0); MONOCYTES % (AUTO) 5 % (0-12); NEUTROPHILS # (AUTO) 5.7 10^3/uL (1.8-7.8); NEUTROPHILS % (AUTO) 68 % (42-75); PLATELET COUNT 166 10^3/uL (130-400); WHITE BLOOD COUNT 8.3 10^3/uL (4.3-11.0)
[2020-11-08] MEDS ORDERED: fentaNYL 2 mcg/ml BUPIVA 0.125 100 ML ONE (13:52)
[2020-11-08] MEDS ORDERED: CATHETER FLUSH 10 ML SYR IV SCH ×2 (14:00→22:00)
[2020-11-08] MEDS ORDERED: ONDANSETRON 4 MG/2 ML (SDV) Z0FRAN IV PRN (14:45)
[2020-11-08] MEDS ORDERED: diphenhydrAMINE 50 MG/ML INJ (BENADRYL) IV PRN (14:45)
[2020-11-08] MEDS ORDERED: NALOXONE 0.4 MG/ML 1 ML (NARCAN) VIAL IV PRN ×2 (14:45)
[2020-11-08] MEDS ORDERED: EPIDURAL (fentaNYL 2 MCG/ML BUPIVA 0.125%)100 ML BAG EPI SCH (14:45)
[2020-11-08] MEDS ORDERED: LACTATED RINGERS 1,000 ML IV SCH (14:45)
[2020-11-08] MEDS ORDERED: METOCLOPRAMIDE INJ 10 MG/2 ML (REGLAN) IV PRN (14:45)
--- NOTE | 2020-11-08 15:16 | History & Physical-OB ---
OB - Chief Complaint & HPI Date/Time Date of Admission: Date of Admission: Nov 08, 2020 at 12:38 Date seen by a Provider: Nov 08, 2020 Time Seen by a Provider: 14:45 Chief Complaint/History OB-Reason for Admission/Chief: Onset of Labor Hx : 5 Hx Para: 3013 Expected Date of Delivery: Nov 19, 2020 Gestational Age in Weeks: 38 Gestational Age in Days: 3 History of Labs A+, antibody neg, RI. HIV/hepB/RPR NR. GBS neg. Other Left hydrosalpinx in early , treated presumptively for GC/chlamydia, but swabs were negative and hydrosalpinx resolved by end of first trimester. Allergies and Home Medications Allergies Coded Allergies: No Known Drug Allergies (Unverified , 06/05/08) Patient Home Medication List Home Medication List Reviewed: Yes Vit/Iron Fumarate/FA ( Tablet) 1 Each Tablet, 1 EACH PO DAILY, (Reported) Entered as Reported by: BO AYALA on 07/20/20 1831 Last Action: Reviewed Sertraline HCl (Zoloft) 25 Mg Tablet, 25 MG PO DAILY Prescribed by: BRITTANI AVELAR on 01/05/18 4796 Last Action: Reviewed Discontinued Medications Ondansetron (Ondansetron Odt) 8 Mg Tab.rapdis, 8 MG PO Q6H PRN for NAUSEA/VOMITING Discontinued Reason: No Longer Taking Prescribed by: VADIM WALKER on 10/15/18 9852 Last Action: Discontinued OB - History Hx of Present Ultrasounds: Normal mid trimester US Obstetrical Complications: None Obstetrical History Hx : 5 Hx Para: 3 Hx # Term Pregnancies: 3 Hx # Pregnancies: 0 Number of Living Children: 3 Hx Termination: No Hx Total # of Abortions (Spona: 1 Hx Multiple Gestation: No Hx Ectopic : No Hx Stillbirth: No Hx Complication: No Hx Induced Hypertens: No Hx Maternal Gestational Diabet: No Hx Hemorrhage: No Delivery History Hx Dystocia: No Hx Forceps Assisted Delivery: No Hx Vacuum Extraction Assisted: No Hx Placenta Abnormality: Yes (manual extraction of placenta with second delivery) Hx Distress: No Hx Large For Gestational Age I: No Hx Small for Gestational Age I: No Hx Section: No Hx Vaginal Delivery Post C-Sec: No Hx Blood Disorders: No Adverse Rxn to Tranfusion: No Patient Past Medical History PMHx: Depression with h/o suicide attempts Bipolar disorder Substance use PSurgHx: Tonsillectomy Social History/Family History Alcohol Use: Denies Use 2nd Hand Smoke Exposure: No Immunizations Hepatitis A: Yes Hepatitis B: Yes Tetanus Booster (TDap): Less than 5yrs Date of Influenza Vaccine: Dec 29, 2017 Rubella: immune RPR/VDRL: Negative GBS Status: Negative HBsAG: Negative OB - Admission Exam Physical Exam HEENT: NCAT Abdomen: Gravid Extremities: Normal Cervical Dilatation: 6cm Effacement: Other (90%) Station: Ballotable Membranes: Intact Heart Rate: 120's Accelerations: Accelerations Present Decelerations: No Decelerations Short Term Variability: Present Fpc Variability: Average (6-25) Contractions on Admission: < 5 Minutes Apart Labs Laboratory Tests Test 11/08/20 12:30 Range/Units White Blood Count 8.3 4.3-11.0 10^3/uL Red Blood Count 3.81 3.80-5.11 10^6/uL Hemoglobin 10.8 L 11.5-16.0 g/dL Hematocrit 33 L 35-52 % Mean Corpuscular Volume 86 80-99 fL Mean Corpuscular Hemoglobin 28 25-34 pg Mean Corpuscular Hemoglobin Concent 33 32-36 g/dL Red Cell Distribution Width 14.5 10.0-14.5 % Platelet Count 166 130-400 10^3/uL Mean Platelet Volume 10.7 9.0-12.2 fL Immature Granulocyte % (Auto) 0 % Neutrophils (%) (Auto) 68 42-75 % Lymphocytes (%) (Auto) 25 12-44 % Monocytes (%) (Auto) 5 0-12 % Eosinophils (%) (Auto) 1 0-10 % Basophils (%) (Auto) 0 0-10 % Neutrophils # (Auto) 5.7 1.8-7.8 10^3/uL Lymphocytes # (Auto) 2.1 1.0-4.0 10^3/uL Monocytes # (Auto) 0.4 0.0-1.0 10^3/uL Eosinophils # (Auto) 0.1 0.0-0.3 10^3/uL Basophils # (Auto) 0.0 0.0-0.1 10^3/uL Immature Granulocyte # (Auto) 0.0 0.0-0.1 10^3/uL OB - Assessment/Plan/Diagnosis Assessment Admission Dx Term intrauterine 38 weeks gestation Spontaneous onset of labor GBS negative Rubella immune Depression, on sertraline Admission Status: Inpatient Order (span 2 midnights) Reason for Inpatient Admission: labor, delivery and course Plan Plan: Expectant Management BRITTANI AVELAR MD Nov 08, 2020 15:16
--- NOTE | 2020-11-08 20:44 | OB Labor & Delivery Record ---
Vag Delivery Note Vag Delivery Note Date of Delivery: 11/08/20 Preoperative Diagnosis: Jutsine Fleming is a (25 /Para 5 / 3, Gestational Age (wks)38with 2 days Postoperative Diagnosis: Same Surgeon: BRITTANI AVELAR Facing End Trimmer: Vani Baeza [id number] Anesthesia: Epidural Delivery Type: Findings: Viable male infant, apgars 9/9, weight pending Lacerations: periurethral abrasion Intact placenta with 3 vessel cord. [place] cord, No body cord or shoulder dystocia Estimated Blood Loss: 300 ml Complications: None Condition: Stable Description of Procedure: The patient is a 25 year old female who presented in active labor. She was admitted and informed consent was obtained. Her labor course was unremarkable. She progressed to complete dilatation and began to push. She was then set up for delivery. The 's head was delivered atraumatically in the OA position. The shoulders and remainder of the infant's body were then delivered without difficulty. Upon delivery, the was vigorous and placed on maternal abdomen. After a delay, the cord was doubly clamped and cut and the infant was handed off to the pediatric staff. An intact placenta with 3-vessel cord delivered via Zoila and there was found to be minimal bleeding.~ Vigorous fundal massage was performed and the fundus was found to be firm. IV oxytocin was given. Examination of the vagina and perineum revealed a periurethral abrasion, hemostatic, not requiring repair. Following the delivery, sponge, instrument and needle counts were correct. Mom and baby were both in stable condition in the labor suite. Vitals - Labs Vital Signs - I&O Vital Signs Date Time Temp Pulse Resp B/P (MAP) Pulse Ox O2 Delivery O2 Flow Rate FiO2 11/08/20 18:53 36.5 72 18 109/71 (84) 98 Room Air 11/08/20 18:39 67 18 110/65 (80) 98 Room Air 11/08/20 18:24 64 18 109/64 (79) 98 Room Air 11/08/20 18:10 57 18 108/62 (77) 98 Room Air 11/08/20 17:55 70 18 108/62 (77) 98 Room Air 11/08/20 17:38 68 18 107/61 (76) 98 Room Air 11/08/20 17:23 62 18 110/67 (81) 99 Room Air 11/08/20 17:09 63 18 110/66 (81) 98 Room Air 11/08/20 16:55 65 18 112/66 (81) 100 Room Air 11/08/20 16:39 65 18 109/69 (82) 99 Room Air 11/08/20 16:25 73 18 105/67 (80) 99 Room Air 11/08/20 16:09 73 18 110/67 (81) 99 Room Air 11/08/20 15:54 69 18 111/67 (82) 99 Room Air 11/08/20 15:40 69 18 103/60 (74) 98 Room Air 11/08/20 15:24 76 18 97/57 (70) 99 Room Air 11/08/20 15:09 87 18 103/60 (74) Room Air 11/08/20 14:54 73 18 113/67 (82) 100 Room Air 11/08/20 14:38 36.3 11/08/20 14:30 90 18 113/63 (80) 100 Room Air 11/08/20 14:22 92 18 114/62 (79) Room Air 11/08/20 14:19 85 18 124/63 (83) 100 Room Air 11/08/20 14:16 115 18 126/75 (92) 100 Room Air 11/08/20 14:13 100 18 118/72 (87) Room Air 11/08/20 14:10 82 18 126/79 (95) 99 Room Air 11/08/20 14:06 81 18 128/81 (97) Room Air 11/08/20 14:03 67 18 120/80 (93) 100 Room Air 11/08/20 14:00 71 18 121/78 (92) 99 Room Air 11/08/20 12:18 79 18 116/76 (89) 98 Room Air Labs Laboratory Tests 11/08/20 12:30: White Blood Count 8.3, Red Blood Count 3.81, Hemoglobin 10.8L, Hematocrit 33L, Mean Corpuscular Volume 86, Mean Corpuscular Hemoglobin 28, Mean Corpuscular Hemoglobin Concent 33, Red Cell Distribution Width 14.5, Platelet Count 166, Mean Platelet Volume 10.7, Immature Granulocyte % (Auto) 0, Neutrophils (%) (Auto) 68, Lymphocytes (%) (Auto) 25, Monocytes (%) (Auto) 5, Eosinophils (%) (Auto) 1, Basophils (%) (Auto) 0, Neutrophils # (Auto) 5.7, Lymphocytes # (Auto) 2.1, Monocytes # (Auto) 0.4, Eosinophils # (Auto) 0.1, Basophils # (Auto) 0.0, Immature Granulocyte # (Auto) 0.0 BRITTANI AVELAR MD Nov 08, 2020 20:44
[2020-11-08] MEDS ORDERED: WITCH HAZEL(TUCKS) 40 EA JAR TOP PRN (20:45)
[2020-11-08] MEDS ORDERED: BENZOCAINE/MENTHOL (DERMOPLAST) 56 ML CAN TP PRN (20:45)
[2020-11-08] MEDS ORDERED: MEASLES,MUMPS,RUBELLA 1 EA INJ SQ ONE (20:45)
[2020-11-08] MEDS ORDERED: TETANUS,DIPTH,PERTUSS P/F (BOOSTRIX) 0.5 ML VIAL IM ONE (20:45)
[2020-11-08] MEDS ORDERED: OXYTOCIN PRE-MIX DRIP 500 ML IV ONE (20:59)
[2020-11-08] MEDS ORDERED: ONDANSETRON 4 MG/2 ML (SDV) Z0FRAN ONE (22:19)
[2020-11-08] MEDS ORDERED: ONDANSETRON 4 MG/2 ML (SDV) Z0FRAN IVP PRN (22:30)
[2020-11-09] MEDS: DOCUSATE SODIUM 100 MG (COLACE) CAP PO SCH ×2 (00:06→08:54)
[2020-11-09] MEDS: IBUPROFEN 600 MG (MOTRIN) TAB PO SCH ×4 (00:06→18:52)
[2020-11-09 00:07] VITALS: BP 117/60
[2020-11-09 05:01] VITALS: BP 109/70
--- NOTE | 2020-11-09 06:34 | Progress Note ---
Subjective Subjective/Events-last exam Afebrile, denies dizziness, shortness of breath or chest pain. Objective Exam Last Set of Vital Signs Vital Signs Date Time Temp Pulse Resp B/P (MAP) Pulse Ox O2 Delivery O2 Flow Rate FiO2 11/09/20 05:01 36.5 61 18 109/70 (83) 97 Room Air Capillary Refill : General: Alert, No Acute Distress Lungs: Clear to Auscultation, Normal Air Movement Heart: Regular Rate, No Murmurs Abdomen: Other (fundus firm below umbilicus, appropriately tender) Results/Procedures Lab Laboratory Tests 11/08/20 12:30: White Blood Count 8.3, Red Blood Count 3.81, Hemoglobin 10.8L, Hematocrit 33L, Mean Corpuscular Volume 86, Mean Corpuscular Hemoglobin 28, Mean Corpuscular Hemoglobin Concent 33, Red Cell Distribution Width 14.5, Platelet Count 166, Mean Platelet Volume 10.7, Immature Granulocyte % (Auto) 0, Neutrophils (%) (Auto) 68, Lymphocytes (%) (Auto) 25, Monocytes (%) (Auto) 5, Eosinophils (%) (Auto) 1, Basophils (%) (Auto) 0, Neutrophils # (Auto) 5.7, Lymphocytes # (Auto) 2.1, Monocytes # (Auto) 0.4, Eosinophils # (Auto) 0.1, Basophils # (Auto) 0.0, Immature Granulocyte # (Auto) 0.0 Assessment/Plan Assessment/Plan (1) Spontaneous vaginal delivery Status: Acute Assessment & Plan: Routine care (2) Depression Status: Chronic Assessment & Plan: Resumed home sertraline. Qualifiers: Qualified Codes: F33.42 - Major depressive disorder, recurrent, in full remission (3) Acute blood loss anemia Status: Acute Assessment & Plan: Iron sulfate daily BRITTANI AVELAR MD Nov 09, 2020 06:33
[2020-11-09 06:40] LABS: BASOPHILS % (AUTO) 0 % (0-10); EOSINOPHILS # (AUTO) 0.1 10^3/uL (0.0-0.3); EOSINOPHILS % (AUTO) 1 % (0-10); HEMATOCRIT 31 % (35-52); HEMOGLOBIN 9.7 g/dL (11.5-16.0); LYMPHOCYTES # (AUTO) 2.2 10^3/uL (1.0-4.0); LYMPHOCYTES % (AUTO) 26 % (12-44); MEAN CORPUSCULAR HEMOGLOBIN 28 pg (25-34); MEAN CORPUSCULAR HGB CONC 31 g/dL (32-36); MEAN CORPUSCULAR VOLUME 90 fL (80-99); MEAN PLATELET VOLUME 10.9 fL (9.0-12.2); MONOCYTES # (AUTO) 0.4 10^3/uL (0.0-1.0); MONOCYTES % (AUTO) 4 % (0-12); NEUTROPHILS # (AUTO) 5.8 10^3/uL (1.8-7.8); NEUTROPHILS % (AUTO) 68 % (42-75); PLATELET COUNT 133 10^3/uL (130-400); WHITE BLOOD COUNT 8.6 10^3/uL (4.3-11.0)
[2020-11-09] MEDS: SERTRALINE 50 MG (ZOLOFT) TABLET PO SCH (08:54)
[2020-11-09] MEDS: PRENATAL VITAMIN 1 EA TAB PO SCH (08:54)
[2020-11-09 08:55] VITALS: BP 112/67
--- NOTE | 2020-11-09 09:36 | Anesthesia-Regional Post-Op ---
Regional Patient Condition Mental Status: Alert, Oriented x3 Circulation: Same as Pre-Op Headache: Absent Sensation: Full Recovery Motor Block: Absent Post Op Complications Complications None Follow Up Care/Instructions Patient Instructions None needed. Anesthesia/Patient Condition Patient is doing well, no complaints, stable vital signs, no apparent adverse anesthesia problems. No complications reported per nursing. TJ RODRIGUEZ CRNA Nov 09, 2020 09:36
[2020-11-09 12:13] VITALS: BP 114/68
[2020-11-09 16:15] VITALS: BP 110/69
[2020-11-09 20:00] VITALS: BP 109/69
[2020-11-10 00:34] VITALS: BP 112/73
[2020-11-10] MEDS: IBUPROFEN 600 MG (MOTRIN) TAB PO SCH ×3 (00:34→12:12)
[2020-11-10] MEDS: DOCUSATE SODIUM 100 MG (COLACE) CAP PO SCH ×2 (00:34→09:04)
[2020-11-10 05:55] VITALS: BP 108/69
[2020-11-10] MEDS ORDERED: FERROUS SULF 325 MG (IRON) TAB PO SCH (07:00)
[2020-11-10] MEDS: SERTRALINE 50 MG (ZOLOFT) TABLET PO SCH (09:04)
[2020-11-10] MEDS: PRENATAL VITAMIN 1 EA TAB PO SCH (09:04)
[2020-11-10 09:07] VITALS: BP 115/63
[2020-11-10] MEDS ORDERED: IBUP-844 PO (09:18)
[2020-11-10] MEDS ORDERED: FERR325T24 PO (09:18)
--- NOTE | 2020-11-10 09:49 | Discharge Summary ---
JULIO CÉSAR GUPTA 11/10/20 0949: Discharge Summary Hospital Course Problems Reviewed?: Yes Problems/Diagnosis: (1) Spontaneous vaginal delivery Status: Acute Assessment & Plan: Routine care (2) Depression Status: Chronic Assessment & Plan: Resumed home sertraline. Qualifiers: Qualified Codes: F33.42 - Major depressive disorder, recurrent, in full remission (3) Acute blood loss anemia Status: Acute Assessment & Plan: Iron sulfate daily Hospital Course Date of Admission: Nov 08, 2020 at 12:38 Admission Diagnosis : Family Physician/Provider: Brittani Guajardo MD Date of Discharge: 11/10/20 Discharge Diagnosis: [ ] Hospital Course: [ ] Labs and Pending Lab Test: Home Meds Active Ibu (Ibuprofen) 600 Mg Tablet 600 Mg PO Q6HR PRN Ferosul (Ferrous Sulfate) 325 Mg Tablet 325 Mg PO DAILY@0700 30 Days Zoloft (Sertraline HCl) 25 Mg Tablet 25 Mg PO DAILY Reported Tablet ( Vit/Iron Fumarate/FA) 1 Each Tablet 1 Each PO DAILY Discharge Diet: No Restrictions Activity as Tolerated: Yes Discharge Physical Examination Allergies: Coded Allergies: No Known Drug Allergies (Unverified , 06/05/08) General Appearance: No Apparent Distress Respiratory: Chest Non Tender, Lungs Clear, Normal Breath Sounds, No Accessory Muscle Use Cardiovascular: Regular Rate, Rhythm, No Edema, No Murmur Gastrointestinal: Normal Bowel Sounds Skin: Normal Color Neurologic/Psychiatric: Alert, Oriented x3, No Motor/Sensory Deficits, Normal Mood/Affect Discharge Summary Date of Admission Nov 08, 2020 at 12:38 Date of Discharge Discharge Date: Nov 10, 2020 Admission Diagnosis Vaginal delivery Discharge Diagnosis (1) Depression Status: Chronic Assessment & Plan: Restarted Sertraline Qualifiers: Qualified Codes: F33.42 - Major depressive disorder, recurrent, in full remission (2) Acute blood loss anemia Status: Acute Assessment & Plan: Take daily iron sulfate (3) Spontaneous vaginal delivery Status: Acute Assessment & Plan: appointment will be scheduled with primary physician. BRITTANI GUAJARDO MD 11/10/20 1504: Discharge Summary Hospital Course Assessment/Pt DC Instructions Follow up with Dr. Guajardo in 6 weeks for visit. Discharge Physical Examination Allergies: Coded Allergies: No Known Drug Allergies (Unverified , 06/05/08) Supervisory-Addendum Brief Verification & Attestation Participated in pt care: history, MDM, physical Personally performed: exam, history Care discussed with: Medical Student Procedures: n/a Verification and Attestation of Medical Student E/M Service I reviewed and verified all information documented by the medical student and made modifications to such information, when appropriate. I personally repeated the history and performed the physical exam and medical decision making. Brittani Guajardo, Nov 10, 2020,15:03 JULIO CÉSAR GUPTA Nov 10, 2020 09:49 BRITTANI GUAJARDO MD Nov 10, 2020 15:04
== END 2020-11-10 13:30 | disposition home or self-care (01) | DRG 806 ==
LOC: WSo 11:54 → LDRP 11:56 → WSo 12:38 → LDRP 12:38
PROVIDERS: ADMIT Family Medicine; ATTEND Family Medicine
PROC: 10E0XZZ Delivery of Products of Conception, External Approach (ICD-10-PCS; principal; 2020-11-08)
DX: O99.344 Other mental disorders complicating childbirth (principal); D62 Acute posthemorrhagic anemia; Z37.0 Single live birth; Z3A.38 38 weeks gestation of pregnancy; O71.82 Other specified trauma to perineum and vulva; Z79.899 Other long term (current) drug therapy; F33.42 Major depressive disorder, recurrent, in full remission; O90.81 Anemia of the puerperium
CPT/HCPCS: 36415; 85025; 86850; 86900; 86901; 99212

== ENCOUNTER 2021-12-10 12:29 | Outpatient (CLI) | payer MEDICAID ==
[~2021-12-10] VITALS: Ht 165.1 cm; Wt 72.0 kg
[~2021-12-10 12:29] MED LIST changes: +FERR325T24 PO
[2021-12-10 12:58] VITALS: BP 123/77
[2021-12-10 13:04] LABS: BILIRUBIN,URINE NEGATIVE (NEGATIVE); CLARITY,URINE CLEAR; COLOR,URINE YELLOW; GLUCOSE, URINE (UA) NEGATIVE (NEGATIVE); KETONES,URINE NEGATIVE (NEGATIVE); LEUKOCYTE ESTERASE ,URINE 2+ (NEGATIVE); NITRITE,URINE NEGATIVE (NEGATIVE); PROTEIN,URINE NEGATIVE (NEGATIVE)
[2021-12-10 13:12] LABS: BACTERIA,URINE FEW /HPF
--- NOTE | 2021-12-11 07:59 | Physician Query-Final Dx ---
LEI,12/11/21 0759: Clinic Account Progress/Dx Physician Query: Please give diagnosis Please include # weeks gestation Date of Service Dec 10, 2021 at 12:29 ZHEN VAZ DO 12/11/21 0847: Clinic Account Progress/Dx DIAGNOSIS: Diagnosis 34 week GA pelvic pain LEI,FebDec 11, 2021 07:59 ZHEN VAZ DO Dec 11, 2021 08:47
== END 2021-12-10 13:37 ==
LOC: LDRP 12:29 → WSo 12:29
PROVIDERS: ATTEND Family Medicine
DX: O26.893 Other specified pregnancy related conditions, third trimester (principal); R10.2 Pelvic and perineal pain; Z3A.34 34 weeks gestation of pregnancy
CPT/HCPCS: 81000; 87088; 99212

== ENCOUNTER 2021-12-27 15:59 | Outpatient (CLI) | payer MEDICAID ==
[~2021-12-27] VITALS: Ht 165.1 cm; Wt 73.3 kg
[2021-12-27 16:26] LABS: BILIRUBIN,URINE NEGATIVE (NEGATIVE); CLARITY,URINE CLEAR; COLOR,URINE YELLOW; GLUCOSE, URINE (UA) NEGATIVE (NEGATIVE); KETONES,URINE NEGATIVE (NEGATIVE); LEUKOCYTE ESTERASE ,URINE 2+ (NEGATIVE); NITRITE,URINE NEGATIVE (NEGATIVE); PROTEIN,URINE NEGATIVE (NEGATIVE)
[2021-12-27 16:30] VITALS: BP 125/75
[2021-12-27 16:44] LABS: BACTERIA,URINE TRACE /HPF; SQUAMOUS EPITHELIAL CELL,UR 0-2 /HPF
[2021-12-27] MEDS ORDERED: cefTRIAXone 1,000 MG VIAL IM ONE (17:00)
[2021-12-27] MEDS ORDERED: LIDOCAINE 1% INJ 20 ML VIAL INJ ONE (17:00)
[2021-12-27] MEDS ORDERED: LACTATED RINGERS 1,000 ML IV SCH ×3 (17:58→20:00)
[2021-12-27 19:26] VITALS: BP 111/73
[2021-12-27] MEDS ORDERED: morphine INJ 4 MG/ML 1 ML (VIAL/SYRINGE) IVP ONE (20:00)
[2021-12-27] MEDS ORDERED: morphine INJ 4 MG/ML 1 ML (VIAL/SYRINGE) ONE (20:21)
[2021-12-27] MEDS ORDERED: morphine INJ 10 MG/ML 1ML (SYR OR VIAL) ONE (20:22)
[2021-12-27] MEDS ORDERED: morphine INJ 10 MG/ML 1ML (SYR OR VIAL) IVP ONE (20:30)
[2021-12-27 22:31] VITALS: BP 115/64
[2021-12-27 22:34] VITALS: BP 115/64
--- NOTE | 2021-12-30 07:58 | Physician Query-Final Dx ---
Clinic Account Progress/Dx Physician Query: Please give diagnosis Please include # weeks gestation Date of Service Dec 27, 2021 at 15:59 LEI,FebDec 30, 2021 07:58
== END 2021-12-27 22:34 | disposition home or self-care (01) ==
LOC: WSo 15:59 → LDRP 16:00 → WSo 22:34
PROVIDERS: ATTEND Family Medicine
DX: O26.899 Other specified pregnancy related conditions, unspecified trimester (principal); M54.9 Dorsalgia, unspecified; R10.9 Unspecified abdominal pain; Z3A.00 Weeks of gestation of pregnancy not specified
CPT/HCPCS: 81000; 87088; 96361; 96372; 96374; 99214

== ENCOUNTER 2021-12-30 13:43 | Outpatient (CLI) | payer MEDICAID ==
[~2021-12-30] VITALS: Ht 165.1 cm; Wt 73.7 kg
[2021-12-30 14:28] VITALS: BP 117/77
[2021-12-30 14:29] LABS: BILIRUBIN,URINE NEGATIVE (NEGATIVE); CLARITY,URINE SL CLOUDY; COLOR,URINE YELLOW; GLUCOSE, URINE (UA) NEGATIVE (NEGATIVE); KETONES,URINE NEGATIVE (NEGATIVE); LEUKOCYTE ESTERASE ,URINE NEGATIVE (NEGATIVE); NITRITE,URINE NEGATIVE (NEGATIVE); PROTEIN,URINE NEGATIVE (NEGATIVE)
[2021-12-30 14:43] LABS: BACTERIA,URINE NEGATIVE /HPF; RBC,URINE 0-2 /HPF
--- NOTE | 2021-12-31 08:38 | Physician Query-Final Dx ---
LEI12/31/21 0837: Clinic Account Progress/Dx Physician Query: Please give diagnosis Please include # weeks gestation Date of Service Dec 30, 2021 at 13:43 BRITTANI AVELAR MD 12/31/21 1641: Clinic Account Progress/Dx DIAGNOSIS: Diagnosis contractions with no evidence of labor 36 weeks gestation LEI,FebDec 31, 2021 08:37 BRITTANI AVELAR MD Dec 31, 2021 16:41
== END 2021-12-30 15:28 | disposition home or self-care (01) ==
LOC: LDRP 13:43 → WSo 13:43
PROVIDERS: ATTEND Family Medicine
DX: O62.9 Abnormality of forces of labor, unspecified (principal); Z3A.36 36 weeks gestation of pregnancy
CPT/HCPCS: 81000

== ENCOUNTER 2022-01-01 10:55 | Outpatient (CLI) | payer MEDICAID ==
[~2022-01-01] VITALS: Ht 165.1 cm; Wt 72.9 kg
[2022-01-01 11:25] VITALS: BP 118/75
[2022-01-01 11:46] LABS: BILIRUBIN,URINE NEGATIVE (NEGATIVE); CLARITY,URINE CLOUDY; COLOR,URINE YELLOW; GLUCOSE, URINE (UA) NEGATIVE (NEGATIVE); KETONES,URINE TRACE (NEGATIVE); LEUKOCYTE ESTERASE ,URINE TRACE (NEGATIVE); NITRITE,URINE NEGATIVE (NEGATIVE); PH,URINE 6.5 (5-9); PROTEIN,URINE TRACE (NEGATIVE)
[2022-01-01 11:52] LABS: BACTERIA,URINE NEGATIVE /HPF; CALCIUM OXALATE CRYSTALS,UR LARGE /LPF; WBC,URINE 0-2 /HPF
[2022-01-01] MEDS ORDERED: ONDANSETRON 4 MG (ZOFRAN) ORAL DISSOLVE TAB PO ONE (12:45)
[2022-01-01] MEDS ORDERED: ACETAMINOPHEN 500 MG TAB (TYLENOL) PO ONE (12:45)
[2022-01-01 13:00] VITALS: BP 118/75
== END 2022-01-01 12:48 | disposition home or self-care (01) ==
LOC: LDRP 10:55 → UNDOADMIN 10:55 → WSo 10:55
PROVIDERS: ATTEND Family Medicine
DX: O62.9 Abnormality of forces of labor, unspecified (principal); Z3A.00 Weeks of gestation of pregnancy not specified
CPT/HCPCS: 81000

== ENCOUNTER 2022-01-07 18:14 | Outpatient (CLI) | payer MEDICAID ==
[~2022-01-07] VITALS: Ht 165.1 cm; Wt 78.5 kg
[2022-01-07 18:37] VITALS: BP 108/73
[2022-01-07 18:48] VITALS: BP 108/73
[2022-01-07 18:54] VITALS: BP 108/69
[2022-01-07 19:06] LABS: BILIRUBIN,URINE NEGATIVE (NEGATIVE); CLARITY,URINE CLEAR; COLOR,URINE YELLOW; GLUCOSE, URINE (UA) NEGATIVE (NEGATIVE); KETONES,URINE NEGATIVE (NEGATIVE); LEUKOCYTE ESTERASE ,URINE 2+ (NEGATIVE); NITRITE,URINE NEGATIVE (NEGATIVE); PROTEIN,URINE NEGATIVE (NEGATIVE)
[2022-01-07 19:13] LABS: BACTERIA,URINE TRACE /HPF; RBC,URINE RARE /HPF
--- NOTE | 2022-01-08 08:12 | Physician Query-Final Dx ---
Clinic Account Progress/Dx Physician Query: Please give diagnosis Please include # weeks gestation Date of Service Jan 07, 2022 at 18:14 LEI,FebJan 08, 2022 08:12
== END 2022-01-07 20:05 | disposition home or self-care (01) ==
LOC: WSo 18:14 → LDRP 18:43 → WSo 20:05
PROVIDERS: ATTEND Family Medicine
DX: O62.9 Abnormality of forces of labor, unspecified (principal); Z3A.00 Weeks of gestation of pregnancy not specified
CPT/HCPCS: 81000; 87088; 99214

== ENCOUNTER 2022-01-09 18:35 | Inpatient (IN) | payer MEDICAID ==
[2022-01-09] VITALS (21 sets, daily range): BP systolic 94–128; BP diastolic 50–86
[~2022-01-09] VITALS: Ht 165.1 cm; Wt 73.8 kg
[2022-01-09] MEDS ORDERED: MINERAL OIL 30 ML UDC TOP PRN (19:30)
[2022-01-09] MEDS ORDERED: LACTATED RINGERS 1,000 ML IV ONE (19:31)
[2022-01-09] MEDS ORDERED: D5 LR IV SOLUTION 1,000 ML IV ONE (19:31)
[2022-01-09 20:02] LABS: BILIRUBIN,URINE NEGATIVE (NEGATIVE); CLARITY,URINE CLEAR; COLOR,URINE YELLOW; GLUCOSE, URINE (UA) NEGATIVE (NEGATIVE); KETONES,URINE NEGATIVE (NEGATIVE); LEUKOCYTE ESTERASE ,URINE 1+ (NEGATIVE); NITRITE,URINE NEGATIVE (NEGATIVE); PH,URINE 6.5 (5-9); PROTEIN,URINE NEGATIVE (NEGATIVE)
[2022-01-09 20:11] LABS: BASOPHILS % (AUTO) 0 % (0-10); EOSINOPHILS # (AUTO) 0.1 10^3/uL (0.0-0.3); EOSINOPHILS % (AUTO) 1 % (0-10); HEMATOCRIT 32 % (35-52); HEMOGLOBIN 10.4 g/dL (11.5-16.0); LYMPHOCYTES # (AUTO) 2.7 10^3/uL (1.0-4.0); LYMPHOCYTES % (AUTO) 31 % (12-44); MEAN CORPUSCULAR HEMOGLOBIN 28 pg (25-34); MEAN CORPUSCULAR HGB CONC 33 g/dL (32-36); MEAN CORPUSCULAR VOLUME 85 fL (80-99); MEAN PLATELET VOLUME 10.2 fL (9.0-12.2); MONOCYTES # (AUTO) 0.4 10^3/uL (0.0-1.0); MONOCYTES % (AUTO) 4 % (0-12); NEUTROPHILS # (AUTO) 5.6 10^3/uL (1.8-7.8); NEUTROPHILS % (AUTO) 63 % (42-75); PLATELET COUNT 200 10^3/uL (130-400); WHITE BLOOD COUNT 8.8 10^3/uL (4.3-11.0)
[2022-01-09 20:37] LABS: BACTERIA,URINE FEW /HPF; RBC,URINE 0-2 /HPF
[2022-01-09] MEDS ORDERED: fentaNYL 2 mcg/ml BUPIVA 0.125 100 ML ONE (20:37)
[2022-01-09] MEDS ORDERED: fentaNYL INJ 100 MCG/2 ML AMP ONE (21:11)
[2022-01-09] MEDS ORDERED: BUPIVACAINE 0.25% 30 ML (SENSORCAINE) VIAL ONE (21:11)
[2022-01-09] MEDS: fentaNYL 2 mcg/ml BUPIVA 0.125 100 ML EPI SCH ×2 (21:33→23:13)
[2022-01-09] MEDS ORDERED: LACTATED RINGERS 1,000 ML IV SCH (21:45)
[2022-01-09] MEDS ORDERED: ONDANSETRON 4 MG/2 ML (SDV) Z0FRAN IV PRN (21:45)
[2022-01-09] MEDS ORDERED: NALOXONE 0.4 MG/ML 1 ML (NARCAN) VIAL IV PRN (21:45)
[2022-01-09] MEDS ORDERED: diphenhydrAMINE 50 MG/ML INJ (BENADRYL) IV PRN (21:45)
[2022-01-09] MEDS ORDERED: EPINEPHrine INJECTION 1 MG/ML AMP IV ONE (21:50)
[2022-01-09] MEDS ORDERED: ONDANSETRON 4 MG/2 ML (SDV) Z0FRAN ONE (23:02)
[2022-01-09] MEDS: D5 LR IV SOLUTION 1,000 ML IV SCH (23:08)
[2022-01-09] MEDS: OXYTOCIN PRE-MIX DRIP 500 ML IV SCH (23:09)
[2022-01-09] MEDS: CATHETER FLUSH 10 ML SYR IV SCH (23:45)
[2022-01-10] VITALS (61 sets, daily range): BP systolic 85–118; BP diastolic 35–69
[2022-01-10] MEDS: D5 LR IV SOLUTION 1,000 ML IV SCH ×3 (01:41→09:09)
[2022-01-10] MEDS: fentaNYL 2 mcg/ml BUPIVA 0.125 100 ML EPI SCH ×2 (04:44→13:00)
[2022-01-10] MEDS ORDERED: CALCIUM CARBONATE 500 MG (TUMS) TAB.CHEW ONE (06:07)
[2022-01-10] MEDS ORDERED: CALCIUM CARBONATE 500 MG (TUMS) TAB.CHEW PO ONE (06:15)
[2022-01-10] MEDS: CATHETER FLUSH 10 ML SYR IV SCH ×2 (06:15→21:26)
--- NOTE | 2022-01-10 06:37 | History & Physical-OB ---
OB - Chief Complaint & HPI Date/Time Date of Admission: Date of Admission: Jan 09, 2022 at 19:37 Date seen by a Provider: Jan 10, 2022 Time Seen by a Provider: 06:20 Chief Complaint/History OB-Reason for Admission/Chief: Rupture of Membranes Hx : 6 Hx Para: 4 Expected Date of Delivery: Jan 21, 2022 Gestational Age in Weeks: 38 Gestational Age in Days: 2 Other reason for admission: at 38w2d presented to Labor and Delivery after she had spontaneous rupture of membranes at home around 6 pm, felt fluid leaking while in bed, went to the bathroom and continued to have clear liquid leaking out. History of Labs A+, antibody neg, RI. HIV/Hepb/RPR NR. GC/chlamydia neg. GBS neg. Allergies and Home Medications Allergies Coded Allergies: No Known Drug Allergies (Unverified , 06/05/08) Patient Home Medication List Home Medication List Reviewed: Yes Ferrous Sulfate (Ferosul) 325 Mg Tablet, 325 MG PO DAILY@0700 Prescribed by: BRITTANI AVELAR on 11/10/20 0918 Last Action: Last Taken Edited Vit/Iron Fumarate/FA ( Tablet) 1 Each Tablet, 1 EACH PO DAILY, (Reported) Entered as Reported by: BO AYALA on 07/20/20 1831 Last Action: Last Taken Edited Sertraline HCl (Zoloft) 25 Mg Tablet, 25 MG PO DAILY Prescribed by: BRITTANI AVELAR on 01/05/18 0744 Last Action: Last Taken Edited OB - History Hx of Present Care: Yes Ultrasounds: Normal mid trimester US Obstetrical Complications: None Medical Complications: Psychiatric Information Induced Hypertension: No Maternal Gestational Diabetes: No Hemorrhage: No Obstetrical History Hx : 6 Hx Para: 4 Hx # Term Pregnancies: 4 Hx # Pregnancies: 0 Number of Living Children: 4 Hx Termination: No Hx Total # of Abortions (Spona: 1 Hx Multiple Gestation: No Hx Ectopic : No Hx Stillbirth: No Hx Complication: No Hx Induced Hypertens: No Hx Maternal Gestational Diabet: No Hx Hemorrhage: No Delivery History Hx Dystocia: No Hx Forceps Assisted Delivery: No Hx Vacuum Extraction Assisted: No Hx Placenta Abnormality: Yes (retained placenta with second delivery) Hx Distress: No Hx Large For Gestational Age I: No Hx Small for Gestational Age I: No Hx Section: No Hx Vaginal Delivery Post C-Sec: No Hx Blood Disorders: No Adverse Rxn to Tranfusion: No Patient Past Medical History PMHx: Depression with h/o suicide attempts Bipolar disorder Substance use PSurgHx: Tonsillectomy Social History/Family History Alcohol Use: Denies Use Recreational Drug Use: No Smoking Cessation: Never smoker 2nd Hand Smoke Exposure: No Immunizations Influenza Vaccine Up-to-Date: Yes; Up-to-Date (12/09/21) First/Initial COVID19 Vaccine: 09/26/2020 Second COVID19 Vaccination: 10/23/2020 COVID19 Booster (Date): 12/09/2021 COVID19 Vaccine Metrology Engineer: Modernjuana initial, Phizer bivalent booster Hepatitis A: Yes Hepatitis B: Yes Tetanus Booster (TDap): Less than 5yrs (12/09/21) Rubella: immune RPR/VDRL: Negative GBS Status: Negative HBsAG: Negative OB - Admission Exam Physical Exam Vitals: Vital Signs 01/10/22 06:00 Temp 36.4 Pulse 78 Resp 18 B/P (MAP) 97/50 (66) Pulse Ox 100 O2 Delivery Room Air Abdomen: Gravid Cervical Dilatation: 7cm Effacement: Other (80%) Station: -2 Membranes: Ruptured Amniotic Fluid: Clear Heart Rate: 120's Accelerations: Accelerations Present Decelerations: No Decelerations Short Term Variability: Present Nursing Home Variability: Average (6-25) Contractions on Admission: 6-10 Minutes Apart Labs Laboratory Tests Test 01/09/22 19:45 Range/Units White Blood Count 8.8 4.3-11.0 10^3/uL Red Blood Count 3.71 L 3.80-5.11 10^6/uL Hemoglobin 10.4 L 11.5-16.0 g/dL Hematocrit 32 L 35-52 % Mean Corpuscular Volume 85 80-99 fL Mean Corpuscular Hemoglobin 28 25-34 pg Mean Corpuscular Hemoglobin Concent 33 32-36 g/dL Red Cell Distribution Width 14.0 10.0-14.5 % Platelet Count 200 130-400 10^3/uL Mean Platelet Volume 10.2 9.0-12.2 fL Immature Granulocyte % (Auto) 0 % Neutrophils (%) (Auto) 63 42-75 % Lymphocytes (%) (Auto) 31 12-44 % Monocytes (%) (Auto) 4 0-12 % Eosinophils (%) (Auto) 1 0-10 % Basophils (%) (Auto) 0 0-10 % Neutrophils # (Auto) 5.6 1.8-7.8 10^3/uL Lymphocytes # (Auto) 2.7 1.0-4.0 10^3/uL Monocytes # (Auto) 0.4 0.0-1.0 10^3/uL Eosinophils # (Auto) 0.1 0.0-0.3 10^3/uL Basophils # (Auto) 0.0 0.0-0.1 10^3/uL Immature Granulocyte # (Auto) 0.0 0.0-0.1 10^3/uL Urine Color YELLOW Urine Clarity CLEAR Urine pH 6.5 5-9 Urine Specific [place] 1.015 L 1.016-1.022 Urine Protein NEGATIVE NEGATIVE Urine Glucose (UA) NEGATIVE NEGATIVE Urine Ketones NEGATIVE NEGATIVE Urine Nitrite NEGATIVE NEGATIVE Urine Bilirubin NEGATIVE NEGATIVE Urine Urobilinogen 0.2 < = 1.0 MG/DL Urine Leukocyte Esterase 1+ H NEGATIVE Urine RBC (Auto) NEGATIVE NEGATIVE Urine RBC 0-2 /HPF Urine WBC 2-5 /HPF Urine Squamous Epithelial Cells 2-5 /HPF Urine Crystals NONE /LPF Urine Bacteria FEW H /HPF Urine Casts NONE /LPF Urine Mucus SMALL H /LPF Urine Culture Indicated YES OB - Assessment/Plan/Diagnosis Assessment Admission Dx Term intrauterine at 38 weeks gestation Spontaneous rupture of membranes Group B strep negative Admission Status: Inpatient Order (span 2 midnights) Reason for Inpatient Admission: Labor, delivery and course Plan Problems: (1) SROM (spontaneous rupture of membranes) Assessment & Plan: Initially managed expectantly, but no cervical change and irregular contractions, so pitocin started for augmentation. However, in spite of this, she has had minimal change from 5 to 7 cm since admission. At this time will try pitocin break and restart at low dose. Discussed with patient as long as status remains reassuring will continue to work towards vaginal delivery. BRITTANI AVELAR MD Jan 10, 2022 06:37
--- NOTE | 2022-01-10 07:37 | Anesthesia-General Post-Op ---
General Patient Condition Mental Status/LOC: Same as Preop Cardiovascular: Satisfactory Nausea/Vomiting: Absent Respiratory: Satisfactory Pain: Controlled Complications: Absent Post Op Complications Complications None Follow Up Care/Instructions Patient Instructions None needed. Anesthesia/Patient Condition Patient Condition Patient is doing well, no complaints, stable vital signs, no apparent adverse anesthesia problems. No complications reported per nursing. TJ RODRIGUEZ CRNA Jan 10, 2022 07:37
--- NOTE | 2022-01-10 10:33 | Labor Progress Note ---
Labor Progress Note Labor Progress Note Date Seen by Provider: Jan 10, 2022 Time Seen by Provider: 10:10 Subjective: Pt denies complaints. Objective: Cervical exam: / Presentation: Vertex heart tones: 120 beats per minute, moderate variability, reactive Tocometer: 3-4 ctx/10 minutes Assessment/Plan: Justine Fleming is a (26 /Para 6 / 4,Gestational Age (wks)38 here for SROM at home. CEFM/TOCO Continue pitocin Anesthesia: Epidural Anticipate vaginal delivery. Vitals - Labs Vital Signs - I&O Vital Signs Date Time Temp Pulse Resp B/P (MAP) Pulse Ox O2 Delivery O2 Flow Rate FiO2 01/10/22 10:15 58 18 106/63 (77) 100 Room Air 01/10/22 10:00 55 18 100/55 (70) 100 Room Air 01/10/22 09:45 55 18 100/55 (70) 100 Room Air 01/10/22 09:30 55 18 99/55 (70) 99 Room Air 01/10/22 09:15 55 18 105/59 (74) 100 Room Air 01/10/22 09:00 30.3 54 18 101/55 (70) 99 Room Air 01/10/22 08:45 51 18 106/63 (77) 100 Room Air 01/10/22 08:30 76 18 113/65 (81) 98 Room Air 01/10/22 08:15 62 18 85/43 (57) 100 Room Air 01/10/22 08:00 29.8 69 18 106/59 (75) 100 Room Air 01/10/22 07:45 85 18 106/57 (73) 100 Room Air 01/10/22 07:30 96 18 113/60 (77) 100 Room Air 01/10/22 07:15 35.2 77 18 103/58 (73) 99 Room Air 01/10/22 07:00 68 18 100/61 (74) 99 Room Air 01/10/22 06:45 75 18 100/64 (76) 100 Room Air 01/10/22 06:30 83 18 101/68 (79) 100 Room Air 01/10/22 06:15 64 18 90/52 (65) 100 Room Air 01/10/22 06:00 36.4 78 18 97/50 (66) 100 Room Air 01/10/22 05:45 76 18 97/55 (69) 100 Room Air 01/10/22 05:30 60 18 94/55 (68) 100 Room Air 01/10/22 05:15 36.4 65 18 93/56 (68) 99 Room Air 01/10/22 05:00 36.4 65 18 93/56 (68) 99 Room Air 01/10/22 04:48 36.3 61 18 96/62 (73) 99 Room Air 01/10/22 04:30 62 18 104/60 (75) 100 Room Air 01/10/22 04:15 36.5 66 18 95/52 (66) 99 Room Air 01/10/22 03:58 61 18 98/54 (69) 99 Room Air 01/10/22 03:39 36.5 59 18 103/62 (76) 99 Room Air 01/10/22 03:15 36.4 60 18 99/60 (73) 100 Room Air 01/10/22 03:07 36.6 60 18 96/62 (73) 100 Room Air 01/10/22 02:30 36.6 61 18 97/56 (70) 100 Room Air 01/10/22 02:02 36.6 73 18 103/63 (76) 99 Room Air 01/10/22 01:45 36.6 71 18 101/59 (73) 99 Room Air 01/10/22 01:30 36.6 62 18 97/59 (72) 99 Room Air 01/10/22 01:15 36.3 62 18 102/62 (75) 99 Room Air 01/10/22 01:00 36.3 64 18 103/60 (74) 100 Room Air 01/10/22 00:45 36.3 60 18 110/66 (81) 100 Room Air 01/10/22 00:30 36.4 71 18 111/69 (83) 100 Room Air 01/10/22 00:15 36.4 74 18 107/67 (80) 100 Room Air 01/10/22 00:00 36.4 79 18 109/66 (80) 100 Room Air 01/09/22 23:45 36.4 67 18 111/65 (80) 100 Room Air 01/09/22 23:30 36.4 70 18 111/63 (79) 100 Room Air 01/09/22 23:15 36.4 76 18 111/64 (80) 100 Room Air 01/09/22 23:00 36.4 76 18 111/64 (80) 100 Room Air 01/09/22 22:45 36.4 95 18 106/63 (77) 100 Room Air 01/09/22 22:30 36.4 95 18 106/53 (70) 100 Room Air 01/09/22 22:20 36.4 133 18 111/66 (81) 100 Room Air 01/09/22 22:10 36.4 117 18 107/71 (83) 100 Room Air 01/09/22 22:00 36.5 75 18 123/69 (87) 100 Room Air 01/09/22 21:50 36.5 84 18 125/64 (84) 100 Room Air 01/09/22 21:46 36.5 86 18 122/72 (89) 100 Room Air 01/09/22 21:42 36.5 82 18 123/71 (88) 100 Room Air 01/09/22 21:39 36.5 106 18 108/72 (84) 100 Room Air 01/09/22 21:36 36.5 99 18 94/50 (65) 100 Room Air 01/09/22 21:33 36.5 102 18 125/74 (91) 100 Room Air 01/09/22 21:29 36.5 86 18 128/82 (97) 100 Room Air 01/09/22 21:26 36.5 82 18 123/85 (98) 100 Room Air 01/09/22 21:23 36.5 68 18 122/78 (93) 100 Room Air 01/09/22 21:21 36.5 86 18 127/85 (99) 100 Room Air 01/09/22 21:19 36.5 68 18 125/86 (99) 100 Room Air 01/09/22 18:55 36.5 81 18 121/75 (90) 97 Room Air 01/09/22 18:40 Room Air I & O 01/10/22 07:00 Intake Total 2089 ml Balance 2089 ml Labs Laboratory Tests 01/09/22 19:45: White Blood Count 8.8, Red Blood Count 3.71L, Hemoglobin 10.4L, Hematocrit 32L, Mean Corpuscular Volume 85, Mean Corpuscular Hemoglobin 28, Mean Corpuscular Hemoglobin Concent 33, Red Cell Distribution Width 14.0, Platelet Count 200, Mean Platelet Volume 10.2, Immature Granulocyte % (Auto) 0, Neutrophils (%) (Auto) 63, Lymphocytes (%) (Auto) 31, Monocytes (%) (Auto) 4, Eosinophils (%) (Auto) 1, Basophils (%) (Auto) 0, Neutrophils # (Auto) 5.6, Lymphocytes # (Auto) 2.7, Monocytes # (Auto) 0.4, Eosinophils # (Auto) 0.1, Basophils # (Auto) 0.0, Immature Granulocyte # (Auto) 0.0, Urine Color YELLOW, Urine Clarity CLEAR, Urine pH 6.5, Urine Specific [place] 1.015L, Urine Protein NEGATIVE, Urine Glucose (UA) NEGATIVE, Urine Ketones NEGATIVE, Urine Nitrite NEGATIVE, Urine Bilirubin NEGATIVE, Urine Urobilinogen 0.2, Urine Leukocyte Esterase 1+H, Urine RBC (Auto) NEGATIVE, Urine RBC 0-2, Urine WBC 2-5, Urine Squamous Epithelial Cells 2-5, Urine Crystals NONE, Urine Bacteria FEWH, Urine Casts NONE, Urine Mucus SMALLH, Urine Culture Indicated YES BRITTANI AVELAR MD Jan 10, 2022 10:33
[2022-01-10] MEDS: OXYTOCIN PRE-MIX DRIP 500 ML IV SCH (14:00)
--- NOTE | 2022-01-10 14:13 | OB Labor & Delivery Record ---
Vag Delivery Note Vag Delivery Note Date of Delivery: 01/10/22 Preoperative Diagnosis: Justine Fleming is a 26 yo /Para 6 / 4, Gestational Age (wks)38with 3 days Postoperative Diagnosis: Same Surgeon: BRITTANI AVELAR Anesthesia: Epidural Delivery Type: Findings: Viable male , apgars 8/9, weight 3305 Lacerations: Intact placenta with 3 vessel cord. No nuchal cord, body cord or shoulder dystocia Estimated Blood Loss: 300 ml Complications: None Condition: Stable Description of Procedure: The patient is a 26 year old female who presented with SROM prior to labor ons et. She was admitted and informed consent was obtained. Her labor course was remarkable for augmentation with pitocin and extremely protracted active phase. She progressed to complete dilatation and began to push. She was then set up for delivery. The infant's head was delivered atraumatically in the OA position. The shoulders and remainder of the infant's body were then delivered without difficulty. Upon delivery, the infant was vigorous and placed on maternal abdomen. After a delay the cord was doubly clamped and cut and the was handed off to the pediatric staff. An intact placenta with 3-vessel cord delivered via [place] and there was found to be minimal bleeding.~ Vigorous fundal massage was performed and the fundus was found to be firm. IV oxytocin was given. Examination of the vagina and perineum revealed no lacerations. Following the repair, sponge, instrument and needle counts were correct. Mom and baby were both in stable condition in the labor suite. Vitals - Labs Vital Signs - I&O Vital Signs Date Time Temp Pulse Resp B/P (MAP) Pulse Ox O2 Delivery O2 Flow Rate FiO2 01/10/22 12:30 55 18 89/53 (65) 100 Room Air 01/10/22 12:15 63 18 109/61 (77) 100 Room Air 01/10/22 12:00 35.6 64 18 105/67 (80) 100 Room Air 01/10/22 11:45 66 18 111/69 (83) 100 Room Air 01/10/22 11:30 60 18 109/67 (81) 100 Room Air 01/10/22 11:15 56 18 103/67 (79) 100 Room Air 01/10/22 11:00 35.2 60 18 100/67 (78) 100 Room Air 01/10/22 10:45 60 18 99/60 (73) 100 Room Air 01/10/22 10:30 60 18 108/63 (78) 100 Room Air 01/10/22 10:15 58 18 106/63 (77) 100 Room Air 01/10/22 10:00 55 18 100/55 (70) 100 Room Air 01/10/22 09:45 55 18 100/55 (70) 100 Room Air 01/10/22 09:30 55 18 99/55 (70) 99 Room Air 01/10/22 09:15 55 18 105/59 (74) 100 Room Air 01/10/22 09:00 30.3 54 18 101/55 (70) 99 Room Air 01/10/22 08:45 51 18 106/63 (77) 100 Room Air 01/10/22 08:30 76 18 113/65 (81) 98 Room Air 01/10/22 08:15 62 18 85/43 (57) 100 Room Air 01/10/22 08:00 29.8 69 18 106/59 (75) 100 Room Air 01/10/22 07:45 85 18 106/57 (73) 100 Room Air 01/10/22 07:30 96 18 113/60 (77) 100 Room Air 01/10/22 07:15 35.2 77 18 103/58 (73) 99 Room Air 01/10/22 07:00 68 18 100/61 (74) 99 Room Air 01/10/22 06:45 75 18 100/64 (76) 100 Room Air 01/10/22 06:30 83 18 101/68 (79) 100 Room Air 01/10/22 06:15 64 18 90/52 (65) 100 Room Air 01/10/22 06:00 36.4 78 18 97/50 (66) 100 Room Air 01/10/22 05:45 76 18 97/55 (69) 100 Room Air 01/10/22 05:30 60 18 94/55 (68) 100 Room Air 01/10/22 05:15 36.4 65 18 93/56 (68) 99 Room Air 01/10/22 05:00 36.4 65 18 93/56 (68) 99 Room Air 01/10/22 04:48 36.3 61 18 96/62 (73) 99 Room Air 11/18/22 04:30 62 18 104/60 (75) 100 Room Air 01/10/22 04:15 36.5 66 18 95/52 (66) 99 Room Air 01/10/22 03:58 61 18 98/54 (69) 99 Room Air 01/10/22 03:39 36.5 59 18 103/62 (76) 99 Room Air 01/10/22 03:15 36.4 60 18 99/60 (73) 100 Room Air 01/10/22 03:07 36.6 60 18 96/62 (73) 100 Room Air 01/10/22 02:30 36.6 61 18 97/56 (70) 100 Room Air 01/10/22 02:02 36.6 73 18 103/63 (76) 99 Room Air 01/10/22 01:45 36.6 71 18 101/59 (73) 99 Room Air 01/10/22 01:30 36.6 62 18 97/59 (72) 99 Room Air 01/10/22 01:15 36.3 62 18 102/62 (75) 99 Room Air 01/10/22 01:00 36.3 64 18 103/60 (74) 100 Room Air 01/10/22 00:45 36.3 60 18 110/66 (81) 100 Room Air 01/10/22 00:30 36.4 71 18 111/69 (83) 100 Room Air 01/10/22 00:15 36.4 74 18 107/67 (80) 100 Room Air 01/10/22 00:00 36.4 79 18 109/66 (80) 100 Room Air 01/09/22 23:45 36.4 67 18 111/65 (80) 100 Room Air 01/09/22 23:30 36.4 70 18 111/63 (79) 100 Room Air 01/09/22 23:15 36.4 76 18 111/64 (80) 100 Room Air 01/09/22 23:00 36.4 76 18 111/64 (80) 100 Room Air 01/09/22 22:45 36.4 95 18 106/63 (77) 100 Room Air 01/09/22 22:30 36.4 95 18 106/53 (70) 100 Room Air 01/09/22 22:20 36.4 133 18 111/66 (81) 100 Room Air 01/09/22 22:10 36.4 117 18 107/71 (83) 100 Room Air 01/09/22 22:00 36.5 75 18 123/69 (87) 100 Room Air 01/09/22 21:50 36.5 84 18 125/64 (84) 100 Room Air 01/09/22 21:46 36.5 86 18 122/72 (89) 100 Room Air 01/09/22 21:42 36.5 82 18 123/71 (88) 100 Room Air 01/09/22 21:39 36.5 106 18 108/72 (84) 100 Room Air 01/09/22 21:36 36.5 99 18 94/50 (65) 100 Room Air 01/09/22 21:33 36.5 102 18 125/74 (91) 100 Room Air 01/09/22 21:29 36.5 86 18 128/82 (97) 100 Room Air 01/09/22 21:26 36.5 82 18 123/85 (98) 100 Room Air 01/09/22 21:23 36.5 68 18 122/78 (93) 100 Room Air 01/09/22 21:21 36.5 86 18 127/85 (99) 100 Room Air 01/09/22 21:19 36.5 68 18 125/86 (99) 100 Room Air 01/09/22 18:55 36.5 81 18 121/75 (90) 97 Room Air 01/09/22 18:40 Room Air I & O 01/10/22 07:00 Intake Total 2089 ml Balance 2089 ml Labs Laboratory Tests 01/09/22 19:45: White Blood Count 8.8, Red Blood Count 3.71L, Hemoglobin 10.4L, Hematocrit 32L, Mean Corpuscular Volume 85, Mean Corpuscular Hemoglobin 28, Mean Corpuscular Hemoglobin Concent 33, Red Cell Distribution Width 14.0, Platelet Count 200, Mean Platelet Volume 10.2, Immature Granulocyte % (Auto) 0, Neutrophils (%) (Auto) 63, Lymphocytes (%) (Auto) 31, Monocytes (%) (Auto) 4, Eosinophils (%) (Auto) 1, Basophils (%) (Auto) 0, Neutrophils # (Auto) 5.6, Lymphocytes # (Auto) 2.7, Monocytes # (Auto) 0.4, Eosinophils # (Auto) 0.1, Basophils # (Auto) 0.0, Immature Granulocyte # (Auto) 0.0, Urine Color YELLOW, Urine Clarity CLEAR, Urine pH 6.5, Urine Specific [place] 1.015L, Urine Protein NEGATIVE, Urine Glucose (UA) NEGATIVE, Urine Ketones NEGATIVE, Urine Nitrite NEGATIVE, Urine Bilirubin NEGATIVE, Urine Urobilinogen 0.2, Urine Leukocyte Esterase 1+H, Urine RBC (Auto) NEGATIVE, Urine RBC 0-2, Urine WBC 2-5, Urine Squamous Epithelial Cells 2-5, Urine Crystals NONE, Urine Bacteria FEWH, Urine Casts NONE, Urine Mucus SMALLH, Urine Culture Indicated YES BRITTANI AVELAR MD Jan 10, 2022 14:13
[2022-01-10] MEDS ORDERED: TETANUS,DIPTH,PERTUSS P/F (BOOSTRIX) 0.5 ML VIAL IM ONE (16:00)
[2022-01-10] MEDS ORDERED: ACETAMINOPHEN 500 MG TAB (TYLENOL) PO SCH (16:00)
[2022-01-10] MEDS ORDERED: WITCH HAZEL(TUCKS) 40 EA JAR TOP PRN (16:00)
[2022-01-10] MEDS ORDERED: NALOXONE 0.4 MG/ML 1 ML (NARCAN) VIAL IV PRN (16:00)
[2022-01-10] MEDS ORDERED: BENZOCAINE/MENTHOL (DERMOPLAST) 56 ML CAN TP PRN (16:00)
[2022-01-10] MEDS ORDERED: IBUPROFEN 600 MG (MOTRIN) TAB PO SCH (16:00)
[2022-01-10] MEDS ORDERED: MEASLES,MUMPS,RUBELLA 1 EA INJ SQ ONE (16:00)
[2022-01-10] MEDS: DOCUSATE SODIUM 100 MG (COLACE) CAP PO SCH (21:08)
[2022-01-10] MEDS ORDERED: CATHETER FLUSH 10 ML SYR IV SCH (22:00)
[2022-01-10] MEDS: IBUPROFEN 600 MG (MOTRIN) TAB PO PRN (23:44)
[2022-01-10] MEDS: ACETAMINOPHEN 500 MG TAB (TYLENOL) PO PRN (23:44)
[2022-01-11 00:01] VITALS: BP 109/67
[2022-01-11 04:50] VITALS: BP 116/67
[2022-01-11 05:33] LABS: BASOPHILS % (AUTO) 0 % (0-10); EOSINOPHILS # (AUTO) 0.1 10^3/uL (0.0-0.3); EOSINOPHILS % (AUTO) 1 % (0-10); HEMATOCRIT 25 % (35-52); HEMOGLOBIN 8.2 g/dL (11.5-16.0); LYMPHOCYTES # (AUTO) 2.7 10^3/uL (1.0-4.0); LYMPHOCYTES % (AUTO) 33 % (12-44); MEAN CORPUSCULAR HEMOGLOBIN 28 pg (25-34); MEAN CORPUSCULAR HGB CONC 33 g/dL (32-36); MEAN CORPUSCULAR VOLUME 87 fL (80-99); MEAN PLATELET VOLUME 10.3 fL (9.0-12.2); MONOCYTES # (AUTO) 0.4 10^3/uL (0.0-1.0); MONOCYTES % (AUTO) 4 % (0-12); NEUTROPHILS # (AUTO) 5.1 10^3/uL (1.8-7.8); NEUTROPHILS % (AUTO) 61 % (42-75); PLATELET COUNT 152 10^3/uL (130-400); WHITE BLOOD COUNT 8.3 10^3/uL (4.3-11.0)
[2022-01-11] MEDS: ACETAMINOPHEN 500 MG TAB (TYLENOL) PO PRN ×2 (05:39→12:43)
[2022-01-11] MEDS: IBUPROFEN 600 MG (MOTRIN) TAB PO PRN ×2 (05:39→12:43)
[2022-01-11] MEDS: DOCUSATE SODIUM 100 MG (COLACE) CAP PO SCH (10:20)
[2022-01-11 10:25] VITALS: BP 116/73
[2022-01-11 12:40] VITALS: BP 117/62
[2022-01-11] MEDS ORDERED: DOCU100C37 PO (14:34)
[2022-01-11] MEDS ORDERED: IBUP-844 PO (14:34)
--- NOTE | 2022-01-11 14:34 | Discharge Summary ---
Diagnosis/Chief Complaint Date of Admission Jan 09, 2022 at 19:37 Date of Discharge 01/11/22 Admission Diagnosis Admission Diagnosis Third Trimester 38 week gestation SROM Iron Deficiency anemia Discharge Diagnosis Anemia of acute blood loss Discharge Summary-Simple/Stand Procedures Epidural placement Discharge Physical Examination Allergies: Coded Allergies: No Known Drug Allergies (Unverified , 06/05/08) Vitals & I&Os Vital Sign - Last 12Hours Date Time Temp Pulse Resp B/P (MAP) Pulse Ox O2 Delivery O2 Flow Rate FiO2 01/11/22 04:50 36.4 57 18 116/67 (83) 99 Room Air Intake and Output 01/11/22 00:00 Intake Total 500 ml Balance 500 ml General Appearance: Alert, Oriented X3, No Acute Distress Respiratory: Clear to Auscultation, Normal Air Movement Cardiovascular: Regular Rate, No Murmurs Abdominal: Normal Bowel Sounds, Soft, No Tenderness, Other (fundus firm and below umbilicus) Extremities: No Edema, No Tenderness/Swelling Psych/Mental Status: Mental Status NL, Mood NL Hospital Course See final discharge diagnosis. Discussion & Recommendations 26 yo G6 now P5 delivered term male via @ 38 completed weeks gestation. Mother doing well. Plan to d/c today with [address] Guajardo Discharge Condition at discharge Stable Instructions to patient/family Please see electronic discharge instructions given to patient. Discharge Medications Reviewed and agree with Discharge Medication list on patient's Discharge Instruction sheet ELVIN PETERS MD Jan 11, 2022 14:33
--- NOTE | 2022-01-11 14:35 | Discharge Summary ---
Discharge Inst-[facility] Reconcile Patient Problems Problems Reviewed?: Yes Depart Medications New, Converted or Re-Newed RX: Transmitted to Pharmacy New Medications: Docusate Sodium (Docusate Sodium) 100 Mg Capsule 100 MG PO BID, #14 CAP Ibuprofen (Ibu) 600 Mg Tablet 600 MG PO Q6H PRN for PAIN-MILD (1-4), #60 TAB Continued Medications: Ferrous Sulfate (Ferosul) 325 Mg Tablet 325 MG PO DAILY@0700 for 30 Days, #30 TAB 0 Refills Vit/Iron Fumarate/FA ( Tablet) 1 Each Tablet 1 EACH PO DAILY, TAB Sertraline HCl (Zoloft) 25 Mg Tablet 25 MG PO DAILY, #30 TAB 5 Refills Follow Up/Instructions Goal/Follow Up: 6 week f.u with [facility] Activity Activity: Activity as Tolerated Driving Instructions: You May Drive NO SMOKING: NO SMOKING Nothing Inside Vagina: No Douching, No [place], No Tampons Diet Discharge Diet: No Restrictions Symptoms to Report to DrJohn: Swelling Increased, Bleeding Excessive, Fever Over 101 Degrees F For Any Problems or Questions: Contact Your Physician ELVIN PETERS MD Jan 11, 2022 14:35
== END 2022-01-11 16:30 | disposition home or self-care (01) | DRG 806 ==
LOC: WSo 18:35 → LDRP 18:35 → WSo 19:35 → LDRP 19:37
PROVIDERS: ADMIT Family Medicine; ATTEND Family Medicine
PROC: 10E0XZZ Delivery of Products of Conception, External Approach (ICD-10-PCS; principal; 2022-01-10)
DX: O99.02 Anemia complicating childbirth (principal); D62 Acute posthemorrhagic anemia; Z37.0 Single live birth; O90.81 Anemia of the puerperium; O99.343 Other mental disorders complicating pregnancy, third trimester; F31.9 Bipolar disorder, unspecified; Z3A.38 38 weeks gestation of pregnancy
CPT/HCPCS: 36415; 81000; 85025; 86780; 86850; 86900; 86901; 87088; 99212

== ENCOUNTER 2022-01-17 22:20 | Emergency (ER) | payer MEDICAID ==
[~2022-01-17] VITALS: Ht 165 cm; Wt 61.0 kg
[~2022-01-17 22:20] MED LIST changes: +DOCU100C37 PO
[2022-01-17 22:38] VITALS: BP 118/75
[2022-01-17] MEDS ORDERED: KETOROLAC 30 MG/ML VIAL IVP ONE (22:45)
[2022-01-17] MEDS ORDERED: KETO10TA PO (22:47)
--- NOTE | 2022-01-17 22:48 | ED EENT ---
History of Present Illness General Chief Complaint: Dental Problems/Pain Stated Complaint: DENTAL PAIN Source: patient Exam Limitations: no limitations (ELDON MISHRA APRN) History of Present Illness Date Seen by Provider: Jan 17, 2022 Time Seen by Provider: 22:40 Initial Comments Patient is a previously 26-year-old female who presents to the emergency department with tooth pain that began earlier today. Patient states she has taken ibuprofen and Orajel with minimal relief. Patient states that she is planning on making a dental appointment. Denies any facial swelling or fever. (ELDON MISHRA APRN) Allergies and Home Medications Allergies Coded Allergies: No Known Drug Allergies (Unverified , 06/05/08) Patient Home Medication List Home Medication List Reviewed: Yes (ELDON MISHRA APRN) Docusate Sodium (Docusate Sodium) 100 Mg Capsule, 100 MG PO BID Prescribed by: ELVIN PETERS on 01/11/22 1434 Ferrous Sulfate (Ferosul) 325 Mg Tablet, 325 MG PO DAILY@0700 Prescribed by: BRITTANI AVELAR on 11/10/20 0918 Ibuprofen (Ibu) 600 Mg Tablet, 600 MG PO Q6H PRN for PAIN-MILD (1-4) Prescribed by: ELVIN PETERS on 01/11/22 1434 Ketorolac Tromethamine (Ketorolac Tromethamine) 10 Mg Tablet, 10 MG PO Q6H Prescribed by: Eldon Mishra on 01/17/22 2247 Vit/Iron Fumarate/FA ( Tablet) 1 Each Tablet, 1 EACH PO DAILY, (Reported) Entered as Reported by: BO AYALA on 07/20/20 1831 Sertraline HCl (Zoloft) 25 Mg Tablet, 25 MG PO DAILY Prescribed by: BRITTANI AVELAR on 01/05/18 0744 Review of Systems Review of Systems Constitutional: no symptoms reported Eyes: No Symptoms Reported Ears: No Symptoms Reported Nose: no symptoms reported Mouth: see HPI, pain Throat: no symptoms reported Respiratory: no symptoms reported Cardiovascular: no symptoms reported Gastrointestinal: no symptoms reported Musculoskeletal: no symptoms reported Skin: no symptoms reported Neurological: No Symptoms Reported (ELDON MISHRA APRN) Past Vethigf-Lyawzd-Zqznzf Hx Patient Social History Tobacco Use?: No Use of E-Cig and/or Vaping dev: No Substance use?: No Alcohol Use?: No Pt feels they are or have been: No (ELDON MISHRA APRN) Immunizations Up To Date Tetanus Booster (TDap): Less than 5yrs PED Vaccines UTD: Yes First/Initial COVID19 Vaccinat: 09/26/2020 Second COVID19 Vaccination Casey: 10/23/2020 (ELDON MISHRA APRN) Seasonal Allergies Seasonal Allergies: Yes (ELDON MISHRA APRN) Past Medical History Surgery/Hospitalization HX: T&A DEPRESSION Surgeries: Yes (D&c) Tonsillectomy Respiratory: No Cardiac: No Neurological: No Reproductive Disorders: No Female Reproductive Disorders: Denies Sexually Transmitted Disease: No HIV/AIDS: No Genitourinary: No Gastrointestinal: Yes Chronic Constipation Musculoskeletal: No Endocrine: No HEENT: No Cancer: No Psychosocial: Yes Suicide Attempts, Bipolar, Depression Integumentary: No Blood Disorders: No Adverse Reaction/Blood Tranf: No (ELDON MISHRA APRN) Family Medical History Alcoholism 19 FATHER (PGF) Drug abuse 19 MOTHER FH: bipolar disorder 19 FATHER FH: depression 19 FATHER 19 MOTHER Hypercholesterolemia 19 FATHER Hypertension 19 FATHER No Family History of: Abdominal aortic aneurysm Chesterton's disease Aphasia Cancer Cancer of colon Cataract Chest pain Congenital heart disease Congestive heart failure Cystic fibrosis Dementia Dysphagia Family history: Allergy Family history: Alzheimer's disease Family history: Arthritis Family history: Asthma Family history: Breast disease Family history: Cardiovascular disease Family history: Coronary thrombosis Family history: Diabetes mellitus Family history: Gastrointestinal disease Family history: Glaucoma Family history: Hypertension Family history: Osteoporosis Family history: Thyroid disorder Headache Hearing loss Heart disease Hereditary disease History of - anemia History of - disorder History of - respiratory disease History of drug abuse Human immunodeficiency virus (HIV) seropositivity Hypercholesterolemia Infertile Kidney disease Malignant neoplasm of lung Myocardial infarction Parkinson's disease Prostate cancer Psychotic disorder Seizure disorder Stroke Tuberculosis Visual impairment No Pertinent Family Hx, Psychiatric Problems (ELDON MISHRA APRN) Physical Exam Vital Signs Vital Signs - First Documented 01/17/22 22:38 Temp 36.7 Pulse 79 Resp 20 B/P (MAP) 118/75 (89) Pulse Ox 97 O2 Delivery Room Air (ALISHABLAIR K DO) Height, Weight, BMI Height: 5'5.00" Weight: 144lbs. 0oz. [id number]; 27.07 BMI Method:Actual General Appearance: WD/WN, no apparent distress Neck: non-tender, full range of motion, supple, normal inspection Cardiovascular: regular rate, rhythm Respiratory: chest non-tender, lungs clear, normal breath sounds, no respiratory distress, no accessory muscle use Neurologic/Psychiatric: no motor/sensory deficits, alert, normal mood/affect, oriented x 3 Skin: normal color, warm/dry (ELDON MISHRA APRN) Progress/Results/Core Measures Results/Orders Medications Given in ED Current Medications Medications Dose Ordered Sig/Noa Route Start Time Stop Time Status Last Admin Dose Admin Ketorolac Tromethamine 30 mg ONCE ONCE IVP 01/17/22 22:45 01/17/22 22:46 DC 01/17/22 22:51 30 MG (BLAIR BRITO DO) Vital Signs/I&O 01/17/22 22:38 Temp 36.7 Pulse 79 Resp 20 B/P (MAP) 118/75 (89) Pulse Ox 97 O2 Delivery Room Air (BLAIR BRITO DO) Progress Progress Note : Progress Note Patient is nontoxic and well-hydrated on exam. One remaining left upper molar w ith severe decay. Tooth also appears fractured. Patient given an IM dose of ketorolac. Discussed importance of follow-up with dental provider for definitive care. Return precautions for symptomology discussed. Patient verbalized understanding. (ELDON MISHRA APRN) Departure Impression Primary Impression: Tooth pain Disposition: 01 HOME, SELF-CARE Condition: Stable Departure-Patient Inst. Decision time for Depature: 22:45 (ELDON MISHRA APRN) Referrals: BRITTANI AVELAR MD (PCP/Family) Primary Care Physician Patient Instructions: Dental Pain (DC) Scripts Ketorolac Tromethamine (Ketorolac Tromethamine) 10 Mg Tablet 10 MG PO Q6H for 5 Days, #20 TAB 0 Refills Prov: ELDON MISHRA APRN 01/17/22 ATTENDING PHYSICIAN NOTE: I WAS PHYSICALLY PRESENT ER PHYSICIAN, BUT I WAS NOT INVOLVED IN ANY DECISION MAKING OR ANY CARE OF THIS PATIENT, AND I AM NOT COLLABORATING PHYSICIAN. (BLAIR BRITO DO) ELDON MISHRA APRN Jan 17, 2022 22:48 BLAIR BRITO DO Jan 18, 2022 04:14
== END 2022-01-17 22:55 | disposition home or self-care (01) ==
LOC: EDUNIT# 22:20 → ER 22:22
DX: K08.89 Other specified disorders of teeth and supporting structures (principal)
CPT/HCPCS: 99284

== ENCOUNTER 2022-08-22 18:03 | Emergency (ER) | payer MEDICAID ==
[~2022-08-22] VITALS: Ht 165 cm; Wt 65.0 kg
[~2022-08-22 18:03] MED LIST changes: +KETO10TA PO
--- NOTE | 2022-08-22 18:29 | ED Abdominal Pain ---
General Chief Complaint: Abdominal/GI Problems Stated Complaint: LOWER ABD/BACK PAIN Nursing Triage Note: ARRIVED VIA AMB TO ROOM 06 WITH COMPLAINTS OF LOWER BACK AND ABD PAIN. STATES SHE WAS HAVING SEX WITH A NEW PARTNER 3 DAYS AGO AND HAD SEVERE PAIN DURING SEX THEN GUSHED BLOOD AFTER AND HAS HURT SINCE. ALSO STATES IT HURTS TO PEE. Source of Information: Patient Exam Limitations: No Limitations History of Present Illness Date Seen by Provider: Aug 22, 2022 Time Seen by Provider: 18:14 Initial Comments 27-year-old female presents to the ER with complaints of lower abdominal pain starting 3 days ago. She states that she was having intercourse with a new partner for the first time 3 days ago and had a sudden gush of vaginal bleeding during intercourse. She states that the pain started at this time. She comp lains of pain across her entire lower abdomen and lower back. Reports she currently has small amount of vaginal bleeding. Reports increased abdominal pain with urination. Denies dysuria. Denies fevers, nausea, vomiting. Last bowel movement was today, states her bowels consist of small hard balls. She has not had any abdominal surgeries. She is G6, P5. Last normal menstrual cycle was 1 week ago. Allergies and Home Medications Allergies Coded Allergies: No Known Drug Allergies (Unverified , 06/05/08) Patient Home Medication List Home Medication List Reviewed: Yes Docusate Sodium (Docusate Sodium) 100 Mg Capsule, 100 MG PO BID Prescribed by: ELVIN PETERS on 01/11/22 1434 Doxycycline Hyclate (Doxycycline Hyclate) 100 Mg Capsule, 100 MG PO BID Prescribed by: Libby Hollingsworth on 08/22/22 2204 Ferrous Sulfate (Ferosul) 325 Mg Tablet, 325 MG PO DAILY@0700 Prescribed by: BRITTANI AVELAR on 11/10/20 0918 Ibuprofen (Ibu) 600 Mg Tablet, 600 MG PO Q6H PRN for PAIN-MILD (1-4) Prescribed by: ELVIN PETERS on 01/11/22 1434 Ketorolac Tromethamine (Ketorolac Tromethamine) 10 Mg Tablet, 10 MG PO Q6H Prescribed by: Eldon Mishra on 01/17/22 2247 Vit/Iron Fumarate/FA ( Tablet) 1 Each Tablet, 1 EACH PO DAILY, (Reported) Entered as Reported by: BO AYALA on 07/20/20 1831 Sertraline HCl (Zoloft) 25 Mg Tablet, 25 MG PO DAILY Prescribed by: BRITTANI AVELAR on 01/05/18 0744 Review of Systems Review of Systems Constitutional: see HPI Past Kfwbfmc-Hvfisl-Hufput Hx Patient Social History Tobacco Use?: No Substance use?: Yes Substance type: Marijuana Alcohol Use?: Yes Alcohol Frequency: Once in a while Immunizations Up To Date Tetanus Booster (TDap): Less than 5yrs PED Vaccines UTD: Yes First/Initial COVID19 Vaccinat: 09/26/2020 Second COVID19 Vaccination Casey: 10/23/2020 Seasonal Allergies Seasonal Allergies: Yes Past Medical History Surgery/Hospitalization HX: T&A DEPRESSION Surgeries: Yes (D&c) Tonsillectomy Respiratory: No Cardiac: No Neurological: No Reproductive Disorders: No Female Reproductive Disorders: Denies Sexually Transmitted Disease: No HIV/AIDS: No Genitourinary: No Gastrointestinal: Yes Chronic Constipation Musculoskeletal: No Endocrine: No HEENT: No Cancer: No Psychosocial: Yes Suicide Attempts, Bipolar, Depression Integumentary: No Blood Disorders: No Adverse Reaction/Blood Tranf: No Family Medical History Alcoholism 19 FATHER (PGF) Drug abuse 19 MOTHER FH: bipolar disorder 19 FATHER FH: depression 19 FATHER 19 MOTHER Hypercholesterolemia 19 FATHER Hypertension 19 FATHER No Family History of: Abdominal aortic aneurysm Carlton's disease Aphasia Cancer Cancer of colon Cataract Chest pain Congenital heart disease Congestive heart failure Cystic fibrosis Dementia Dysphagia Family history: Allergy Family history: Alzheimer's disease Family history: Arthritis Family history: Asthma Family history: Breast disease Family history: Cardiovascular disease Family history: Coronary thrombosis Family history: Diabetes mellitus Family history: Gastrointestinal disease Family history: Glaucoma Family history: Hypertension Family history: Osteoporosis Family history: Thyroid disorder Headache Hearing loss Heart disease Hereditary disease History of - anemia History of - disorder History of - respiratory disease History of drug abuse Human immunodeficiency virus (HIV) seropositivity Hypercholesterolemia Infertile Kidney disease Malignant neoplasm of lung Myocardial infarction Parkinson's disease Prostate cancer Psychotic disorder Seizure disorder Stroke Tuberculosis Visual impairment No Pertinent Family Hx, Psychiatric Problems Physical Exam Vital Signs Vital Signs - First Documented 08/22/22 18:18 Temp 37.3 Pulse 122 Resp 16 B/P (MAP) 115/81 (92) Pulse Ox 97 O2 Delivery Room Air Capillary Refill : Less Than 3 Seconds Height/Weight/BMI Height: 5'5.00" Weight: 144lbs. 0oz. 65.240129cd; 23.00 BMI Method:Actual General Appearance: WD/WN, no apparent distress Neck: supple, normal inspection Respiratory: lungs clear, normal breath sounds, no respiratory distress, no accessory muscle use Cardiovascular: tachycardia Gastrointestinal: normal bowel sounds, soft, tenderness (Mild tenderness bilateral lower quadrants and mid lower) Genital/Rectal: other (Large amount of green vaginal discharge, irritation to cervix, tenderness with cervical motion) Extremities: normal range of motion, normal inspection Neurologic/Psychiatric: alert, normal mood/affect Skin: normal color, warm/dry Progress/Results/Core Measures Results/Orders Lab Results Laboratory Tests Test 08/22/22 18:50 08/22/22 20:45 Range/Units White Blood Count 9.7 4.3-11.0 10^3/uL Red Blood Count 4.32 3.80-5.11 10^6/uL Hemoglobin 11.9 11.5-16.0 g/dL Hematocrit 36 35-52 % Mean Corpuscular Volume 84 80-99 fL Mean Corpuscular Hemoglobin 28 25-34 pg Mean Corpuscular Hemoglobin Concent 33 32-36 g/dL Red Cell Distribution Width 15.0 H 10.0-14.5 % Platelet Count 301 130-400 10^3/uL Mean Platelet Volume 10.4 9.0-12.2 fL Immature Granulocyte % (Auto) 0 % Neutrophils (%) (Auto) 76 H 42-75 % Lymphocytes (%) (Auto) 17 12-44 % Monocytes (%) (Auto) 6 0-12 % Eosinophils (%) (Auto) 1 0-10 % Basophils (%) (Auto) 0 0-10 % Neutrophils # (Auto) 7.4 1.8-7.8 10^3/uL Lymphocytes # (Auto) 1.6 1.0-4.0 10^3/uL Monocytes # (Auto) 0.6 0.0-1.0 10^3/uL Eosinophils # (Auto) 0.1 0.0-0.3 10^3/uL Basophils # (Auto) 0.0 0.0-0.1 10^3/uL Immature Granulocyte # (Auto) 0.0 0.0-0.1 10^3/uL Urine Color YELLOW Urine Clarity CLEAR Urine pH 6.0 5-9 Urine Specific Paragon >=1.030 1.016-1.022 Urine Protein 1+ H NEGATIVE Urine Glucose (UA) NEGATIVE NEGATIVE Urine Ketones NEGATIVE NEGATIVE Urine Nitrite NEGATIVE NEGATIVE Urine Bilirubin 1+ H NEGATIVE Urine Urobilinogen 2.0 < = 1.0 MG/DL Urine Leukocyte Esterase TRACE H NEGATIVE Urine RBC (Auto) NEGATIVE NEGATIVE Urine RBC NONE /HPF Urine WBC 0-2 /HPF Urine Squamous Epithelial Cells 2-5 /HPF Urine Crystals NONE /LPF Urine Bacteria MODERATE H /HPF Urine Casts NONE /LPF Urine Mucus LARGE H /LPF Urine Culture Indicated YES Sodium Level 139 135-145 MMOL/L Potassium Level 3.2 L 3.6-5.0 MMOL/L Chloride Level 105 98-107 MMOL/L Carbon Dioxide Level 23 21-32 MMOL/L Anion Gap 11 5-14 MMOL/L Blood Urea Nitrogen 9 7-18 MG/DL Creatinine 0.75 0.60-1.30 MG/DL Estimat Glomerular Filtration Rate 111 BUN/Creatinine Ratio 12 Glucose Level 114 H 70-105 MG/DL Calcium Level 9.2 8.5-10.1 MG/DL Corrected Calcium 9.0 8.5-10.1 MG/DL Total Bilirubin 0.4 0.1-1.0 MG/DL Aspartate Amino Transf (AST/SGOT) 10 5-34 U/L Alanine Aminotransferase (ALT/SGPT) 12 0-55 U/L Alkaline Phosphatase 59 40-136 U/L C-Reactive Protein High Sensitivity 19.06 H 0.00-0.50 MG/DL Total Protein 7.1 6.4-8.2 GM/DL Albumin 4.3 3.2-4.5 GM/DL My Orders Orders - LIBBY HOLLINGSWORTH CERTIFIED MEDICAL DOSIMETRIST Ua Culture If Indicated (08/22/22 18:13) Urine Bedside (08/22/22 18:13) Comprehensive Metabolic Panel (08/22/22 18:24) Ed Iv/Invasive Line Start (08/22/22 18:24) Cbc With Automated Diff (08/22/22 18:24) Ns Iv 1000 Ml (Sodium Chloride 0.9%) (08/22/22 18:30) Ketorolac Injection (Toradol Injection) (08/22/22 19:15) Hs C Reactive Protein (08/22/22 19:20) Urine Culture (08/22/22 18:50) Ct Abdomen/Pelvis W (08/22/22 19:58) Iohexol Injection (Omnipaque 350 Mg/Ml 1 (08/22/22 20:15) Received Contrast (Hold Metformin- Contr (08/22/22 20:15) Ns (Ivpb) (Sodium Chloride 0.9% Ivpb Bag (08/22/22 20:15) Wet Prep (08/22/22 20:46) Neisseria Gonorrhea Swab (08/22/22 20:46) Chlamydia Trachomatis Swab (08/22/22 20:46) Ceftriaxone Inj (Rocephin Inj) (08/22/22 22:00) Lidocaine 1% Inj 20 Ml (Xylocaine 1% Inj (08/22/22 22:00) Doxycycline Hyclate Tablet (Vibramycin T (08/22/22 22:00) Medications Given in ED Current Medications Medications Dose Ordered Sig/Noa Route Start Time Stop Time Status Last Admin Dose Admin Ceftriaxone Sodium 500 mg ONCE ONCE IM 08/22/22 22:00 08/22/22 22:01 DC 08/22/22 22:00 500 MG Doxycycline Hyclate 100 mg ONCE ONCE PO 08/22/22 22:00 08/22/22 22:01 DC 08/22/22 22:00 100 MG Iohexol 100 ml ONCE ONCE IV 08/22/22 20:15 08/22/22 20:16 DC 08/22/22 20:23 59 ML Ketorolac Tromethamine 15 mg ONCE ONCE IVP 08/22/22 19:15 08/22/22 19:16 DC 08/22/22 19:22 15 MG Lidocaine HCl 1 ml ONCE ONCE INJ 08/22/22 22:00 08/22/22 22:01 DC 08/22/22 22:00 1 ML Sodium Chloride 100 ml ONCE ONCE IV 08/22/22 20:15 08/22/22 20:16 DC 08/22/22 20:23 80 ML Vital Signs/I&O 08/22/22 08/22/22 18:18 22:23 Temp 37.3 Pulse 122 Resp 16 B/P (MAP) 115/81 (92) 110/85 Pulse Ox 97 O2 Delivery Room Air Blood Pressure Mean: 92 Progress Progress Note : Progress Note Patient seen and evaluated, resting comfortably in bed, no acute distress. Based on exam and symptoms, work-up initiated including CBC, CMP, UA, urine p regnancy. IV fluids ordered for tachycardia. 1957 labs reviewed. CBC grossly normal. CMP shows decreased potassium 3.2. CRP elevated 19.06. Urinalysis shows 1+ protein, 1+ bilirubin, trace leukocytes, 0- 2 WBCs, 2-5 squamous epithelial cells, moderate bacteria. CT abdomen pelvis ordered due to significantly elevated CRP. Will replace potassium orally if CT abdomen pelvis is normal. 2045 pelvic exam completed. Large amount of green discharge noted. No vaginal bleeding noted. Cervix is irritated, patient has tenderness with cervical motion. Sample sent for wet prep and gonorrhea and Chlamydia testing. 2109 CT abdomen pelvis reviewed, negative for acute abnormality. 2203 wet prep positive for WBCs, negative for trichomonas, clue cells, and yeast. Patient's heart rate improved after IV fluids. Results discussed with patient. I am going to treat patient for pelvic inflammatory disease. Rocephin and first dose of Doxy ordered for here. Discharge instructions and return precautions provided. Diagnostic Imaging Diagonstic Imaging: CT Plain Films/CT/US/NM/MRI: abdomen, pelvis Comments [facility]. [place], [place] NAME: [facility] REC#: [id number] PT STATUS: REG ER : 1995 PHYSICIAN: LIBBY HOLLINGSWORTH APRN ADMIT DATE: 08/22/22/ER Draft Date of Exam:08/22/22 CT ABDOMEN/PELVIS W PROCEDURE: CT abdomen and pelvis with contrast. TECHNIQUE: Multiple contiguous axial images were obtained through the abdomen and pelvis after administration of intravenous contrast. Auto Exposure Controls were utilized during the CT exam to meet ALARA standards for radiation dose reduction. All CT scans use one or more of the following dose optimizing techniques: automated exposure control, MA and/or KvP adjustment based on patient size and exam type or iterative reconstruction. INDICATION: Lower abdominal pain. FINDINGS: Lung bases are clear. Liver appears normal. Gallbladder is normal. Pancreas is normal. Spleen is not enlarged. Adrenals are normal. Kidneys are normal. Small bowel is not dilated. The appendix is not seen. There is no secondary signs of appendicitis. Uterus appears normal. Urinary bladder is decompressed. There is a trace amount of free fluid in the cul-de-sac. Adnexa are unremarkable. IMPRESSION: Unremarkable CT abdomen and pelvis. Dictated on workstation # [id number] Dict: 08/22/222033 Trans: 08/22/222044 PJE [id number] Interpreted by: KELLIE KHAN MD Electronically signed by: Departure Impression Primary Impression: Pelvic inflammatory disease Additional Impression: Sexually transmitted infection Disposition: HOME, SELF-CARE Condition: Stable Departure-Patient Inst. Decision time for Depature: 22:02 Referrals: BRITTANI AVELAR MD (PCP/Family) Primary Care Physician Patient Instructions: Sexually-Transmitted Diseases (DC), Pelvic Inflammatory Disease ED Add. Discharge Instructions: Complete full course of antibiotic as directed, do not stop taking even if you begin to feel better. All of your partners need to be tested and treated. You need to abstain from sex for at least 7 days. Follow-up with your primary care provider next week. Return to the ER for fever greater than 100.4, worsening or uncontrolled pain, rashes, sores, vomiting, or any other new, concerning, or worsening symptoms. All discharge instructions reviewed with patient and/or family. Voiced understanding. Scripts Doxycycline Hyclate (Doxycycline Hyclate) 100 Mg Capsule 100 MG PO BID for 14 Days, #28 CAP 0 Refills Prov: LIBBY HOLLINGSWORTH APRN 08/22/22 LIBBY HOLLINGSWORTH APRN Aug 22, 2022 18:29
[2022-08-22] MEDS ORDERED: NS IV 1000 ML 1,000 ML IV SCH (18:30)
[2022-08-22 19:03] LABS: BASOPHILS % (AUTO) 0 % (0-10); EOSINOPHILS # (AUTO) 0.1 10^3/uL (0.0-0.3); EOSINOPHILS % (AUTO) 1 % (0-10); HEMATOCRIT 36 % (35-52); HEMOGLOBIN 11.9 g/dL (11.5-16.0); LYMPHOCYTES # (AUTO) 1.6 10^3/uL (1.0-4.0); LYMPHOCYTES % (AUTO) 17 % (12-44); MEAN CORPUSCULAR HEMOGLOBIN 28 pg (25-34); MEAN CORPUSCULAR HGB CONC 33 g/dL (32-36); MEAN CORPUSCULAR VOLUME 84 fL (80-99); MEAN PLATELET VOLUME 10.4 fL (9.0-12.2); MONOCYTES # (AUTO) 0.6 10^3/uL (0.0-1.0); MONOCYTES % (AUTO) 6 % (0-12); NEUTROPHILS # (AUTO) 7.4 10^3/uL (1.8-7.8); NEUTROPHILS % (AUTO) 76 % (42-75); PLATELET COUNT 301 10^3/uL (130-400); WHITE BLOOD COUNT 9.7 10^3/uL (4.3-11.0)
[2022-08-22 19:11] LABS: BILIRUBIN,URINE 1+ (NEGATIVE); CLARITY,URINE CLEAR; COLOR,URINE YELLOW; GLUCOSE, URINE (UA) NEGATIVE (NEGATIVE); KETONES,URINE NEGATIVE (NEGATIVE); LEUKOCYTE ESTERASE ,URINE TRACE (NEGATIVE); NITRITE,URINE NEGATIVE (NEGATIVE); PROTEIN,URINE 1+ (NEGATIVE)
[2022-08-22] MEDS ORDERED: KETOROLAC 15 MG/ML VIAL IVP ONE (19:15)
[2022-08-22 19:22] LABS: BACTERIA,URINE MODERATE /HPF; WBC,URINE 0-2 /HPF
[2022-08-22 19:43] LABS: ALBUMIN 4.3 GM/DL (3.2-4.5); BILIRUBIN,TOTAL 0.4 MG/DL (0.1-1.0); CALCIUM 9.2 MG/DL (8.5-10.1); CREATININE SERUM 0.75 MG/DL (0.60-1.30); POTASSIUM 3.2 MMOL/L (3.6-5.0); TOTAL PROTEIN 7.1 GM/DL (6.4-8.2)
[2022-08-22] MEDS ORDERED: HOLD METFORMIN - RECEIVED CONTRAST 20 ML VIAL IV SCH (20:15)
[2022-08-22] MEDS ORDERED: IOHEXOL 350 MG/ML 100 ML (OMNIPAQUE 350) VIAL IV ONE (20:15)
[2022-08-22] MEDS ORDERED: NS 100 ML (IVPB) BAG IV ONE (20:15)
--- NOTE | 2022-08-22 20:46 | Diagnostic Imaging Report ---
PROCEDURE: CT abdomen and pelvis with contrast. TECHNIQUE: Multiple contiguous axial images were obtained through the abdomen and pelvis after administration of intravenous contrast. Auto Exposure Controls were utilized during the CT exam to meet ALARA standards for radiation dose reduction. All CT scans use one or more of the following dose optimizing techniques: automated exposure control, MA and/or KvP adjustment based on patient size and exam type or iterative reconstruction. INDICATION: Lower abdominal pain. FINDINGS: Lung bases are clear. Liver appears normal. Gallbladder is normal. Pancreas is normal. Spleen is not enlarged. Adrenals are normal. Kidneys are normal. Small bowel is not dilated. The appendix is not seen. There is no secondary signs of appendicitis. Uterus appears normal. Urinary bladder is decompressed. There is a trace amount of free fluid in the cul-de-sac. Adnexa are unremarkable. IMPRESSION: Unremarkable CT abdomen and pelvis. Dictated by: Dictated on workstation # [id number]
[2022-08-22] MEDS ORDERED: LIDOCAINE 1% INJ 20 ML VIAL INJ ONE (22:00)
[2022-08-22] MEDS ORDERED: cefTRIAXone 500 MG/5 ML ML IM ONE (22:00)
[2022-08-22] MEDS ORDERED: DOXYCYCLINE 100 MG (VIBRAMYCIN) TABLET PO ONE (22:00)
[2022-08-22] MEDS ORDERED: DOXY100C5 PO (22:04)
[2022-08-22 22:23] VITALS: BP 110/85
== END 2022-08-22 22:23 | disposition home or self-care (01) ==
LOC: EDUNIT# 18:03 → ER 18:05
DX: N73.9 Female pelvic inflammatory disease, unspecified (principal); A64 Unspecified sexually transmitted disease
CPT/HCPCS: 36415; 74177; 80053; 81000; 84703; 85025; 86141; 87077; 87088; 87210; 87491; 87591

== ENCOUNTER 2022-09-10 12:37 | Emergency (ER) | payer MEDICAID ==
[~2022-09-10] VITALS: Ht 165 cm; Wt 66.0 kg
[~2022-09-10 12:37] MED LIST changes: +DOXY100C5 PO
[2022-09-10] MEDS ORDERED: LIDOCAINE 1% INJ 20 ML VIAL INJ ONE (12:45)
--- NOTE | 2022-09-10 12:47 | ED Integumentary General ---
General Chief Complaint: Laceration Stated Complaint: RT HAND LACERATION Nursing Triage Note: PT AMB T0 ROOM 6 PT STATES HAS LAC TO R HAND, CUT HAND WHEN WASHING DISHES AND GLASS BROKE Source: patient Exam Limitations: no limitations History of Present Illness Date Seen by Provider: Sep 10, 2022 Time Seen by Provider: 12:40 Initial Comments 27-year-old female presents to the ER with laceration to right hand. States she was washing dishes approximately 30 minutes prior to arrival and a glass broke which cut her hand. Allergies and Home Medications Allergies Coded Allergies: No Known Drug Allergies (Unverified , 06/05/08) Patient Home Medication List Home Medication List Reviewed: Yes Docusate Sodium (Docusate Sodium) 100 Mg Capsule, 100 MG PO BID Prescribed by: ELVIN PETERS on 01/11/22 1434 Doxycycline Hyclate (Doxycycline Hyclate) 100 Mg Capsule, 100 MG PO BID Prescribed by: Libby De Souza on 08/22/22 2204 Ferrous Sulfate (Ferosul) 325 Mg Tablet, 325 MG PO DAILY@0700 Prescribed by: BRITTANI AVELAR on 11/10/20 0918 Ibuprofen (Ibu) 600 Mg Tablet, 600 MG PO Q6H PRN for PAIN-MILD (1-4) Prescribed by: ELVIN PETERS on 01/11/22 1434 Ketorolac Tromethamine (Ketorolac Tromethamine) 10 Mg Tablet, 10 MG PO Q6H Prescribed by: Eldon Mishra on 01/17/22 2247 Vit/Iron Fumarate/FA ( Tablet) 1 Each Tablet, 1 EACH PO DAILY, (Reported) Entered as Reported by: BO AYALA on 07/20/20 1831 Sertraline HCl (Zoloft) 25 Mg Tablet, 25 MG PO DAILY Prescribed by: BRITTANI AVELAR on 01/05/18 0744 Review of Systems Review of Systems Constitutional: see HPI Skin: other (Laceration) Past [id number] Hx Immunizations Up To Date Tetanus Booster (TDap): Less than 5yrs PED Vaccines UTD: Yes First/Initial COVID19 Vaccinat: 09/26/2020 Second COVID19 Vaccination Casey: 10/23/2020 Seasonal Allergies Seasonal Allergies: Yes Past Medical History Surgery/Hospitalization HX: T&A DEPRESSION Surgeries: Yes (D&c) Tonsillectomy Respiratory: No Cardiac: No Neurological: No Reproductive Disorders: No Female Reproductive Disorders: Denies Sexually Transmitted Disease: No HIV/AIDS: No Genitourinary: No Gastrointestinal: Yes Chronic Constipation Musculoskeletal: No Endocrine: No HEENT: No Cancer: No Psychosocial: Yes Suicide Attempts, Bipolar, Depression Integumentary: No Blood Disorders: No Adverse Reaction/Blood Tranf: No Family Medical History Alcoholism 19 FATHER (PGF) Drug abuse 19 MOTHER FH: bipolar disorder 19 FATHER FH: depression 19 FATHER 19 MOTHER Hypercholesterolemia 19 FATHER Hypertension 19 FATHER No Family History of: Abdominal aortic aneurysm Vinton's disease Aphasia Cancer Cancer of colon Cataract Chest pain Congenital heart disease Congestive heart failure Cystic fibrosis Dementia Dysphagia Family history: Allergy Family history: Alzheimer's disease Family history: Arthritis Family history: Asthma Family history: Breast disease Family history: Cardiovascular disease Family history: Coronary thrombosis Family history: Diabetes mellitus Family history: Gastrointestinal disease Family history: Glaucoma Family history: Hypertension Family history: Osteoporosis Family history: Thyroid disorder Headache Hearing loss Heart disease Hereditary disease History of - anemia History of - disorder History of - respiratory disease History of drug abuse Human immunodeficiency virus (HIV) seropositivity Hypercholesterolemia Infertile Kidney disease Malignant neoplasm of lung Myocardial infarction Parkinson's disease Prostate cancer Psychotic disorder Seizure disorder Stroke Tuberculosis Visual impairment No Pertinent Family Hx, Psychiatric Problems Physical Exam Vital Signs Vital Signs - First Documented 09/10/22 09/10/22 12:40 13:35 Temp 37.0 Pulse 64 Resp 18 B/P (MAP) 112/77 (89) Pulse Ox 97 O2 Delivery Room Air Capillary Refill : Less Than 3 Seconds General Appearance: WD/WN, no apparent distress Neck: supple, normal inspection Cardiovascular: regular rate, rhythm Respiratory: lungs clear, normal breath sounds, no respiratory distress, no accessory muscle use Extremities: normal range of motion Neurologic/Psychiatric: alert, normal mood/affect Skin: normal color, other (Laceration) Skin Problem Location: upper extremities (Right hand) Skin Problem Character: other (Laceration) Procedures/Interventions Wound Location: Upper Extremities Other Wound Location Right hand between thumb and index finger closer to first knuckle of index finger Wound Length (cm): 2.5 Wound's Depth, Shape: flap Wound Explored: clean Irrigated w/ Saline (ccs): 250 Volume Anesthetic (ccs): 3 Wound Debrided: minimal Suture: Ethlion Suture Size: 5-0 Number of Sutures: 10 Progress/Results/Core Measures Results/Orders My Orders Orders - LIBBY CANTU APRN Lidocaine 1% Inj 20 Ml (Xylocaine 1% Inj (09/10/22 12:45) Ondansetron Oral Dissolve Tab (Zofran (09/10/22 13:00) Medications Given in ED Current Medications Medications Dose Ordered Sig/Noa Route Start Time Stop Time Status Last Admin Dose Admin Lidocaine HCl 20 ml ONCE ONCE INJ 09/10/22 12:45 09/10/22 12:46 DC 09/10/22 12:58 20 ML Ondansetron HCl 4 mg ONCE ONCE PO 09/10/22 13:00 09/10/22 13:01 DC 09/10/22 12:58 4 MG Vital Signs/I&O 09/10/22 09/10/22 12:40 13:35 Temp 37.0 Pulse 64 58 Resp 18 18 B/P (MAP) 112/77 (89) 108/65 Pulse Ox 97 98 O2 Delivery Room Air Blood Pressure Mean: 89 Progress Progress Note : Progress Note Patient seen and evaluated, resting comfortably in bed, no acute distress. Laceration will need to be repaired. 1321 laceration repaired, see procedure note. Discharge instructions and return precautions provided. Departure Impression Primary Impression: Laceration Disposition: HOME, SELF-CARE Condition: Stable Departure-Patient Inst. Decision time for Depature: 13:23 Referrals: BRITTANI AVELAR MD (PCP/Family) Primary Care Physician Patient Instructions: Laceration Repair With Stitches (DC) Add. Discharge Instructions: Keep your hand clean and dry, you may wash it with soap and water, let water run over it, do not scrub, do not soak hand. You may apply Neosporin twice a day to help prevent infection and to reduce scarring. Return in 7 to 10 days to have the sutures removed. Return for signs of infection including redness, swelling, discolored, odorous drainage, or any other new, concerning, or worsening symptoms. All discharge instructions reviewed with patient and/or family. Voiced understanding. LIBBY CANTU APRN Sep 10, 2022 12:47
[2022-09-10] MEDS ORDERED: ONDANSETRON 4 MG (ZOFRAN) ORAL DISSOLVE TAB PO ONE (13:00)
[2022-09-10 13:35] VITALS: BP 108/65
== END 2022-09-10 13:38 | disposition home or self-care (01) ==
LOC: EDUNIT# 12:37 → ER 12:38
DX: S61.411A Laceration without foreign body of right hand, initial encounter (principal); W25.XXXA Contact with sharp glass, initial encounter; Y93.G1 Activity, food preparation and clean up
CPT/HCPCS: 12002